=== PATIENT | male | born 1980 | race Caucasian/White ===

== ENCOUNTER 2017-10-04 10:48 | Emergency (ER) | payer MEDICARE, OTHER ==
[~2017-10-04] VITALS: Ht 172.7 cm; Wt 140.0 kg
[~2017-10-04 10:48] MED LIST: BENZ2TAB58 PO; CIPR-278 PO; FLUP10 PO; LEVO300T4 PO; METO50 PO; QUET100T PO; TRAZ-144 PO
[2017-10-04 14:08] LABS: ANION GAP 6 mmol/L (8-16); CALCIUM, TOTAL 9.3 mg/dL (8.8-10.5); CARBON DIOXIDE 32 mmol/L (22-29); CHLORIDE 101 mmol/L (98-107); CREATININE 0.86 mg/dL (0.60-1.30); GLOMERULAR FILTR. RATE CALC > 60 mL/min (>60); GLUCOSE,RANDOM 89 mg/dL (70-110); POTASSIUM 4.2 mmol/L (3.5-5.1); SODIUM SERUM 139 mmol/L (136-145); UREA NITROGEN, BLOOD 10 mg/dL (7-18)
[2017-10-04 14:09] LABS: BASOPHILS # (AUTO) 0.08 K/uL (0.00-0.20); BASOPHILS % (AUTO) 1.1 % (0.0-2.0); EOSINOPHILS # (AUTO) 0.33 K/uL (0.00-0.70); EOSINOPHILS % (AUTO) 4.79 % (1.0-6.0); HEMATOCRIT 47.6 % (41-53); HEMOGLOBIN 15.6 g/dL (13.5-17.5); LYMPHOCYTES # (AUTO) 2.1 K/uL (1.0-4.8); LYMPHOCYTES % (AUTO) 30.1 % (22.0-44.0); MEAN CORPUSCULAR HEMOGLOBIN 29.4 pg (26.0-34.0); MEAN CORPUSCULAR HGB CONC 32.8 G/dL (31.0-37.0); MEAN CORPUSCULAR VOLUME 90 fL (80-100); MONOCYTES # (AUTO) 0.6 K/uL (0.1-1.0); MONOCYTES % (AUTO) 9.1 % (2.0-9.0); NEUTROPHILS # (AUTO) 3.8 K/uL (1.8-7.7); NEUTROPHILS % (AUTO) 54.8 % (40.0-70.0); PLATELET COUNT (AUTO) 191 K/uL (150-450); RED BLOOD CELL COUNT(AUTO) 5.31 MIL/uL (4.50-5.90); RED CELL DISTRIBUTION WIDTH 15.3 % (11.5-14.5)
[2017-10-04 14:13] LABS: ALANINE AMINOTRANSFERASE 55 U/L (12-78); ALKALINE PHOSPHATASE 79 U/L (46-116); ASPARTATE AMINOTRANSFERASE 33 U/L (15-37); BILIRUBIN,TOTAL 1.4 mg/dL (0.1-1.0); TOTAL PROTEIN, SERUM 7.6 g/dL (6.4-8.2)
[2017-10-04] MEDS ORDERED: QUEtiapine FUMARATE 100 MG TABLET PO ONE (14:45)
[2017-10-04 15:08] VITALS: BP 136/83
[2017-10-05] MEDS ORDERED: LEVO175T9 PO (12:02)
== END 2017-10-04 15:25 | disposition home or self-care (01) ==
LOC: EMS 10:49
DX: F20.9 Schizophrenia, unspecified (principal); I10 Essential (primary) hypertension; E05.90 Thyrotoxicosis, unspecified without thyrotoxic crisis or storm; Z88.8 Allergy status to other drugs, medicaments and biological substances
CPT/HCPCS: 36415; 80053; 85025; 99284; G0480

== ENCOUNTER 2017-10-05 10:07 | Inpatient (IN) | payer MEDICARE, MEDICAID ==
[~2017-10-05] VITALS: Ht 167.6 cm; Wt 134.2 kg
[~2017-10-05 10:07] MED LIST changes: -BENZ2TAB58 PO; -CIPR-278 PO; -FLUP10 PO; -QUET100T PO; -TRAZ-144 PO
[2017-10-05 11:20] LABS: BASOPHILS % (AUTO) 0.8 % (0.0-2.0); EOSINOPHILS % (AUTO) 4.2 % (1.0-6.0); HEMATOCRIT 45.7 % (41-53); HEMOGLOBIN 15.5 g/dL (13.5-17.5); LYMPHOCYTES # (AUTO) 1.9 K/uL (1.0-4.8); LYMPHOCYTES % (AUTO) 27.6 % (22.0-44.0); MEAN CORPUSCULAR HEMOGLOBIN 29.6 pg (26.0-34.0); MEAN CORPUSCULAR VOLUME 87 fL (80-100); MONOCYTES # (AUTO) 0.6 K/uL (0.1-1.0); MONOCYTES % (AUTO) 9.1 % (2.0-9.0); NEUTROPHILS % (AUTO) 58.3 % (40.0-70.0); PLATELET COUNT (AUTO) 186 K/uL (150-450); RED BLOOD CELL COUNT(AUTO) 5.24 MIL/uL (4.50-5.90); RED CELL DISTRIBUTION WIDTH 15.2 % (11.5-14.5)
[2017-10-05 11:28] LABS: ANION GAP 6 mmol/L (8-16); CALCIUM, TOTAL 9.2 mg/dL (8.8-10.5); CARBON DIOXIDE 31 mmol/L (22-29); CHLORIDE 102 mmol/L (98-107); CREATININE 0.81 mg/dL (0.60-1.30); GLOMERULAR FILTR. RATE CALC > 60 mL/min (>60); GLUCOSE,RANDOM 89 mg/dL (70-110); POTASSIUM 4.1 mmol/L (3.5-5.1); SODIUM SERUM 139 mmol/L (136-145); UREA NITROGEN, BLOOD 14 mg/dL (7-18)
[2017-10-05 11:34] LABS: ALANINE AMINOTRANSFERASE 70 U/L (12-78); ALBUMIN 3.8 g/dL (3.4-5.0); ALKALINE PHOSPHATASE 76 U/L (46-116); ASPARTATE AMINOTRANSFERASE 44 U/L (15-37); BILIRUBIN,TOTAL 1.4 mg/dL (0.1-1.0); TOTAL PROTEIN, SERUM 7.2 g/dL (6.4-8.2)
[2017-10-05] MEDS ORDERED: LORazepam 2 MG TABLET PO ONE (12:00)
[2017-10-05] MEDS ORDERED: FluPHENAZine HCL 5 MG TABLET PO ONE (12:00)
[2017-10-05] MEDS ORDERED: LEVO175T9 PO (12:02)
[2017-10-05] MEDS ORDERED: OLANZapine 5 MG RAPDIS TABLET PO PRN (12:30)
[2017-10-05 13:54] LABS: AMPHET/METH SCREEN,URINE NEGATIVE (NEGATIVE); BARBITURATE SCREEN, URINE NEGATIVE (NEGATIVE); BENZODIAZEPINES SCREEN,URINE NEGATIVE (NEGATIVE); CANNABINOID SCREEN,URINE NEGATIVE (NEGATIVE); COCAINE SCREEN,URINE NEGATIVE (NEGATIVE); METHADONE SCREEN, URINE NEGATIVE (NEGATIVE); OPIATE SCREEN,URINE NEGATIVE (NEGATIVE)
[2017-10-05 14:00] LABS: PHENCYCLIDINE SCREEN,URINE NEGATIVE (NEGATIVE)
[2017-10-05 14:37] VITALS: BP 162/99
[2017-10-05 15:28] LABS: FREE T4 (FREE THYROXINE) 1.04 ng/dL (0.76-1.46); THYROID STIMULATING HORMONE 3.62 uIU/mL (0.36-3.74)
[2017-10-05] MEDS ORDERED: INFLUENZA VIRUS VACCINE QVS 2017-18 (3YR+)/PF 60 MCG/0.5 ML SYRINGE IM ONE (15:30)
[2017-10-05] MEDS ORDERED: PNEUMOCOCCAL VACCINE POLYVALENT 0.5 ML VIAL [PPSV23] IM ONE (15:30)
[2017-10-05] MEDS: METOPROLOL TARTRATE 50 MG TABLET PO SCH (16:52)
[2017-10-05 17:02] VITALS: BP 113/72
[2017-10-05] MEDS: FluPHENAZine HCL 10 MG TABLET PO SCH (20:09)
[2017-10-05 22:02] LABS: APPEARANCE,URINE CLEAR (CLEAR); BILIRUBIN,URINE NEGATIVE (NEGATIVE); GLUCOSE, URINE (UA) NEGATIVE (NEGATIVE); KETONES,URINE NEGATIVE (NEGATIVE); LEUKOCYTE ESTERASE ,URINE NEGATIVE (NEGATIVE); NITRATE,URINE NEGATIVE (NEGATIVE); OCCULT BLOOD,URINE NEGATIVE (NEGATIVE); PH,URINE 7.5 (5.0-8.0); PROTEIN,URINE NEGATIVE (NEGATIVE); UROBILINOGEN,URINE 0.2 mg/dL (<=1.0)
[2017-10-06 00:32] VITALS: BP 129/90
[2017-10-06] MEDS: ZOLPIDEM TARTRATE 10 MG TABLET PO PRN (00:32)
[2017-10-06] MEDS: LEVOTHYROXINE SODIUM 150 MCG TABLET PO SCH (07:02)
[2017-10-06 08:04] LABS: CHOL/HDL RATIO 3.4 (4.2-7.3)
[2017-10-06] MEDS: METOPROLOL TARTRATE 50 MG TABLET PO SCH ×2 (08:31→16:43)
[2017-10-06 09:39] VITALS: BP 110/59
[2017-10-06] MEDS: LORazepam 2 MG TABLET PO PRN (16:43)
[2017-10-06 16:50] VITALS: BP 124/76
[2017-10-06] MEDS: OLANZapine 5 MG TABLET PO SCH (17:15)
[2017-10-06] MEDS: FluPHENAZine HCL 10 MG TABLET PO SCH (21:22)
[2017-10-07] MEDS: LEVOTHYROXINE SODIUM 150 MCG TABLET PO SCH (07:06)
[2017-10-07] MEDS: METOPROLOL TARTRATE 50 MG TABLET PO SCH ×2 (09:03→16:47)
[2017-10-07] MEDS: OLANZapine 5 MG TABLET PO SCH ×2 (09:04→16:47)
[2017-10-07 10:24] VITALS: BP 123/72
[2017-10-07 16:59] VITALS: BP 110/68
[2017-10-07] MEDS: LORazepam 2 MG TABLET PO PRN (18:12)
[2017-10-07] MEDS: FluPHENAZine HCL 10 MG TABLET PO SCH (20:42)
[2017-10-08] MEDS: LEVOTHYROXINE SODIUM 150 MCG TABLET PO SCH (06:48)
[2017-10-08] MEDS: OLANZapine 5 MG TABLET PO SCH (09:24)
[2017-10-08] MEDS: METOPROLOL TARTRATE 50 MG TABLET PO SCH ×2 (09:24→16:23)
[2017-10-08 09:45] VITALS: BP 136/59
[2017-10-08] MEDS: OLANZapine 10 MG TABLET PO SCH (16:24)
[2017-10-08 16:26] VITALS: BP 129/85
[2017-10-08 17:29] VITALS: BP 129/85
[2017-10-08] MEDS: ZOLPIDEM TARTRATE 10 MG TABLET PO PRN (20:29)
[2017-10-09 06:21] VITALS: BP 139/82
[2017-10-09] MEDS: LEVOTHYROXINE SODIUM 150 MCG TABLET PO SCH (06:28)
[2017-10-09 08:15] VITALS: BP 131/69
[2017-10-09] MEDS: METOPROLOL TARTRATE 50 MG TABLET PO SCH ×2 (08:59→16:10)
[2017-10-09] MEDS: OLANZapine 10 MG TABLET PO SCH ×2 (08:59→16:10)
[2017-10-09 16:30] VITALS: BP 147/81
[2017-10-09] MEDS: ZOLPIDEM TARTRATE 10 MG TABLET PO PRN (20:12)
[2017-10-10 05:48] VITALS: BP 130/71
[2017-10-10] MEDS: LEVOTHYROXINE SODIUM 150 MCG TABLET PO SCH (06:52)
[2017-10-10] MEDS ORDERED: OLAN10TA3 PO (08:07)
[2017-10-10 08:15] VITALS: BP 136/82
[2017-10-10] MEDS: OLANZapine 10 MG TABLET PO SCH (09:09)
[2017-10-10] MEDS: METOPROLOL TARTRATE 50 MG TABLET PO SCH (09:09)
== END 2017-10-10 13:23 | disposition home or self-care (01) | DRG 885 ==
LOC: EMS 10:09 → 3EX 13:06
PROVIDERS: ADMIT Psychiatry & Neurology Psychiatry; ATTEND Psychiatry & Neurology Psychiatry
DX: F20.0 Paranoid schizophrenia (principal); Z68.42 Body mass index [BMI] 45.0-49.9, adult; K76.0 Fatty (change of) liver, not elsewhere classified; E03.9 Hypothyroidism, unspecified; E66.3 Overweight; I10 Essential (primary) hypertension; G47.33 Obstructive sleep apnea (adult) (pediatric); Z91.19 Patient's noncompliance with other medical treatment and regimen; Z88.8 Allergy status to other drugs, medicaments and biological substances; Z79.899 Other long term (current) drug therapy
CPT/HCPCS: 84439; 84443; 99285; G0480

== ENCOUNTER → 2018-07-04 | Outpatient (CLI) | payer MEDICARE, OTHER ==
[~2018-07-04] MED LIST changes: +LEVO175T9 PO; -LEVO300T4 PO; +OLAN10TA3 PO
[2018-07-04 17:07] LABS: BASOPHILS % (AUTO) 0.9 % (0.0-2.0); EOSINOPHILS % (AUTO) 3.6 % (1.0-6.0); HEMOGLOBIN 15.6 g/dL (13.5-17.5); LYMPHOCYTES # (AUTO) 1.6 K/uL (1.0-4.8); LYMPHOCYTES % (AUTO) 23.6 % (22.0-44.0); MEAN CORPUSCULAR HEMOGLOBIN 30.6 pg (26.0-34.0); MEAN CORPUSCULAR HGB CONC 34.6 G/dL (31.0-37.0); MEAN CORPUSCULAR VOLUME 88 fL (80-100); MONOCYTES # (AUTO) 0.5 K/uL (0.1-1.0); MONOCYTES % (AUTO) 7.6 % (2.0-9.0); NEUTROPHILS # (AUTO) 4.2 K/uL (1.8-7.7); NEUTROPHILS % (AUTO) 64.3 % (40.0-70.0); PLATELET COUNT (AUTO) 182 K/uL (150-450); RED BLOOD CELL COUNT(AUTO) 5.09 MIL/uL (4.50-5.90); RED CELL DISTRIBUTION WIDTH 13.5 % (11.5-14.5)
[2018-07-04 17:21] LABS: ALANINE AMINOTRANSFERASE 35 U/L (12-78); ALBUMIN 4.3 g/dL (3.4-5.0); ALKALINE PHOSPHATASE 61 U/L (46-116); ANION GAP 6 mmol/L (8-16); ASPARTATE AMINOTRANSFERASE 23 U/L (15-37); BILIRUBIN,TOTAL 0.8 mg/dL (0.1-1.0); CALCIUM, TOTAL 9.3 mg/dL (8.8-10.5); CARBON DIOXIDE 32 mmol/L (22-29); CHLORIDE 101 mmol/L (98-107); GLOMERULAR FILTR. RATE CALC > 60 mL/min (>60); GLUCOSE,RANDOM 73 mg/dL (70-110); POTASSIUM 4.9 mmol/L (3.5-5.1); SODIUM SERUM 139 mmol/L (136-145); TOTAL PROTEIN, SERUM 7.7 g/dL (6.4-8.2); UREA NITROGEN, BLOOD 15 mg/dL (7-18); VALPROIC ACID 15 mcg/mL (50-100)
== END | disposition home or self-care (01) ==
LOC: LABMN 11:30
PROVIDERS: ATTEND Psychiatry & Neurology Psychiatry
DX: F20.9 Schizophrenia, unspecified (principal); I10 Essential (primary) hypertension; E03.9 Hypothyroidism, unspecified

== ENCOUNTER 2019-09-25 09:19 | Inpatient (IN) | payer MEDICARE, MEDICAID ==
[~2019-09-25] VITALS: Ht 170.2 cm; Wt 113.6 kg
[2019-09-25] MEDS ORDERED: ACETAMINOPHEN 325 MG TABLET PO PRN (12:00)
[2019-09-25] MEDS ORDERED: INFLUENZA VIRUS VACCINE QVS 2019-20 (3YR+)/PF 60 MCG/0.5 ML SYRINGE IM ONE (12:45)
[2019-09-25 14:16] VITALS: BP 150/92
[2019-09-25] MEDS: LORazepam 2 MG TABLET PO PRN (16:36)
[2019-09-25 17:15] VITALS: BP 156/114
[2019-09-25] MEDS: OLANZapine 10 MG TABLET PO SCH (17:47)
[2019-09-26] MEDS ORDERED: LEVOTHYROXINE SODIUM 50 MCG TABLET PO SCH (06:30)
[2019-09-26] MEDS: OLANZapine 10 MG TABLET PO SCH ×2 (08:33→17:16)
[2019-09-26] MEDS: METOPROLOL TARTRATE 25 MG TABLET PO SCH ×2 (08:35→17:17)
[2019-09-26] MEDS: LISINOPRIL 20 MG TABLET PO SCH (08:35)
[2019-09-26 08:38] LABS: BASOPHILS % (AUTO) 1.2 % (0.0-2.0); EOSINOPHILS % (AUTO) 3.1 % (1.0-6.0); HEMATOCRIT 41.6 % (41-53); HEMOGLOBIN 14.4 g/dL (13.5-17.5); LYMPHOCYTES # (AUTO) 1.4 K/uL (1.0-4.8); LYMPHOCYTES % (AUTO) 20.3 % (22.0-44.0); MEAN CORPUSCULAR HEMOGLOBIN 31.7 pg (26.0-34.0); MEAN CORPUSCULAR HGB CONC 34.5 G/dL (31.0-37.0); MEAN CORPUSCULAR VOLUME 92 fL (80-100); MONOCYTES # (AUTO) 0.4 K/uL (0.1-1.0); NEUTROPHILS # (AUTO) 4.8 K/uL (1.8-7.7); NEUTROPHILS % (AUTO) 69.4 % (40.0-70.0); PLATELET COUNT (AUTO) 200 K/uL (150-450); RED BLOOD CELL COUNT(AUTO) 4.53 MIL/uL (4.50-5.90); RED CELL DISTRIBUTION WIDTH 15.3 % (11.5-14.5)
[2019-09-26] MEDS: LORazepam 2 MG TABLET PO PRN ×2 (08:42→17:16)
[2019-09-26 08:47] VITALS: BP 136/73
[2019-09-26] MEDS ORDERED: LISINOPRIL 10 MG TABLET PO SCH (09:00)
[2019-09-26 09:17] LABS: ALANINE AMINOTRANSFERASE 44 U/L (12-78); ALBUMIN 3.8 g/dL (3.4-5.0); ALKALINE PHOSPHATASE 69 U/L (46-116); ANION GAP 7 mmol/L (8-16); ASPARTATE AMINOTRANSFERASE 32 U/L (15-37); BILIRUBIN,TOTAL 1.3 mg/dL (0.1-1.0); CALCIUM, TOTAL 9.1 mg/dL (8.8-10.5); CARBON DIOXIDE 30 mmol/L (22-29); CHLORIDE 102 mmol/L (98-107); CHOL/HDL RATIO 2.8 (4.2-7.3); CHOLESTEROL 155 mg/dL (131-200); CREATINE KINASE, TOTAL ONLY 79 U/L (39-308); CREATININE 0.94 mg/dL (0.60-1.30); FREE T4 (FREE THYROXINE) 0.92 ng/dL (0.76-1.46); GLOMERULAR FILTR. RATE CALC > 60 mL/min (>60); GLUCOSE,RANDOM 104 mg/dL (70-110); HDL CHOLESTEROL 56 mg/dL (40-60); LDL CHOL (CALC.) 75 mg/dL (0-130); SODIUM SERUM 139 mmol/L (136-145); THYROID STIMULATING HORMONE 44.62 uIU/mL (0.36-3.74); TOTAL PROTEIN, SERUM 6.8 g/dL (6.4-8.2); TRIGLYCERIDES 119 mg/dL (15-150); UREA NITROGEN, BLOOD 17 mg/dL (7-18)
[2019-09-26 16:38] VITALS: BP 100/60
[2019-09-26 17:15] VITALS: BP 142/105
[2019-09-26] MEDS: IBUPROFEN 600 MG TABLET PO PRN (17:16)
[2019-09-26] MEDS ORDERED: CloNIDine HCL 0.1 MG TABLET PO PRN (18:45)
[2019-09-27] MEDS: LEVOTHYROXINE SODIUM 200 MCG TABLET PO SCH (06:30)
[2019-09-27] MEDS: OLANZapine 10 MG TABLET PO SCH ×2 (08:32→16:18)
[2019-09-27] MEDS: LISINOPRIL 20 MG TABLET PO SCH (08:32)
[2019-09-27] MEDS: LORazepam 2 MG TABLET PO PRN (08:32)
[2019-09-27] MEDS: METOPROLOL TARTRATE 25 MG TABLET PO SCH ×2 (08:32→16:17)
[2019-09-27 08:39] VITALS: BP 100/62
[2019-09-27] MEDS: IBUPROFEN 600 MG TABLET PO PRN (08:39)
[2019-09-27 16:36] VITALS: BP 150/103
[2019-09-28] MEDS: LEVOTHYROXINE SODIUM 200 MCG TABLET PO SCH (06:29)
[2019-09-28] MEDS: LISINOPRIL 20 MG TABLET PO SCH (08:42)
[2019-09-28] MEDS: OLANZapine 10 MG TABLET PO SCH ×2 (08:42→16:58)
[2019-09-28] MEDS: METOPROLOL TARTRATE 25 MG TABLET PO SCH ×2 (08:42→17:00)
[2019-09-28 09:11] VITALS: BP 120/77
[2019-09-28] MEDS: IBUPROFEN 600 MG TABLET PO PRN (09:11)
[2019-09-28] MEDS: LORazepam 2 MG TABLET PO PRN (10:28)
[2019-09-28] MEDS: QUEtiapine FUMARATE 100 MG TABLET PO PRN (10:28)
[2019-09-28 16:30] VITALS: BP 114/84
[2019-09-29] MEDS: QUEtiapine FUMARATE 100 MG TABLET PO PRN ×2 (06:44→12:31)
[2019-09-29] MEDS: LEVOTHYROXINE SODIUM 200 MCG TABLET PO SCH (06:58)
[2019-09-29 07:11] LABS: BASOPHILS % (AUTO) 1.4 % (0.0-2.0); HEMATOCRIT 41.1 % (41-53); HEMOGLOBIN 14.4 g/dL (13.5-17.5); LYMPHOCYTES % (AUTO) 36.3 % (22.0-44.0); MEAN CORPUSCULAR HGB CONC 35.1 G/dL (31.0-37.0); MEAN CORPUSCULAR VOLUME 91 fL (80-100); MONOCYTES # (AUTO) 0.5 K/uL (0.1-1.0); MONOCYTES % (AUTO) 9.4 % (2.0-9.0); NEUTROPHILS # (AUTO) 2.7 K/uL (1.8-7.7); NEUTROPHILS % (AUTO) 48.9 % (40.0-70.0); PLATELET COUNT (AUTO) 199 K/uL (150-450); RED CELL DISTRIBUTION WIDTH 14.8 % (11.5-14.5)
[2019-09-29] MEDS: OLANZapine 10 MG TABLET PO SCH ×2 (08:36→16:20)
[2019-09-29] MEDS: LISINOPRIL 20 MG TABLET PO SCH (08:36)
[2019-09-29] MEDS: METOPROLOL TARTRATE 25 MG TABLET PO SCH ×2 (08:36→16:20)
[2019-09-29] MEDS: IBUPROFEN 600 MG TABLET PO PRN (09:24)
[2019-09-29 15:01] LABS: APPEARANCE,URINE CLEAR (CLEAR); BILIRUBIN,URINE NEGATIVE (NEGATIVE); GLUCOSE, URINE (UA) NEGATIVE (NEGATIVE); KETONES,URINE NEGATIVE (NEGATIVE); LEUKOCYTE ESTERASE ,URINE NEGATIVE (NEGATIVE); NITRATE,URINE NEGATIVE (NEGATIVE); OCCULT BLOOD,URINE NEGATIVE (NEGATIVE); PH,URINE 5.5 (5.0-8.0); PROTEIN,URINE SEE CONFIRM (NEGATIVE); UROBILINOGEN,URINE 0.2 mg/dL (<=1.0)
[2019-09-29 15:17] LABS: SULFOSALICYLIC ACID,URINE 3+ (Negative)
[2019-09-29 15:30] LABS: BACTERIA,URINE None Seen /HPF (None Seen); RBC,URINE None Seen /HPF (0-2); SQUAMOUS EPITHELIAL CELL,UR Rare /LPF (None Seen); WBC,URINE 0-2 /HPF (0-5)
[2019-09-29 16:47] VITALS: BP 114/73
[2019-09-29] MEDS: OXYBUTYNIN CHLORIDE 5 MG TABLET PO SCH (20:18)
[2019-09-30 04:40] VITALS: BP 129/79
[2019-09-30] MEDS: QUEtiapine FUMARATE 100 MG TABLET PO PRN (04:50)
[2019-09-30] MEDS: LORazepam 2 MG TABLET PO PRN (04:50)
[2019-09-30] MEDS: IBUPROFEN 600 MG TABLET PO PRN (04:50)
[2019-09-30] MEDS: LEVOTHYROXINE SODIUM 200 MCG TABLET PO SCH (06:40)
[2019-09-30] MEDS: MAGNESIUM OXIDE 400 MG TABLET PO SCH (08:18)
[2019-09-30] MEDS: LISINOPRIL 20 MG TABLET PO SCH (08:18)
[2019-09-30] MEDS: OLANZapine 10 MG TABLET PO SCH ×2 (08:18→17:04)
[2019-09-30] MEDS: METOPROLOL TARTRATE 25 MG TABLET PO SCH ×2 (08:18→17:04)
[2019-09-30 08:30] VITALS: BP 127/68
[2019-09-30] MEDS: DIVALPROEX SODIUM 500 MG ER TABLET PO SCH (16:44)
[2019-09-30 16:46] VITALS: BP 105/65
[2019-09-30] MEDS: OXYBUTYNIN CHLORIDE 5 MG TABLET PO SCH (20:09)
[2019-10-01] MEDS: LEVOTHYROXINE SODIUM 200 MCG TABLET PO SCH (06:39)
[2019-10-01] MEDS: DIVALPROEX SODIUM 500 MG ER TABLET PO SCH ×2 (08:14→16:47)
[2019-10-01] MEDS: OLANZapine 10 MG TABLET PO SCH ×2 (08:14→16:38)
[2019-10-01 08:15] VITALS: BP 146/95
[2019-10-01] MEDS: QUEtiapine FUMARATE 100 MG TABLET PO PRN ×3 (08:15→17:16)
[2019-10-01] MEDS: LORazepam 2 MG TABLET PO PRN ×3 (08:15→17:16)
[2019-10-01] MEDS: LISINOPRIL 20 MG TABLET PO SCH (08:15)
[2019-10-01] MEDS: IBUPROFEN 600 MG TABLET PO PRN ×2 (08:15→17:17)
[2019-10-01] MEDS: MAGNESIUM OXIDE 400 MG TABLET PO SCH (08:15)
[2019-10-01] MEDS: METOPROLOL TARTRATE 25 MG TABLET PO SCH ×2 (08:15→16:38)
[2019-10-01 16:30] VITALS: BP 104/67
[2019-10-01] MEDS: OXYBUTYNIN CHLORIDE 5 MG TABLET PO SCH (20:12)
[2019-10-02] MEDS: LEVOTHYROXINE SODIUM 200 MCG TABLET PO SCH (06:57)
[2019-10-02] MEDS: DIVALPROEX SODIUM 500 MG ER TABLET PO SCH ×2 (09:00→17:00)
[2019-10-02 09:16] LABS: ALANINE AMINOTRANSFERASE 54 U/L (12-78); ALKALINE PHOSPHATASE 75 U/L (46-116); ANION GAP 7 mmol/L (8-16); ASPARTATE AMINOTRANSFERASE 32 U/L (15-37); BILIRUBIN,TOTAL 1.4 mg/dL (0.1-1.0); CALCIUM, TOTAL 9.1 mg/dL (8.8-10.5); CARBON DIOXIDE 31 mmol/L (22-29); CHLORIDE 106 mmol/L (98-107); CREATINE KINASE, TOTAL ONLY 94 U/L (39-308); CREATININE 0.92 mg/dL (0.60-1.30); GLOMERULAR FILTR. RATE CALC > 60 mL/min (>60); GLUCOSE,RANDOM 80 mg/dL (70-110); POTASSIUM 3.7 mmol/L (3.5-5.1); SODIUM SERUM 144 mmol/L (136-145); TOTAL PROTEIN, SERUM 7.4 g/dL (6.4-8.2); UREA NITROGEN, BLOOD 18 mg/dL (7-18)
[2019-10-02 09:39] VITALS: BP 143/89
[2019-10-02] MEDS: OLANZapine 10 MG TABLET PO SCH ×2 (10:01→16:47)
[2019-10-02] MEDS: MAGNESIUM OXIDE 400 MG TABLET PO SCH (10:01)
[2019-10-02] MEDS: LISINOPRIL 20 MG TABLET PO SCH (10:01)
[2019-10-02] MEDS: METOPROLOL TARTRATE 25 MG TABLET PO SCH ×2 (10:02→16:48)
[2019-10-02 16:46] VITALS: BP 131/91
[2019-10-02] MEDS: OXYBUTYNIN CHLORIDE 5 MG TABLET PO SCH (16:48)
[2019-10-03 01:55] VITALS: BP 147/94
[2019-10-03] MEDS: IBUPROFEN 600 MG TABLET PO PRN ×2 (02:00→16:02)
[2019-10-03] MEDS: LEVOTHYROXINE SODIUM 200 MCG TABLET PO SCH (06:47)
[2019-10-03] MEDS: ZIPRASIDONE HCL 40 MG CAPSULE PO SCH ×2 (06:52→17:32)
[2019-10-03 08:27] VITALS: BP 122/82
[2019-10-03] MEDS: OXYBUTYNIN CHLORIDE 5 MG TABLET PO SCH ×2 (08:40→16:02)
[2019-10-03] MEDS: MAGNESIUM OXIDE 400 MG TABLET PO SCH (08:40)
[2019-10-03] MEDS: LISINOPRIL 20 MG TABLET PO SCH (08:41)
[2019-10-03] MEDS: METOPROLOL TARTRATE 25 MG TABLET PO SCH ×2 (08:41→16:01)
[2019-10-03 16:00] VITALS: BP 130/89
[2019-10-03 17:13] VITALS: BP 130/89
[2019-10-04 03:50] VITALS: BP 140/74
[2019-10-04] MEDS: IBUPROFEN 600 MG TABLET PO PRN ×2 (03:58→16:18)
[2019-10-04] MEDS: LORazepam 2 MG TABLET PO PRN ×2 (03:58→10:23)
[2019-10-04] MEDS: QUEtiapine FUMARATE 100 MG TABLET PO PRN (03:59)
[2019-10-04] MEDS: ZIPRASIDONE HCL 40 MG CAPSULE PO SCH ×2 (07:03→18:28)
[2019-10-04] MEDS: LEVOTHYROXINE SODIUM 200 MCG TABLET PO SCH (07:03)
[2019-10-04 08:00] VITALS: BP 127/98
[2019-10-04] MEDS: METOPROLOL TARTRATE 25 MG TABLET PO SCH ×2 (10:23→16:17)
[2019-10-04] MEDS: OXYBUTYNIN CHLORIDE 5 MG TABLET PO SCH ×2 (10:23→16:17)
[2019-10-04] MEDS: LISINOPRIL 20 MG TABLET PO SCH (10:23)
[2019-10-04] MEDS: MAGNESIUM OXIDE 400 MG TABLET PO SCH (10:23)
[2019-10-04 16:19] VITALS: BP 143/97
[2019-10-05] MEDS: LORazepam 2 MG TABLET PO PRN (02:36)
[2019-10-05] MEDS: IBUPROFEN 600 MG TABLET PO PRN (02:36)
[2019-10-05 02:37] VITALS: BP 154/100
[2019-10-05 04:30] VITALS: BP 115/57
[2019-10-05] MEDS: LEVOTHYROXINE SODIUM 200 MCG TABLET PO SCH (06:12)
[2019-10-05] MEDS: ZIPRASIDONE HCL 40 MG CAPSULE PO SCH (06:45)
[2019-10-05] MEDS: METOPROLOL TARTRATE 25 MG TABLET PO SCH ×2 (08:20→16:34)
[2019-10-05] MEDS: MAGNESIUM OXIDE 400 MG TABLET PO SCH (08:20)
[2019-10-05] MEDS: OXYBUTYNIN CHLORIDE 5 MG TABLET PO SCH ×2 (08:20→16:34)
[2019-10-05] MEDS: LISINOPRIL 20 MG TABLET PO SCH (08:20)
[2019-10-05 09:06] VITALS: BP 144/69
[2019-10-05] MEDS: ZIPRASIDONE HCL 60 MG CAPSULE PO SCH (17:26)
[2019-10-05] MEDS ORDERED: LORazepam 2 MG/ML VIAL IM ONE (18:00)
[2019-10-05] MEDS ORDERED: DiphenhydrAMINE HCL 50 MG/ML VIAL IM ONE (18:00)
[2019-10-05] MEDS ORDERED: HALOPERIDOL LACTATE 5 MG/ML VIAL IM ONE (18:00)
[2019-10-05 19:56] VITALS: BP 140/99
[2019-10-05] MEDS: ZOLPIDEM TARTRATE 10 MG TABLET PO PRN (20:41)
[2019-10-06] MEDS: ZIPRASIDONE HCL 60 MG CAPSULE PO SCH (07:30)
[2019-10-06] MEDS: LEVOTHYROXINE SODIUM 200 MCG TABLET PO SCH (08:09)
[2019-10-06] MEDS: LISINOPRIL 20 MG TABLET PO SCH (09:33)
[2019-10-06] MEDS: MAGNESIUM OXIDE 400 MG TABLET PO SCH (09:33)
[2019-10-06] MEDS: OXYBUTYNIN CHLORIDE 5 MG TABLET PO SCH ×2 (09:33→16:34)
[2019-10-06] MEDS: METOPROLOL TARTRATE 25 MG TABLET PO SCH ×2 (09:33→16:34)
[2019-10-06 09:36] VITALS: BP 135/91
[2019-10-06] MEDS: ZIPRASIDONE HCL 20 MG CAPSULE PO SCH (12:32)
[2019-10-06] MEDS: ZIPRASIDONE HCL 80 MG CAPSULE PO SCH (16:34)
[2019-10-06 18:40] VITALS: BP 143/95
[2019-10-07] MEDS: ZOLPIDEM TARTRATE 10 MG TABLET PO PRN (01:07)
[2019-10-07] MEDS: QUEtiapine FUMARATE 100 MG TABLET PO PRN (01:07)
[2019-10-07 01:10] VITALS: BP 136/94
[2019-10-07 02:46] VITALS: BP 126/84
[2019-10-07] MEDS: LEVOTHYROXINE SODIUM 200 MCG TABLET PO SCH (06:58)
[2019-10-07] MEDS: ZIPRASIDONE HCL 20 MG CAPSULE PO SCH (06:59)
[2019-10-07 10:13] VITALS: BP 111/63
[2019-10-07] MEDS: MAGNESIUM OXIDE 400 MG TABLET PO SCH (10:14)
[2019-10-07] MEDS: OXYBUTYNIN CHLORIDE 5 MG TABLET PO SCH ×2 (10:14→16:16)
[2019-10-07] MEDS: METOPROLOL TARTRATE 25 MG TABLET PO SCH ×2 (10:14→16:16)
[2019-10-07] MEDS: LISINOPRIL 20 MG TABLET PO SCH (10:14)
[2019-10-07 16:00] VITALS: BP 154/103
[2019-10-07] MEDS: ZIPRASIDONE HCL 80 MG CAPSULE PO SCH (17:29)
[2019-10-07] MEDS ORDERED: BISACODYL 5 MG EC TABLET PO PRN (18:00)
[2019-10-07] MEDS ORDERED: LACTULOSE 20 GM/30 ML SOLUTION UDCUP PO PRN (21:00)
[2019-10-08] MEDS: LORazepam 2 MG TABLET PO PRN ×4 (02:35→23:44)
[2019-10-08] MEDS: ZOLPIDEM TARTRATE 10 MG TABLET PO PRN ×2 (02:35→23:33)
[2019-10-08 02:40] VITALS: BP 142/92
[2019-10-08] MEDS: ZIPRASIDONE HCL 20 MG CAPSULE PO SCH (06:31)
[2019-10-08] MEDS: LEVOTHYROXINE SODIUM 200 MCG TABLET PO SCH (06:31)
[2019-10-08 08:51] VITALS: BP 145/100
[2019-10-08] MEDS: METOPROLOL TARTRATE 25 MG TABLET PO SCH ×2 (09:24→17:03)
[2019-10-08] MEDS: LISINOPRIL 20 MG TABLET PO SCH (09:24)
[2019-10-08] MEDS: OXYBUTYNIN CHLORIDE 5 MG TABLET PO SCH ×2 (09:24→17:03)
[2019-10-08] MEDS: DOCUSATE SODIUM 250 MG CAPSULE PO SCH ×2 (09:25→17:03)
[2019-10-08] MEDS: MAGNESIUM OXIDE 400 MG TABLET PO SCH (09:25)
[2019-10-08 12:28] VITALS: BP 142/89
[2019-10-08] MEDS: IBUPROFEN 600 MG TABLET PO PRN (12:28)
[2019-10-08] MEDS: ZIPRASIDONE HCL 80 MG CAPSULE PO SCH (17:18)
[2019-10-08 18:16] VITALS: BP 138/90
[2019-10-09 01:51] VITALS: BP 127/85
[2019-10-09] MEDS: LEVOTHYROXINE SODIUM 200 MCG TABLET PO SCH (06:39)
[2019-10-09] MEDS: ZIPRASIDONE HCL 20 MG CAPSULE PO SCH (06:39)
[2019-10-09] MEDS: DOCUSATE SODIUM 250 MG CAPSULE PO SCH ×2 (08:18→16:32)
[2019-10-09] MEDS: OXYBUTYNIN CHLORIDE 5 MG TABLET PO SCH ×3 (08:19→16:32)
[2019-10-09] MEDS: MAGNESIUM OXIDE 400 MG TABLET PO SCH (08:19)
[2019-10-09] MEDS: METOPROLOL TARTRATE 25 MG TABLET PO SCH ×2 (08:19→16:32)
[2019-10-09] MEDS: LISINOPRIL 20 MG TABLET PO SCH (08:19)
[2019-10-09 08:22] VITALS: BP 131/88
[2019-10-09] MEDS: ZIPRASIDONE HCL 80 MG CAPSULE PO SCH (16:32)
[2019-10-09 18:34] VITALS: BP 141/100
[2019-10-09] MEDS: LORazepam 2 MG TABLET PO PRN (19:13)
[2019-10-10] MEDS: IBUPROFEN 600 MG TABLET PO PRN (01:26)
[2019-10-10 01:27] VITALS: BP 126/79
[2019-10-10] MEDS: ZOLPIDEM TARTRATE 10 MG TABLET PO PRN (02:10)
[2019-10-10 02:26] VITALS: BP 154/82
[2019-10-10] MEDS: LEVOTHYROXINE SODIUM 200 MCG TABLET PO SCH (06:50)
[2019-10-10] MEDS: ZIPRASIDONE HCL 20 MG CAPSULE PO SCH (06:51)
[2019-10-10] MEDS: MAGNESIUM OXIDE 400 MG TABLET PO SCH (08:33)
[2019-10-10] MEDS: LISINOPRIL 20 MG TABLET PO SCH (08:33)
[2019-10-10] MEDS: DOCUSATE SODIUM 250 MG CAPSULE PO SCH (08:33)
[2019-10-10] MEDS: METOPROLOL TARTRATE 25 MG TABLET PO SCH (08:33)
[2019-10-10] MEDS: OXYBUTYNIN CHLORIDE 5 MG TABLET PO SCH ×2 (08:33→12:31)
[2019-10-10 09:41] VITALS: BP 156/98
[2019-10-10] MEDS ORDERED: ZIPR80CA2 PO (11:02)
[2019-10-10] MEDS ORDERED: ZIPR20CA2 PO (11:02)
[2019-10-10] MEDS ORDERED: DOCU-342 PO (11:09)
[2019-10-10] MEDS ORDERED: LISI-662 PO (11:10)
[2019-10-10] MEDS ORDERED: OXYB5 PO (11:12)
[2019-10-10] MEDS ORDERED: MAGOX PO (11:12)
[2019-10-10] MEDS ORDERED: LEVO200 PO (11:13)
[2019-10-10] MEDS ORDERED: METO25 PO (11:13)
== END 2019-10-10 12:00 | disposition home or self-care (01) | DRG 885 ==
LOC: 3EI 10:15
PROVIDERS: ADMIT Psychiatry & Neurology Psychiatry; ATTEND Psychiatry & Neurology Psychiatry
DX: F20.0 Paranoid schizophrenia (principal); R45.851 Suicidal ideations; I10 Essential (primary) hypertension; E03.9 Hypothyroidism, unspecified; G47.33 Obstructive sleep apnea (adult) (pediatric); E83.42 Hypomagnesemia; F19.90 Other psychoactive substance use, unspecified, uncomplicated; R45.87 Impulsiveness; K59.00 Constipation, unspecified; N32.81 Overactive bladder; R32 Unspecified urinary incontinence; Z91.19 Patient's noncompliance with other medical treatment and regimen; Z83.3 Family history of diabetes mellitus; Z88.8 Allergy status to other drugs, medicaments and biological substances; Z23 Encounter for immunization
CPT/HCPCS: 80074; 83036; 83735; 84439; 84443; 86592; 87081; 90686

== ENCOUNTER 2021-06-24 01:26 | Inpatient (IN) | payer MEDICARE, MEDICAID ==
[~2021-06-24] VITALS: Ht 170.2 cm; Wt 173.4 kg
[~2021-06-24 01:26] MED LIST changes: +DOCU-350 PO; -LEVO175T9 PO; +LEVO200 PO; +LISI-894 PO; +MAGN400T7 PO; +METO25 PO; -METO50 PO; -OLAN10TA3 PO; +OXYB5TAB20 PO; +ZIPR20CA2 PO; +ZIPR80CA2 PO
[2021-06-24 02:26] LABS: BASOPHILS % (AUTO) 0.9 % (0.0-2.0); EOSINOPHILS % (AUTO) 5.4 % (1.0-6.0); HEMATOCRIT 39.6 % (41-53); HEMOGLOBIN 13.3 g/dL (13.5-17.5); LYMPHOCYTES # (AUTO) 1.8 K/uL (1.0-4.8); LYMPHOCYTES % (AUTO) 28.6 % (22.0-44.0); MEAN CORPUSCULAR HEMOGLOBIN 30.1 pg (26.0-34.0); MEAN CORPUSCULAR HGB CONC 33.6 G/dL (31.0-37.0); MEAN CORPUSCULAR VOLUME 90 fL (80-100); MONOCYTES # (AUTO) 0.6 K/uL (0.1-1.0); MONOCYTES % (AUTO) 9.4 % (2.0-9.0); NEUTROPHILS # (AUTO) 3.6 K/uL (1.8-7.7); NEUTROPHILS % (AUTO) 55.7 % (40.0-70.0); PLATELET COUNT (AUTO) 194 K/uL (150-450); RED BLOOD CELL COUNT(AUTO) 4.42 MIL/uL (4.50-5.90); RED CELL DISTRIBUTION WIDTH 14.5 % (11.5-14.5)
[2021-06-24 02:32] LABS: ANION GAP 7 mmol/L (8-16); CALCIUM, TOTAL 8.8 mg/dL (8.8-10.5); CARBON DIOXIDE 30 mmol/L (22-29); CHLORIDE 106 mmol/L (98-107); GLOMERULAR FILTR. RATE CALC > 60 mL/min (>60); GLUCOSE,RANDOM 111 mg/dL (70-110); POTASSIUM 4.3 mmol/L (3.5-5.1); SODIUM SERUM 143 mmol/L (136-145); UREA NITROGEN, BLOOD 16 mg/dL (7-18)
[2021-06-24 02:38] LABS: ALANINE AMINOTRANSFERASE 105 U/L (12-78); ALBUMIN 3.8 g/dL (3.4-5.0); ALKALINE PHOSPHATASE 93 U/L (46-116); ASPARTATE AMINOTRANSFERASE 65 U/L (15-37); BILIRUBIN,TOTAL 0.6 mg/dL (0.1-1.0); TOTAL PROTEIN, SERUM 7.9 g/dL (6.4-8.2)
[2021-06-24] MEDS ORDERED: ZIPRASIDONE HCL 20 MG CAPSULE PO ONE (03:15)
[2021-06-24] MEDS ORDERED: DiphenhydrAMINE HCL 50 MG/ML VIAL ONE (04:08)
[2021-06-24] MEDS ORDERED: ChlorproMAZINE HCL 50 MG/2 ML AMP ONE (04:08)
[2021-06-24] MEDS ORDERED: DiphenhydrAMINE HCL 50 MG/ML VIAL IM ONE (04:15)
[2021-06-24] MEDS ORDERED: LORazepam 2 MG/ML VIAL IM ONE (04:15)
[2021-06-24] MEDS ORDERED: ChlorproMAZINE HCL 50 MG/2 ML AMP IM ONE (04:15)
[2021-06-24 04:26] LABS: COVID AG,FIA SOURCE NASOPHARYNGEAL
[2021-06-24 08:18] LABS: AMPHET/METH SCREEN,URINE NEGATIVE (NEGATIVE); BARBITURATE SCREEN, URINE NEGATIVE (NEGATIVE); BENZODIAZEPINES SCREEN,URINE NEGATIVE (NEGATIVE); CANNABINOID SCREEN,URINE NEGATIVE (NEGATIVE); COCAINE SCREEN,URINE NEGATIVE (NEGATIVE); METHADONE SCREEN, URINE NEGATIVE (NEGATIVE); OPIATE SCREEN,URINE POSITIVE (NEGATIVE)
[2021-06-24 08:22] LABS: PHENCYCLIDINE SCREEN,URINE NEGATIVE (NEGATIVE)
[2021-06-24 12:39] VITALS: BP 153/94
[2021-06-24] MEDS ORDERED: GuaiFENesin/D-METHORPHAN [SUGAR-FREE] 200-20MG/10 ML SYRUP UDCUP PO PRN (14:45)
[2021-06-24] MEDS ORDERED: ALBUTEROL SULFATE HFA 90 MCG/PUFF 8 GM INHALER IH PRN (14:45)
[2021-06-24] MEDS ORDERED: CloNIDine HCL 0.1 MG TABLET PO PRN (14:45)
[2021-06-24] MEDS ORDERED: NICOTINE 14 MG/24 HOUR PATCH TD PRN (14:45)
[2021-06-24] MEDS ORDERED: MAGNESIUM HYDROXIDE SUSPENSION 30 ML UDCUP PO PRN (14:45)
[2021-06-24] MEDS ORDERED: PETROLATUM,WHITE 28 GM JELLY TP PRN (14:45)
[2021-06-24] MEDS ORDERED: ONDANSETRON HCL 4 MG TABLET PO PRN (14:45)
[2021-06-24] MEDS ORDERED: LOPERAMIDE HCL 2 MG CAPSULE PO PRN (14:45)
[2021-06-24] MEDS ORDERED: MAG HYDROX/AL HYDROX/SIMETH ES 30 ML SUSPENSION UDCUP PO PRN (14:45)
[2021-06-24] MEDS: DOCUSATE SODIUM 250 MG CAPSULE PO SCH (16:11)
[2021-06-24] MEDS: HydrOXYzine HCL 10 MG TABLET PO SCH ×2 (16:11→20:12)
[2021-06-24] MEDS: OXYBUTYNIN CHLORIDE 5 MG TABLET PO SCH (16:53)
[2021-06-24] MEDS: ZIPRASIDONE HCL 40 MG CAPSULE PO SCH (16:54)
[2021-06-24] MEDS: METOPROLOL TARTRATE 25 MG TABLET PO SCH (16:54)
[2021-06-24] MEDS ORDERED: ZIPRASIDONE HCL 80 MG CAPSULE PO SCH (17:30)
[2021-06-25] MEDS: LORazepam 2 MG TABLET PO PRN (00:11)
[2021-06-25 00:16] VITALS: BP 163/98
[2021-06-25] MEDS: ZIPRASIDONE HCL 40 MG CAPSULE PO SCH ×2 (06:25→16:50)
[2021-06-25] MEDS: LEVOTHYROXINE SODIUM 200 MCG TABLET PO SCH (06:25)
[2021-06-25] MEDS ORDERED: ZIPRASIDONE HCL 20 MG CAPSULE PO SCH (07:30)
[2021-06-25 09:15] VITALS: BP 108/66
[2021-06-25] MEDS: LISINOPRIL 20 MG TABLET PO SCH (10:31)
[2021-06-25] MEDS: MAGNESIUM OXIDE 400 MG TABLET PO SCH (10:31)
[2021-06-25] MEDS: HydrOXYzine HCL 10 MG TABLET PO SCH ×4 (10:32→20:46)
[2021-06-25] MEDS: OXYBUTYNIN CHLORIDE 5 MG TABLET PO SCH ×3 (10:32→16:50)
[2021-06-25] MEDS: DOCUSATE SODIUM 250 MG CAPSULE PO SCH ×2 (10:32→16:50)
[2021-06-25] MEDS: METOPROLOL TARTRATE 25 MG TABLET PO SCH ×2 (10:32→16:50)
[2021-06-25] MEDS: QUEtiapine FUMARATE 100 MG TABLET PO PRN (13:48)
[2021-06-25 16:13] VITALS: BP 121/76
[2021-06-25] MEDS: DOCUSATE SODIUM 100 MG CAPSULE PO PRN (16:50)
[2021-06-25 16:51] LABS: CHOL/HDL RATIO 3.7 (4.2-7.3)
[2021-06-25] MEDS: ZOLPIDEM TARTRATE 10 MG TABLET PO PRN (21:25)
[2021-06-26] MEDS: LEVOTHYROXINE SODIUM 200 MCG TABLET PO SCH (06:30)
[2021-06-26] MEDS: ZIPRASIDONE HCL 40 MG CAPSULE PO SCH ×2 (06:30→16:25)
[2021-06-26 09:00] VITALS: BP 138/82
[2021-06-26] MEDS: DOCUSATE SODIUM 250 MG CAPSULE PO SCH ×2 (10:08→16:24)
[2021-06-26] MEDS: MAGNESIUM OXIDE 400 MG TABLET PO SCH (10:10)
[2021-06-26] MEDS: METOPROLOL TARTRATE 25 MG TABLET PO SCH ×2 (10:10→16:24)
[2021-06-26] MEDS: LISINOPRIL 20 MG TABLET PO SCH (10:10)
[2021-06-26] MEDS: OXYBUTYNIN CHLORIDE 5 MG TABLET PO SCH ×3 (10:10→16:25)
[2021-06-26] MEDS: HydrOXYzine HCL 10 MG TABLET PO SCH ×4 (10:11→20:15)
[2021-06-26] MEDS: QUEtiapine FUMARATE 100 MG TABLET PO PRN ×2 (10:38→22:01)
[2021-06-26 16:25] VITALS: BP_SYST 105; BP_SYST 112; BP_DIAS 59; BP_DIAS 65
[2021-06-26] MEDS: ACETAMINOPHEN 325 MG TABLET PO PRN (16:25)
[2021-06-26 23:02] VITALS: BP 125/68
[2021-06-26] MEDS: LORazepam 2 MG TABLET PO PRN (23:02)
[2021-06-27] MEDS: ZOLPIDEM TARTRATE 10 MG TABLET PO PRN ×2 (00:02→20:36)
[2021-06-27 00:04] VITALS: BP 136/82
[2021-06-27] MEDS: LEVOTHYROXINE SODIUM 200 MCG TABLET PO SCH (06:51)
[2021-06-27] MEDS: ZIPRASIDONE HCL 40 MG CAPSULE PO SCH ×2 (06:52→16:52)
[2021-06-27 08:02] VITALS: BP 159/105
[2021-06-27] MEDS: DOCUSATE SODIUM 100 MG CAPSULE PO PRN (08:49)
[2021-06-27] MEDS: MAGNESIUM OXIDE 400 MG TABLET PO SCH (08:49)
[2021-06-27] MEDS: OXYBUTYNIN CHLORIDE 5 MG TABLET PO SCH ×3 (08:49→16:52)
[2021-06-27] MEDS: HydrOXYzine HCL 10 MG TABLET PO SCH ×4 (08:49→20:37)
[2021-06-27] MEDS: LISINOPRIL 20 MG TABLET PO SCH (08:49)
[2021-06-27] MEDS: METOPROLOL TARTRATE 25 MG TABLET PO SCH ×2 (08:49→16:52)
[2021-06-27] MEDS: ACETAMINOPHEN 325 MG TABLET PO PRN (08:51)
[2021-06-27] MEDS: DOCUSATE SODIUM 250 MG CAPSULE PO SCH ×2 (09:57→16:52)
[2021-06-27 10:01] VITALS: BP 102/55
[2021-06-27] MEDS: LORazepam 2 MG TABLET PO PRN (11:47)
[2021-06-27] MEDS: IBUPROFEN 400 MG TABLET PO PRN (13:46)
[2021-06-27 16:14] VITALS: BP 111/76
[2021-06-27] MEDS: QUEtiapine FUMARATE 100 MG TABLET PO PRN (16:43)
[2021-06-28] MEDS: ZIPRASIDONE HCL 40 MG CAPSULE PO SCH ×2 (06:44→17:30)
[2021-06-28] MEDS: LEVOTHYROXINE SODIUM 200 MCG TABLET PO SCH (06:44)
[2021-06-28] MEDS: DOCUSATE SODIUM 250 MG CAPSULE PO SCH ×2 (08:39→17:30)
[2021-06-28] MEDS: MAGNESIUM OXIDE 400 MG TABLET PO SCH (08:39)
[2021-06-28] MEDS: METOPROLOL TARTRATE 25 MG TABLET PO SCH ×2 (08:40→17:30)
[2021-06-28] MEDS: LISINOPRIL 20 MG TABLET PO SCH (08:40)
[2021-06-28] MEDS: HydrOXYzine HCL 10 MG TABLET PO SCH ×4 (08:40→21:55)
[2021-06-28] MEDS: OXYBUTYNIN CHLORIDE 5 MG TABLET PO SCH ×3 (08:40→17:30)
[2021-06-28 09:10] VITALS: BP 108/58
[2021-06-28] MEDS: QUEtiapine FUMARATE 100 MG TABLET PO PRN (12:27)
[2021-06-28] MEDS: IBUPROFEN 400 MG TABLET PO PRN (12:30)
[2021-06-28] MEDS: DOCUSATE SODIUM 100 MG CAPSULE PO PRN (18:48)
[2021-06-28] MEDS: ZOLPIDEM TARTRATE 10 MG TABLET PO PRN (21:56)
[2021-06-29 04:39] VITALS: BP 153/89
[2021-06-29] MEDS: IBUPROFEN 400 MG TABLET PO PRN (04:39)
[2021-06-29] MEDS: QUEtiapine FUMARATE 100 MG TABLET PO PRN (04:39)
[2021-06-29] MEDS: LEVOTHYROXINE SODIUM 200 MCG TABLET PO SCH (06:36)
[2021-06-29] MEDS: ZIPRASIDONE HCL 40 MG CAPSULE PO SCH ×2 (06:36→16:09)
[2021-06-29 08:00] VITALS: BP 108/59
[2021-06-29] MEDS: LISINOPRIL 20 MG TABLET PO SCH (09:45)
[2021-06-29] MEDS: METOPROLOL TARTRATE 25 MG TABLET PO SCH ×2 (09:46→16:10)
[2021-06-29] MEDS: DOCUSATE SODIUM 250 MG CAPSULE PO SCH ×2 (09:46→16:10)
[2021-06-29] MEDS: HydrOXYzine HCL 10 MG TABLET PO SCH ×4 (09:46→19:57)
[2021-06-29] MEDS: MAGNESIUM OXIDE 400 MG TABLET PO SCH (09:46)
[2021-06-29] MEDS: DIVALPROEX SODIUM 500 MG DR TABLET PO SCH ×2 (10:56→16:10)
[2021-06-29] MEDS: OXYBUTYNIN CHLORIDE 5 MG TABLET PO SCH ×3 (10:56→16:11)
[2021-06-29 17:10] VITALS: BP 108/56
[2021-06-29] MEDS: ZOLPIDEM TARTRATE 10 MG TABLET PO PRN (20:48)
[2021-06-30 03:32] VITALS: BP 108/62
[2021-06-30] MEDS: ZIPRASIDONE HCL 40 MG CAPSULE PO SCH ×2 (06:44→17:41)
[2021-06-30] MEDS: LEVOTHYROXINE SODIUM 200 MCG TABLET PO SCH (06:44)
[2021-06-30] MEDS: DOCUSATE SODIUM 250 MG CAPSULE PO SCH ×2 (09:12→16:55)
[2021-06-30] MEDS: DIVALPROEX SODIUM 500 MG DR TABLET PO SCH ×2 (09:12→16:55)
[2021-06-30] MEDS: LISINOPRIL 20 MG TABLET PO SCH (09:12)
[2021-06-30] MEDS: HydrOXYzine HCL 10 MG TABLET PO SCH ×4 (09:13→20:59)
[2021-06-30] MEDS: OXYBUTYNIN CHLORIDE 5 MG TABLET PO SCH ×3 (09:13→16:55)
[2021-06-30] MEDS: MAGNESIUM OXIDE 400 MG TABLET PO SCH (09:23)
[2021-06-30] MEDS: METOPROLOL TARTRATE 25 MG TABLET PO SCH ×2 (09:23→16:55)
[2021-06-30 14:14] VITALS: BP 138/86
[2021-06-30] MEDS: QUEtiapine FUMARATE 100 MG TABLET PO PRN ×2 (14:14→20:59)
[2021-06-30] MEDS: IBUPROFEN 400 MG TABLET PO PRN (14:14)
[2021-06-30 15:21] VITALS: BP 139/65
[2021-06-30] MEDS: ZOLPIDEM TARTRATE 10 MG TABLET PO PRN (22:13)
[2021-06-30 23:59] LABS: COVID AG,FIA SOURCE NASAL SWAB
[2021-07-01] MEDS: LEVOTHYROXINE SODIUM 200 MCG TABLET PO SCH (06:30)
[2021-07-01] MEDS: ZIPRASIDONE HCL 40 MG CAPSULE PO SCH ×2 (06:30→16:48)
[2021-07-01] MEDS: LISINOPRIL 20 MG TABLET PO SCH ×2 (09:00→09:04)
[2021-07-01] MEDS: METOPROLOL TARTRATE 25 MG TABLET PO SCH ×3 (09:00→17:00)
[2021-07-01] MEDS: DOCUSATE SODIUM 250 MG CAPSULE PO SCH ×2 (09:03→16:47)
[2021-07-01] MEDS: DIVALPROEX SODIUM 500 MG DR TABLET PO SCH ×2 (09:03→16:47)
[2021-07-01] MEDS: HydrOXYzine HCL 10 MG TABLET PO SCH ×4 (09:04→20:16)
[2021-07-01] MEDS: OXYBUTYNIN CHLORIDE 5 MG TABLET PO SCH ×3 (09:04→16:48)
[2021-07-01] MEDS: MAGNESIUM OXIDE 400 MG TABLET PO SCH (09:04)
[2021-07-01 17:21] VITALS: BP 105/55
[2021-07-01 21:06] VITALS: BP 112/74
[2021-07-01] MEDS: IBUPROFEN 400 MG TABLET PO PRN (21:06)
[2021-07-01] MEDS: ZOLPIDEM TARTRATE 10 MG TABLET PO PRN (22:14)
[2021-07-01] MEDS: QUEtiapine FUMARATE 100 MG TABLET PO PRN (22:54)
[2021-07-02 01:00] VITALS: BP 144/103
[2021-07-02] MEDS: LORazepam 2 MG TABLET PO PRN (01:14)
[2021-07-02] MEDS: ZIPRASIDONE HCL 40 MG CAPSULE PO SCH ×2 (06:49→16:29)
[2021-07-02] MEDS: LEVOTHYROXINE SODIUM 200 MCG TABLET PO SCH (06:49)
[2021-07-02] MEDS: HydrOXYzine HCL 10 MG TABLET PO SCH ×4 (08:24→20:29)
[2021-07-02] MEDS: DIVALPROEX SODIUM 500 MG DR TABLET PO SCH ×2 (08:24→16:29)
[2021-07-02] MEDS: OXYBUTYNIN CHLORIDE 5 MG TABLET PO SCH ×3 (08:24→16:29)
[2021-07-02] MEDS: DOCUSATE SODIUM 250 MG CAPSULE PO SCH ×2 (08:24→16:29)
[2021-07-02] MEDS: LISINOPRIL 20 MG TABLET PO SCH ×2 (08:24→09:00)
[2021-07-02] MEDS: MAGNESIUM OXIDE 400 MG TABLET PO SCH (08:42)
[2021-07-02] MEDS: METOPROLOL TARTRATE 25 MG TABLET PO SCH ×2 (09:00→16:29)
[2021-07-02 16:46] VITALS: BP 149/86
[2021-07-02] MEDS: ZOLPIDEM TARTRATE 10 MG TABLET PO PRN (21:03)
[2021-07-02] MEDS: QUEtiapine FUMARATE 100 MG TABLET PO PRN (21:03)
[2021-07-03 03:16] VITALS: BP 139/81
[2021-07-03] MEDS: QUEtiapine FUMARATE 100 MG TABLET PO PRN (03:49)
[2021-07-03] MEDS: LEVOTHYROXINE SODIUM 200 MCG TABLET PO SCH (06:32)
[2021-07-03] MEDS: ZIPRASIDONE HCL 40 MG CAPSULE PO SCH ×2 (06:32→17:30)
[2021-07-03 08:48] VITALS: BP 140/92
[2021-07-03] MEDS: HydrOXYzine HCL 10 MG TABLET PO SCH ×4 (08:54→20:29)
[2021-07-03] MEDS: LISINOPRIL 20 MG TABLET PO SCH (08:55)
[2021-07-03] MEDS: DIVALPROEX SODIUM 500 MG DR TABLET PO SCH ×2 (08:55→16:18)
[2021-07-03] MEDS: DOCUSATE SODIUM 250 MG CAPSULE PO SCH ×2 (08:55→16:19)
[2021-07-03] MEDS: OXYBUTYNIN CHLORIDE 5 MG TABLET PO SCH ×3 (08:55→16:19)
[2021-07-03] MEDS: METOPROLOL TARTRATE 25 MG TABLET PO SCH ×2 (09:05→16:19)
[2021-07-03] MEDS: MAGNESIUM OXIDE 400 MG TABLET PO SCH (09:05)
[2021-07-03 16:16] VITALS: BP 144/82
[2021-07-03] MEDS: IBUPROFEN 400 MG TABLET PO PRN (20:30)
[2021-07-03] MEDS: ZOLPIDEM TARTRATE 10 MG TABLET PO PRN (21:06)
[2021-07-04] MEDS: LEVOTHYROXINE SODIUM 200 MCG TABLET PO SCH (06:34)
[2021-07-04] MEDS: ZIPRASIDONE HCL 40 MG CAPSULE PO SCH ×2 (06:34→17:31)
[2021-07-04] MEDS: DIVALPROEX SODIUM 500 MG DR TABLET PO SCH ×2 (08:50→16:32)
[2021-07-04] MEDS: HydrOXYzine HCL 10 MG TABLET PO SCH ×4 (08:50→20:06)
[2021-07-04] MEDS: DOCUSATE SODIUM 250 MG CAPSULE PO SCH ×2 (08:50→16:32)
[2021-07-04] MEDS: METOPROLOL TARTRATE 25 MG TABLET PO SCH ×2 (08:51→16:31)
[2021-07-04] MEDS: LISINOPRIL 20 MG TABLET PO SCH (08:51)
[2021-07-04] MEDS: OXYBUTYNIN CHLORIDE 5 MG TABLET PO SCH ×3 (08:52→16:30)
[2021-07-04] MEDS: MAGNESIUM OXIDE 400 MG TABLET PO SCH (08:53)
[2021-07-04 08:55] VITALS: BP 135/73
[2021-07-04] MEDS: IBUPROFEN 400 MG TABLET PO PRN (08:55)
[2021-07-04 09:40] VITALS: BP 135/73
[2021-07-04 09:56] VITALS: BP 137/69
[2021-07-04] MEDS: HYDROCHLOROTHIAZIDE 25 MG TABLET PO SCH (10:49)
[2021-07-04 16:29] VITALS: BP 132/76
[2021-07-04] MEDS: QUEtiapine FUMARATE 100 MG TABLET PO PRN (20:06)
[2021-07-04] MEDS: ZOLPIDEM TARTRATE 10 MG TABLET PO PRN (20:52)
[2021-07-05] MEDS: LEVOTHYROXINE SODIUM 200 MCG TABLET PO SCH (06:38)
[2021-07-05] MEDS: ZIPRASIDONE HCL 40 MG CAPSULE PO SCH ×2 (06:54→16:48)
[2021-07-05 08:15] VITALS: BP 120/56
[2021-07-05] MEDS: MAGNESIUM OXIDE 400 MG TABLET PO SCH (09:06)
[2021-07-05] MEDS: METOPROLOL TARTRATE 25 MG TABLET PO SCH ×2 (09:06→16:48)
[2021-07-05] MEDS: HYDROCHLOROTHIAZIDE 25 MG TABLET PO SCH (09:06)
[2021-07-05] MEDS: DIVALPROEX SODIUM 500 MG DR TABLET PO SCH ×2 (09:06→16:48)
[2021-07-05] MEDS: OXYBUTYNIN CHLORIDE 5 MG TABLET PO SCH ×3 (09:07→16:48)
[2021-07-05] MEDS: DOCUSATE SODIUM 250 MG CAPSULE PO SCH ×2 (09:07→16:48)
[2021-07-05] MEDS: LISINOPRIL 20 MG TABLET PO SCH (09:07)
[2021-07-05] MEDS: HydrOXYzine HCL 10 MG TABLET PO SCH ×4 (09:07→20:41)
[2021-07-05 16:19] VITALS: BP 150/92
[2021-07-05 16:49] VITALS: BP 150/92
[2021-07-05] MEDS: IBUPROFEN 400 MG TABLET PO PRN (16:49)
[2021-07-05 19:25] VITALS: BP 146/79
[2021-07-05] MEDS: LORazepam 2 MG TABLET PO PRN (19:25)
[2021-07-06 06:30] VITALS: BP 150/91
[2021-07-06] MEDS: LEVOTHYROXINE SODIUM 200 MCG TABLET PO SCH (06:38)
[2021-07-06] MEDS: LORazepam 2 MG TABLET PO PRN (06:38)
[2021-07-06] MEDS: ZIPRASIDONE HCL 40 MG CAPSULE PO SCH (06:47)
[2021-07-06] MEDS: LISINOPRIL 20 MG TABLET PO SCH ×2 (08:04→09:00)
[2021-07-06] MEDS: DIVALPROEX SODIUM 500 MG DR TABLET PO SCH ×2 (08:04→16:12)
[2021-07-06] MEDS: DOCUSATE SODIUM 250 MG CAPSULE PO SCH ×2 (08:04→16:13)
[2021-07-06] MEDS: OXYBUTYNIN CHLORIDE 5 MG TABLET PO SCH ×3 (08:05→16:14)
[2021-07-06] MEDS: HydrOXYzine HCL 10 MG TABLET PO SCH ×4 (08:05→20:08)
[2021-07-06] MEDS: MAGNESIUM OXIDE 400 MG TABLET PO SCH (08:57)
[2021-07-06] MEDS: HYDROCHLOROTHIAZIDE 25 MG TABLET PO SCH (08:58)
[2021-07-06] MEDS: METOPROLOL TARTRATE 25 MG TABLET PO SCH ×3 (08:58→16:19)
[2021-07-06 09:29] VITALS: BP 91/54
[2021-07-06] MEDS ORDERED: CARBAMIDE PEROXIDE 10% 15 ML SOLUTION MM PRN (11:30)
[2021-07-06 12:45] VITALS: BP 126/74
[2021-07-06] MEDS: IBUPROFEN 400 MG TABLET PO PRN (12:45)
[2021-07-06] MEDS: ZIPRASIDONE HCL 60 MG CAPSULE PO SCH (16:13)
[2021-07-06 16:24] VITALS: BP 156/91
[2021-07-07] MEDS: LORazepam 2 MG TABLET PO PRN (01:20)
[2021-07-07] MEDS: IBUPROFEN 400 MG TABLET PO PRN ×2 (03:00→14:56)
[2021-07-07 03:01] VITALS: BP 135/76
[2021-07-07] MEDS: LEVOTHYROXINE SODIUM 200 MCG TABLET PO SCH (06:34)
[2021-07-07] MEDS: ZIPRASIDONE HCL 60 MG CAPSULE PO SCH ×2 (06:34→17:35)
[2021-07-07] MEDS: OXYBUTYNIN CHLORIDE 5 MG TABLET PO SCH ×3 (08:25→17:34)
[2021-07-07] MEDS: MAGNESIUM OXIDE 400 MG TABLET PO SCH (08:26)
[2021-07-07] MEDS: HYDROCHLOROTHIAZIDE 25 MG TABLET PO SCH (08:26)
[2021-07-07] MEDS: METOPROLOL TARTRATE 25 MG TABLET PO SCH ×2 (08:26→17:34)
[2021-07-07] MEDS: HydrOXYzine HCL 10 MG TABLET PO SCH ×4 (08:26→21:33)
[2021-07-07] MEDS: DOCUSATE SODIUM 250 MG CAPSULE PO SCH ×2 (08:26→17:00)
[2021-07-07] MEDS: LISINOPRIL 20 MG TABLET PO SCH (08:27)
[2021-07-07] MEDS: DIVALPROEX SODIUM 500 MG DR TABLET PO SCH ×2 (08:27→17:34)
[2021-07-07] MEDS: QUEtiapine FUMARATE 100 MG TABLET PO PRN (14:53)
[2021-07-07 14:56] VITALS: BP 139/78
[2021-07-07 16:13] VITALS: BP 115/79
[2021-07-07] MEDS: DOCUSATE SODIUM 100 MG CAPSULE PO PRN (17:35)
[2021-07-07] MEDS: ZOLPIDEM TARTRATE 10 MG TABLET PO PRN (21:33)
[2021-07-08 01:00] VITALS: BP 142/88
[2021-07-08] MEDS: LORazepam 2 MG TABLET PO PRN (01:10)
[2021-07-08] MEDS: IBUPROFEN 400 MG TABLET PO PRN ×2 (01:11→21:26)
[2021-07-08] MEDS: QUEtiapine FUMARATE 100 MG TABLET PO PRN ×2 (02:55→21:24)
[2021-07-08] MEDS: LEVOTHYROXINE SODIUM 200 MCG TABLET PO SCH (06:42)
[2021-07-08] MEDS: ZIPRASIDONE HCL 60 MG CAPSULE PO SCH ×2 (06:43→18:49)
[2021-07-08] MEDS: LISINOPRIL 20 MG TABLET PO SCH (07:55)
[2021-07-08] MEDS: DIVALPROEX SODIUM 500 MG DR TABLET PO SCH ×2 (07:55→18:49)
[2021-07-08] MEDS: HYDROCHLOROTHIAZIDE 25 MG TABLET PO SCH (07:56)
[2021-07-08] MEDS: DOCUSATE SODIUM 250 MG CAPSULE PO SCH ×2 (07:56→18:49)
[2021-07-08] MEDS: METOPROLOL TARTRATE 25 MG TABLET PO SCH ×2 (07:56→18:50)
[2021-07-08] MEDS: OXYBUTYNIN CHLORIDE 5 MG TABLET PO SCH ×3 (07:56→18:50)
[2021-07-08] MEDS: MAGNESIUM OXIDE 400 MG TABLET PO SCH (07:56)
[2021-07-08] MEDS: HydrOXYzine HCL 10 MG TABLET PO SCH ×4 (07:56→20:48)
[2021-07-08 09:09] VITALS: BP 129/67
[2021-07-08 14:39] LABS: COVID AG,FIA SOURCE NASAL SWAB
[2021-07-08 16:00] VITALS: BP 130/81
[2021-07-08 21:26] VITALS: BP 136/74
[2021-07-09] MEDS: LEVOTHYROXINE SODIUM 200 MCG TABLET PO SCH (06:49)
[2021-07-09] MEDS: ZIPRASIDONE HCL 60 MG CAPSULE PO SCH ×2 (06:49→16:42)
[2021-07-09 08:31] VITALS: BP 113/63
[2021-07-09] MEDS: DOCUSATE SODIUM 250 MG CAPSULE PO SCH ×2 (09:00→16:42)
[2021-07-09] MEDS: DIVALPROEX SODIUM 500 MG DR TABLET PO SCH ×2 (09:00→16:42)
[2021-07-09] MEDS: MAGNESIUM OXIDE 400 MG TABLET PO SCH (09:00)
[2021-07-09] MEDS: LISINOPRIL 20 MG TABLET PO SCH (09:03)
[2021-07-09] MEDS: METOPROLOL TARTRATE 25 MG TABLET PO SCH ×2 (09:03→16:42)
[2021-07-09] MEDS: HYDROCHLOROTHIAZIDE 25 MG TABLET PO SCH (09:03)
[2021-07-09] MEDS: OXYBUTYNIN CHLORIDE 5 MG TABLET PO SCH ×3 (09:03→16:42)
[2021-07-09] MEDS: HydrOXYzine HCL 10 MG TABLET PO SCH ×4 (09:04→20:15)
[2021-07-09 16:00] VITALS: BP 101/69
[2021-07-09 17:51] VITALS: BP 122/73
[2021-07-09] MEDS: QUEtiapine FUMARATE 100 MG TABLET PO PRN (17:51)
[2021-07-09] MEDS: LORazepam 2 MG TABLET PO PRN (17:51)
[2021-07-10] MEDS: LORazepam 2 MG TABLET PO PRN (01:48)
[2021-07-10] MEDS: QUEtiapine FUMARATE 100 MG TABLET PO PRN ×2 (01:48→17:49)
[2021-07-10 01:49] VITALS: BP 133/80
[2021-07-10] MEDS: LEVOTHYROXINE SODIUM 200 MCG TABLET PO SCH (06:34)
[2021-07-10] MEDS: ZIPRASIDONE HCL 60 MG CAPSULE PO SCH ×2 (06:34→16:44)
[2021-07-10] MEDS: MAGNESIUM OXIDE 400 MG TABLET PO SCH (08:13)
[2021-07-10] MEDS: LISINOPRIL 20 MG TABLET PO SCH (08:13)
[2021-07-10] MEDS: DIVALPROEX SODIUM 500 MG DR TABLET PO SCH ×2 (08:13→16:44)
[2021-07-10] MEDS: DOCUSATE SODIUM 250 MG CAPSULE PO SCH ×2 (08:13→16:44)
[2021-07-10] MEDS: METOPROLOL TARTRATE 25 MG TABLET PO SCH ×2 (08:13→16:44)
[2021-07-10] MEDS: HydrOXYzine HCL 10 MG TABLET PO SCH ×4 (08:13→20:12)
[2021-07-10] MEDS: HYDROCHLOROTHIAZIDE 25 MG TABLET PO SCH (08:13)
[2021-07-10] MEDS: OXYBUTYNIN CHLORIDE 5 MG TABLET PO SCH ×3 (08:13→16:44)
[2021-07-10 08:34] VITALS: BP 102/59
[2021-07-10 17:03] VITALS: BP 110/62
[2021-07-10] MEDS: IBUPROFEN 400 MG TABLET PO PRN (17:48)
[2021-07-11 04:30] VITALS: BP 144/88
[2021-07-11] MEDS: LORazepam 2 MG TABLET PO PRN (04:37)
[2021-07-11] MEDS: QUEtiapine FUMARATE 100 MG TABLET PO PRN (04:37)
[2021-07-11 05:01] VITALS: BP 142/81
[2021-07-11] MEDS: LEVOTHYROXINE SODIUM 200 MCG TABLET PO SCH (06:31)
[2021-07-11] MEDS: ZIPRASIDONE HCL 60 MG CAPSULE PO SCH ×2 (06:31→16:04)
[2021-07-11 08:05] VITALS: BP 162/94
[2021-07-11] MEDS: DOCUSATE SODIUM 250 MG CAPSULE PO SCH ×2 (08:35→16:03)
[2021-07-11] MEDS: MAGNESIUM OXIDE 400 MG TABLET PO SCH (08:35)
[2021-07-11] MEDS: METOPROLOL TARTRATE 25 MG TABLET PO SCH ×2 (08:35→17:13)
[2021-07-11] MEDS: DIVALPROEX SODIUM 500 MG DR TABLET PO SCH ×2 (08:35→16:04)
[2021-07-11] MEDS: HYDROCHLOROTHIAZIDE 25 MG TABLET PO SCH (08:35)
[2021-07-11] MEDS: HydrOXYzine HCL 10 MG TABLET PO SCH ×4 (08:35→20:28)
[2021-07-11] MEDS: LISINOPRIL 20 MG TABLET PO SCH (08:36)
[2021-07-11] MEDS: OXYBUTYNIN CHLORIDE 5 MG TABLET PO SCH ×3 (08:36→16:03)
[2021-07-11 12:56] VITALS: BP 139/83
[2021-07-11] MEDS: IBUPROFEN 400 MG TABLET PO PRN (12:56)
[2021-07-11 16:00] VITALS: BP 108/66
[2021-07-11] MEDS: ZOLPIDEM TARTRATE 10 MG TABLET PO PRN (22:53)
[2021-07-12 00:40] VITALS: BP 126/89
[2021-07-12] MEDS: QUEtiapine FUMARATE 100 MG TABLET PO PRN ×2 (01:15→23:57)
[2021-07-12] MEDS: ZIPRASIDONE HCL 60 MG CAPSULE PO SCH ×2 (06:57→17:03)
[2021-07-12] MEDS: LEVOTHYROXINE SODIUM 200 MCG TABLET PO SCH (06:57)
[2021-07-12] MEDS: METOPROLOL TARTRATE 25 MG TABLET PO SCH ×2 (07:56→16:39)
[2021-07-12] MEDS: DOCUSATE SODIUM 250 MG CAPSULE PO SCH ×2 (07:56→16:37)
[2021-07-12] MEDS: OXYBUTYNIN CHLORIDE 5 MG TABLET PO SCH ×3 (07:56→16:38)
[2021-07-12] MEDS: MAGNESIUM OXIDE 400 MG TABLET PO SCH (07:56)
[2021-07-12] MEDS: DIVALPROEX SODIUM 500 MG DR TABLET PO SCH ×2 (07:56→16:38)
[2021-07-12] MEDS: HYDROCHLOROTHIAZIDE 25 MG TABLET PO SCH (07:56)
[2021-07-12] MEDS: HydrOXYzine HCL 10 MG TABLET PO SCH ×4 (07:56→20:41)
[2021-07-12] MEDS: LISINOPRIL 20 MG TABLET PO SCH (07:56)
[2021-07-12 08:32] VITALS: BP 159/106
[2021-07-12 16:17] VITALS: BP 117/65
[2021-07-12] MEDS: IBUPROFEN 400 MG TABLET PO PRN (16:17)
[2021-07-12 16:52] VITALS: BP 117/65
[2021-07-12] MEDS: ZOLPIDEM TARTRATE 10 MG TABLET PO PRN (20:41)
[2021-07-13] VITALS: BP 159/98
[2021-07-13] MEDS: LEVOTHYROXINE SODIUM 200 MCG TABLET PO SCH (06:52)
[2021-07-13] MEDS: ZIPRASIDONE HCL 60 MG CAPSULE PO SCH (07:00)
[2021-07-13 08:00] VITALS: BP 138/81
[2021-07-13] MEDS: DIVALPROEX SODIUM 500 MG DR TABLET PO SCH (08:28)
[2021-07-13] MEDS: DOCUSATE SODIUM 250 MG CAPSULE PO SCH (08:29)
[2021-07-13] MEDS: MAGNESIUM OXIDE 400 MG TABLET PO SCH (08:29)
[2021-07-13] MEDS: METOPROLOL TARTRATE 25 MG TABLET PO SCH (08:29)
[2021-07-13] MEDS: LISINOPRIL 20 MG TABLET PO SCH (08:30)
[2021-07-13] MEDS: HYDROCHLOROTHIAZIDE 25 MG TABLET PO SCH (08:30)
[2021-07-13] MEDS: OXYBUTYNIN CHLORIDE 5 MG TABLET PO SCH ×2 (08:30→12:03)
[2021-07-13] MEDS: HydrOXYzine HCL 10 MG TABLET PO SCH ×2 (08:31→12:03)
[2021-07-13] MEDS ORDERED: DIVA125T32 PO (11:03)
[2021-07-13] MEDS ORDERED: HYDR-3831 PO (11:14)
== END 2021-07-13 12:45 | disposition home health service (06) | DRG 885 ==
LOC: EMS 01:31 → 3EI 11:45 → EMS 12:20
PROC: 5A09357 Assistance with Respiratory Ventilation, Less than 24 Consecutive Hours, Continuous Positive Airway Pressure (ICD-10-PCS; principal; 2021-06-25)
PROC: 5A09357 Assistance with Respiratory Ventilation, Less than 24 Consecutive Hours, Continuous Positive Airway Pressure (ICD-10-PCS; 2021-06-26)
PROC: 5A09357 Assistance with Respiratory Ventilation, Less than 24 Consecutive Hours, Continuous Positive Airway Pressure (ICD-10-PCS; 2021-06-28)
PROC: 5A09357 Assistance with Respiratory Ventilation, Less than 24 Consecutive Hours, Continuous Positive Airway Pressure (ICD-10-PCS; 2021-06-29)
PROC: 5A09357 Assistance with Respiratory Ventilation, Less than 24 Consecutive Hours, Continuous Positive Airway Pressure (ICD-10-PCS; 2021-06-30)
PROC: 5A09357 Assistance with Respiratory Ventilation, Less than 24 Consecutive Hours, Continuous Positive Airway Pressure (ICD-10-PCS; 2021-07-03)
PROC: 5A09357 Assistance with Respiratory Ventilation, Less than 24 Consecutive Hours, Continuous Positive Airway Pressure (ICD-10-PCS; 2021-07-04)
PROC: 5A09357 Assistance with Respiratory Ventilation, Less than 24 Consecutive Hours, Continuous Positive Airway Pressure (ICD-10-PCS; 2021-07-05)
PROC: 5A09357 Assistance with Respiratory Ventilation, Less than 24 Consecutive Hours, Continuous Positive Airway Pressure (ICD-10-PCS; 2021-07-07)
PROC: 5A09357 Assistance with Respiratory Ventilation, Less than 24 Consecutive Hours, Continuous Positive Airway Pressure (ICD-10-PCS; 2021-07-08)
DX: F20.0 Paranoid schizophrenia (principal); E03.9 Hypothyroidism, unspecified; G47.33 Obstructive sleep apnea (adult) (pediatric); I10 Essential (primary) hypertension; K59.00 Constipation, unspecified; R32 Unspecified urinary incontinence; G47.30 Sleep apnea, unspecified; D64.9 Anemia, unspecified; F11.10 Opioid abuse, uncomplicated; Z20.822 Contact with and (suspected) exposure to COVID-19; F41.9 Anxiety disorder, unspecified; F29 Unspecified psychosis not due to a substance or known physiological condition; Z71.51 Drug abuse counseling and surveillance of drug abuser; Z91.51 Personal history of suicidal behavior; Z88.8 Allergy status to other drugs, medicaments and biological substances; Z59.00 Homelessness unspecified
CPT/HCPCS: 80053; 80061; 80164; 85025; 94660; 99291; G0480; J1200; J2060; J3230

== ENCOUNTER 2021-11-02 16:41 | Inpatient (IN) | payer MEDICARE, MEDICAID ==
[~2021-11-02] VITALS: Ht 170.2 cm; Wt 179.6 kg
[~2021-11-02 16:41] MED LIST changes: +DIVA125T32 PO; +HYDR-3831 PO; -ZIPR20CA2 PO; -ZIPR80CA2 PO
[2021-11-02 17:59] LABS: EOSINOPHILS % (AUTO) 3.6 % (1.0-6.0); HEMATOCRIT 39.1 % (41-53); HEMOGLOBIN 13.3 g/dL (13.5-17.5); LYMPHOCYTES # (AUTO) 1.8 K/uL (1.0-4.8); LYMPHOCYTES % (AUTO) 26.3 % (22.0-44.0); MEAN CORPUSCULAR HGB CONC 33.9 G/dL (31.0-37.0); MEAN CORPUSCULAR VOLUME 88 fL (80-100); MONOCYTES # (AUTO) 0.8 K/uL (0.1-1.0); MONOCYTES % (AUTO) 11.3 % (2.0-9.0); NEUTROPHILS # (AUTO) 4.1 K/uL (1.8-7.7); NEUTROPHILS % (AUTO) 57.8 % (40.0-70.0); PLATELET COUNT (AUTO) 234 K/uL (150-450); RED BLOOD CELL COUNT(AUTO) 4.43 MIL/uL (4.50-5.90)
[2021-11-02 18:13] LABS: ANION GAP 11 mmol/L (8-16); CALCIUM, TOTAL 8.8 mg/dL (8.8-10.5); CARBON DIOXIDE 28 mmol/L (22-29); CHLORIDE 104 mmol/L (98-107); CREATININE 0.74 mg/dL (0.60-1.30); GLOMERULAR FILTR. RATE CALC > 60 mL/min (>60); GLUCOSE,RANDOM 122 mg/dL (70-110); POTASSIUM 4.1 mmol/L (3.5-5.1); SODIUM SERUM 143 mmol/L (136-145); UREA NITROGEN, BLOOD 13 mg/dL (7-18)
[2021-11-02 18:20] LABS: ALANINE AMINOTRANSFERASE 68 U/L (12-78); ALBUMIN 2.9 g/dL (3.4-5.0); ALKALINE PHOSPHATASE 65 U/L (46-116); ASPARTATE AMINOTRANSFERASE 70 U/L (15-37); BILIRUBIN,TOTAL 0.6 mg/dL (0.1-1.0); TOTAL PROTEIN, SERUM 6.4 g/dL (6.4-8.2)
[2021-11-02 19:49] LABS: VALPROIC ACID 69 mcg/mL (50-100)
[2021-11-02 19:58] LABS: AMPHET/METH SCREEN,URINE NEGATIVE (NEGATIVE); BARBITURATE SCREEN, URINE NEGATIVE (NEGATIVE); BENZODIAZEPINES SCREEN,URINE NEGATIVE (NEGATIVE); CANNABINOID SCREEN,URINE NEGATIVE (NEGATIVE); COCAINE SCREEN,URINE NEGATIVE (NEGATIVE); METHADONE SCREEN, URINE NEGATIVE (NEGATIVE); OPIATE SCREEN,URINE NEGATIVE (NEGATIVE); PHENCYCLIDINE SCREEN,URINE NEGATIVE (NEGATIVE)
[2021-11-02 20:51] LABS: COVID AG,FIA SOURCE NASOPHARYNGEAL
[2021-11-02 21:19] LABS: THYROID STIMULATING HORMONE 4.18 uIU/mL (0.36-3.74)
[2021-11-03] MEDS: ZOLPIDEM TARTRATE 10 MG TABLET PO PRN ×2 (00:07→20:13)
[2021-11-03] MEDS: OLANZapine 5 MG RAPDIS TABLET PO PRN ×3 (00:07→17:54)
[2021-11-03 09:04] VITALS: BP 175/124
[2021-11-03] MEDS: LISINOPRIL 20 MG TABLET PO SCH (09:59)
[2021-11-03] MEDS: LORazepam 2 MG TABLET PO PRN ×2 (10:43→17:54)
[2021-11-03] MEDS ORDERED: BENZOCAINE/MENTHOL LOZENGE PO PRN (16:15)
[2021-11-03] MEDS ORDERED: OMEPRAZOLE 20 MG CAPSULE PO PRN (16:15)
[2021-11-03] MEDS ORDERED: LOPERAMIDE HCL 2 MG CAPSULE PO PRN (16:15)
[2021-11-03] MEDS ORDERED: DOCUSATE SODIUM 100 MG CAPSULE PO PRN (16:15)
[2021-11-03] MEDS ORDERED: CloNIDine HCL 0.1 MG TABLET PO PRN (16:15)
[2021-11-03] MEDS ORDERED: IBUPROFEN 600 MG TABLET PO PRN (16:15)
[2021-11-03] MEDS ORDERED: ACETAMINOPHEN 325 MG TABLET PO PRN (16:15)
[2021-11-03] MEDS ORDERED: ALBUTEROL SULFATE HFA 90 MCG/PUFF 8 GM INHALER IH PRN (16:15)
[2021-11-03] MEDS ORDERED: MAGNESIUM HYDROXIDE SUSPENSION 30 ML UDCUP PO PRN (16:15)
[2021-11-03] MEDS ORDERED: PETROLATUM,WHITE 28 GM JELLY TP PRN (16:15)
[2021-11-03] MEDS ORDERED: ONDANSETRON HCL 4 MG TABLET PO PRN (16:15)
[2021-11-03] MEDS ORDERED: MAG HYDROX/AL HYDROX/SIMETH ES 30 ML SUSPENSION UDCUP PO PRN (16:15)
[2021-11-03] MEDS ORDERED: BACITRACIN 28 GM OINTMENT TP PRN (16:15)
[2021-11-03 16:49] VITALS: BP 119/75
[2021-11-03] MEDS: METOPROLOL TARTRATE 25 MG TABLET PO SCH (17:23)
[2021-11-03] MEDS: NICOTINE POLACRILEX 2 MG LOZENGE PO PRN (19:56)
[2021-11-04] MEDS: NICOTINE POLACRILEX 2 MG LOZENGE PO PRN ×2 (04:52→12:01)
[2021-11-04] MEDS: LEVOTHYROXINE SODIUM 200 MCG TABLET PO SCH (06:29)
[2021-11-04 06:55] VITALS: BP 123/84
[2021-11-04] MEDS: LORazepam 2 MG TABLET PO PRN (06:57)
[2021-11-04] MEDS: OLANZapine 5 MG RAPDIS TABLET PO PRN ×2 (06:57→12:01)
[2021-11-04 08:42] LABS: CHOL/HDL RATIO 3.6 (4.2-7.3)
[2021-11-04] MEDS: RisperiDONE 2 MG TABLET PO SCH ×2 (08:47→16:21)
[2021-11-04] MEDS: METOPROLOL TARTRATE 25 MG TABLET PO SCH ×2 (08:47→16:21)
[2021-11-04] MEDS: DIVALPROEX SODIUM 500 MG DR TABLET PO SCH ×2 (08:49→16:21)
[2021-11-04] MEDS: LISINOPRIL 20 MG TABLET PO SCH (08:49)
[2021-11-04 09:37] VITALS: BP 134/90
[2021-11-04 17:58] VITALS: BP 150/84
[2021-11-05] MEDS: LEVOTHYROXINE SODIUM 200 MCG TABLET PO SCH (06:57)
[2021-11-05] MEDS: NICOTINE POLACRILEX 2 MG LOZENGE PO PRN (08:41)
[2021-11-05] MEDS: DIVALPROEX SODIUM 500 MG DR TABLET PO SCH ×2 (08:41→17:32)
[2021-11-05] MEDS: RisperiDONE 2 MG TABLET PO SCH ×2 (08:41→17:31)
[2021-11-05] MEDS: LISINOPRIL 20 MG TABLET PO SCH (09:00)
[2021-11-05] MEDS: METOPROLOL TARTRATE 25 MG TABLET PO SCH ×2 (09:00→17:31)
[2021-11-05 09:27] VITALS: BP 116/72
[2021-11-05] MEDS: OLANZapine 5 MG RAPDIS TABLET PO PRN (12:15)
[2021-11-05 12:16] VITALS: BP 97/62
[2021-11-05 16:25] VITALS: BP 129/76
[2021-11-06] MEDS: LEVOTHYROXINE SODIUM 200 MCG TABLET PO SCH (06:06)
[2021-11-06 08:40] VITALS: BP 125/69
[2021-11-06] MEDS: RisperiDONE 2 MG TABLET PO SCH ×2 (08:40→17:20)
[2021-11-06] MEDS: DIVALPROEX SODIUM 500 MG DR TABLET PO SCH ×2 (08:40→17:21)
[2021-11-06] MEDS: NICOTINE POLACRILEX 2 MG LOZENGE PO PRN (08:40)
[2021-11-06] MEDS: LISINOPRIL 20 MG TABLET PO SCH (08:40)
[2021-11-06] MEDS: METOPROLOL TARTRATE 25 MG TABLET PO SCH ×2 (08:41→17:20)
[2021-11-06 16:30] VITALS: BP 117/65
[2021-11-07 02:50] VITALS: BP 109/73
[2021-11-07] MEDS: LORazepam 2 MG TABLET PO PRN (02:56)
[2021-11-07] MEDS: LEVOTHYROXINE SODIUM 200 MCG TABLET PO SCH (06:07)
[2021-11-07] MEDS: METOPROLOL TARTRATE 25 MG TABLET PO SCH ×2 (08:12→16:03)
[2021-11-07] MEDS: LISINOPRIL 20 MG TABLET PO SCH (08:12)
[2021-11-07] MEDS: RisperiDONE 2 MG TABLET PO SCH ×2 (08:12→16:03)
[2021-11-07] MEDS: DIVALPROEX SODIUM 500 MG DR TABLET PO SCH ×2 (08:12→16:03)
[2021-11-07 13:32] VITALS: BP 148/95
[2021-11-07] MEDS ORDERED: RISP2TAB86 PO (14:37)
[2021-11-07] MEDS ORDERED: DIVA-112 PO (14:37)
[2021-11-07] MEDS ORDERED: RISP2TAB45 PO (16:22)
[2021-11-07 17:46] VITALS: BP 142/75
== END 2021-11-07 18:20 | disposition home or self-care (01) | DRG 885 ==
LOC: EMS 16:46 → 3EI 23:00
PROVIDERS: ADMIT Psychiatry & Neurology Psychiatry; ATTEND Psychiatry & Neurology Psychiatry
DX: F20.0 Paranoid schizophrenia (principal); Z68.44 Body mass index [BMI] 60.0-69.9, adult; E66.9 Obesity, unspecified; F32.A Depression, unspecified; F41.9 Anxiety disorder, unspecified; G47.30 Sleep apnea, unspecified; E03.9 Hypothyroidism, unspecified; I10 Essential (primary) hypertension; Z20.822 Contact with and (suspected) exposure to COVID-19; R45.850 Homicidal ideations; Z91.51 Personal history of suicidal behavior; Z88.8 Allergy status to other drugs, medicaments and biological substances; Z90.49 Acquired absence of other specified parts of digestive tract
CPT/HCPCS: 80053; 80061; 80164; 84443; 85025; 94660; 99285; G0480; Q9967

== ENCOUNTER → 2021-12-26 | Outpatient (CLI) | payer MEDICARE, OTHER ==
[~2021-12-26] MED LIST changes: +DIVA-112 PO; -DOCU-350 PO; -HYDR-3831 PO; -MAGN400T7 PO; -OXYB5TAB20 PO; +RISP2TAB45 PO; +RISP2TAB86 PO
[2021-12-26 18:24] LABS: EOSINOPHILS % (AUTO) 3.2 % (1.0-6.0); HEMATOCRIT 44.4 % (41-53); HEMOGLOBIN 14.9 g/dL (13.5-17.5); LYMPHOCYTES # (AUTO) 1.9 K/uL (1.0-4.8); LYMPHOCYTES % (AUTO) 30.3 % (22.0-44.0); MEAN CORPUSCULAR HEMOGLOBIN 29.7 pg (26.0-34.0); MEAN CORPUSCULAR HGB CONC 33.5 G/dL (31.0-37.0); MEAN CORPUSCULAR VOLUME 89 fL (80-100); MONOCYTES # (AUTO) 0.5 K/uL (0.1-1.0); MONOCYTES % (AUTO) 7.1 % (2.0-9.0); NEUTROPHILS # (AUTO) 3.7 K/uL (1.8-7.7); NEUTROPHILS % (AUTO) 58.4 % (40.0-70.0); PLATELET COUNT (AUTO) 243 K/uL (150-450); RED BLOOD CELL COUNT(AUTO) 5.01 MIL/uL (4.50-5.90); RED CELL DISTRIBUTION WIDTH 15.3 % (11.5-14.5)
== END | disposition home or self-care (01) ==
LOC: LABPV 10:37
PROVIDERS: ATTEND Psychiatry & Neurology Psychiatry
DX: F20.9 Schizophrenia, unspecified (principal)
CPT/HCPCS: 85025

== ENCOUNTER → 2022-01-03 | Outpatient (CLI) | payer MEDICARE, OTHER ==
[2022-01-03 15:32] LABS: BASOPHILS % (AUTO) 1.4 % (0.0-2.0); EOSINOPHILS % (AUTO) 4.1 % (1.0-6.0); HEMATOCRIT 43.6 % (41-53); HEMOGLOBIN 14.9 g/dL (13.5-17.5); LYMPHOCYTES # (AUTO) 2.5 K/uL (1.0-4.8); LYMPHOCYTES % (AUTO) 29.3 % (22.0-44.0); MEAN CORPUSCULAR HEMOGLOBIN 30.1 pg (26.0-34.0); MEAN CORPUSCULAR HGB CONC 34.2 G/dL (31.0-37.0); MEAN CORPUSCULAR VOLUME 88 fL (80-100); MONOCYTES # (AUTO) 0.8 K/uL (0.1-1.0); MONOCYTES % (AUTO) 9.2 % (2.0-9.0); NEUTROPHILS # (AUTO) 4.7 K/uL (1.8-7.7); PLATELET COUNT (AUTO) 241 K/uL (150-450); RED BLOOD CELL COUNT(AUTO) 4.94 MIL/uL (4.50-5.90); RED CELL DISTRIBUTION WIDTH 15.5 % (11.5-14.5)
== END | disposition home or self-care (01) ==
LOC: LABMN 12:16
PROVIDERS: ATTEND Psychiatry & Neurology Psychiatry
DX: F20.9 Schizophrenia, unspecified (principal)
CPT/HCPCS: 80159; 85025

== ENCOUNTER → 2022-01-09 | Outpatient (CLI) | payer MEDICARE, OTHER ==
[2022-01-09 14:38] LABS: HEMATOCRIT 42.6 % (41-53); HEMOGLOBIN 14.4 g/dL (13.5-17.5); LYMPHOCYTES # (AUTO) 1.9 K/uL (1.0-4.8); LYMPHOCYTES % (AUTO) 27.8 % (22.0-44.0); MEAN CORPUSCULAR HEMOGLOBIN 29.7 pg (26.0-34.0); MEAN CORPUSCULAR HGB CONC 33.7 G/dL (31.0-37.0); MEAN CORPUSCULAR VOLUME 88 fL (80-100); MONOCYTES # (AUTO) 0.4 K/uL (0.1-1.0); MONOCYTES % (AUTO) 6.5 % (2.0-9.0); NEUTROPHILS # (AUTO) 4.1 K/uL (1.8-7.7); NEUTROPHILS % (AUTO) 60.7 % (40.0-70.0); PLATELET COUNT (AUTO) 212 K/uL (150-450); RED BLOOD CELL COUNT(AUTO) 4.84 MIL/uL (4.50-5.90); RED CELL DISTRIBUTION WIDTH 14.7 % (11.5-14.5)
== END | disposition home or self-care (01) ==
LOC: LABPV 13:28
PROVIDERS: ATTEND Psychiatry & Neurology Psychiatry
DX: F20.9 Schizophrenia, unspecified (principal)
CPT/HCPCS: 85025

== ENCOUNTER → 2022-01-16 | Outpatient (CLI) | payer MEDICARE, OTHER ==
[2022-01-16 14:34] LABS: BASOPHILS % (AUTO) 0.5 % (0.0-2.0); EOSINOPHILS % (AUTO) 3.5 % (1.0-6.0); HEMATOCRIT 44.6 % (41-53); HEMOGLOBIN 15.2 g/dL (13.5-17.5); LYMPHOCYTES % (AUTO) 27.5 % (22.0-44.0); MEAN CORPUSCULAR HEMOGLOBIN 30.1 pg (26.0-34.0); MEAN CORPUSCULAR HGB CONC 34.1 G/dL (31.0-37.0); MEAN CORPUSCULAR VOLUME 88 fL (80-100); MONOCYTES # (AUTO) 0.5 K/uL (0.1-1.0); MONOCYTES % (AUTO) 6.6 % (2.0-9.0); NEUTROPHILS # (AUTO) 4.6 K/uL (1.8-7.7); NEUTROPHILS % (AUTO) 61.9 % (40.0-70.0); PLATELET COUNT (AUTO) 202 K/uL (150-450); RED BLOOD CELL COUNT(AUTO) 5.04 MIL/uL (4.50-5.90); RED CELL DISTRIBUTION WIDTH 15.1 % (11.5-14.5)
== END | disposition home or self-care (01) ==
LOC: LABMN 11:19
PROVIDERS: ATTEND Psychiatry & Neurology Psychiatry
DX: F20.9 Schizophrenia, unspecified (principal)
CPT/HCPCS: 80159; 85025

== ENCOUNTER 2022-02-10 06:26 | Inpatient (IN) | payer MEDICARE, MEDICAID ==
[~2022-02-10] VITALS: Ht 170.2 cm; Wt 171.4 kg
[2022-02-10 07:38] LABS: BASOPHILS % (AUTO) 1.1 % (0.0-2.0); EOSINOPHILS % (AUTO) 3.7 % (1.0-6.0); HEMATOCRIT 42.7 % (41-53); HEMOGLOBIN 14.4 g/dL (13.5-17.5); LYMPHOCYTES # (AUTO) 2.1 K/uL (1.0-4.8); LYMPHOCYTES % (AUTO) 27.2 % (22.0-44.0); MEAN CORPUSCULAR HEMOGLOBIN 29.8 pg (26.0-34.0); MEAN CORPUSCULAR HGB CONC 33.8 G/dL (31.0-37.0); MEAN CORPUSCULAR VOLUME 88 fL (80-100); MONOCYTES # (AUTO) 0.7 K/uL (0.1-1.0); MONOCYTES % (AUTO) 8.7 % (2.0-9.0); NEUTROPHILS # (AUTO) 4.5 K/uL (1.8-7.7); NEUTROPHILS % (AUTO) 59.3 % (40.0-70.0); PLATELET COUNT (AUTO) 210 K/uL (150-450); RED BLOOD CELL COUNT(AUTO) 4.85 MIL/uL (4.50-5.90); RED CELL DISTRIBUTION WIDTH 14.7 % (11.5-14.5)
[2022-02-10 07:46] LABS: ANION GAP 8 mmol/L (8-16); CALCIUM, TOTAL 9.6 mg/dL (8.8-10.5); CARBON DIOXIDE 29 mmol/L (22-29); CHLORIDE 99 mmol/L (98-107); CREATININE 0.76 mg/dL (0.60-1.30); GLOMERULAR FILTR. RATE CALC > 60 mL/min (>60); GLUCOSE,RANDOM 117 mg/dL (70-110); POTASSIUM 3.9 mmol/L (3.5-5.1); SODIUM SERUM 136 mmol/L (136-145); UREA NITROGEN, BLOOD 11 mg/dL (7-18)
[2022-02-10] MEDS ORDERED: HALOPERIDOL LACTATE 5 MG/ML VIAL ONE (07:50)
[2022-02-10] MEDS ORDERED: LORazepam 2 MG/ML VIAL ONE (07:50)
[2022-02-10] MEDS ORDERED: DiphenhydrAMINE HCL 50 MG/ML VIAL ONE (07:50)
[2022-02-10 07:51] LABS: ALANINE AMINOTRANSFERASE 102 U/L (12-78); ALBUMIN 3.7 g/dL (3.4-5.0); ALKALINE PHOSPHATASE 100 U/L (46-116); ASPARTATE AMINOTRANSFERASE 116 U/L (15-37); BILIRUBIN,TOTAL 0.9 mg/dL (0.1-1.0); TOTAL PROTEIN, SERUM 7.9 g/dL (6.4-8.2)
[2022-02-10 07:57] LABS: AMPHET/METH SCREEN,URINE NEGATIVE (NEGATIVE); BARBITURATE SCREEN, URINE NEGATIVE (NEGATIVE); BENZODIAZEPINES SCREEN,URINE NEGATIVE (NEGATIVE); CANNABINOID SCREEN,URINE NEGATIVE (NEGATIVE); COCAINE SCREEN,URINE NEGATIVE (NEGATIVE); METHADONE SCREEN, URINE NEGATIVE (NEGATIVE); OPIATE SCREEN,URINE NEGATIVE (NEGATIVE)
[2022-02-10 08:00] LABS: PHENCYCLIDINE SCREEN,URINE NEGATIVE (NEGATIVE)
[2022-02-10] MEDS ORDERED: LORazepam 2 MG/ML VIAL IM ONE (08:00)
[2022-02-10] MEDS ORDERED: HALOPERIDOL LACTATE 5 MG/ML VIAL IM ONE (08:00)
[2022-02-10] MEDS ORDERED: DiphenhydrAMINE HCL 50 MG/ML VIAL IM ONE (08:00)
[2022-02-10] MEDS ORDERED: OLANZapine 5 MG RAPDIS TABLET PO PRN (08:45)
[2022-02-10] MEDS ORDERED: LORazepam 2 MG TABLET PO PRN (08:45)
[2022-02-10] MEDS ORDERED: ZOLPIDEM TARTRATE 10 MG TABLET PO PRN (08:45)
[2022-02-10 08:55] LABS: COVID AG,FIA SOURCE NASAL SWAB
[2022-02-10] MEDS ORDERED: RisperiDONE 1 MG TABLET PO PRN (15:30)
[2022-02-10] MEDS ORDERED: MAGNESIUM HYDROXIDE SUSPENSION 30 ML UDCUP PO PRN (15:30)
[2022-02-10] MEDS ORDERED: GuaiFENesin/D-METHORPHAN [SUGAR-FREE] 200-20MG/10 ML SYRUP UDCUP PO PRN (15:30)
[2022-02-10] MEDS ORDERED: TUBERCULIN, PURIFIED PROTEIN DERIVATIVE 5 TU/0.1 ML SYRINGE ID ONE (15:30)
[2022-02-10 16:00] VITALS: BP 150/97
[2022-02-10 16:50] VITALS: BP 155/99
[2022-02-10 17:05] VITALS: BP 155/95
[2022-02-10 17:20] VITALS: BP 148/94
[2022-02-10] MEDS: MetFORMIN HCL 500 MG TABLET PO SCH (17:38)
[2022-02-10] MEDS: DIVALPROEX SODIUM 500 MG ER TABLET PO SCH (17:38)
[2022-02-10] MEDS: THIAMINE 100 MG TABLET PO SCH (17:38)
[2022-02-10] MEDS: RisperiDONE 2 MG TABLET PO SCH (17:38)
[2022-02-10 17:50] VITALS: BP 150/96
[2022-02-10 18:20] VITALS: BP 136/83
[2022-02-10] MEDS: MELATONIN 5 MG TABLET PO SCH (20:57)
[2022-02-11 05:53] VITALS: BP 128/83
[2022-02-11] MEDS: MetFORMIN HCL 500 MG TABLET PO SCH ×3 (07:04→16:17)
[2022-02-11] MEDS: NALTREXONE HCL 50 MG TABLET PO SCH (08:21)
[2022-02-11] MEDS: MULTIVITAMINS WITH MINERALS, THERAPEUTIC TABLET PO SCH (08:21)
[2022-02-11] MEDS: DIVALPROEX SODIUM 500 MG ER TABLET PO SCH ×2 (08:21→16:17)
[2022-02-11] MEDS: OMEGA-3/DHA/EPA/FISH OIL 1,000 MG CAPSULE PO SCH (08:21)
[2022-02-11] MEDS: RisperiDONE 2 MG TABLET PO SCH ×2 (08:21→16:18)
[2022-02-11] MEDS: FOLIC ACID 1 MG TABLET PO SCH (08:21)
[2022-02-11] MEDS: THIAMINE 100 MG TABLET PO SCH ×2 (08:21→16:17)
[2022-02-11] MEDS ORDERED: CloZAPine 25 MG TABLET PO SCH (09:00)
[2022-02-11 09:12] VITALS: BP 102/60
[2022-02-11] MEDS: ACETAMINOPHEN 325 MG TABLET PO PRN (09:12)
[2022-02-11] MEDS: LOPERAMIDE HCL 2 MG CAPSULE PO PRN (11:34)
[2022-02-11 11:45] LABS: BASOPHILS % (AUTO) 0.9 % (0.0-2.0); EOSINOPHILS % (AUTO) 2.6 % (1.0-6.0); HEMATOCRIT 39.4 % (41-53); HEMOGLOBIN 13.3 g/dL (13.5-17.5); LYMPHOCYTES % (AUTO) 26.7 % (22.0-44.0); MEAN CORPUSCULAR HEMOGLOBIN 29.9 pg (26.0-34.0); MEAN CORPUSCULAR HGB CONC 33.8 G/dL (31.0-37.0); MEAN CORPUSCULAR VOLUME 88 fL (80-100); MONOCYTES # (AUTO) 0.6 K/uL (0.1-1.0); MONOCYTES % (AUTO) 8.8 % (2.0-9.0); NEUTROPHILS # (AUTO) 4.5 K/uL (1.8-7.7); PLATELET COUNT (AUTO) 190 K/uL (150-450); RED BLOOD CELL COUNT(AUTO) 4.46 MIL/uL (4.50-5.90); RED CELL DISTRIBUTION WIDTH 14.9 % (11.5-14.5)
[2022-02-11 12:39] LABS: CHOL/HDL RATIO 3.3 (4.2-7.3)
[2022-02-11 12:45] VITALS: BP 116/68
[2022-02-11 13:21] LABS: FREE T4 (FREE THYROXINE) 0.87 ng/dL (0.76-1.46); THYROID STIMULATING HORMONE 19.55 uIU/mL (0.36-3.74)
[2022-02-11] MEDS: ZIPRASIDONE HCL 40 MG CAPSULE PO SCH (19:05)
[2022-02-11] MEDS: MELATONIN 5 MG TABLET PO SCH (20:12)
[2022-02-12] MEDS: LEVOTHYROXINE SODIUM 200 MCG TABLET PO SCH (06:09)
[2022-02-12] MEDS: MetFORMIN HCL 500 MG TABLET PO SCH ×3 (06:33→16:33)
[2022-02-12] MEDS: MULTIVITAMINS WITH MINERALS, THERAPEUTIC TABLET PO SCH (08:14)
[2022-02-12] MEDS: THIAMINE 100 MG TABLET PO SCH ×2 (08:14→16:33)
[2022-02-12] MEDS: NALTREXONE HCL 50 MG TABLET PO SCH (08:14)
[2022-02-12] MEDS: FOLIC ACID 1 MG TABLET PO SCH (08:14)
[2022-02-12] MEDS: RisperiDONE 2 MG TABLET PO SCH ×2 (08:14→16:33)
[2022-02-12] MEDS: DIVALPROEX SODIUM 500 MG ER TABLET PO SCH ×2 (08:14→16:33)
[2022-02-12] MEDS: OMEGA-3/DHA/EPA/FISH OIL 1,000 MG CAPSULE PO SCH (08:14)
[2022-02-12 09:59] VITALS: BP 107/79
[2022-02-12 16:30] VITALS: BP 109/69
[2022-02-12] MEDS: ZIPRASIDONE HCL 40 MG CAPSULE PO SCH (16:33)
[2022-02-12] MEDS ORDERED: CloZAPine 25 MG TABLET PO ONE (20:00)
[2022-02-12] MEDS: MELATONIN 5 MG TABLET PO SCH (20:58)
[2022-02-13] MEDS: HydrOXYzine PAMOATE 50 MG CAPSULE PO PRN (00:20)
[2022-02-13] MEDS: MAG HYDROX/AL HYDROX/SIMETH ES 30 ML SUSPENSION UDCUP PO PRN (01:36)
[2022-02-13] MEDS: LEVOTHYROXINE SODIUM 200 MCG TABLET PO SCH (06:43)
[2022-02-13] MEDS: MetFORMIN HCL 500 MG TABLET PO SCH ×3 (06:44→17:20)
[2022-02-13] MEDS: NALTREXONE HCL 50 MG TABLET PO SCH (08:16)
[2022-02-13] MEDS: OMEGA-3/DHA/EPA/FISH OIL 1,000 MG CAPSULE PO SCH (08:16)
[2022-02-13] MEDS: MULTIVITAMINS WITH MINERALS, THERAPEUTIC TABLET PO SCH (08:16)
[2022-02-13] MEDS: RisperiDONE 2 MG TABLET PO SCH (08:16)
[2022-02-13] MEDS: THIAMINE 100 MG TABLET PO SCH ×2 (08:16→16:40)
[2022-02-13] MEDS: DIVALPROEX SODIUM 500 MG ER TABLET PO SCH ×2 (08:16→16:40)
[2022-02-13] MEDS: FOLIC ACID 1 MG TABLET PO SCH (08:16)
[2022-02-13] MEDS ORDERED: CloZAPine 25 MG TABLET PO SCH ×2 (09:00→21:00)
[2022-02-13 11:18] VITALS: BP 157/104
[2022-02-13 16:08] VITALS: BP 140/99
[2022-02-13] MEDS: MELATONIN 5 MG TABLET PO SCH (20:43)
[2022-02-13] MEDS ORDERED: LURASIDONE HCL 40 MG TABLET PO SCH (21:00)
[2022-02-14] MEDS: LURASIDONE HCL 20 MG TABLET PO PRN ×2 (04:09→15:48)
[2022-02-14] MEDS: HydrOXYzine PAMOATE 50 MG CAPSULE PO PRN (04:09)
[2022-02-14] MEDS: MetFORMIN HCL 500 MG TABLET PO SCH ×3 (06:43→16:13)
[2022-02-14] MEDS: LEVOTHYROXINE SODIUM 100 MCG TABLET PO SCH (06:43)
[2022-02-14] MEDS: DIVALPROEX SODIUM 500 MG ER TABLET PO SCH ×2 (08:22→16:13)
[2022-02-14] MEDS: OMEGA-3/DHA/EPA/FISH OIL 1,000 MG CAPSULE PO SCH (08:22)
[2022-02-14] MEDS: MULTIVITAMINS WITH MINERALS, THERAPEUTIC TABLET PO SCH (08:22)
[2022-02-14] MEDS: FOLIC ACID 1 MG TABLET PO SCH (08:22)
[2022-02-14] MEDS: THIAMINE 100 MG TABLET PO SCH ×2 (08:22→16:13)
[2022-02-14] MEDS: NALTREXONE HCL 50 MG TABLET PO SCH (08:23)
[2022-02-14] MEDS ORDERED: CloZAPine 25 MG TABLET PO SCH ×2 (09:00→21:00)
[2022-02-14 16:00] VITALS: BP 138/87
[2022-02-14] MEDS: MELATONIN 5 MG TABLET PO SCH (20:12)
[2022-02-14] MEDS ORDERED: LURASIDONE HCL 80 MG TABLET PO SCH (21:00)
[2022-02-15] MEDS: MetFORMIN HCL 500 MG TABLET PO SCH ×3 (07:01→16:42)
[2022-02-15] MEDS: LEVOTHYROXINE SODIUM 100 MCG TABLET PO SCH (07:01)
[2022-02-15] MEDS: NALTREXONE HCL 50 MG TABLET PO SCH (08:51)
[2022-02-15] MEDS: THIAMINE 100 MG TABLET PO SCH ×2 (08:51→16:42)
[2022-02-15] MEDS: MULTIVITAMINS WITH MINERALS, THERAPEUTIC TABLET PO SCH (08:51)
[2022-02-15] MEDS: OMEGA-3/DHA/EPA/FISH OIL 1,000 MG CAPSULE PO SCH (08:51)
[2022-02-15] MEDS: FOLIC ACID 1 MG TABLET PO SCH (08:51)
[2022-02-15] MEDS: DIVALPROEX SODIUM 500 MG ER TABLET PO SCH ×2 (08:52→16:42)
[2022-02-15] MEDS ORDERED: CloZAPine 25 MG TABLET PO SCH (09:00)
[2022-02-15 10:13] VITALS: BP 115/66
[2022-02-15] MEDS: HydrOXYzine PAMOATE 50 MG CAPSULE PO PRN (13:55)
[2022-02-15 16:50] VITALS: BP 158/94
[2022-02-15] MEDS: MELATONIN 5 MG TABLET PO SCH (20:10)
[2022-02-15] MEDS ORDERED: LURASIDONE HCL 60 MG TABLET PO SCH (21:00)
[2022-02-16] MEDS: LEVOTHYROXINE SODIUM 100 MCG TABLET PO SCH (06:52)
[2022-02-16] MEDS: MetFORMIN HCL 500 MG TABLET PO SCH ×4 (07:01→17:14)
[2022-02-16] MEDS: NALTREXONE HCL 50 MG TABLET PO SCH (09:02)
[2022-02-16] MEDS: THIAMINE 100 MG TABLET PO SCH ×2 (09:02→16:16)
[2022-02-16] MEDS: FOLIC ACID 1 MG TABLET PO SCH (09:02)
[2022-02-16] MEDS: OMEGA-3/DHA/EPA/FISH OIL 1,000 MG CAPSULE PO SCH (09:02)
[2022-02-16] MEDS: DIVALPROEX SODIUM 500 MG ER TABLET PO SCH ×2 (09:02→16:15)
[2022-02-16] MEDS: MULTIVITAMINS WITH MINERALS, THERAPEUTIC TABLET PO SCH (09:02)
[2022-02-16 15:52] LABS: COVID AG,FIA SOURCE NASAL SWAB
[2022-02-16 16:00] VITALS: BP 149/89
[2022-02-16] MEDS: LURASIDONE HCL 80 MG TABLET PO SCH (20:18)
[2022-02-16] MEDS: MELATONIN 5 MG TABLET PO SCH (20:18)
[2022-02-17] MEDS: LEVOTHYROXINE SODIUM 100 MCG TABLET PO SCH (06:41)
[2022-02-17] MEDS: MetFORMIN HCL 500 MG TABLET PO SCH ×3 (06:41→16:39)
[2022-02-17] MEDS: MULTIVITAMINS WITH MINERALS, THERAPEUTIC TABLET PO SCH (08:10)
[2022-02-17] MEDS: THIAMINE 100 MG TABLET PO SCH ×2 (08:10→16:39)
[2022-02-17] MEDS: DIVALPROEX SODIUM 500 MG ER TABLET PO SCH ×2 (08:10→16:39)
[2022-02-17] MEDS: OMEGA-3/DHA/EPA/FISH OIL 1,000 MG CAPSULE PO SCH (08:10)
[2022-02-17] MEDS: FOLIC ACID 1 MG TABLET PO SCH (08:10)
[2022-02-17] MEDS: NALTREXONE HCL 50 MG TABLET PO SCH (08:10)
[2022-02-17] MEDS ORDERED: CloZAPine 25 MG TABLET PO SCH (09:00)
[2022-02-17 10:28] VITALS: BP 156/101
[2022-02-17 17:23] VITALS: BP 140/79
[2022-02-17] MEDS: LURASIDONE HCL 80 MG TABLET PO SCH (20:25)
[2022-02-17] MEDS: MELATONIN 5 MG TABLET PO SCH (20:25)
[2022-02-17] MEDS ORDERED: CloZAPine 100 MG TABLET PO SCH (21:00)
[2022-02-18 02:00] VITALS: BP 140/85
[2022-02-18 06:03] LABS: BASOPHILS % (AUTO) 0.2 % (0.0-2.0); EOSINOPHILS % (AUTO) 4.9 % (1.0-6.0); HEMATOCRIT 39.5 % (41-53); HEMOGLOBIN 13.5 g/dL (13.5-17.5); LYMPHOCYTES % (AUTO) 32.6 % (22.0-44.0); MEAN CORPUSCULAR HEMOGLOBIN 30.1 pg (26.0-34.0); MEAN CORPUSCULAR HGB CONC 34.3 G/dL (31.0-37.0); MEAN CORPUSCULAR VOLUME 88 fL (80-100); MONOCYTES # (AUTO) 0.6 K/uL (0.1-1.0); MONOCYTES % (AUTO) 9.3 % (2.0-9.0); NEUTROPHILS # (AUTO) 3.2 K/uL (1.8-7.7); PLATELET COUNT (AUTO) 201 K/uL (150-450); RED CELL DISTRIBUTION WIDTH 15.1 % (11.5-14.5)
[2022-02-18] MEDS: MetFORMIN HCL 500 MG TABLET PO SCH ×3 (07:11→16:47)
[2022-02-18] MEDS: LEVOTHYROXINE SODIUM 100 MCG TABLET PO SCH (07:11)
[2022-02-18 08:55] VITALS: BP 146/75
[2022-02-18] MEDS ORDERED: CloZAPine 25 MG TABLET PO SCH (09:00)
[2022-02-18] MEDS: MULTIVITAMINS WITH MINERALS, THERAPEUTIC TABLET PO SCH (09:55)
[2022-02-18] MEDS: OMEGA-3/DHA/EPA/FISH OIL 1,000 MG CAPSULE PO SCH (09:55)
[2022-02-18] MEDS: DIVALPROEX SODIUM 500 MG ER TABLET PO SCH ×2 (09:56→16:47)
[2022-02-18] MEDS: THIAMINE 100 MG TABLET PO SCH ×2 (09:56→16:47)
[2022-02-18] MEDS: NALTREXONE HCL 50 MG TABLET PO SCH (09:56)
[2022-02-18] MEDS: FOLIC ACID 1 MG TABLET PO SCH (09:56)
[2022-02-18] MEDS: MAG HYDROX/AL HYDROX/SIMETH ES 30 ML SUSPENSION UDCUP PO PRN (12:00)
[2022-02-18] MEDS: GABAPENTIN 300 MG CAPSULE PO PRN (13:19)
[2022-02-18 18:22] VITALS: BP 143/74
[2022-02-18] MEDS: LURASIDONE HCL 80 MG TABLET PO SCH (20:40)
[2022-02-18] MEDS: MELATONIN 5 MG TABLET PO SCH (20:40)
[2022-02-18] MEDS ORDERED: CloZAPine 100 MG TABLET PO SCH (21:00)
[2022-02-19] MEDS: LURASIDONE HCL 20 MG TABLET PO PRN ×2 (02:40→18:32)
[2022-02-19 02:43] VITALS: BP 149/96
[2022-02-19] MEDS: GABAPENTIN 300 MG CAPSULE PO PRN ×3 (05:07→18:32)
[2022-02-19] MEDS: LEVOTHYROXINE SODIUM 100 MCG TABLET PO SCH (06:42)
[2022-02-19] MEDS: MetFORMIN HCL 500 MG TABLET PO SCH ×3 (06:42→16:33)
[2022-02-19 08:56] VITALS: BP 140/90
[2022-02-19] MEDS ORDERED: CloZAPine 25 MG TABLET PO SCH (09:00)
[2022-02-19] MEDS: MULTIVITAMINS WITH MINERALS, THERAPEUTIC TABLET PO SCH (09:35)
[2022-02-19] MEDS: DIVALPROEX SODIUM 500 MG ER TABLET PO SCH ×2 (09:35→16:33)
[2022-02-19] MEDS: FOLIC ACID 1 MG TABLET PO SCH (09:35)
[2022-02-19] MEDS: OMEGA-3/DHA/EPA/FISH OIL 1,000 MG CAPSULE PO SCH (09:35)
[2022-02-19] MEDS: NALTREXONE HCL 50 MG TABLET PO SCH (09:35)
[2022-02-19] MEDS: THIAMINE 100 MG TABLET PO SCH ×2 (09:36→16:33)
[2022-02-19 17:08] VITALS: BP 148/94
[2022-02-19] MEDS: LURASIDONE HCL 80 MG TABLET PO SCH (20:31)
[2022-02-19] MEDS: MELATONIN 5 MG TABLET PO SCH (20:31)
[2022-02-19] MEDS ORDERED: CloZAPine 100 MG TABLET PO SCH (21:00)
[2022-02-20] MEDS: MetFORMIN HCL 500 MG TABLET PO SCH ×3 (07:01→16:42)
[2022-02-20] MEDS: LEVOTHYROXINE SODIUM 100 MCG TABLET PO SCH (07:01)
[2022-02-20 08:06] VITALS: BP 128/80
[2022-02-20] MEDS: DIVALPROEX SODIUM 500 MG ER TABLET PO SCH ×3 (08:19→16:42)
[2022-02-20] MEDS: NALTREXONE HCL 50 MG TABLET PO SCH ×2 (08:20→10:57)
[2022-02-20] MEDS: THIAMINE 100 MG TABLET PO SCH (08:20)
[2022-02-20] MEDS: FOLIC ACID 1 MG TABLET PO SCH (08:20)
[2022-02-20] MEDS: OMEGA-3/DHA/EPA/FISH OIL 1,000 MG CAPSULE PO SCH ×2 (08:20→10:56)
[2022-02-20] MEDS: MULTIVITAMINS WITH MINERALS, THERAPEUTIC TABLET PO SCH ×2 (08:20→10:57)
[2022-02-20] MEDS ORDERED: CloZAPine 100 MG TABLET PO SCH (09:00)
[2022-02-20] MEDS: GABAPENTIN 300 MG CAPSULE PO PRN (10:56)
[2022-02-20] MEDS: ACETAMINOPHEN 325 MG TABLET PO PRN (12:54)
[2022-02-20] MEDS: PROMETHAZINE HCL 25 MG TABLET PO PRN (12:54)
[2022-02-20] MEDS: LURASIDONE HCL 20 MG TABLET PO PRN (14:02)
[2022-02-20 16:57] VITALS: BP 153/99
[2022-02-20] MEDS: LURASIDONE HCL 80 MG TABLET PO SCH (21:17)
[2022-02-20] MEDS: MELATONIN 5 MG TABLET PO SCH (21:17)
[2022-02-21] MEDS: GABAPENTIN 300 MG CAPSULE PO PRN (00:55)
[2022-02-21] MEDS: LURASIDONE HCL 20 MG TABLET PO PRN ×2 (00:56→14:16)
[2022-02-21 01:44] VITALS: BP 154/101
[2022-02-21] MEDS: MetFORMIN HCL 500 MG TABLET PO SCH ×3 (06:28→17:27)
[2022-02-21] MEDS: LEVOTHYROXINE SODIUM 100 MCG TABLET PO SCH (06:28)
[2022-02-21] MEDS: NALTREXONE HCL 50 MG TABLET PO SCH (08:18)
[2022-02-21] MEDS: OMEGA-3/DHA/EPA/FISH OIL 1,000 MG CAPSULE PO SCH (08:18)
[2022-02-21] MEDS: MULTIVITAMINS WITH MINERALS, THERAPEUTIC TABLET PO SCH (08:18)
[2022-02-21] MEDS: DIVALPROEX SODIUM 500 MG ER TABLET PO SCH ×2 (08:18→16:27)
[2022-02-21 10:11] VITALS: BP 120/82
[2022-02-21] MEDS: FluPHENAZine HCL 5 MG TABLET PO PRN (16:26)
[2022-02-21 17:20] VITALS: BP 154/103
[2022-02-21] MEDS: FluPHENAZine HCL 10 MG TABLET PO SCH (20:25)
[2022-02-21] MEDS: LURASIDONE HCL 80 MG TABLET PO SCH (20:26)
[2022-02-21] MEDS: MELATONIN 5 MG TABLET PO SCH (20:26)
[2022-02-21] MEDS: MAG HYDROX/AL HYDROX/SIMETH ES 30 ML SUSPENSION UDCUP PO PRN (22:10)
[2022-02-22 03:38] VITALS: BP 160/107
[2022-02-22] MEDS: FluPHENAZine HCL 5 MG TABLET PO PRN ×2 (03:40→10:55)
[2022-02-22] MEDS: LEVOTHYROXINE SODIUM 100 MCG TABLET PO SCH (06:36)
[2022-02-22] MEDS: MetFORMIN HCL 500 MG TABLET PO SCH ×3 (06:48→17:43)
[2022-02-22 08:00] VITALS: BP 147/86
[2022-02-22] MEDS: DIVALPROEX SODIUM 500 MG ER TABLET PO SCH ×2 (08:59→17:43)
[2022-02-22] MEDS ORDERED: CloZAPine 25 MG TABLET PO SCH (09:00)
[2022-02-22] MEDS: MULTIVITAMINS WITH MINERALS, THERAPEUTIC TABLET PO SCH (09:01)
[2022-02-22] MEDS: OMEGA-3/DHA/EPA/FISH OIL 1,000 MG CAPSULE PO SCH (09:01)
[2022-02-22] MEDS: NALTREXONE HCL 50 MG TABLET PO SCH (09:01)
[2022-02-22] MEDS: LOPERAMIDE HCL 2 MG CAPSULE PO PRN (09:09)
[2022-02-22] MEDS ORDERED: LORazepam 2 MG/ML VIAL IM ONE (13:00)
[2022-02-22] MEDS ORDERED: FluPHENAZine HCL 2.5 MG/ML INJ IM ONE ×2 (13:00→13:01)
[2022-02-22] MEDS ORDERED: DiphenhydrAMINE HCL 50 MG/ML VIAL IM ONE (13:00)
[2022-02-22] MEDS ORDERED: DiphenhydrAMINE HCL 50 MG/ML VIAL ONE (13:01)
[2022-02-22] MEDS ORDERED: LORazepam 2 MG/ML VIAL ONE (13:01)
[2022-02-22] MEDS ORDERED: CloZAPine 100 MG TABLET PO SCH (21:00)
[2022-02-22] MEDS: FluPHENAZine HCL 10 MG TABLET PO SCH (21:19)
[2022-02-22] MEDS: MELATONIN 5 MG TABLET PO SCH (21:19)
[2022-02-22] MEDS: LURASIDONE HCL 80 MG TABLET PO SCH (21:19)
[2022-02-23] MEDS: MetFORMIN HCL 500 MG TABLET PO SCH ×3 (06:37→17:30)
[2022-02-23] MEDS: LEVOTHYROXINE SODIUM 100 MCG TABLET PO SCH (06:37)
[2022-02-23 07:31] LABS: EOSINOPHILS % (AUTO) 2.4 % (1.0-6.0); HEMATOCRIT 40.3 % (41-53); HEMOGLOBIN 13.8 g/dL (13.5-17.5); LYMPHOCYTES # (AUTO) 1.8 K/uL (1.0-4.8); LYMPHOCYTES % (AUTO) 24.1 % (22.0-44.0); MEAN CORPUSCULAR HEMOGLOBIN 30.3 pg (26.0-34.0); MEAN CORPUSCULAR HGB CONC 34.2 G/dL (31.0-37.0); MEAN CORPUSCULAR VOLUME 89 fL (80-100); MONOCYTES # (AUTO) 0.8 K/uL (0.1-1.0); MONOCYTES % (AUTO) 11.2 % (2.0-9.0); NEUTROPHILS # (AUTO) 4.6 K/uL (1.8-7.7); NEUTROPHILS % (AUTO) 61.3 % (40.0-70.0); PLATELET COUNT (AUTO) 204 K/uL (150-450); RED BLOOD CELL COUNT(AUTO) 4.53 MIL/uL (4.50-5.90); RED CELL DISTRIBUTION WIDTH 15.3 % (11.5-14.5)
[2022-02-23 08:24] VITALS: BP 115/64
[2022-02-23] MEDS: FluPHENAZine HCL 5 MG TABLET PO PRN (08:34)
[2022-02-23] MEDS: DIVALPROEX SODIUM 500 MG ER TABLET PO SCH ×2 (08:35→17:00)
[2022-02-23] MEDS: OMEGA-3/DHA/EPA/FISH OIL 1,000 MG CAPSULE PO SCH (08:35)
[2022-02-23] MEDS: GABAPENTIN 300 MG CAPSULE PO PRN ×2 (08:35→20:52)
[2022-02-23] MEDS: NALTREXONE HCL 50 MG TABLET PO SCH (08:35)
[2022-02-23] MEDS: MULTIVITAMINS WITH MINERALS, THERAPEUTIC TABLET PO SCH (08:35)
[2022-02-23] MEDS ORDERED: CloZAPine 25 MG TABLET PO SCH ×2 (09:00)
[2022-02-23 16:18] VITALS: BP 138/87
[2022-02-23] MEDS: FluPHENAZine HCL 10 MG TABLET PO SCH (20:51)
[2022-02-23 20:52] VITALS: BP 122/89
[2022-02-23] MEDS: ACETAMINOPHEN 325 MG TABLET PO PRN (20:52)
[2022-02-23] MEDS: MELATONIN 5 MG TABLET PO SCH (20:52)
[2022-02-23] MEDS ORDERED: LURASIDONE HCL 80 MG TABLET PO SCH (21:00)
[2022-02-23] MEDS ORDERED: CloZAPine 100 MG TABLET PO SCH (21:00)
[2022-02-24 04:22] VITALS: BP 136/84
[2022-02-24] MEDS: ACETAMINOPHEN 325 MG TABLET PO PRN ×2 (04:27→09:00)
[2022-02-24] MEDS: MetFORMIN HCL 500 MG TABLET PO SCH ×3 (06:31→16:24)
[2022-02-24] MEDS: LEVOTHYROXINE SODIUM 100 MCG TABLET PO SCH (06:31)
[2022-02-24 08:10] VITALS: BP 115/72
[2022-02-24] MEDS: OMEGA-3/DHA/EPA/FISH OIL 1,000 MG CAPSULE PO SCH (09:00)
[2022-02-24] MEDS: NALTREXONE HCL 50 MG TABLET PO SCH (09:00)
[2022-02-24] MEDS ORDERED: CloZAPine 25 MG TABLET PO SCH ×2 (09:00→21:00)
[2022-02-24] MEDS ORDERED: CloZAPine 100 MG TABLET PO SCH ×2 (09:00→21:00)
[2022-02-24] MEDS: MULTIVITAMINS WITH MINERALS, THERAPEUTIC TABLET PO SCH (09:00)
[2022-02-24] MEDS: DIVALPROEX SODIUM 500 MG ER TABLET PO SCH ×2 (09:00→16:24)
[2022-02-24] MEDS: GABAPENTIN 300 MG CAPSULE PO PRN ×3 (09:00→19:00)
[2022-02-24] MEDS: FluPHENAZine HCL 5 MG TABLET PO PRN (12:15)
[2022-02-24] MEDS: PROMETHAZINE HCL 25 MG TABLET PO PRN (12:15)
[2022-02-24 16:36] VITALS: BP 127/83
[2022-02-24] MEDS: FluPHENAZine HCL 10 MG TABLET PO SCH (20:22)
[2022-02-24] MEDS: MELATONIN 5 MG TABLET PO SCH (20:22)
[2022-02-24] MEDS: LURASIDONE HCL 60 MG TABLET PO SCH (20:22)
[2022-02-25] MEDS: ACETAMINOPHEN 325 MG TABLET PO PRN (06:09)
[2022-02-25 06:29] LABS: COVID AG,FIA SOURCE NASAL SWAB
[2022-02-25] MEDS: MetFORMIN HCL 500 MG TABLET PO SCH ×3 (07:03→16:52)
[2022-02-25] MEDS: LEVOTHYROXINE SODIUM 100 MCG TABLET PO SCH (07:03)
[2022-02-25 08:24] VITALS: BP 130/89
[2022-02-25] MEDS: OMEGA-3/DHA/EPA/FISH OIL 1,000 MG CAPSULE PO SCH (08:43)
[2022-02-25] MEDS: DIVALPROEX SODIUM 500 MG ER TABLET PO SCH ×2 (08:43→16:52)
[2022-02-25] MEDS: MULTIVITAMINS WITH MINERALS, THERAPEUTIC TABLET PO SCH (08:43)
[2022-02-25] MEDS ORDERED: CloZAPine 25 MG TABLET PO SCH ×2 (09:00→21:00)
[2022-02-25] MEDS: NALTREXONE HCL 50 MG TABLET PO SCH (09:19)
[2022-02-25 16:39] VITALS: BP 135/84
[2022-02-25] MEDS: FluPHENAZine HCL 10 MG TABLET PO SCH (20:23)
[2022-02-25] MEDS: LURASIDONE HCL 60 MG TABLET PO SCH (20:23)
[2022-02-25] MEDS: MELATONIN 5 MG TABLET PO SCH (20:23)
[2022-02-26] MEDS: LEVOTHYROXINE SODIUM 100 MCG TABLET PO SCH (06:44)
[2022-02-26] MEDS: MetFORMIN HCL 500 MG TABLET PO SCH ×3 (06:44→16:31)
[2022-02-26] MEDS: FluPHENAZine HCL 5 MG TABLET PO PRN ×2 (07:59→12:10)
[2022-02-26] MEDS: GABAPENTIN 300 MG CAPSULE PO PRN ×2 (07:59→12:10)
[2022-02-26] MEDS: DIVALPROEX SODIUM 500 MG ER TABLET PO SCH ×2 (08:03→16:31)
[2022-02-26] MEDS: CloZAPine 25 MG TABLET PO SCH ×2 (08:03→20:02)
[2022-02-26] MEDS: MULTIVITAMINS WITH MINERALS, THERAPEUTIC TABLET PO SCH (08:03)
[2022-02-26] MEDS: NALTREXONE HCL 50 MG TABLET PO SCH (08:04)
[2022-02-26] MEDS: OMEGA-3/DHA/EPA/FISH OIL 1,000 MG CAPSULE PO SCH (08:05)
[2022-02-26 08:09] VITALS: BP 165/96
[2022-02-26 08:16] LABS: BASOPHILS % (AUTO) 1.3 % (0.0-2.0); EOSINOPHILS % (AUTO) 3.8 % (1.0-6.0); HEMATOCRIT 42.6 % (41-53); HEMOGLOBIN 14.4 g/dL (13.5-17.5); LYMPHOCYTES % (AUTO) 29.1 % (22.0-44.0); MEAN CORPUSCULAR HEMOGLOBIN 30.3 pg (26.0-34.0); MEAN CORPUSCULAR HGB CONC 33.8 G/dL (31.0-37.0); MEAN CORPUSCULAR VOLUME 90 fL (80-100); MONOCYTES # (AUTO) 0.7 K/uL (0.1-1.0); MONOCYTES % (AUTO) 9.7 % (2.0-9.0); NEUTROPHILS # (AUTO) 3.9 K/uL (1.8-7.7); NEUTROPHILS % (AUTO) 56.1 % (40.0-70.0); PLATELET COUNT (AUTO) 201 K/uL (150-450); RED BLOOD CELL COUNT(AUTO) 4.76 MIL/uL (4.50-5.90); RED CELL DISTRIBUTION WIDTH 15.4 % (11.5-14.5)
[2022-02-26 08:55] LABS: FREE T4 (FREE THYROXINE) 0.7 ng/dL (0.76-1.46); THYROID STIMULATING HORMONE 68.68 uIU/mL (0.36-3.74)
[2022-02-26 16:16] VITALS: BP 163/96
[2022-02-26 17:11] VITALS: BP 162/96
[2022-02-26] MEDS: ACETAMINOPHEN 325 MG TABLET PO PRN (17:11)
[2022-02-26] MEDS: FluPHENAZine HCL 10 MG TABLET PO SCH (20:02)
[2022-02-26] MEDS: MELATONIN 5 MG TABLET PO SCH (20:02)
[2022-02-26] MEDS: LURASIDONE HCL 60 MG TABLET PO SCH (20:02)
[2022-02-27] MEDS: LEVOTHYROXINE SODIUM 200 MCG TABLET PO SCH (06:33)
[2022-02-27] MEDS: MetFORMIN HCL 500 MG TABLET PO SCH ×3 (06:33→16:27)
[2022-02-27 08:34] VITALS: BP 155/106
[2022-02-27] MEDS: MULTIVITAMINS WITH MINERALS, THERAPEUTIC TABLET PO SCH (08:34)
[2022-02-27] MEDS: OMEGA-3/DHA/EPA/FISH OIL 1,000 MG CAPSULE PO SCH (08:34)
[2022-02-27] MEDS: FluPHENAZine HCL 5 MG TABLET PO PRN ×2 (08:34→13:01)
[2022-02-27] MEDS: CloZAPine 25 MG TABLET PO SCH ×2 (08:34→20:25)
[2022-02-27] MEDS: DIVALPROEX SODIUM 500 MG ER TABLET PO SCH ×2 (08:34→16:28)
[2022-02-27] MEDS: GABAPENTIN 300 MG CAPSULE PO PRN ×2 (08:34→13:01)
[2022-02-27] MEDS: NALTREXONE HCL 50 MG TABLET PO SCH (08:34)
[2022-02-27 16:18] VITALS: BP 154/99
[2022-02-27] MEDS: FluPHENAZine HCL 10 MG TABLET PO SCH (20:26)
[2022-02-27] MEDS: LURASIDONE HCL 60 MG TABLET PO SCH (20:26)
[2022-02-27] MEDS: MELATONIN 5 MG TABLET PO SCH (20:27)
[2022-02-28] MEDS: LEVOTHYROXINE SODIUM 200 MCG TABLET PO SCH (06:47)
[2022-02-28] MEDS: MetFORMIN HCL 500 MG TABLET PO SCH ×3 (06:47→16:25)
[2022-02-28] MEDS ORDERED: CloZAPine 25 MG TABLET PO SCH (09:00)
[2022-02-28 09:14] VITALS: BP 114/75
[2022-02-28] MEDS: NALTREXONE HCL 50 MG TABLET PO SCH (09:46)
[2022-02-28] MEDS: FluPHENAZine HCL 5 MG TABLET PO PRN ×2 (09:47→13:01)
[2022-02-28] MEDS: DIVALPROEX SODIUM 500 MG ER TABLET PO SCH ×2 (09:49→16:24)
[2022-02-28] MEDS: OMEGA-3/DHA/EPA/FISH OIL 1,000 MG CAPSULE PO SCH (09:49)
[2022-02-28] MEDS: GABAPENTIN 300 MG CAPSULE PO PRN ×2 (09:49→13:02)
[2022-02-28] MEDS: MULTIVITAMINS WITH MINERALS, THERAPEUTIC TABLET PO SCH (09:49)
[2022-02-28 16:18] VITALS: BP 128/82
[2022-02-28] MEDS: FluPHENAZine HCL 10 MG TABLET PO SCH (20:04)
[2022-02-28] MEDS: LURASIDONE HCL 60 MG TABLET PO SCH (20:05)
[2022-02-28] MEDS: MELATONIN 5 MG TABLET PO SCH (20:05)
[2022-02-28] MEDS ORDERED: CloZAPine 100 MG TABLET PO SCH (21:00)
[2022-03-01] MEDS: GABAPENTIN 300 MG CAPSULE PO PRN ×4 (00:02→17:05)
[2022-03-01] MEDS: FluPHENAZine HCL 5 MG TABLET PO PRN ×4 (00:03→17:06)
[2022-03-01] MEDS: LEVOTHYROXINE SODIUM 200 MCG TABLET PO SCH (06:55)
[2022-03-01] MEDS: MetFORMIN HCL 500 MG TABLET PO SCH ×3 (06:56→17:05)
[2022-03-01 08:10] VITALS: BP 124/74
[2022-03-01] MEDS: MULTIVITAMINS WITH MINERALS, THERAPEUTIC TABLET PO SCH (08:19)
[2022-03-01] MEDS: OMEGA-3/DHA/EPA/FISH OIL 1,000 MG CAPSULE PO SCH (08:19)
[2022-03-01] MEDS: NALTREXONE HCL 50 MG TABLET PO SCH (08:19)
[2022-03-01] MEDS: DIVALPROEX SODIUM 500 MG ER TABLET PO SCH ×2 (08:19→16:25)
[2022-03-01] MEDS ORDERED: CloZAPine 25 MG TABLET PO SCH (09:00)
[2022-03-01 16:34] VITALS: BP 144/102
[2022-03-01] MEDS: FluPHENAZine HCL 10 MG TABLET PO SCH (20:16)
[2022-03-01] MEDS: LURASIDONE HCL 40 MG TABLET PO SCH (20:16)
[2022-03-01] MEDS: MELATONIN 5 MG TABLET PO SCH (20:16)
[2022-03-01] MEDS ORDERED: CloZAPine 100 MG TABLET PO SCH (21:00)
[2022-03-02] MEDS: MetFORMIN HCL 500 MG TABLET PO SCH ×3 (07:03→17:27)
[2022-03-02] MEDS: LEVOTHYROXINE SODIUM 200 MCG TABLET PO SCH (07:03)
[2022-03-02 08:11] VITALS: BP 144/87
[2022-03-02 08:28] LABS: BASOPHILS % (AUTO) 1.5 % (0.0-2.0); EOSINOPHILS % (AUTO) 3.2 % (1.0-6.0); HEMATOCRIT 43.9 % (41-53); HEMOGLOBIN 14.5 g/dL (13.5-17.5); LYMPHOCYTES # (AUTO) 1.9 K/uL (1.0-4.8); LYMPHOCYTES % (AUTO) 32.6 % (22.0-44.0); MEAN CORPUSCULAR HEMOGLOBIN 29.7 pg (26.0-34.0); MEAN CORPUSCULAR HGB CONC 33.1 G/dL (31.0-37.0); MEAN CORPUSCULAR VOLUME 90 fL (80-100); MONOCYTES # (AUTO) 0.7 K/uL (0.1-1.0); MONOCYTES % (AUTO) 12.5 % (2.0-9.0); NEUTROPHILS % (AUTO) 50.2 % (40.0-70.0); PLATELET COUNT (AUTO) 217 K/uL (150-450); RED BLOOD CELL COUNT(AUTO) 4.88 MIL/uL (4.50-5.90); RED CELL DISTRIBUTION WIDTH 15.1 % (11.5-14.5)
[2022-03-02 08:51] LABS: FREE T4 (FREE THYROXINE) 0.8 ng/dL (0.76-1.46); THYROID STIMULATING HORMONE 51.07 uIU/mL (0.36-3.74)
[2022-03-02] MEDS ORDERED: CloZAPine 25 MG TABLET PO SCH (09:00)
[2022-03-02] MEDS: MULTIVITAMINS WITH MINERALS, THERAPEUTIC TABLET PO SCH (09:02)
[2022-03-02] MEDS: DIVALPROEX SODIUM 500 MG ER TABLET PO SCH ×2 (09:02→16:05)
[2022-03-02] MEDS: OMEGA-3/DHA/EPA/FISH OIL 1,000 MG CAPSULE PO SCH (09:02)
[2022-03-02] MEDS: NALTREXONE HCL 50 MG TABLET PO SCH (09:02)
[2022-03-02] MEDS: FluPHENAZine HCL 5 MG TABLET PO PRN ×2 (09:09→16:04)
[2022-03-02] MEDS: GABAPENTIN 300 MG CAPSULE PO PRN ×2 (09:09→17:27)
[2022-03-02 16:26] VITALS: BP 150/89
[2022-03-02] MEDS: MELATONIN 5 MG TABLET PO SCH (20:17)
[2022-03-02] MEDS: LURASIDONE HCL 40 MG TABLET PO SCH (20:17)
[2022-03-02] MEDS: FluPHENAZine HCL 10 MG TABLET PO SCH (20:17)
[2022-03-02] MEDS ORDERED: CloZAPine 100 MG TABLET PO SCH (21:00)
[2022-03-03] MEDS: LEVOTHYROXINE SODIUM 200 MCG TABLET PO SCH (07:02)
[2022-03-03] MEDS: MetFORMIN HCL 500 MG TABLET PO SCH ×3 (07:02→17:58)
[2022-03-03 08:16] VITALS: BP 99/71
[2022-03-03] MEDS: DIVALPROEX SODIUM 500 MG ER TABLET PO SCH ×2 (09:49→16:02)
[2022-03-03] MEDS: MULTIVITAMINS WITH MINERALS, THERAPEUTIC TABLET PO SCH (09:50)
[2022-03-03] MEDS: FluPHENAZine HCL 5 MG TABLET PO PRN ×2 (09:50→16:01)
[2022-03-03] MEDS: OMEGA-3/DHA/EPA/FISH OIL 1,000 MG CAPSULE PO SCH (09:50)
[2022-03-03] MEDS: GABAPENTIN 300 MG CAPSULE PO PRN (09:50)
[2022-03-03] MEDS: CloZAPine 100 MG TABLET PO SCH ×2 (09:50→20:52)
[2022-03-03] MEDS: NALTREXONE HCL 50 MG TABLET PO SCH (09:50)
[2022-03-03 16:22] VITALS: BP 143/90
[2022-03-03] MEDS: MELATONIN 5 MG TABLET PO SCH (20:52)
[2022-03-03] MEDS: FluPHENAZine HCL 10 MG TABLET PO SCH (20:52)
[2022-03-04] MEDS: MetFORMIN HCL 500 MG TABLET PO SCH ×3 (06:57→17:30)
[2022-03-04] MEDS: LEVOTHYROXINE SODIUM 200 MCG TABLET PO SCH (06:57)
[2022-03-04 08:24] VITALS: BP 121/74
[2022-03-04] MEDS: CloZAPine 100 MG TABLET PO SCH ×2 (10:58→20:12)
[2022-03-04] MEDS: OMEGA-3/DHA/EPA/FISH OIL 1,000 MG CAPSULE PO SCH (10:58)
[2022-03-04] MEDS: DIVALPROEX SODIUM 500 MG ER TABLET PO SCH ×2 (10:58→16:28)
[2022-03-04] MEDS: MULTIVITAMINS WITH MINERALS, THERAPEUTIC TABLET PO SCH (10:59)
[2022-03-04] MEDS: NALTREXONE HCL 50 MG TABLET PO SCH (11:01)
[2022-03-04] MEDS: FluPHENAZine HCL 5 MG TABLET PO PRN ×2 (11:18→16:26)
[2022-03-04] MEDS: GABAPENTIN 300 MG CAPSULE PO PRN (11:19)
[2022-03-04] MEDS: FluPHENAZine HCL 10 MG TABLET PO SCH (20:13)
[2022-03-04] MEDS: MELATONIN 5 MG TABLET PO SCH (20:13)
[2022-03-05 04:25] LABS: COVID AG,FIA SOURCE NASAL SWAB
[2022-03-05] MEDS: LEVOTHYROXINE SODIUM 200 MCG TABLET PO SCH (06:31)
[2022-03-05] MEDS: MetFORMIN HCL 500 MG TABLET PO SCH ×3 (06:31→18:40)
[2022-03-05] MEDS ORDERED: CloZAPine 25 MG TABLET PO SCH (09:00)
[2022-03-05] MEDS: GABAPENTIN 300 MG CAPSULE PO PRN (09:03)
[2022-03-05] MEDS: OMEGA-3/DHA/EPA/FISH OIL 1,000 MG CAPSULE PO SCH (09:03)
[2022-03-05] MEDS: DIVALPROEX SODIUM 500 MG ER TABLET PO SCH ×2 (09:03→16:06)
[2022-03-05] MEDS: MULTIVITAMINS WITH MINERALS, THERAPEUTIC TABLET PO SCH (09:03)
[2022-03-05] MEDS: FluPHENAZine HCL 5 MG TABLET PO PRN ×2 (09:03→15:48)
[2022-03-05] MEDS: NALTREXONE HCL 50 MG TABLET PO SCH (09:03)
[2022-03-05 09:37] VITALS: BP 137/80
[2022-03-05 16:38] VITALS: BP 140/98
[2022-03-05] MEDS: MELATONIN 5 MG TABLET PO SCH (20:25)
[2022-03-05] MEDS: FluPHENAZine HCL 10 MG TABLET PO SCH (20:25)
[2022-03-05] MEDS ORDERED: CloZAPine 100 MG TABLET PO SCH (21:00)
[2022-03-06] MEDS: LEVOTHYROXINE SODIUM 200 MCG TABLET PO SCH (06:31)
[2022-03-06] MEDS: MetFORMIN HCL 500 MG TABLET PO SCH ×3 (06:32→16:49)
[2022-03-06] MEDS: GABAPENTIN 300 MG CAPSULE PO PRN ×2 (08:20→14:09)
[2022-03-06] MEDS: MULTIVITAMINS WITH MINERALS, THERAPEUTIC TABLET PO SCH (08:20)
[2022-03-06] MEDS: FluPHENAZine HCL 5 MG TABLET PO PRN ×2 (08:20→14:09)
[2022-03-06] MEDS: NALTREXONE HCL 50 MG TABLET PO SCH (08:21)
[2022-03-06] MEDS: DIVALPROEX SODIUM 500 MG ER TABLET PO SCH ×2 (08:21→16:02)
[2022-03-06] MEDS: OMEGA-3/DHA/EPA/FISH OIL 1,000 MG CAPSULE PO SCH (08:21)
[2022-03-06 08:56] VITALS: BP 149/110
[2022-03-06] MEDS ORDERED: CloZAPine 25 MG TABLET PO SCH (09:00)
[2022-03-06 10:00] VITALS: BP 140/96
[2022-03-06 16:00] VITALS: BP 128/92
[2022-03-06] MEDS: FluPHENAZine HCL 10 MG TABLET PO SCH (20:04)
[2022-03-06] MEDS: MELATONIN 5 MG TABLET PO SCH (20:04)
[2022-03-06] MEDS ORDERED: CloZAPine 100 MG TABLET PO SCH (21:00)
[2022-03-07] MEDS: LEVOTHYROXINE SODIUM 200 MCG TABLET PO SCH (07:01)
[2022-03-07] MEDS: MetFORMIN HCL 500 MG TABLET PO SCH ×4 (07:01→16:40)
[2022-03-07 08:40] VITALS: BP 129/71
[2022-03-07] MEDS: NALTREXONE HCL 50 MG TABLET PO SCH (08:51)
[2022-03-07] MEDS: OMEGA-3/DHA/EPA/FISH OIL 1,000 MG CAPSULE PO SCH (08:51)
[2022-03-07] MEDS: CloZAPine 100 MG TABLET PO SCH ×2 (08:51→20:03)
[2022-03-07] MEDS: FluPHENAZine HCL 5 MG TABLET PO PRN (08:51)
[2022-03-07] MEDS: DIVALPROEX SODIUM 500 MG ER TABLET PO SCH ×2 (08:53→16:40)
[2022-03-07] MEDS: GABAPENTIN 300 MG CAPSULE PO PRN (08:53)
[2022-03-07] MEDS: MULTIVITAMINS WITH MINERALS, THERAPEUTIC TABLET PO SCH (08:53)
[2022-03-07 16:45] VITALS: BP 130/82
[2022-03-07] MEDS: FluPHENAZine HCL 10 MG TABLET PO SCH (20:03)
[2022-03-07] MEDS: MELATONIN 5 MG TABLET PO SCH (20:04)
[2022-03-07] MEDS ORDERED: CloZAPine 100 MG TABLET PO SCH (21:00)
[2022-03-08] MEDS: FluPHENAZine HCL 5 MG TABLET PO PRN ×3 (01:26→18:15)
[2022-03-08] MEDS: GABAPENTIN 300 MG CAPSULE PO PRN ×3 (01:26→18:13)
[2022-03-08] MEDS: LEVOTHYROXINE SODIUM 200 MCG TABLET PO SCH (07:01)
[2022-03-08] MEDS: MetFORMIN HCL 500 MG TABLET PO SCH ×3 (07:02→16:37)
[2022-03-08 08:11] VITALS: BP 154/103
[2022-03-08] MEDS: NALTREXONE HCL 50 MG TABLET PO SCH (10:00)
[2022-03-08] MEDS: DIVALPROEX SODIUM 500 MG ER TABLET PO SCH ×2 (10:00→16:36)
[2022-03-08] MEDS: MULTIVITAMINS WITH MINERALS, THERAPEUTIC TABLET PO SCH (10:00)
[2022-03-08] MEDS: CloZAPine 100 MG TABLET PO SCH ×2 (10:00→20:45)
[2022-03-08] MEDS: OMEGA-3/DHA/EPA/FISH OIL 1,000 MG CAPSULE PO SCH (10:00)
[2022-03-08 16:24] VITALS: BP_SYST 155; BP_DIAS 96; BP_DIAS 98
[2022-03-08] MEDS: FluPHENAZine HCL 10 MG TABLET PO SCH (20:44)
[2022-03-08] MEDS: MELATONIN 5 MG TABLET PO SCH (20:45)
[2022-03-09] MEDS: MetFORMIN HCL 500 MG TABLET PO SCH ×3 (06:32→16:37)
[2022-03-09] MEDS: LEVOTHYROXINE SODIUM 200 MCG TABLET PO SCH (06:32)
[2022-03-09] MEDS: NALTREXONE HCL 50 MG TABLET PO SCH (07:57)
[2022-03-09] MEDS: MULTIVITAMINS WITH MINERALS, THERAPEUTIC TABLET PO SCH (07:57)
[2022-03-09] MEDS: OMEGA-3/DHA/EPA/FISH OIL 1,000 MG CAPSULE PO SCH (07:57)
[2022-03-09] MEDS: CloZAPine 100 MG TABLET PO SCH ×2 (07:57→20:03)
[2022-03-09] MEDS: DIVALPROEX SODIUM 500 MG ER TABLET PO SCH ×2 (07:57→16:21)
[2022-03-09] MEDS: FluPHENAZine HCL 5 MG TABLET PO PRN (07:59)
[2022-03-09] MEDS: GABAPENTIN 300 MG CAPSULE PO PRN ×2 (07:59→16:21)
[2022-03-09 09:11] VITALS: BP 153/96
[2022-03-09 13:24] VITALS: BP 153/96
[2022-03-09 16:16] VITALS: BP 147/95
[2022-03-09] MEDS: MELATONIN 5 MG TABLET PO SCH (20:03)
[2022-03-09] MEDS: FluPHENAZine HCL 10 MG TABLET PO SCH (20:05)
[2022-03-10] MEDS: ACETAMINOPHEN 325 MG TABLET PO PRN (03:57)
[2022-03-10] MEDS: LEVOTHYROXINE SODIUM 200 MCG TABLET PO SCH (06:40)
[2022-03-10] MEDS: MetFORMIN HCL 500 MG TABLET PO SCH ×3 (06:40→16:22)
[2022-03-10 08:21] VITALS: BP 126/74
[2022-03-10] MEDS: GABAPENTIN 300 MG CAPSULE PO PRN ×2 (10:01→22:58)
[2022-03-10] MEDS: MULTIVITAMINS WITH MINERALS, THERAPEUTIC TABLET PO SCH (10:01)
[2022-03-10] MEDS: FluPHENAZine HCL 5 MG TABLET PO PRN ×2 (10:01→22:58)
[2022-03-10] MEDS: METOPROLOL SUCCINATE 25 MG ER TABLET PO SCH ×2 (10:01→16:22)
[2022-03-10] MEDS: NALTREXONE HCL 50 MG TABLET PO SCH (10:01)
[2022-03-10] MEDS: DIVALPROEX SODIUM 500 MG ER TABLET PO SCH ×2 (10:03→16:22)
[2022-03-10] MEDS: CloZAPine 100 MG TABLET PO SCH ×2 (10:03→20:05)
[2022-03-10] MEDS: OMEGA-3/DHA/EPA/FISH OIL 1,000 MG CAPSULE PO SCH (10:04)
[2022-03-10 10:11] LABS: FREE T4 (FREE THYROXINE) 0.8 ng/dL (0.76-1.46); THYROID STIMULATING HORMONE 14.31 uIU/mL (0.36-3.74)
[2022-03-10 16:44] VITALS: BP 147/99
[2022-03-10] MEDS: FluPHENAZine HCL 10 MG TABLET PO SCH (20:06)
[2022-03-10] MEDS: MELATONIN 5 MG TABLET PO SCH (20:06)
[2022-03-10] MEDS: MAG HYDROX/AL HYDROX/SIMETH ES 30 ML SUSPENSION UDCUP PO PRN (22:49)
[2022-03-11] MEDS: MetFORMIN HCL 500 MG TABLET PO SCH ×3 (06:31→16:29)
[2022-03-11] MEDS: LEVOTHYROXINE SODIUM 200 MCG TABLET PO SCH (06:31)
[2022-03-11 07:15] LABS: BASOPHILS % (AUTO) 1.3 % (0.0-2.0); EOSINOPHILS % (AUTO) 3.1 % (1.0-6.0); HEMATOCRIT 39.7 % (41-53); HEMOGLOBIN 13.5 g/dL (13.5-17.5); LYMPHOCYTES % (AUTO) 26.9 % (22.0-44.0); MEAN CORPUSCULAR VOLUME 88 fL (80-100); MONOCYTES # (AUTO) 0.8 K/uL (0.1-1.0); NEUTROPHILS # (AUTO) 4.2 K/uL (1.8-7.7); NEUTROPHILS % (AUTO) 57.7 % (40.0-70.0); PLATELET COUNT (AUTO) 179 K/uL (150-450)
[2022-03-11] MEDS: CloZAPine 100 MG TABLET PO SCH ×2 (08:24→20:19)
[2022-03-11] MEDS: OMEGA-3/DHA/EPA/FISH OIL 1,000 MG CAPSULE PO SCH (08:24)
[2022-03-11] MEDS: GABAPENTIN 300 MG CAPSULE PO PRN ×2 (08:25→12:51)
[2022-03-11] MEDS: NALTREXONE HCL 50 MG TABLET PO SCH (08:25)
[2022-03-11] MEDS: METOPROLOL SUCCINATE 25 MG ER TABLET PO SCH ×2 (08:25→16:30)
[2022-03-11] MEDS: MULTIVITAMINS WITH MINERALS, THERAPEUTIC TABLET PO SCH (08:25)
[2022-03-11] MEDS: DIVALPROEX SODIUM 500 MG ER TABLET PO SCH ×2 (08:25→16:30)
[2022-03-11 08:40] VITALS: BP 143/78
[2022-03-11] MEDS: FluPHENAZine HCL 5 MG TABLET PO PRN ×2 (12:01→16:30)
[2022-03-11 16:27] VITALS: BP 140/80
[2022-03-11] MEDS: FluPHENAZine HCL 10 MG TABLET PO SCH (20:20)
[2022-03-11] MEDS: MELATONIN 5 MG TABLET PO SCH (20:20)
[2022-03-12] MEDS: MetFORMIN HCL 500 MG TABLET PO SCH ×3 (06:32→16:37)
[2022-03-12] MEDS: LEVOTHYROXINE SODIUM 200 MCG TABLET PO SCH (06:32)
[2022-03-12 08:17] VITALS: BP 142/89
[2022-03-12] MEDS: OMEGA-3/DHA/EPA/FISH OIL 1,000 MG CAPSULE PO SCH (08:22)
[2022-03-12] MEDS: METOPROLOL SUCCINATE 25 MG ER TABLET PO SCH ×2 (08:23→16:37)
[2022-03-12] MEDS: NALTREXONE HCL 50 MG TABLET PO SCH (08:23)
[2022-03-12] MEDS: MULTIVITAMINS WITH MINERALS, THERAPEUTIC TABLET PO SCH (08:23)
[2022-03-12] MEDS: CloZAPine 100 MG TABLET PO SCH ×2 (08:23→20:10)
[2022-03-12] MEDS: DIVALPROEX SODIUM 500 MG ER TABLET PO SCH ×2 (08:23→16:37)
[2022-03-12] MEDS: GABAPENTIN 300 MG CAPSULE PO PRN ×2 (08:25→12:44)
[2022-03-12 08:42] LABS: COVID AG,FIA SOURCE NASAL SWAB
[2022-03-12] MEDS: FluPHENAZine HCL 5 MG TABLET PO PRN ×2 (12:44→16:37)
[2022-03-12 16:13] VITALS: BP 148/88
[2022-03-12] MEDS: FluPHENAZine HCL 10 MG TABLET PO SCH (20:10)
[2022-03-12] MEDS: MELATONIN 5 MG TABLET PO SCH (20:10)
[2022-03-13] MEDS: LEVOTHYROXINE SODIUM 200 MCG TABLET PO SCH (06:43)
[2022-03-13] MEDS: MetFORMIN HCL 500 MG TABLET PO SCH ×3 (06:45→16:32)
[2022-03-13 08:10] VITALS: BP 113/60
[2022-03-13] MEDS: GABAPENTIN 300 MG CAPSULE PO PRN (09:38)
[2022-03-13] MEDS: FluPHENAZine HCL 5 MG TABLET PO PRN (09:38)
[2022-03-13] MEDS: OMEGA-3/DHA/EPA/FISH OIL 1,000 MG CAPSULE PO SCH (09:38)
[2022-03-13] MEDS: DIVALPROEX SODIUM 500 MG ER TABLET PO SCH ×2 (09:38→16:33)
[2022-03-13] MEDS: METOPROLOL SUCCINATE 25 MG ER TABLET PO SCH ×2 (09:38→16:33)
[2022-03-13] MEDS: NALTREXONE HCL 50 MG TABLET PO SCH (09:38)
[2022-03-13] MEDS: CloZAPine 100 MG TABLET PO SCH ×2 (09:38→20:02)
[2022-03-13] MEDS: MULTIVITAMINS WITH MINERALS, THERAPEUTIC TABLET PO SCH (09:39)
[2022-03-13 17:06] VITALS: BP 125/74
[2022-03-13] MEDS: MELATONIN 5 MG TABLET PO SCH (20:02)
[2022-03-13] MEDS: FluPHENAZine HCL 10 MG TABLET PO SCH (20:03)
[2022-03-14] MEDS: LEVOTHYROXINE SODIUM 200 MCG TABLET PO SCH (06:34)
[2022-03-14] MEDS: MetFORMIN HCL 500 MG TABLET PO SCH ×3 (06:39→16:39)
[2022-03-14 08:00] VITALS: BP 127/75
[2022-03-14] MEDS: OMEGA-3/DHA/EPA/FISH OIL 1,000 MG CAPSULE PO SCH (09:30)
[2022-03-14] MEDS: NALTREXONE HCL 50 MG TABLET PO SCH (09:30)
[2022-03-14] MEDS: GABAPENTIN 300 MG CAPSULE PO PRN (09:30)
[2022-03-14] MEDS: CloZAPine 100 MG TABLET PO SCH ×2 (09:30→20:19)
[2022-03-14] MEDS: MULTIVITAMINS WITH MINERALS, THERAPEUTIC TABLET PO SCH (09:30)
[2022-03-14] MEDS: METOPROLOL SUCCINATE 25 MG ER TABLET PO SCH ×2 (09:30→16:39)
[2022-03-14] MEDS: DIVALPROEX SODIUM 500 MG ER TABLET PO SCH ×2 (09:30→16:39)
[2022-03-14] MEDS: FluPHENAZine HCL 5 MG TABLET PO PRN ×2 (09:31→16:39)
[2022-03-14 18:19] VITALS: BP 151/89
[2022-03-14] MEDS: MELATONIN 5 MG TABLET PO SCH (20:19)
[2022-03-14] MEDS: FluPHENAZine HCL 10 MG TABLET PO SCH (20:37)
[2022-03-15] MEDS: LEVOTHYROXINE SODIUM 200 MCG TABLET PO SCH (06:08)
[2022-03-15] MEDS: MetFORMIN HCL 500 MG TABLET PO SCH ×3 (06:42→18:36)
[2022-03-15 08:14] VITALS: BP 113/72
[2022-03-15] MEDS: MULTIVITAMINS WITH MINERALS, THERAPEUTIC TABLET PO SCH (09:57)
[2022-03-15] MEDS: GABAPENTIN 300 MG CAPSULE PO PRN (09:57)
[2022-03-15] MEDS: OMEGA-3/DHA/EPA/FISH OIL 1,000 MG CAPSULE PO SCH (09:57)
[2022-03-15] MEDS: FluPHENAZine HCL 5 MG TABLET PO PRN ×2 (09:57→16:11)
[2022-03-15] MEDS: METOPROLOL SUCCINATE 25 MG ER TABLET PO SCH ×2 (10:08→16:11)
[2022-03-15] MEDS: DIVALPROEX SODIUM 500 MG ER TABLET PO SCH ×2 (10:08→16:11)
[2022-03-15] MEDS: CloZAPine 100 MG TABLET PO SCH ×3 (10:08→21:00)
[2022-03-15] MEDS: NALTREXONE HCL 50 MG TABLET PO SCH (10:08)
[2022-03-15 16:29] VITALS: BP 139/100
[2022-03-15] MEDS: ACETAMINOPHEN 325 MG TABLET PO PRN (18:18)
[2022-03-15] MEDS: FluPHENAZine HCL 10 MG TABLET PO SCH ×2 (20:08→21:00)
[2022-03-15] MEDS: MELATONIN 5 MG TABLET PO SCH (20:08)
[2022-03-16] MEDS: LEVOTHYROXINE SODIUM 200 MCG TABLET PO SCH (06:50)
[2022-03-16] MEDS: MetFORMIN HCL 500 MG TABLET PO SCH ×3 (06:51→16:59)
[2022-03-16] MEDS: OMEGA-3/DHA/EPA/FISH OIL 1,000 MG CAPSULE PO SCH (08:05)
[2022-03-16] MEDS: METOPROLOL SUCCINATE 25 MG ER TABLET PO SCH ×2 (08:05→16:59)
[2022-03-16] MEDS: DIVALPROEX SODIUM 500 MG ER TABLET PO SCH ×2 (08:05→17:00)
[2022-03-16] MEDS: GABAPENTIN 300 MG CAPSULE PO PRN (08:05)
[2022-03-16] MEDS: NALTREXONE HCL 50 MG TABLET PO SCH (08:05)
[2022-03-16] MEDS: CloZAPine 100 MG TABLET PO SCH ×2 (08:05→20:17)
[2022-03-16] MEDS: MULTIVITAMINS WITH MINERALS, THERAPEUTIC TABLET PO SCH (08:05)
[2022-03-16 08:58] VITALS: BP 148/85
[2022-03-16] MEDS: FluPHENAZine HCL 5 MG TABLET PO PRN ×2 (12:06→17:00)
[2022-03-16 16:23] VITALS: BP 135/77
[2022-03-16] MEDS: MELATONIN 5 MG TABLET PO SCH (20:17)
[2022-03-16] MEDS: FluPHENAZine HCL 10 MG TABLET PO SCH (20:17)
[2022-03-17] MEDS: LEVOTHYROXINE SODIUM 200 MCG TABLET PO SCH (06:35)
[2022-03-17] MEDS: MetFORMIN HCL 500 MG TABLET PO SCH ×3 (06:50→16:37)
[2022-03-17 07:49] LABS: BASOPHILS % (AUTO) 0.9 % (0.0-2.0); EOSINOPHILS % (AUTO) 4.3 % (1.0-6.0); HEMATOCRIT 41.9 % (41-53); HEMOGLOBIN 13.9 g/dL (13.5-17.5); LYMPHOCYTES # (AUTO) 1.9 K/uL (1.0-4.8); MEAN CORPUSCULAR HEMOGLOBIN 29.7 pg (26.0-34.0); MEAN CORPUSCULAR HGB CONC 33.2 G/dL (31.0-37.0); MEAN CORPUSCULAR VOLUME 90 fL (80-100); MONOCYTES # (AUTO) 0.7 K/uL (0.1-1.0); MONOCYTES % (AUTO) 9.8 % (2.0-9.0); NEUTROPHILS # (AUTO) 4.6 K/uL (1.8-7.7); PLATELET COUNT (AUTO) 198 K/uL (150-450); RED BLOOD CELL COUNT(AUTO) 4.68 MIL/uL (4.50-5.90); RED CELL DISTRIBUTION WIDTH 15.5 % (11.5-14.5)
[2022-03-17 08:07] VITALS: BP 114/79
[2022-03-17 08:16] LABS: FREE T4 (FREE THYROXINE) 0.91 ng/dL (0.76-1.46); THYROID STIMULATING HORMONE 11.06 uIU/mL (0.36-3.74)
[2022-03-17] MEDS: NALTREXONE HCL 50 MG TABLET PO SCH (10:11)
[2022-03-17] MEDS: OMEGA-3/DHA/EPA/FISH OIL 1,000 MG CAPSULE PO SCH (10:11)
[2022-03-17] MEDS: GABAPENTIN 300 MG CAPSULE PO PRN (10:11)
[2022-03-17] MEDS: MULTIVITAMINS WITH MINERALS, THERAPEUTIC TABLET PO SCH (10:11)
[2022-03-17] MEDS: FluPHENAZine HCL 5 MG TABLET PO PRN (10:11)
[2022-03-17] MEDS: METOPROLOL SUCCINATE 25 MG ER TABLET PO SCH ×2 (10:11→16:37)
[2022-03-17] MEDS: CloZAPine 100 MG TABLET PO SCH ×2 (10:11→20:56)
[2022-03-17] MEDS: DIVALPROEX SODIUM 500 MG ER TABLET PO SCH ×2 (10:11→16:36)
[2022-03-17 16:46] VITALS: BP 138/86
[2022-03-17] MEDS: FluPHENAZine HCL 10 MG TABLET PO SCH (20:56)
[2022-03-17] MEDS: MELATONIN 5 MG TABLET PO SCH (20:56)
[2022-03-18] MEDS: LEVOTHYROXINE SODIUM 200 MCG TABLET PO SCH (06:34)
[2022-03-18] MEDS: MetFORMIN HCL 500 MG TABLET PO SCH ×3 (06:48→16:32)
[2022-03-18] MEDS: CloZAPine 100 MG TABLET PO SCH ×2 (09:25→20:55)
[2022-03-18] MEDS: NALTREXONE HCL 50 MG TABLET PO SCH (09:25)
[2022-03-18] MEDS: METOPROLOL SUCCINATE 25 MG ER TABLET PO SCH ×2 (09:25→16:32)
[2022-03-18] MEDS: OMEGA-3/DHA/EPA/FISH OIL 1,000 MG CAPSULE PO SCH (09:25)
[2022-03-18] MEDS: MULTIVITAMINS WITH MINERALS, THERAPEUTIC TABLET PO SCH (09:25)
[2022-03-18] MEDS: FluPHENAZine HCL 5 MG TABLET PO PRN ×3 (09:25→17:53)
[2022-03-18] MEDS: GABAPENTIN 300 MG CAPSULE PO PRN ×3 (09:25→17:54)
[2022-03-18] MEDS: DIVALPROEX SODIUM 500 MG ER TABLET PO SCH ×2 (09:28→16:32)
[2022-03-18] MEDS: PROMETHAZINE HCL 25 MG TABLET PO PRN (11:24)
[2022-03-18 16:35] VITALS: BP 135/85
[2022-03-18 17:34] VITALS: BP 124/77
[2022-03-18] MEDS: ACETAMINOPHEN 325 MG TABLET PO PRN (17:34)
[2022-03-18] MEDS: MELATONIN 5 MG TABLET PO SCH (20:55)
[2022-03-18] MEDS: FluPHENAZine HCL 10 MG TABLET PO SCH (20:55)
[2022-03-19] MEDS: LEVOTHYROXINE SODIUM 200 MCG TABLET PO SCH (06:26)
[2022-03-19] MEDS: MetFORMIN HCL 500 MG TABLET PO SCH ×3 (06:32→16:35)
[2022-03-19 08:14] VITALS: BP 138/89
[2022-03-19] MEDS: NALTREXONE HCL 50 MG TABLET PO SCH (10:52)
[2022-03-19] MEDS: GABAPENTIN 300 MG CAPSULE PO PRN ×2 (10:52→14:54)
[2022-03-19] MEDS: METOPROLOL SUCCINATE 25 MG ER TABLET PO SCH ×2 (10:52→16:35)
[2022-03-19] MEDS: FluPHENAZine HCL 5 MG TABLET PO PRN ×2 (10:52→14:54)
[2022-03-19] MEDS: MULTIVITAMINS WITH MINERALS, THERAPEUTIC TABLET PO SCH (10:52)
[2022-03-19] MEDS: OMEGA-3/DHA/EPA/FISH OIL 1,000 MG CAPSULE PO SCH (10:52)
[2022-03-19] MEDS: DIVALPROEX SODIUM 500 MG ER TABLET PO SCH ×2 (10:52→16:35)
[2022-03-19 10:53] LABS: COVID AG,FIA SOURCE NASOPHARYNGEAL
[2022-03-19] MEDS: CloZAPine 100 MG TABLET PO SCH ×2 (10:53→20:07)
[2022-03-19 16:08] VITALS: BP 147/88
[2022-03-19] MEDS: MELATONIN 5 MG TABLET PO SCH (20:07)
[2022-03-19] MEDS: FluPHENAZine HCL 10 MG TABLET PO SCH (20:07)
[2022-03-20] MEDS: MetFORMIN HCL 500 MG TABLET PO SCH ×3 (06:32→16:22)
[2022-03-20] MEDS: LEVOTHYROXINE SODIUM 200 MCG TABLET PO SCH (06:32)
[2022-03-20] MEDS: METOPROLOL SUCCINATE 25 MG ER TABLET PO SCH ×2 (07:59→16:22)
[2022-03-20] MEDS: FluPHENAZine HCL 5 MG TABLET PO PRN ×2 (07:59→12:38)
[2022-03-20] MEDS: GABAPENTIN 300 MG CAPSULE PO PRN ×2 (07:59→12:38)
[2022-03-20] MEDS: MULTIVITAMINS WITH MINERALS, THERAPEUTIC TABLET PO SCH (07:59)
[2022-03-20 08:00] VITALS: BP 151/93
[2022-03-20] MEDS: CloZAPine 100 MG TABLET PO SCH ×2 (08:00→20:13)
[2022-03-20] MEDS: DIVALPROEX SODIUM 500 MG ER TABLET PO SCH ×2 (08:00→16:22)
[2022-03-20] MEDS: NALTREXONE HCL 50 MG TABLET PO SCH (08:00)
[2022-03-20] MEDS: OMEGA-3/DHA/EPA/FISH OIL 1,000 MG CAPSULE PO SCH (08:01)
[2022-03-20] MEDS ORDERED: CLOZ100T31 PO (14:49)
[2022-03-20] MEDS ORDERED: DIVA-80 PO (14:49)
[2022-03-20] MEDS ORDERED: NALT50TA PO (14:49)
[2022-03-20] MEDS ORDERED: MELA5TAB40 PO (14:49)
[2022-03-20] MEDS ORDERED: METF-1211 PO (14:49)
[2022-03-20] MEDS ORDERED: OMEG-108 PO (14:49)
[2022-03-20 16:33] VITALS: BP 141/90
[2022-03-20] MEDS: FluPHENAZine HCL 10 MG TABLET PO SCH (20:13)
[2022-03-20] MEDS: MELATONIN 5 MG TABLET PO SCH (20:13)
[2022-03-21] MEDS: LEVOTHYROXINE SODIUM 200 MCG TABLET PO SCH (06:30)
[2022-03-21] MEDS: MetFORMIN HCL 500 MG TABLET PO SCH ×2 (06:30→11:42)
[2022-03-21 08:08] VITALS: BP 131/70
[2022-03-21] MEDS: OMEGA-3/DHA/EPA/FISH OIL 1,000 MG CAPSULE PO SCH (08:58)
[2022-03-21] MEDS: CloZAPine 100 MG TABLET PO SCH (08:58)
[2022-03-21] MEDS: DIVALPROEX SODIUM 500 MG ER TABLET PO SCH (09:00)
[2022-03-21] MEDS: METOPROLOL SUCCINATE 25 MG ER TABLET PO SCH (09:00)
[2022-03-21] MEDS: NALTREXONE HCL 50 MG TABLET PO SCH (09:01)
[2022-03-21] MEDS: MULTIVITAMINS WITH MINERALS, THERAPEUTIC TABLET PO SCH (09:01)
[2022-03-21] MEDS ORDERED: METF-1211 PO (09:55)
[2022-03-21 09:56] LABS: GLUCOMETER DEV NAME(LOC) 3E.C; GLUCOSE,POINT OF CARE 105 MG/DL (70-110)
[2022-03-21] MEDS ORDERED: METO25XL PO (10:01)
== END 2022-03-21 11:30 | disposition home or self-care (01) | DRG 885 ==
LOC: EMS 06:28 → 3EI 10:52 → 3EX 02-22 16:23 → 3EC 02-22 16:24
PROVIDERS: ADMIT Psychiatry & Neurology Psychiatry; ATTEND Psychiatry & Neurology Psychiatry
DX: F25.0 Schizoaffective disorder, bipolar type (principal); Z68.43 Body mass index [BMI] 50.0-59.9, adult; Z20.822 Contact with and (suspected) exposure to COVID-19; E03.9 Hypothyroidism, unspecified; E66.01 Morbid (severe) obesity due to excess calories; F41.9 Anxiety disorder, unspecified; G47.30 Sleep apnea, unspecified; I10 Essential (primary) hypertension; K59.00 Constipation, unspecified; Z55.9 Problems related to education and literacy, unspecified; Z59.9 Problem related to housing and economic circumstances, unspecified; Z63.9 Problem related to primary support group, unspecified; Z65.3 Problems related to other legal circumstances; Z72.89 Other problems related to lifestyle; Z79.84 Long term (current) use of oral hypoglycemic drugs; Z88.8 Allergy status to other drugs, medicaments and biological substances; Z91.19 Patient's noncompliance with other medical treatment and regimen
CPT/HCPCS: 80053; 80061; 80159; 80164; 82962; 83036; 84439; 84443; 85025; 86592; 94660; 99285; G0480; J1200; J1630; J2060; J3490; Q9967

== ENCOUNTER → 2022-03-23 | Outpatient (CLI) | payer MEDICARE, OTHER ==
[~2022-03-23] MED LIST changes: +CLOZ100T31 PO; -DIVA-112 PO; +DIVA-80 PO; -DIVA125T32 PO; -LISI-894 PO; +MELA5TAB40 PO; +METF-1211 PO; -METO25 PO; +METO25XL PO; +NALT50TA PO; +OMEG-108 PO; -RISP2TAB45 PO; -RISP2TAB86 PO
[2022-03-23 15:27] LABS: BASOPHILS % (AUTO) 0.6 % (0.0-2.0); EOSINOPHILS % (AUTO) 3.4 % (1.0-6.0); HEMATOCRIT 44.7 % (41-53); HEMOGLOBIN 14.7 g/dL (13.5-17.5); LYMPHOCYTES # (AUTO) 1.8 K/uL (1.0-4.8); LYMPHOCYTES % (AUTO) 20.4 % (22.0-44.0); MEAN CORPUSCULAR HEMOGLOBIN 29.3 pg (26.0-34.0); MEAN CORPUSCULAR HGB CONC 32.8 G/dL (31.0-37.0); MEAN CORPUSCULAR VOLUME 89 fL (80-100); MONOCYTES % (AUTO) 11.5 % (2.0-9.0); NEUTROPHILS # (AUTO) 5.6 K/uL (1.8-7.7); NEUTROPHILS % (AUTO) 64.1 % (40.0-70.0); PLATELET COUNT (AUTO) 228 K/uL (150-450); RED CELL DISTRIBUTION WIDTH 15.1 % (11.5-14.5)
== END | disposition home or self-care (01) ==
LOC: LABMN 13:56
PROVIDERS: ATTEND Psychiatry & Neurology Psychiatry
DX: F20.9 Schizophrenia, unspecified (principal)
CPT/HCPCS: 80159; 85025

== ENCOUNTER 2022-06-07 06:47 | Inpatient (IN) | payer MEDICARE, MEDICAID ==
[~2022-06-07] VITALS: Ht 170.2 cm; Wt 164.1 kg
[~2022-06-07 06:47] MED LIST changes: +CLOZ100T11 PO; -CLOZ100T31 PO; -OMEG-108 PO; +OMEG-135 PO
[2022-06-07] MEDS ORDERED: HALOPERIDOL LACTATE 5 MG/ML VIAL IM ONE (07:00)
[2022-06-07] MEDS ORDERED: LORazepam 2 MG/ML VIAL IM ONE (07:00)
[2022-06-07] MEDS ORDERED: DiphenhydrAMINE HCL 50 MG/ML VIAL IM ONE (07:00)
[2022-06-07] MEDS ORDERED: LORazepam 2 MG/ML VIAL ONE (07:01)
[2022-06-07] MEDS ORDERED: HALOPERIDOL LACTATE 5 MG/ML VIAL ONE (07:01)
[2022-06-07] MEDS ORDERED: DiphenhydrAMINE HCL 50 MG/ML VIAL ONE (07:01)
[2022-06-07] MEDS ORDERED: AMLO-257 PO (08:12)
[2022-06-07] MEDS ORDERED: NALT50TA6 PO (08:12)
[2022-06-07] MEDS ORDERED: LISI-894 PO (08:12)
[2022-06-07] MEDS ORDERED: ZIPR40CA38 PO (08:12)
[2022-06-07 10:03] LABS: COVID AG,FIA SOURCE NASAL SWAB
[2022-06-07] MEDS ORDERED: CloZAPine 100 MG TABLET PO PRN (11:15)
[2022-06-07 13:00] LABS: AMPHET/METH SCREEN,URINE NEGATIVE (NEGATIVE); BARBITURATE SCREEN, URINE NEGATIVE (NEGATIVE); BENZODIAZEPINES SCREEN,URINE NEGATIVE (NEGATIVE); CANNABINOID SCREEN,URINE NEGATIVE (NEGATIVE); COCAINE SCREEN,URINE NEGATIVE (NEGATIVE); METHADONE SCREEN, URINE NEGATIVE (NEGATIVE); OPIATE SCREEN,URINE NEGATIVE (NEGATIVE); PHENCYCLIDINE SCREEN,URINE NEGATIVE (NEGATIVE)
[2022-06-07] MEDS: ChlorproMAZINE HCL 100 MG TABLET PO PRN (15:19)
[2022-06-07] MEDS: OLANZapine 5 MG RAPDIS TABLET PO SCH ×2 (18:49→21:56)
[2022-06-07] MEDS: LORazepam 1 MG TABLET PO PRN (19:17)
[2022-06-08 04:00] VITALS: BP 148/92
[2022-06-08 04:06] LABS: GLUCOSE,POINT OF CARE 103 MG/DL (70-110)
[2022-06-08] MEDS: ChlorproMAZINE HCL 100 MG TABLET PO PRN ×2 (04:17→15:28)
[2022-06-08] MEDS: LORazepam 1 MG TABLET PO PRN ×3 (04:17→15:28)
[2022-06-08] MEDS: OLANZapine 5 MG RAPDIS TABLET PO SCH ×3 (08:15→20:35)
[2022-06-08] MEDS ORDERED: MAGNESIUM HYDROXIDE SUSPENSION 30 ML UDCUP PO PRN (08:45)
[2022-06-08] MEDS ORDERED: BACITRACIN 28 GM OINTMENT TP PRN (08:45)
[2022-06-08] MEDS ORDERED: OMEPRAZOLE 20 MG CAPSULE PO PRN (08:45)
[2022-06-08] MEDS ORDERED: DOCUSATE SODIUM 100 MG CAPSULE PO PRN (08:45)
[2022-06-08] MEDS ORDERED: ALBUTEROL SULFATE HFA 90 MCG/PUFF 8 GM INHALER IH PRN (08:45)
[2022-06-08] MEDS ORDERED: LOPERAMIDE HCL 2 MG CAPSULE PO PRN (08:45)
[2022-06-08] MEDS ORDERED: DEXTROSE 50%-WATER 25 GM/50 ML SYRINGE IVP PRN (08:45)
[2022-06-08] MEDS ORDERED: BENZOCAINE/MENTHOL LOZENGE PO PRN (08:45)
[2022-06-08] MEDS ORDERED: PETROLATUM,WHITE 28 GM JELLY TP PRN (08:45)
[2022-06-08] MEDS ORDERED: CloNIDine HCL 0.1 MG TABLET PO PRN (08:45)
[2022-06-08] MEDS ORDERED: ONDANSETRON HCL 4 MG TABLET PO PRN (08:45)
[2022-06-08] MEDS ORDERED: MAG HYDROX/AL HYDROX/SIMETH ES 30 ML SUSPENSION UDCUP PO PRN (08:45)
[2022-06-08] MEDS: LISINOPRIL 20 MG TABLET PO SCH (09:00)
[2022-06-08] MEDS: METOPROLOL SUCCINATE 25 MG ER TABLET PO SCH ×2 (09:00→16:15)
[2022-06-08] MEDS: AmLODIPine BESYLATE 5 MG TABLET PO SCH (09:00)
[2022-06-08] MEDS: LEVOTHYROXINE SODIUM 200 MCG TABLET PO SCH (09:09)
[2022-06-08] MEDS: OMEGA-3/DHA/EPA/FISH OIL 1,000 MG CAPSULE PO SCH (09:10)
[2022-06-08] MEDS: MetFORMIN HCL 500 MG TABLET PO SCH ×2 (11:55→17:47)
[2022-06-08 12:06] LABS: GLUCOMETER DEV NAME(LOC) 3E.C; GLUCOSE,POINT OF CARE 104 MG/DL (70-110)
[2022-06-08 16:38] VITALS: BP 126/81
[2022-06-08 16:46] LABS: GLUCOMETER DEV NAME(LOC) 3E.C; GLUCOSE,POINT OF CARE 103 MG/DL (70-110)
[2022-06-08] MEDS: MELATONIN 5 MG TABLET PO SCH (20:35)
[2022-06-08 20:51] LABS: GLUCOMETER DEV NAME(LOC) 3E.C; GLUCOSE,POINT OF CARE 111 MG/DL (70-110)
[2022-06-09] MEDS: ChlorproMAZINE HCL 100 MG TABLET PO PRN ×4 (04:40→17:13)
[2022-06-09 06:26] LABS: GLUCOMETER DEV NAME(LOC) 3E.C; GLUCOSE,POINT OF CARE 119 MG/DL (70-110)
[2022-06-09] MEDS: LEVOTHYROXINE SODIUM 200 MCG TABLET PO SCH (06:45)
[2022-06-09] MEDS: MetFORMIN HCL 500 MG TABLET PO SCH ×3 (06:45→17:30)
[2022-06-09] MEDS: METOPROLOL SUCCINATE 25 MG ER TABLET PO SCH ×2 (08:22→17:13)
[2022-06-09] MEDS: LISINOPRIL 20 MG TABLET PO SCH (08:23)
[2022-06-09] MEDS: AmLODIPine BESYLATE 5 MG TABLET PO SCH (08:23)
[2022-06-09] MEDS: OLANZapine 5 MG RAPDIS TABLET PO SCH ×3 (08:23→20:11)
[2022-06-09] MEDS: OMEGA-3/DHA/EPA/FISH OIL 1,000 MG CAPSULE PO SCH (08:23)
[2022-06-09] MEDS: LORazepam 1 MG TABLET PO PRN ×3 (08:24→17:13)
[2022-06-09 08:44] LABS: APPEARANCE,URINE CLEAR (CLEAR); BILIRUBIN,URINE NEGATIVE (NEGATIVE); GLUCOSE, URINE (UA) NEGATIVE (NEGATIVE); KETONES,URINE NEGATIVE (NEGATIVE); LEUKOCYTE ESTERASE ,URINE NEGATIVE (NEGATIVE); NITRATE,URINE NEGATIVE (NEGATIVE); OCCULT BLOOD,URINE NEGATIVE (NEGATIVE); PROTEIN,URINE NEGATIVE (NEGATIVE); SPECIFIC GRAVITIY, URINE 1.007 (1.003-1.030); UROBILINOGEN,URINE <=1.0 mg/dL (<=1.0)
[2022-06-09 08:59] VITALS: BP 108/74
[2022-06-09 12:47] LABS: GLUCOMETER DEV NAME(LOC) 3E.C; GLUCOSE,POINT OF CARE 137 MG/DL (70-110)
[2022-06-09 16:15] VITALS: BP 114/78
[2022-06-09 17:37] LABS: GLUCOMETER DEV NAME(LOC) 3E.C; GLUCOSE,POINT OF CARE 109 MG/DL (70-110)
[2022-06-09] MEDS: MELATONIN 5 MG TABLET PO SCH (20:11)
[2022-06-09 20:31] LABS: GLUCOMETER DEV NAME(LOC) 3E.C; GLUCOSE,POINT OF CARE 104 MG/DL (70-110)
[2022-06-10] MEDS: MetFORMIN HCL 500 MG TABLET PO SCH ×3 (06:39→16:54)
[2022-06-10] MEDS: LEVOTHYROXINE SODIUM 200 MCG TABLET PO SCH (06:39)
[2022-06-10 06:42] LABS: GLUCOMETER DEV NAME(LOC) 3E.C; GLUCOSE,POINT OF CARE 94 MG/DL (70-110)
[2022-06-10] MEDS: OMEGA-3/DHA/EPA/FISH OIL 1,000 MG CAPSULE PO SCH (08:40)
[2022-06-10] MEDS: OLANZapine 5 MG RAPDIS TABLET PO SCH ×3 (08:40→20:35)
[2022-06-10] MEDS: AmLODIPine BESYLATE 5 MG TABLET PO SCH (08:40)
[2022-06-10] MEDS: LORazepam 1 MG TABLET PO PRN ×3 (08:40→21:17)
[2022-06-10] MEDS: LISINOPRIL 20 MG TABLET PO SCH (08:40)
[2022-06-10] MEDS: METOPROLOL SUCCINATE 25 MG ER TABLET PO SCH ×2 (08:40→16:53)
[2022-06-10] MEDS: ChlorproMAZINE HCL 100 MG TABLET PO PRN ×3 (08:40→21:17)
[2022-06-10 08:50] VITALS: BP 107/60
[2022-06-10] MEDS: IBUPROFEN 600 MG TABLET PO PRN (10:59)
[2022-06-10 11:57] LABS: GLUCOMETER DEV NAME(LOC) 3E.C; GLUCOSE,POINT OF CARE 97 MG/DL (70-110)
[2022-06-10 16:41] VITALS: BP 120/80
[2022-06-10 17:37] LABS: GLUCOMETER DEV NAME(LOC) 3E.C; GLUCOSE,POINT OF CARE 99 MG/DL (70-110)
[2022-06-10] MEDS: MELATONIN 5 MG TABLET PO SCH (20:35)
[2022-06-10 20:36] LABS: GLUCOMETER DEV NAME(LOC) 3E.C; GLUCOSE,POINT OF CARE 96 MG/DL (70-110)
[2022-06-11 05:57] LABS: GLUCOMETER DEV NAME(LOC) 3E.C; GLUCOSE,POINT OF CARE 96 MG/DL (70-110)
[2022-06-11] MEDS: LEVOTHYROXINE SODIUM 200 MCG TABLET PO SCH (06:35)
[2022-06-11] MEDS: MetFORMIN HCL 500 MG TABLET PO SCH ×3 (06:35→17:10)
[2022-06-11 08:50] VITALS: BP 141/81
[2022-06-11] MEDS: OMEGA-3/DHA/EPA/FISH OIL 1,000 MG CAPSULE PO SCH (09:00)
[2022-06-11] MEDS: AmLODIPine BESYLATE 5 MG TABLET PO SCH (09:00)
[2022-06-11] MEDS: METOPROLOL SUCCINATE 25 MG ER TABLET PO SCH ×2 (09:00→17:10)
[2022-06-11] MEDS: OLANZapine 5 MG RAPDIS TABLET PO SCH ×3 (09:00→20:09)
[2022-06-11] MEDS: LISINOPRIL 20 MG TABLET PO SCH (09:00)
[2022-06-11 12:01] LABS: GLUCOMETER DEV NAME(LOC) 3E.C; GLUCOSE,POINT OF CARE 106 MG/DL (70-110)
[2022-06-11] MEDS: INSULIN LISPRO 100 UNITS/ML SQ PRN ×2 (12:26→17:13)
[2022-06-11] MEDS: ACETAMINOPHEN 325 MG TABLET PO PRN (15:09)
[2022-06-11 16:00] VITALS: BP 108/60
[2022-06-11 17:17] LABS: GLUCOMETER DEV NAME(LOC) 3E.C; GLUCOSE,POINT OF CARE 86 MG/DL (70-110)
[2022-06-11] MEDS: MELATONIN 5 MG TABLET PO SCH (20:08)
[2022-06-11] MEDS: LORazepam 1 MG TABLET PO PRN (20:10)
[2022-06-11 20:25] LABS: GLUCOMETER DEV NAME(LOC) 3E.C; GLUCOSE,POINT OF CARE 85 MG/DL (70-110)
[2022-06-12] MEDS: ChlorproMAZINE HCL 100 MG TABLET PO PRN (03:30)
[2022-06-12] MEDS: LORazepam 1 MG TABLET PO PRN (03:30)
[2022-06-12 06:36] LABS: GLUCOMETER DEV NAME(LOC) 3E.C; GLUCOSE,POINT OF CARE 92 MG/DL (70-110)
[2022-06-12] MEDS: LEVOTHYROXINE SODIUM 200 MCG TABLET PO SCH (06:36)
[2022-06-12] MEDS: MetFORMIN HCL 500 MG TABLET PO SCH ×3 (06:36→17:30)
[2022-06-12 08:19] VITALS: BP 125/86
[2022-06-12] MEDS: OLANZapine 5 MG RAPDIS TABLET PO SCH (08:26)
[2022-06-12] MEDS: METOPROLOL SUCCINATE 25 MG ER TABLET PO SCH ×2 (08:26→17:00)
[2022-06-12] MEDS: LISINOPRIL 20 MG TABLET PO SCH (08:26)
[2022-06-12] MEDS: OMEGA-3/DHA/EPA/FISH OIL 1,000 MG CAPSULE PO SCH (08:27)
[2022-06-12] MEDS: AmLODIPine BESYLATE 5 MG TABLET PO SCH (08:27)
[2022-06-12 11:16] LABS: GLUCOMETER DEV NAME(LOC) 3E.C; GLUCOSE,POINT OF CARE 87 MG/DL (70-110)
[2022-06-12 16:11] VITALS: BP 143/87
[2022-06-12] MEDS: DIVALPROEX SODIUM 500 MG ER TABLET PO SCH (17:00)
[2022-06-12] MEDS ORDERED: OLANZapine 10 MG RAPDIS TABLET PO SCH (21:00)
[2022-06-12] MEDS ORDERED: DIVALPROEX SODIUM 250 MG ER TABLET PO SCH (21:00)
[2022-06-12] MEDS: MELATONIN 5 MG TABLET PO SCH (21:00)
[2022-06-13] MEDS: ACETAMINOPHEN 325 MG TABLET PO PRN (01:57)
[2022-06-13] MEDS: LORazepam 0.5 MG TABLET PO PRN ×2 (01:57→12:44)
[2022-06-13] MEDS: LEVOTHYROXINE SODIUM 200 MCG TABLET PO SCH (06:47)
[2022-06-13] MEDS: MetFORMIN HCL 500 MG TABLET PO SCH ×3 (06:47→17:51)
[2022-06-13 07:00] LABS: GLUCOMETER DEV NAME(LOC) 3E.C; GLUCOSE,POINT OF CARE 111 MG/DL (70-110)
[2022-06-13 08:26] VITALS: BP 153/86
[2022-06-13] MEDS: DIVALPROEX SODIUM 500 MG ER TABLET PO SCH ×3 (09:00→17:51)
[2022-06-13] MEDS: METOPROLOL SUCCINATE 25 MG ER TABLET PO SCH ×2 (10:07→17:51)
[2022-06-13] MEDS: LISINOPRIL 20 MG TABLET PO SCH (10:15)
[2022-06-13] MEDS: AmLODIPine BESYLATE 5 MG TABLET PO SCH (10:15)
[2022-06-13] MEDS: OMEGA-3/DHA/EPA/FISH OIL 1,000 MG CAPSULE PO SCH (10:15)
[2022-06-13 12:11] LABS: GLUCOMETER DEV NAME(LOC) 3E.C; GLUCOSE,POINT OF CARE 120 MG/DL (70-110)
[2022-06-13] MEDS ORDERED: FluPHENAZine HCL 2.5 MG/ML INJ IM ONE (12:45)
[2022-06-13] MEDS ORDERED: LORazepam 2 MG/ML VIAL IM ONE (12:45)
[2022-06-13] MEDS ORDERED: DiphenhydrAMINE HCL 50 MG/ML VIAL IM ONE (12:45)
[2022-06-13] MEDS ORDERED: LORazepam 2 MG/ML VIAL ONE (12:50)
[2022-06-13] MEDS ORDERED: DiphenhydrAMINE HCL 50 MG/ML VIAL ONE (12:50)
[2022-06-13 16:23] VITALS: BP 142/81
[2022-06-13 17:51] LABS: GLUCOMETER DEV NAME(LOC) 3E.C; GLUCOSE,POINT OF CARE 91 MG/DL (70-110)
[2022-06-13 20:00] LABS: COVID AG,FIA SOURCE NASOPHARYNGEAL
[2022-06-13] MEDS: MELATONIN 5 MG TABLET PO SCH (20:45)
[2022-06-13] MEDS: OLANZapine 10 MG RAPDIS TABLET PO SCH (20:45)
[2022-06-14 06:41] LABS: GLUCOMETER DEV NAME(LOC) 3E.C; GLUCOSE,POINT OF CARE 102 MG/DL (70-110)
[2022-06-14] MEDS: LEVOTHYROXINE SODIUM 200 MCG TABLET PO SCH (06:55)
[2022-06-14] MEDS: MetFORMIN HCL 500 MG TABLET PO SCH ×3 (06:56→16:37)
[2022-06-14 08:16] VITALS: BP 99/65
[2022-06-14] MEDS: METOPROLOL SUCCINATE 25 MG ER TABLET PO SCH ×3 (09:01→16:36)
[2022-06-14] MEDS: LISINOPRIL 20 MG TABLET PO SCH ×2 (09:01→09:24)
[2022-06-14] MEDS ORDERED: LORazepam 2 MG/ML VIAL IM ONE ×2 (09:15→09:30)
[2022-06-14] MEDS ORDERED: FluPHENAZine HCL 2.5 MG/ML INJ IM ONE (09:15)
[2022-06-14] MEDS ORDERED: DiphenhydrAMINE HCL 50 MG/ML VIAL IM ONE ×2 (09:15→09:30)
[2022-06-14] MEDS: LORazepam 0.5 MG TABLET PO PRN (09:24)
[2022-06-14] MEDS: AmLODIPine BESYLATE 5 MG TABLET PO SCH (09:24)
[2022-06-14] MEDS: OMEGA-3/DHA/EPA/FISH OIL 1,000 MG CAPSULE PO SCH (09:24)
[2022-06-14] MEDS: DIVALPROEX SODIUM 500 MG ER TABLET PO SCH ×2 (09:24→16:37)
[2022-06-14] MEDS ORDERED: ChlorproMAZINE HCL 50 MG/2 ML AMP IM ONE (09:30)
[2022-06-14 11:36] LABS: GLUCOMETER DEV NAME(LOC) 3E.C; GLUCOSE,POINT OF CARE 99 MG/DL (70-110)
[2022-06-14 16:12] VITALS: BP 102/62
[2022-06-14 16:56] LABS: GLUCOMETER DEV NAME(LOC) 3E.C; GLUCOSE,POINT OF CARE 105 MG/DL (70-110)
[2022-06-14] MEDS: MELATONIN 5 MG TABLET PO SCH (20:25)
[2022-06-14] MEDS: OLANZapine 10 MG RAPDIS TABLET PO SCH (20:25)
[2022-06-15 06:42] LABS: GLUCOMETER DEV NAME(LOC) 3E.C; GLUCOSE,POINT OF CARE 95 MG/DL (70-110)
[2022-06-15] MEDS: MetFORMIN HCL 500 MG TABLET PO SCH ×3 (06:55→17:14)
[2022-06-15] MEDS: LEVOTHYROXINE SODIUM 200 MCG TABLET PO SCH (06:55)
[2022-06-15] MEDS: OMEGA-3/DHA/EPA/FISH OIL 1,000 MG CAPSULE PO SCH (08:20)
[2022-06-15] MEDS: AmLODIPine BESYLATE 5 MG TABLET PO SCH (08:20)
[2022-06-15] MEDS: LORazepam 0.5 MG TABLET PO PRN ×2 (08:20→12:15)
[2022-06-15] MEDS: DIVALPROEX SODIUM 500 MG ER TABLET PO SCH ×2 (08:20→16:31)
[2022-06-15 08:30] VITALS: BP 110/66
[2022-06-15] MEDS: METOPROLOL SUCCINATE 25 MG ER TABLET PO SCH ×2 (10:09→16:14)
[2022-06-15] MEDS: LISINOPRIL 20 MG TABLET PO SCH (10:10)
[2022-06-15 11:36] LABS: GLUCOMETER DEV NAME(LOC) 3E.C; GLUCOSE,POINT OF CARE 95 MG/DL (70-110)
[2022-06-15] MEDS: OLANZapine 5 MG RAPDIS TABLET PO PRN (12:01)
[2022-06-15 16:00] VITALS: BP 151/89
[2022-06-15 16:41] LABS: GLUCOMETER DEV NAME(LOC) 3E.C; GLUCOSE,POINT OF CARE 115 MG/DL (70-110)
[2022-06-15] MEDS: ZIPRASIDONE HCL 20 MG CAPSULE PO SCH (17:14)
[2022-06-15] MEDS: MELATONIN 5 MG TABLET PO SCH (20:33)
[2022-06-15] MEDS: OLANZapine 10 MG RAPDIS TABLET PO SCH (20:33)
[2022-06-15 20:56] LABS: GLUCOMETER DEV NAME(LOC) 3E.C; GLUCOSE,POINT OF CARE 97 MG/DL (70-110)
[2022-06-16 06:46] LABS: GLUCOMETER DEV NAME(LOC) 3E.C; GLUCOSE,POINT OF CARE 84 MG/DL (70-110)
[2022-06-16] MEDS: ZIPRASIDONE HCL 20 MG CAPSULE PO SCH (06:52)
[2022-06-16] MEDS: MetFORMIN HCL 500 MG TABLET PO SCH ×3 (06:52→17:12)
[2022-06-16] MEDS: LEVOTHYROXINE SODIUM 200 MCG TABLET PO SCH (06:52)
[2022-06-16] MEDS: INSULIN LISPRO 100 UNITS/ML SQ PRN (06:53)
[2022-06-16] MEDS: DIVALPROEX SODIUM 500 MG ER TABLET PO SCH ×2 (08:03→16:03)
[2022-06-16] MEDS: METOPROLOL SUCCINATE 25 MG ER TABLET PO SCH ×2 (08:03→16:03)
[2022-06-16] MEDS: LISINOPRIL 20 MG TABLET PO SCH (08:04)
[2022-06-16] MEDS: OMEGA-3/DHA/EPA/FISH OIL 1,000 MG CAPSULE PO SCH (08:04)
[2022-06-16] MEDS: AmLODIPine BESYLATE 5 MG TABLET PO SCH (08:04)
[2022-06-16] MEDS: LORazepam 0.5 MG TABLET PO PRN ×2 (08:05→12:31)
[2022-06-16 08:51] VITALS: BP 147/87
[2022-06-16 08:59] VITALS: BP 147/87
[2022-06-16 11:06] LABS: GLUCOMETER DEV NAME(LOC) 3E.C; GLUCOSE,POINT OF CARE 104 MG/DL (70-110)
[2022-06-16] MEDS: OLANZapine 5 MG RAPDIS TABLET PO PRN (12:31)
[2022-06-16] MEDS: IBUPROFEN 600 MG TABLET PO PRN (15:40)
[2022-06-16 16:08] VITALS: BP 149/86
[2022-06-16 16:15] LABS: GLUCOMETER DEV NAME(LOC) 3E.C; GLUCOSE,POINT OF CARE 108 MG/DL (70-110)
[2022-06-16] MEDS: ZIPRASIDONE HCL 40 MG CAPSULE PO SCH (17:12)
[2022-06-16 20:06] LABS: GLUCOMETER DEV NAME(LOC) 3E.C; GLUCOSE,POINT OF CARE 89 MG/DL (70-110)
[2022-06-16] MEDS: OLANZapine 10 MG RAPDIS TABLET PO SCH (20:45)
[2022-06-16] MEDS: MELATONIN 5 MG TABLET PO SCH (20:45)
[2022-06-17 07:08] LABS: ALANINE AMINOTRANSFERASE 67 U/L (12-78); ALBUMIN 3.1 g/dL (3.4-5.0); ALKALINE PHOSPHATASE 89 U/L (46-116); ANION GAP 5 mmol/L (8-16); ASPARTATE AMINOTRANSFERASE 42 U/L (15-37); BILIRUBIN,TOTAL 0.8 mg/dL (0.1-1.0); CALCIUM, TOTAL 8.9 mg/dL (8.8-10.5); CARBON DIOXIDE 31 mmol/L (22-29); CHLORIDE 104 mmol/L (98-107); CREATININE 0.67 mg/dL (0.60-1.30); GLUCOSE,RANDOM 89 mg/dL (70-110); POTASSIUM 4.2 mmol/L (3.5-5.1); SODIUM SERUM 140 mmol/L (136-145); TOTAL PROTEIN, SERUM 6.5 g/dL (6.4-8.2); UREA NITROGEN, BLOOD 9 mg/dL (7-18)
[2022-06-17] MEDS: LEVOTHYROXINE SODIUM 200 MCG TABLET PO SCH (07:08)
[2022-06-17] MEDS: ZIPRASIDONE HCL 40 MG CAPSULE PO SCH ×2 (07:08→16:16)
[2022-06-17] MEDS: MetFORMIN HCL 500 MG TABLET PO SCH ×3 (07:08→17:13)
[2022-06-17 07:21] LABS: GLUCOMETER DEV NAME(LOC) 3E.C; GLUCOSE,POINT OF CARE 73 MG/DL (70-110)
[2022-06-17 07:21] LABS: GLUCOMETER DEV NAME(LOC) 3E.C; GLUCOSE,POINT OF CARE 96 MG/DL (70-110)
[2022-06-17 07:22] LABS: GLOMERULAR FILTR. RATE CALC > 60 mL/min (>60)
[2022-06-17] MEDS: METOPROLOL SUCCINATE 25 MG ER TABLET PO SCH ×2 (08:44→16:16)
[2022-06-17] MEDS: OMEGA-3/DHA/EPA/FISH OIL 1,000 MG CAPSULE PO SCH (08:44)
[2022-06-17] MEDS: LISINOPRIL 20 MG TABLET PO SCH (08:44)
[2022-06-17] MEDS: AmLODIPine BESYLATE 5 MG TABLET PO SCH (08:44)
[2022-06-17] MEDS: DIVALPROEX SODIUM 500 MG ER TABLET PO SCH ×3 (08:44→16:22)
[2022-06-17] MEDS: LORazepam 0.5 MG TABLET PO PRN (09:03)
[2022-06-17 09:08] VITALS: BP 148/79
[2022-06-17 11:51] LABS: GLUCOMETER DEV NAME(LOC) 3E.C; GLUCOSE,POINT OF CARE 101 MG/DL (70-110)
[2022-06-17 16:16] VITALS: BP 113/76
[2022-06-17 16:47] LABS: GLUCOMETER DEV NAME(LOC) 3E.C; GLUCOSE,POINT OF CARE 95 MG/DL (70-110)
[2022-06-17 20:26] LABS: GLUCOMETER DEV NAME(LOC) 3E.C; GLUCOSE,POINT OF CARE 106 MG/DL (70-110)
[2022-06-17] MEDS: MELATONIN 5 MG TABLET PO SCH (21:22)
[2022-06-17] MEDS: OLANZapine 10 MG RAPDIS TABLET PO SCH (21:23)
[2022-06-18] MEDS: LEVOTHYROXINE SODIUM 200 MCG TABLET PO SCH (06:23)
[2022-06-18 06:36] LABS: GLUCOMETER DEV NAME(LOC) 3E.C; GLUCOSE,POINT OF CARE 83 MG/DL (70-110)
[2022-06-18] MEDS: ZIPRASIDONE HCL 40 MG CAPSULE PO SCH ×2 (07:01→16:33)
[2022-06-18] MEDS: MetFORMIN HCL 500 MG TABLET PO SCH ×3 (07:01→17:30)
[2022-06-18 08:22] VITALS: BP 163/90
[2022-06-18] MEDS: OMEGA-3/DHA/EPA/FISH OIL 1,000 MG CAPSULE PO SCH (08:27)
[2022-06-18] MEDS: DIVALPROEX SODIUM 500 MG ER TABLET PO SCH ×2 (08:27→16:33)
[2022-06-18] MEDS: METOPROLOL SUCCINATE 25 MG ER TABLET PO SCH ×2 (08:27→16:34)
[2022-06-18] MEDS: AmLODIPine BESYLATE 5 MG TABLET PO SCH (08:28)
[2022-06-18] MEDS: LISINOPRIL 20 MG TABLET PO SCH (08:28)
[2022-06-18 11:31] LABS: GLUCOMETER DEV NAME(LOC) 3E.C; GLUCOSE,POINT OF CARE 81 MG/DL (70-110)
[2022-06-18] MEDS: OLANZapine 5 MG RAPDIS TABLET PO PRN (11:55)
[2022-06-18] MEDS: LORazepam 0.5 MG TABLET PO PRN (13:04)
[2022-06-18 13:33] VITALS: BP 148/86
[2022-06-18] MEDS: IBUPROFEN 600 MG TABLET PO PRN (13:33)
[2022-06-18 16:04] VITALS: BP 146/84
[2022-06-18 16:56] LABS: GLUCOMETER DEV NAME(LOC) 3E.C; GLUCOSE,POINT OF CARE 85 MG/DL (70-110)
[2022-06-18] MEDS: MELATONIN 5 MG TABLET PO SCH (20:10)
[2022-06-18] MEDS: OLANZapine 10 MG RAPDIS TABLET PO SCH (20:10)
[2022-06-18 20:21] LABS: GLUCOMETER DEV NAME(LOC) 3E.C; GLUCOSE,POINT OF CARE 104 MG/DL (70-110)
[2022-06-19] MEDS: MetFORMIN HCL 500 MG TABLET PO SCH ×3 (06:35→16:19)
[2022-06-19] MEDS: LEVOTHYROXINE SODIUM 200 MCG TABLET PO SCH (06:35)
[2022-06-19] MEDS: ZIPRASIDONE HCL 60 MG CAPSULE PO SCH ×2 (06:35→16:20)
[2022-06-19 06:45] LABS: GLUCOMETER DEV NAME(LOC) 3E.C; GLUCOSE,POINT OF CARE 82 MG/DL (70-110)
[2022-06-19] MEDS: OMEGA-3/DHA/EPA/FISH OIL 1,000 MG CAPSULE PO SCH (08:25)
[2022-06-19] MEDS: DIVALPROEX SODIUM 500 MG ER TABLET PO SCH ×2 (08:25→16:19)
[2022-06-19 09:35] VITALS: BP 137/89
[2022-06-19] MEDS: LISINOPRIL 20 MG TABLET PO SCH (09:36)
[2022-06-19] MEDS: AmLODIPine BESYLATE 5 MG TABLET PO SCH (09:36)
[2022-06-19] MEDS: METOPROLOL SUCCINATE 25 MG ER TABLET PO SCH ×2 (09:36→16:19)
[2022-06-19 11:46] LABS: GLUCOMETER DEV NAME(LOC) 3E.C; GLUCOSE,POINT OF CARE 87 MG/DL (70-110)
[2022-06-19 14:43] VITALS: BP 151/90
[2022-06-19] MEDS: ACETAMINOPHEN 325 MG TABLET PO PRN (14:49)
[2022-06-19 16:36] LABS: GLUCOMETER DEV NAME(LOC) 3E.C; GLUCOSE,POINT OF CARE 105 MG/DL (70-110)
[2022-06-19 17:06] VITALS: BP 138/93
[2022-06-19] MEDS: MELATONIN 5 MG TABLET PO SCH (20:20)
[2022-06-19 20:21] LABS: GLUCOMETER DEV NAME(LOC) 3E.C; GLUCOSE,POINT OF CARE 83 MG/DL (70-110)
[2022-06-19] MEDS: OLANZapine 10 MG RAPDIS TABLET PO SCH (20:22)
[2022-06-20] MEDS: ZIPRASIDONE HCL 80 MG CAPSULE PO SCH ×2 (06:37→17:44)
[2022-06-20] MEDS: LEVOTHYROXINE SODIUM 200 MCG TABLET PO SCH (06:37)
[2022-06-20] MEDS: MetFORMIN HCL 500 MG TABLET PO SCH ×3 (06:38→17:44)
[2022-06-20] MEDS: LEVOTHYROXINE SODIUM 75 MCG TABLET PO SCH (06:38)
[2022-06-20 06:52] LABS: GLUCOMETER DEV NAME(LOC) 3E.C; GLUCOSE,POINT OF CARE 81 MG/DL (70-110)
[2022-06-20 07:00] LABS: COVID AG,FIA SOURCE NASAL SWAB
[2022-06-20 08:26] VITALS: BP 111/67
[2022-06-20] MEDS: AmLODIPine BESYLATE 5 MG TABLET PO SCH (10:05)
[2022-06-20] MEDS: DIVALPROEX SODIUM 500 MG ER TABLET PO SCH ×2 (10:05→17:45)
[2022-06-20] MEDS: OMEGA-3/DHA/EPA/FISH OIL 1,000 MG CAPSULE PO SCH (10:05)
[2022-06-20] MEDS: LISINOPRIL 20 MG TABLET PO SCH (10:05)
[2022-06-20] MEDS: OLANZapine 5 MG RAPDIS TABLET PO PRN (10:05)
[2022-06-20] MEDS: LORazepam 0.5 MG TABLET PO PRN (10:05)
[2022-06-20] MEDS: METOPROLOL SUCCINATE 25 MG ER TABLET PO SCH ×2 (10:06→17:40)
[2022-06-20 12:26] LABS: GLUCOMETER DEV NAME(LOC) 3E.C; GLUCOSE,POINT OF CARE 92 MG/DL (70-110)
[2022-06-20 16:38] VITALS: BP 105/62
[2022-06-20 17:51] LABS: GLUCOMETER DEV NAME(LOC) 3E.C; GLUCOSE,POINT OF CARE 94 MG/DL (70-110)
[2022-06-20] MEDS: MELATONIN 5 MG TABLET PO SCH (20:07)
[2022-06-20] MEDS: OLANZapine 10 MG RAPDIS TABLET PO SCH (20:08)
[2022-06-20 20:21] LABS: GLUCOMETER DEV NAME(LOC) 3E.C; GLUCOSE,POINT OF CARE 93 MG/DL (70-110)
[2022-06-21 06:06] LABS: GLUCOMETER DEV NAME(LOC) 3E.C; GLUCOSE,POINT OF CARE 86 MG/DL (70-110)
[2022-06-21] MEDS: LEVOTHYROXINE SODIUM 200 MCG TABLET PO SCH (06:36)
[2022-06-21] MEDS: LEVOTHYROXINE SODIUM 75 MCG TABLET PO SCH (06:36)
[2022-06-21] MEDS: MetFORMIN HCL 500 MG TABLET PO SCH ×3 (06:36→17:10)
[2022-06-21] MEDS: ZIPRASIDONE HCL 80 MG CAPSULE PO SCH ×2 (06:36→17:10)
[2022-06-21] MEDS: LORazepam 0.5 MG TABLET PO PRN (10:27)
[2022-06-21] MEDS: OMEGA-3/DHA/EPA/FISH OIL 1,000 MG CAPSULE PO SCH (10:27)
[2022-06-21] MEDS: OLANZapine 5 MG RAPDIS TABLET PO PRN (10:27)
[2022-06-21] MEDS: DIVALPROEX SODIUM 500 MG ER TABLET PO SCH ×2 (10:27→17:10)
[2022-06-21] MEDS: METOPROLOL SUCCINATE 25 MG ER TABLET PO SCH ×2 (10:27→17:10)
[2022-06-21] MEDS: LISINOPRIL 20 MG TABLET PO SCH (10:27)
[2022-06-21] MEDS: AmLODIPine BESYLATE 5 MG TABLET PO SCH (10:27)
[2022-06-21 11:56] LABS: GLUCOMETER DEV NAME(LOC) 3E.C; GLUCOSE,POINT OF CARE 87 MG/DL (70-110)
[2022-06-21 15:53] VITALS: BP_SYST 108; BP_SYST 153; BP_DIAS 67; BP_DIAS 99
[2022-06-21] MEDS: IBUPROFEN 600 MG TABLET PO PRN (15:53)
[2022-06-21 16:13] VITALS: BP 153/99
[2022-06-21 16:53] VITALS: BP 138/87
[2022-06-21 17:31] LABS: GLUCOMETER DEV NAME(LOC) 3E.C; GLUCOSE,POINT OF CARE 101 MG/DL (70-110)
[2022-06-21] MEDS: MELATONIN 5 MG TABLET PO SCH (20:07)
[2022-06-21 20:21] LABS: GLUCOMETER DEV NAME(LOC) 3E.C; GLUCOSE,POINT OF CARE 96 MG/DL (70-110)
[2022-06-21] MEDS ORDERED: OLANZapine 5 MG RAPDIS TABLET PO SCH (21:00)
[2022-06-21] MEDS: ZOLPIDEM TARTRATE 10 MG TABLET PO PRN (23:39)
[2022-06-22 00:47] VITALS: BP 140/85
[2022-06-22] MEDS: LORazepam 0.5 MG TABLET PO PRN ×3 (00:50→20:42)
[2022-06-22] MEDS: LEVOTHYROXINE SODIUM 200 MCG TABLET PO SCH (06:40)
[2022-06-22] MEDS: LEVOTHYROXINE SODIUM 75 MCG TABLET PO SCH (06:40)
[2022-06-22] MEDS: ZIPRASIDONE HCL 80 MG CAPSULE PO SCH ×2 (06:40→16:15)
[2022-06-22] MEDS: MetFORMIN HCL 500 MG TABLET PO SCH ×3 (06:41→17:08)
[2022-06-22 06:47] LABS: GLUCOMETER DEV NAME(LOC) 3E.C; GLUCOSE,POINT OF CARE 97 MG/DL (70-110)
[2022-06-22 08:00] VITALS: BP 141/89
[2022-06-22] MEDS: OMEGA-3/DHA/EPA/FISH OIL 1,000 MG CAPSULE PO SCH (08:52)
[2022-06-22] MEDS: LISINOPRIL 20 MG TABLET PO SCH (08:52)
[2022-06-22] MEDS: AmLODIPine BESYLATE 5 MG TABLET PO SCH (08:52)
[2022-06-22] MEDS: METOPROLOL SUCCINATE 25 MG ER TABLET PO SCH ×2 (08:52→16:15)
[2022-06-22] MEDS: DIVALPROEX SODIUM 500 MG ER TABLET PO SCH ×2 (08:52→16:15)
[2022-06-22 11:56] LABS: GLUCOMETER DEV NAME(LOC) 3E.C; GLUCOSE,POINT OF CARE 89 MG/DL (70-110)
[2022-06-22] MEDS: OLANZapine 5 MG RAPDIS TABLET PO PRN (15:35)
[2022-06-22 16:00] VITALS: BP 151/97
[2022-06-22 16:48] VITALS: BP 151/97
[2022-06-22 17:01] LABS: GLUCOMETER DEV NAME(LOC) 3E.C; GLUCOSE,POINT OF CARE 121 MG/DL (70-110)
[2022-06-22 20:31] LABS: GLUCOMETER DEV NAME(LOC) 3E.C; GLUCOSE,POINT OF CARE 97 MG/DL (70-110)
[2022-06-22] MEDS: MELATONIN 5 MG TABLET PO SCH (20:42)
[2022-06-22] MEDS ORDERED: OLANZapine 10 MG RAPDIS TABLET PO SCH (21:00)
[2022-06-22] MEDS: ZOLPIDEM TARTRATE 10 MG TABLET PO PRN (22:19)
[2022-06-23] MEDS: LEVOTHYROXINE SODIUM 75 MCG TABLET PO SCH (06:32)
[2022-06-23] MEDS: MetFORMIN HCL 500 MG TABLET PO SCH ×3 (06:32→16:20)
[2022-06-23] MEDS: LEVOTHYROXINE SODIUM 200 MCG TABLET PO SCH (06:32)
[2022-06-23] MEDS: ZIPRASIDONE HCL 80 MG CAPSULE PO SCH ×2 (06:32→16:13)
[2022-06-23 07:26] LABS: GLUCOMETER DEV NAME(LOC) 3E.C; GLUCOSE,POINT OF CARE 91 MG/DL (70-110)
[2022-06-23] MEDS: METOPROLOL SUCCINATE 25 MG ER TABLET PO SCH ×2 (08:27→16:14)
[2022-06-23] MEDS: LISINOPRIL 20 MG TABLET PO SCH (08:28)
[2022-06-23] MEDS: AmLODIPine BESYLATE 5 MG TABLET PO SCH (08:28)
[2022-06-23] MEDS: DIVALPROEX SODIUM 500 MG ER TABLET PO SCH ×2 (08:28→16:13)
[2022-06-23] MEDS: OMEGA-3/DHA/EPA/FISH OIL 1,000 MG CAPSULE PO SCH (08:28)
[2022-06-23 08:48] VITALS: BP 101/60
[2022-06-23 11:31] LABS: GLUCOMETER DEV NAME(LOC) 3E.C; GLUCOSE,POINT OF CARE 84 MG/DL (70-110)
[2022-06-23] MEDS: LORazepam 0.5 MG TABLET PO PRN ×2 (12:09→17:55)
[2022-06-23] MEDS: OLANZapine 5 MG RAPDIS TABLET PO PRN ×2 (12:09→17:55)
[2022-06-23 16:10] VITALS: BP 121/70
[2022-06-23 16:31] LABS: GLUCOMETER DEV NAME(LOC) 3E.C; GLUCOSE,POINT OF CARE 91 MG/DL (70-110)
[2022-06-23] MEDS: OLANZapine 5 MG RAPDIS TABLET PO SCH (20:11)
[2022-06-23] MEDS: MELATONIN 5 MG TABLET PO SCH (20:11)
[2022-06-23 20:26] LABS: GLUCOMETER DEV NAME(LOC) 3E.C; GLUCOSE,POINT OF CARE 94 MG/DL (70-110)
[2022-06-24] MEDS: LORazepam 0.5 MG TABLET PO PRN ×4 (05:18→20:41)
[2022-06-24] MEDS: OLANZapine 5 MG RAPDIS TABLET PO PRN ×3 (05:19→15:57)
[2022-06-24 05:36] LABS: GLUCOMETER DEV NAME(LOC) 3E.C; GLUCOSE,POINT OF CARE 77 MG/DL (70-110)
[2022-06-24 06:31] LABS: GLUCOMETER DEV NAME(LOC) 3E.C; GLUCOSE,POINT OF CARE 110 MG/DL (70-110)
[2022-06-24] MEDS: LEVOTHYROXINE SODIUM 75 MCG TABLET PO SCH (06:43)
[2022-06-24] MEDS: ZIPRASIDONE HCL 80 MG CAPSULE PO SCH ×2 (06:43→17:23)
[2022-06-24] MEDS: LEVOTHYROXINE SODIUM 200 MCG TABLET PO SCH (06:43)
[2022-06-24] MEDS: MetFORMIN HCL 500 MG TABLET PO SCH ×3 (06:43→17:22)
[2022-06-24 08:00] VITALS: BP 106/62
[2022-06-24] MEDS: LISINOPRIL 20 MG TABLET PO SCH (10:48)
[2022-06-24] MEDS: OMEGA-3/DHA/EPA/FISH OIL 1,000 MG CAPSULE PO SCH (10:48)
[2022-06-24] MEDS: METOPROLOL SUCCINATE 25 MG ER TABLET PO SCH ×2 (10:49→17:22)
[2022-06-24] MEDS: DIVALPROEX SODIUM 500 MG ER TABLET PO SCH ×2 (10:49→17:22)
[2022-06-24] MEDS: AmLODIPine BESYLATE 5 MG TABLET PO SCH (10:49)
[2022-06-24 12:11] LABS: GLUCOMETER DEV NAME(LOC) 3E.C; GLUCOSE,POINT OF CARE 94 MG/DL (70-110)
[2022-06-24 12:18] VITALS: BP 108/71
[2022-06-24] MEDS: IBUPROFEN 600 MG TABLET PO PRN (12:18)
[2022-06-24 13:18] VITALS: BP 111/69
[2022-06-24 13:50] LABS: COVID AG,FIA SOURCE NASAL SWAB
[2022-06-24 16:38] VITALS: BP 96/66
[2022-06-24 17:36] LABS: GLUCOMETER DEV NAME(LOC) 3E.C; GLUCOSE,POINT OF CARE 96 MG/DL (70-110)
[2022-06-24 19:51] LABS: GLUCOMETER DEV NAME(LOC) 3E.C; GLUCOSE,POINT OF CARE 87 MG/DL (70-110)
[2022-06-24] MEDS: OLANZapine 5 MG RAPDIS TABLET PO SCH (20:41)
[2022-06-24] MEDS: MELATONIN 5 MG TABLET PO SCH (20:41)
[2022-06-24] MEDS: ZOLPIDEM TARTRATE 10 MG TABLET PO PRN (22:15)
[2022-06-25] MEDS: LEVOTHYROXINE SODIUM 75 MCG TABLET PO SCH (06:43)
[2022-06-25] MEDS: LEVOTHYROXINE SODIUM 200 MCG TABLET PO SCH (06:43)
[2022-06-25] MEDS: MetFORMIN HCL 500 MG TABLET PO SCH ×3 (06:43→17:07)
[2022-06-25] MEDS: ZIPRASIDONE HCL 80 MG CAPSULE PO SCH ×2 (06:43→16:14)
[2022-06-25 06:46] LABS: GLUCOMETER DEV NAME(LOC) 3E.C; GLUCOSE,POINT OF CARE 94 MG/DL (70-110)
[2022-06-25] MEDS: METOPROLOL SUCCINATE 25 MG ER TABLET PO SCH ×2 (08:22→16:14)
[2022-06-25] MEDS: LISINOPRIL 20 MG TABLET PO SCH (08:22)
[2022-06-25] MEDS: OMEGA-3/DHA/EPA/FISH OIL 1,000 MG CAPSULE PO SCH (08:22)
[2022-06-25] MEDS: DIVALPROEX SODIUM 500 MG ER TABLET PO SCH ×2 (08:23→16:14)
[2022-06-25] MEDS: AmLODIPine BESYLATE 5 MG TABLET PO SCH (08:24)
[2022-06-25 08:30] VITALS: BP 117/60
[2022-06-25 11:51] LABS: GLUCOMETER DEV NAME(LOC) 3E.C; GLUCOSE,POINT OF CARE 104 MG/DL (70-110)
[2022-06-25] MEDS: OLANZapine 5 MG RAPDIS TABLET PO PRN (15:57)
[2022-06-25 16:30] VITALS: BP 119/75
[2022-06-25 16:37] LABS: GLUCOMETER DEV NAME(LOC) 3E.C; GLUCOSE,POINT OF CARE 95 MG/DL (70-110)
[2022-06-25] MEDS: LORazepam 0.5 MG TABLET PO PRN (17:57)
[2022-06-25] MEDS: MELATONIN 5 MG TABLET PO SCH (20:13)
[2022-06-25] MEDS: OLANZapine 5 MG RAPDIS TABLET PO SCH (20:13)
[2022-06-25 20:20] LABS: GLUCOMETER DEV NAME(LOC) 3E.C; GLUCOSE,POINT OF CARE 100 MG/DL (70-110)
[2022-06-26 06:21] LABS: GLUCOMETER DEV NAME(LOC) 3E.C; GLUCOSE,POINT OF CARE 90 MG/DL (70-110)
[2022-06-26] MEDS: MetFORMIN HCL 500 MG TABLET PO SCH ×3 (06:36→16:34)
[2022-06-26] MEDS: LEVOTHYROXINE SODIUM 200 MCG TABLET PO SCH (06:37)
[2022-06-26] MEDS: ZIPRASIDONE HCL 80 MG CAPSULE PO SCH ×2 (06:37→16:34)
[2022-06-26] MEDS: LEVOTHYROXINE SODIUM 75 MCG TABLET PO SCH (06:37)
[2022-06-26 08:04] VITALS: BP 111/65
[2022-06-26] MEDS: OMEGA-3/DHA/EPA/FISH OIL 1,000 MG CAPSULE PO SCH (08:32)
[2022-06-26] MEDS: DIVALPROEX SODIUM 500 MG ER TABLET PO SCH ×2 (08:32→16:34)
[2022-06-26] MEDS: LISINOPRIL 20 MG TABLET PO SCH (08:32)
[2022-06-26] MEDS: AmLODIPine BESYLATE 5 MG TABLET PO SCH (08:32)
[2022-06-26] MEDS: METOPROLOL SUCCINATE 25 MG ER TABLET PO SCH ×2 (08:33→16:34)
[2022-06-26 11:11] LABS: GLUCOMETER DEV NAME(LOC) 3E.C; GLUCOSE,POINT OF CARE 112 MG/DL (70-110)
[2022-06-26 16:41] LABS: GLUCOMETER DEV NAME(LOC) 3E.C; GLUCOSE,POINT OF CARE 113 MG/DL (70-110)
[2022-06-26 16:48] VITALS: BP 148/94
[2022-06-26 20:06] LABS: GLUCOMETER DEV NAME(LOC) 3E.C; GLUCOSE,POINT OF CARE 89 MG/DL (70-110)
[2022-06-26] MEDS: MELATONIN 5 MG TABLET PO SCH (20:57)
[2022-06-27] MEDS: LORazepam 0.5 MG TABLET PO PRN ×3 (00:30→18:07)
[2022-06-27] MEDS: OLANZapine 5 MG RAPDIS TABLET PO PRN ×2 (00:55→13:26)
[2022-06-27 05:41] LABS: GLUCOMETER DEV NAME(LOC) 3E.C; GLUCOSE,POINT OF CARE 96 MG/DL (70-110)
[2022-06-27] MEDS: LEVOTHYROXINE SODIUM 200 MCG TABLET PO SCH (06:11)
[2022-06-27] MEDS: LEVOTHYROXINE SODIUM 75 MCG TABLET PO SCH (06:12)
[2022-06-27 06:23] VITALS: BP 138/92
[2022-06-27] MEDS: IBUPROFEN 600 MG TABLET PO PRN (06:25)
[2022-06-27] MEDS: INSULIN LISPRO 100 UNITS/ML SQ PRN (06:34)
[2022-06-27] MEDS: MetFORMIN HCL 500 MG TABLET PO SCH ×3 (06:44→16:25)
[2022-06-27] MEDS: ZIPRASIDONE HCL 80 MG CAPSULE PO SCH ×2 (06:44→16:25)
[2022-06-27 08:15] VITALS: BP 146/84
[2022-06-27] MEDS: AmLODIPine BESYLATE 5 MG TABLET PO SCH (08:21)
[2022-06-27] MEDS: DIVALPROEX SODIUM 500 MG ER TABLET PO SCH ×2 (08:21→16:25)
[2022-06-27] MEDS: OMEGA-3/DHA/EPA/FISH OIL 1,000 MG CAPSULE PO SCH (08:21)
[2022-06-27] MEDS: LISINOPRIL 20 MG TABLET PO SCH (08:21)
[2022-06-27] MEDS: METOPROLOL SUCCINATE 25 MG ER TABLET PO SCH ×2 (08:21→16:25)
[2022-06-27 11:50] LABS: GLUCOMETER DEV NAME(LOC) 3E.C; GLUCOSE,POINT OF CARE 97 MG/DL (70-110)
[2022-06-27 16:37] LABS: GLUCOMETER DEV NAME(LOC) 3E.C; GLUCOSE,POINT OF CARE 85 MG/DL (70-110)
[2022-06-27 17:00] VITALS: BP 136/83
[2022-06-27 20:11] LABS: GLUCOMETER DEV NAME(LOC) 3E.C; GLUCOSE,POINT OF CARE 92 MG/DL (70-110)
[2022-06-27] MEDS: MELATONIN 5 MG TABLET PO SCH (20:38)
[2022-06-28 06:16] LABS: GLUCOMETER DEV NAME(LOC) 3E.C; GLUCOSE,POINT OF CARE 85 MG/DL (70-110)
[2022-06-28] MEDS: LEVOTHYROXINE SODIUM 200 MCG TABLET PO SCH (06:37)
[2022-06-28] MEDS: LEVOTHYROXINE SODIUM 75 MCG TABLET PO SCH (06:37)
[2022-06-28] MEDS: ZIPRASIDONE HCL 60 MG CAPSULE PO SCH ×2 (06:46→16:02)
[2022-06-28] MEDS: MetFORMIN HCL 500 MG TABLET PO SCH ×3 (06:47→17:30)
[2022-06-28] MEDS: INSULIN LISPRO 100 UNITS/ML SQ PRN ×2 (06:51→21:07)
[2022-06-28] MEDS ORDERED: LURASIDONE HCL 40 MG TABLET PO SCH (07:30)
[2022-06-28] MEDS: OMEGA-3/DHA/EPA/FISH OIL 1,000 MG CAPSULE PO SCH (08:01)
[2022-06-28] MEDS: DIVALPROEX SODIUM 500 MG ER TABLET PO SCH ×2 (08:01→16:01)
[2022-06-28 08:57] VITALS: BP_SYST 103; BP_SYST 115; BP_SYST 132; BP_DIAS 59; BP_DIAS 62; BP_DIAS 74
[2022-06-28] MEDS: AmLODIPine BESYLATE 5 MG TABLET PO SCH (09:00)
[2022-06-28] MEDS: LISINOPRIL 20 MG TABLET PO SCH (09:00)
[2022-06-28] MEDS: METOPROLOL SUCCINATE 25 MG ER TABLET PO SCH ×2 (09:00→16:02)
[2022-06-28 11:36] LABS: GLUCOMETER DEV NAME(LOC) 3E.C; GLUCOSE,POINT OF CARE 80 MG/DL (70-110)
[2022-06-28 16:36] LABS: GLUCOMETER DEV NAME(LOC) 3E.C; GLUCOSE,POINT OF CARE 108 MG/DL (70-110)
[2022-06-28 17:30] VITALS: BP 154/93
[2022-06-28] MEDS: ZIPRASIDONE HCL 40 MG CAPSULE PO SCH (17:30)
[2022-06-28 19:36] LABS: GLUCOMETER DEV NAME(LOC) 3E.C; GLUCOSE,POINT OF CARE 98 MG/DL (70-110)
[2022-06-28] MEDS: MELATONIN 5 MG TABLET PO SCH (20:42)
[2022-06-28] MEDS: LORazepam 0.5 MG TABLET PO PRN (20:43)
[2022-06-28] MEDS: OLANZapine 5 MG RAPDIS TABLET PO PRN (20:44)
[2022-06-29 04:26] LABS: GLUCOMETER DEV NAME(LOC) 3E.C; GLUCOSE,POINT OF CARE 92 MG/DL (70-110)
[2022-06-29] MEDS: LEVOTHYROXINE SODIUM 200 MCG TABLET PO SCH (06:27)
[2022-06-29] MEDS: LEVOTHYROXINE SODIUM 75 MCG TABLET PO SCH (06:27)
[2022-06-29] MEDS: INSULIN LISPRO 100 UNITS/ML SQ PRN ×2 (06:35→16:38)
[2022-06-29] MEDS: ZIPRASIDONE HCL 40 MG CAPSULE PO SCH ×2 (07:00→16:33)
[2022-06-29] MEDS: MetFORMIN HCL 500 MG TABLET PO SCH ×3 (07:00→16:33)
[2022-06-29] MEDS ORDERED: LURASIDONE HCL 80 MG TABLET PO SCH (07:30)
[2022-06-29] MEDS: DIVALPROEX SODIUM 500 MG ER TABLET PO SCH ×2 (08:07→16:32)
[2022-06-29] MEDS: LISINOPRIL 20 MG TABLET PO SCH (08:07)
[2022-06-29] MEDS: OMEGA-3/DHA/EPA/FISH OIL 1,000 MG CAPSULE PO SCH (08:07)
[2022-06-29] MEDS: AmLODIPine BESYLATE 5 MG TABLET PO SCH (08:07)
[2022-06-29] MEDS: METOPROLOL SUCCINATE 25 MG ER TABLET PO SCH ×2 (08:07→16:33)
[2022-06-29 09:07] VITALS: BP 152/98
[2022-06-29 11:31] LABS: GLUCOMETER DEV NAME(LOC) 3E.C; GLUCOSE,POINT OF CARE 102 MG/DL (70-110)
[2022-06-29] MEDS: OLANZapine 5 MG RAPDIS TABLET PO PRN (16:34)
[2022-06-29] MEDS: NICOTINE 21 MG/24 HOUR PATCH TD SCH (16:45)
[2022-06-29 16:46] LABS: GLUCOMETER DEV NAME(LOC) 3E.C; GLUCOSE,POINT OF CARE 86 MG/DL (70-110)
[2022-06-29 16:58] VITALS: BP 148/90
[2022-06-29 20:33] VITALS: BP 133/88
[2022-06-29] MEDS: LORazepam 0.5 MG TABLET PO PRN (20:50)
[2022-06-29] MEDS: MELATONIN 5 MG TABLET PO SCH (20:51)
[2022-06-29 20:56] LABS: GLUCOMETER DEV NAME(LOC) 3E.C; GLUCOSE,POINT OF CARE 96 MG/DL (70-110)
[2022-06-29] MEDS: ZOLPIDEM TARTRATE 10 MG TABLET PO PRN (22:05)
[2022-06-30 00:05] VITALS: BP 139/82
[2022-06-30 04:17] VITALS: BP 134/86
[2022-06-30 06:16] LABS: GLUCOMETER DEV NAME(LOC) 3E.C; GLUCOSE,POINT OF CARE 118 MG/DL (70-110)
[2022-06-30] MEDS: LEVOTHYROXINE SODIUM 75 MCG TABLET PO SCH (06:40)
[2022-06-30] MEDS: LEVOTHYROXINE SODIUM 200 MCG TABLET PO SCH (06:40)
[2022-06-30] MEDS: MetFORMIN HCL 500 MG TABLET PO SCH ×3 (06:40→17:12)
[2022-06-30] MEDS: ZIPRASIDONE HCL 20 MG CAPSULE PO SCH ×2 (06:41→17:11)
[2022-06-30] MEDS: LURASIDONE HCL 60 MG TABLET PO SCH (06:41)
[2022-06-30] MEDS: AmLODIPine BESYLATE 5 MG TABLET PO SCH (08:15)
[2022-06-30] MEDS: NICOTINE 21 MG/24 HOUR PATCH TD SCH (08:15)
[2022-06-30] MEDS: METOPROLOL SUCCINATE 25 MG ER TABLET PO SCH ×2 (08:15→17:11)
[2022-06-30] MEDS: DIVALPROEX SODIUM 500 MG ER TABLET PO SCH ×2 (08:15→17:11)
[2022-06-30] MEDS: OMEGA-3/DHA/EPA/FISH OIL 1,000 MG CAPSULE PO SCH (08:15)
[2022-06-30] MEDS: LISINOPRIL 20 MG TABLET PO SCH (08:16)
[2022-06-30 08:38] VITALS: BP 149/91
[2022-06-30] MEDS ORDERED: NICOTINE 21 MG/24 HOUR PATCH TD SCH (09:00)
[2022-06-30] MEDS: INSULIN LISPRO 100 UNITS/ML SQ PRN ×3 (11:22→20:29)
[2022-06-30 11:36] LABS: GLUCOMETER DEV NAME(LOC) 3E.C; GLUCOSE,POINT OF CARE 97 MG/DL (70-110)
[2022-06-30] MEDS: OLANZapine 5 MG RAPDIS TABLET PO PRN (13:19)
[2022-06-30] MEDS: LORazepam 0.5 MG TABLET PO PRN ×2 (13:20→20:31)
[2022-06-30] MEDS: IBUPROFEN 600 MG TABLET PO PRN (15:03)
[2022-06-30 16:06] VITALS: BP 134/72
[2022-06-30 17:21] LABS: GLUCOMETER DEV NAME(LOC) 3E.C; GLUCOSE,POINT OF CARE 140 MG/DL (70-110)
[2022-06-30 20:10] VITALS: BP 124/74
[2022-06-30] MEDS: MELATONIN 5 MG TABLET PO SCH (20:21)
[2022-06-30 20:40] LABS: GLUCOMETER DEV NAME(LOC) 3E.C; GLUCOSE,POINT OF CARE 109 MG/DL (70-110)
[2022-07-01] MEDS: OLANZapine 5 MG RAPDIS TABLET PO PRN ×3 (03:14→17:19)
[2022-07-01 05:31] LABS: GLUCOMETER DEV NAME(LOC) 3E.C; GLUCOSE,POINT OF CARE 89 MG/DL (70-110)
[2022-07-01 05:52] LABS: COVID AG,FIA SOURCE NASAL SWAB
[2022-07-01] MEDS: LURASIDONE HCL 60 MG TABLET PO SCH (06:38)
[2022-07-01] MEDS: ZIPRASIDONE HCL 20 MG CAPSULE PO SCH ×2 (06:39→17:00)
[2022-07-01] MEDS: LEVOTHYROXINE SODIUM 75 MCG TABLET PO SCH (06:39)
[2022-07-01] MEDS: MetFORMIN HCL 500 MG TABLET PO SCH ×3 (06:39→16:59)
[2022-07-01] MEDS: LEVOTHYROXINE SODIUM 200 MCG TABLET PO SCH (06:39)
[2022-07-01] MEDS: AmLODIPine BESYLATE 5 MG TABLET PO SCH (08:00)
[2022-07-01] MEDS: DIVALPROEX SODIUM 500 MG ER TABLET PO SCH ×2 (08:00→17:00)
[2022-07-01] MEDS: LISINOPRIL 20 MG TABLET PO SCH (08:00)
[2022-07-01] MEDS: OMEGA-3/DHA/EPA/FISH OIL 1,000 MG CAPSULE PO SCH (08:00)
[2022-07-01] MEDS: METOPROLOL SUCCINATE 25 MG ER TABLET PO SCH ×2 (08:01→17:00)
[2022-07-01 08:42] VITALS: BP 128/71
[2022-07-01 11:46] LABS: GLUCOMETER DEV NAME(LOC) 3E.C; GLUCOSE,POINT OF CARE 111 MG/DL (70-110)
[2022-07-01] MEDS: NICOTINE 21 MG/24 HOUR PATCH TD SCH (11:46)
[2022-07-01] MEDS: LORazepam 0.5 MG TABLET PO PRN (11:57)
[2022-07-01 16:11] VITALS: BP 136/70
[2022-07-01 17:41] LABS: GLUCOMETER DEV NAME(LOC) 3E.C; GLUCOSE,POINT OF CARE 119 MG/DL (70-110)
[2022-07-01] MEDS: MELATONIN 5 MG TABLET PO SCH (20:13)
[2022-07-01] MEDS: INSULIN LISPRO 100 UNITS/ML SQ PRN (20:40)
[2022-07-01 20:46] VITALS: BP 145/86
[2022-07-02] MEDS: LORazepam 0.5 MG TABLET PO PRN ×3 (02:17→21:50)
[2022-07-02] MEDS: ZOLPIDEM TARTRATE 10 MG TABLET PO PRN ×2 (02:17→21:50)
[2022-07-02 05:56] LABS: GLUCOMETER DEV NAME(LOC) 3E.C; GLUCOSE,POINT OF CARE 124 MG/DL (70-110)
[2022-07-02] MEDS: LEVOTHYROXINE SODIUM 200 MCG TABLET PO SCH (06:34)
[2022-07-02] MEDS: LEVOTHYROXINE SODIUM 75 MCG TABLET PO SCH (06:34)
[2022-07-02] MEDS: ZIPRASIDONE HCL 20 MG CAPSULE PO SCH ×2 (06:34→17:32)
[2022-07-02] MEDS: LURASIDONE HCL 60 MG TABLET PO SCH (06:35)
[2022-07-02] MEDS: MetFORMIN HCL 500 MG TABLET PO SCH ×3 (06:35→17:31)
[2022-07-02] MEDS: INSULIN LISPRO 100 UNITS/ML SQ PRN (06:36)
[2022-07-02 06:41] LABS: GLUCOMETER DEV NAME(LOC) 3E.C; GLUCOSE,POINT OF CARE 86 MG/DL (70-110)
[2022-07-02 08:13] VITALS: BP 121/72
[2022-07-02] MEDS: OMEGA-3/DHA/EPA/FISH OIL 1,000 MG CAPSULE PO SCH (08:40)
[2022-07-02] MEDS: LISINOPRIL 20 MG TABLET PO SCH (08:42)
[2022-07-02] MEDS: AmLODIPine BESYLATE 5 MG TABLET PO SCH (08:42)
[2022-07-02 08:44] VITALS: BP 132/75
[2022-07-02] MEDS: IBUPROFEN 600 MG TABLET PO PRN (08:44)
[2022-07-02] MEDS: OLANZapine 5 MG RAPDIS TABLET PO PRN ×2 (08:44→16:04)
[2022-07-02] MEDS: DIVALPROEX SODIUM 500 MG ER TABLET PO SCH ×2 (09:00→17:00)
[2022-07-02 09:44] VITALS: BP 155/100
[2022-07-02] MEDS: METOPROLOL SUCCINATE 25 MG ER TABLET PO SCH ×2 (09:57→17:32)
[2022-07-02] MEDS: NICOTINE 21 MG/24 HOUR PATCH TD SCH (09:57)
[2022-07-02 11:56] LABS: GLUCOMETER DEV NAME(LOC) 3E.C; GLUCOSE,POINT OF CARE 103 MG/DL (70-110)
[2022-07-02] MEDS: ACETAMINOPHEN 325 MG TABLET PO PRN (16:04)
[2022-07-02 16:05] VITALS: BP 106/60
[2022-07-02 17:22] VITALS: BP 162/96
[2022-07-02 17:31] LABS: GLUCOMETER DEV NAME(LOC) 3E.C; GLUCOSE,POINT OF CARE 125 MG/DL (70-110)
[2022-07-02] MEDS: MELATONIN 5 MG TABLET PO SCH (20:06)
[2022-07-02 20:19] VITALS: BP 154/96
[2022-07-02 20:26] LABS: GLUCOMETER DEV NAME(LOC) 3E.C; GLUCOSE,POINT OF CARE 113 MG/DL (70-110)
[2022-07-03] MEDS: ZIPRASIDONE HCL 20 MG CAPSULE PO SCH ×2 (06:32→16:30)
[2022-07-03] MEDS: LEVOTHYROXINE SODIUM 200 MCG TABLET PO SCH (06:32)
[2022-07-03] MEDS: LURASIDONE HCL 60 MG TABLET PO SCH (06:32)
[2022-07-03] MEDS: LEVOTHYROXINE SODIUM 75 MCG TABLET PO SCH (06:32)
[2022-07-03] MEDS: MetFORMIN HCL 500 MG TABLET PO SCH ×3 (06:32→17:07)
[2022-07-03] MEDS: INSULIN LISPRO 100 UNITS/ML SQ PRN (06:35)
[2022-07-03 06:36] LABS: GLUCOMETER DEV NAME(LOC) 3E.C; GLUCOSE,POINT OF CARE 83 MG/DL (70-110)
[2022-07-03 08:07] VITALS: BP 164/105
[2022-07-03] MEDS: OMEGA-3/DHA/EPA/FISH OIL 1,000 MG CAPSULE PO SCH (08:20)
[2022-07-03] MEDS: AmLODIPine BESYLATE 5 MG TABLET PO SCH (08:20)
[2022-07-03] MEDS: OLANZapine 5 MG RAPDIS TABLET PO PRN ×3 (08:20→16:48)
[2022-07-03] MEDS: LISINOPRIL 20 MG TABLET PO SCH (08:20)
[2022-07-03] MEDS: LORazepam 0.5 MG TABLET PO PRN ×4 (08:20→22:57)
[2022-07-03] MEDS: DIVALPROEX SODIUM 500 MG ER TABLET PO SCH ×3 (08:20→16:30)
[2022-07-03] MEDS: METOPROLOL SUCCINATE 25 MG ER TABLET PO SCH ×2 (08:26→16:30)
[2022-07-03] MEDS: NICOTINE 21 MG/24 HOUR PATCH TD SCH (08:42)
[2022-07-03 12:01] LABS: GLUCOMETER DEV NAME(LOC) 3E.C; GLUCOSE,POINT OF CARE 137 MG/DL (70-110)
[2022-07-03 14:13] VITALS: BP 164/105
[2022-07-03] MEDS: IBUPROFEN 600 MG TABLET PO PRN (14:13)
[2022-07-03 15:13] VITALS: BP 106/61
[2022-07-03 16:48] VITALS: BP 106/61
[2022-07-03 17:01] LABS: GLUCOMETER DEV NAME(LOC) 3E.C; GLUCOSE,POINT OF CARE 110 MG/DL (70-110)
[2022-07-03] MEDS: MELATONIN 5 MG TABLET PO SCH (20:10)
[2022-07-03] MEDS ORDERED: VALPROIC ACID 250 MG/5 ML SOLUTION UDCUP PO SCH (21:00)
[2022-07-03] MEDS: ZOLPIDEM TARTRATE 10 MG TABLET PO PRN (22:56)
[2022-07-04] MEDS: LEVOTHYROXINE SODIUM 200 MCG TABLET PO SCH (06:35)
[2022-07-04 06:36] LABS: GLUCOMETER DEV NAME(LOC) 3E.C; GLUCOSE,POINT OF CARE 86 MG/DL (70-110)
[2022-07-04 06:36] LABS: GLUCOMETER DEV NAME(LOC) 3E.C; GLUCOSE,POINT OF CARE 110 MG/DL (70-110)
[2022-07-04] MEDS: LURASIDONE HCL 80 MG TABLET PO SCH (06:36)
[2022-07-04] MEDS: MetFORMIN HCL 500 MG TABLET PO SCH ×3 (06:36→16:56)
[2022-07-04] MEDS: LEVOTHYROXINE SODIUM 75 MCG TABLET PO SCH (06:36)
[2022-07-04] MEDS: INSULIN LISPRO 100 UNITS/ML SQ PRN (06:37)
[2022-07-04 08:03] VITALS: BP 133/90
[2022-07-04] MEDS: NICOTINE 21 MG/24 HOUR PATCH TD SCH (08:45)
[2022-07-04] MEDS: AmLODIPine BESYLATE 5 MG TABLET PO SCH (08:45)
[2022-07-04] MEDS: OLANZapine 5 MG RAPDIS TABLET PO PRN ×3 (08:45→16:56)
[2022-07-04] MEDS: METOPROLOL SUCCINATE 25 MG ER TABLET PO SCH ×2 (08:45→16:56)
[2022-07-04] MEDS: LISINOPRIL 20 MG TABLET PO SCH (08:45)
[2022-07-04] MEDS: OMEGA-3/DHA/EPA/FISH OIL 1,000 MG CAPSULE PO SCH (08:45)
[2022-07-04] MEDS: LORazepam 0.5 MG TABLET PO PRN ×3 (08:45→16:56)
[2022-07-04 11:01] LABS: GLUCOMETER DEV NAME(LOC) 3E.C; GLUCOSE,POINT OF CARE 100 MG/DL (70-110)
[2022-07-04 16:11] LABS: GLUCOMETER DEV NAME(LOC) 3E.C; GLUCOSE,POINT OF CARE 138 MG/DL (70-110)
[2022-07-04 16:16] VITALS: BP 101/59
[2022-07-04] MEDS ORDERED: ChlorproMAZINE HCL 50 MG/2 ML AMP IM ONE (17:30)
[2022-07-04] MEDS ORDERED: DiphenhydrAMINE HCL 50 MG/ML VIAL IM ONE (17:30)
[2022-07-04] MEDS ORDERED: LORazepam 2 MG/ML VIAL IM ONE (17:30)
[2022-07-04 20:06] LABS: GLUCOMETER DEV NAME(LOC) 3E.C; GLUCOSE,POINT OF CARE 104 MG/DL (70-110)
[2022-07-04] MEDS: MELATONIN 5 MG TABLET PO SCH (20:28)
[2022-07-05] MEDS: LEVOTHYROXINE SODIUM 200 MCG TABLET PO SCH (06:59)
[2022-07-05] MEDS: MetFORMIN HCL 500 MG TABLET PO SCH ×3 (06:59→16:30)
[2022-07-05] MEDS: LEVOTHYROXINE SODIUM 75 MCG TABLET PO SCH (06:59)
[2022-07-05] MEDS: LURASIDONE HCL 80 MG TABLET PO SCH (06:59)
[2022-07-05 07:11] LABS: GLUCOMETER DEV NAME(LOC) 3E.C; GLUCOSE,POINT OF CARE 87 MG/DL (70-110)
[2022-07-05 08:47] VITALS: BP 104/58
[2022-07-05] MEDS: NICOTINE 21 MG/24 HOUR PATCH TD SCH (09:43)
[2022-07-05] MEDS: OMEGA-3/DHA/EPA/FISH OIL 1,000 MG CAPSULE PO SCH (09:43)
[2022-07-05] MEDS: AmLODIPine BESYLATE 5 MG TABLET PO SCH (09:43)
[2022-07-05] MEDS: VALPROIC ACID 250 MG/5 ML SOLUTION UDCUP PO SCH ×2 (09:44→16:31)
[2022-07-05] MEDS: LISINOPRIL 20 MG TABLET PO SCH (09:44)
[2022-07-05] MEDS: METOPROLOL SUCCINATE 25 MG ER TABLET PO SCH ×2 (09:44→16:30)
[2022-07-05 12:06] LABS: GLUCOMETER DEV NAME(LOC) 3E.C; GLUCOSE,POINT OF CARE 102 MG/DL (70-110)
[2022-07-05] MEDS: OLANZapine 10 MG RAPDIS TABLET PO PRN ×3 (15:39→19:36)
[2022-07-05 16:41] LABS: GLUCOMETER DEV NAME(LOC) 3E.C; GLUCOSE,POINT OF CARE 105 MG/DL (70-110)
[2022-07-05 16:44] VITALS: BP 124/76
[2022-07-05 17:39] VITALS: BP 119/82
[2022-07-05] MEDS: LORazepam 0.5 MG TABLET PO PRN (17:39)
[2022-07-05 18:40] VITALS: BP 120/76
[2022-07-05] MEDS: IBUPROFEN 600 MG TABLET PO PRN (18:40)
[2022-07-05] MEDS: MELATONIN 5 MG TABLET PO SCH (20:28)
[2022-07-05 20:41] LABS: GLUCOMETER DEV NAME(LOC) 3E.C; GLUCOSE,POINT OF CARE 105 MG/DL (70-110)
[2022-07-05] MEDS: ZOLPIDEM TARTRATE 10 MG TABLET PO PRN (21:04)
[2022-07-06] MEDS: LURASIDONE HCL 80 MG TABLET PO SCH (06:47)
[2022-07-06] MEDS: LEVOTHYROXINE SODIUM 200 MCG TABLET PO SCH (06:48)
[2022-07-06] MEDS: LEVOTHYROXINE SODIUM 75 MCG TABLET PO SCH (06:48)
[2022-07-06] MEDS: MetFORMIN HCL 500 MG TABLET PO SCH ×3 (06:48→16:43)
[2022-07-06 06:56] LABS: GLUCOMETER DEV NAME(LOC) 3E.C; GLUCOSE,POINT OF CARE 86 MG/DL (70-110)
[2022-07-06 08:02] VITALS: BP 102/74
[2022-07-06] MEDS: OMEGA-3/DHA/EPA/FISH OIL 1,000 MG CAPSULE PO SCH (09:02)
[2022-07-06] MEDS: METOPROLOL SUCCINATE 25 MG ER TABLET PO SCH ×2 (09:02→16:43)
[2022-07-06] MEDS: AmLODIPine BESYLATE 5 MG TABLET PO SCH (09:02)
[2022-07-06] MEDS: LISINOPRIL 20 MG TABLET PO SCH (09:02)
[2022-07-06] MEDS: VALPROIC ACID 250 MG/5 ML SOLUTION UDCUP PO SCH ×2 (09:03→16:44)
[2022-07-06] MEDS: NICOTINE 21 MG/24 HOUR PATCH TD SCH (09:09)
[2022-07-06 11:46] LABS: GLUCOMETER DEV NAME(LOC) 3E.C; GLUCOSE,POINT OF CARE 113 MG/DL (70-110)
[2022-07-06 15:37] VITALS: BP 132/89
[2022-07-06] MEDS: ACETAMINOPHEN 325 MG TABLET PO PRN (15:37)
[2022-07-06 16:31] LABS: GLUCOMETER DEV NAME(LOC) 3E.C; GLUCOSE,POINT OF CARE 90 MG/DL (70-110)
[2022-07-06 16:37] VITALS: BP 128/84
[2022-07-06] MEDS: MELATONIN 5 MG TABLET PO SCH (20:18)
[2022-07-06 20:21] LABS: GLUCOMETER DEV NAME(LOC) 3E.C; GLUCOSE,POINT OF CARE 84 MG/DL (70-110)
[2022-07-06] MEDS: ZOLPIDEM TARTRATE 10 MG TABLET PO PRN (20:42)
[2022-07-06] MEDS: INSULIN LISPRO 100 UNITS/ML SQ PRN (21:07)
[2022-07-07] MEDS: OLANZapine 10 MG RAPDIS TABLET PO PRN ×3 (04:12→17:20)
[2022-07-07] MEDS: LORazepam 0.5 MG TABLET PO PRN (04:12)
[2022-07-07] MEDS: LEVOTHYROXINE SODIUM 75 MCG TABLET PO SCH (06:45)
[2022-07-07] MEDS: MetFORMIN HCL 500 MG TABLET PO SCH ×3 (06:45→17:59)
[2022-07-07] MEDS: LEVOTHYROXINE SODIUM 200 MCG TABLET PO SCH (06:45)
[2022-07-07] MEDS: INSULIN LISPRO 100 UNITS/ML SQ PRN (06:45)
[2022-07-07 06:46] LABS: GLUCOMETER DEV NAME(LOC) 3E.C; GLUCOSE,POINT OF CARE 86 MG/DL (70-110)
[2022-07-07] MEDS: LURASIDONE HCL 80 MG TABLET PO SCH (06:46)
[2022-07-07 08:17] VITALS: BP 93/45
[2022-07-07 08:28] VITALS: BP 132/87
[2022-07-07] MEDS: VALPROIC ACID 250 MG/5 ML SOLUTION UDCUP PO SCH ×2 (08:29→20:13)
[2022-07-07] MEDS: OMEGA-3/DHA/EPA/FISH OIL 1,000 MG CAPSULE PO SCH (08:29)
[2022-07-07] MEDS: AmLODIPine BESYLATE 5 MG TABLET PO SCH (08:29)
[2022-07-07] MEDS: LISINOPRIL 20 MG TABLET PO SCH (08:29)
[2022-07-07] MEDS: METOPROLOL SUCCINATE 25 MG ER TABLET PO SCH ×2 (08:30→17:21)
[2022-07-07] MEDS: NICOTINE 21 MG/24 HOUR PATCH TD SCH (08:32)
[2022-07-07 11:21] LABS: GLUCOMETER DEV NAME(LOC) 3E.C; GLUCOSE,POINT OF CARE 88 MG/DL (70-110)
[2022-07-07 16:37] VITALS: BP 108/62
[2022-07-07 16:41] LABS: GLUCOMETER DEV NAME(LOC) 3E.C; GLUCOSE,POINT OF CARE 88 MG/DL (70-110)
[2022-07-07] MEDS: TRIHEXYPHENIDYL HCL 2 MG TABLET PO SCH (17:21)
[2022-07-07] MEDS: IBUPROFEN 600 MG TABLET PO PRN (19:07)
[2022-07-07 19:11] VITALS: BP 144/77
[2022-07-07 20:01] LABS: GLUCOMETER DEV NAME(LOC) 3E.C; GLUCOSE,POINT OF CARE 107 MG/DL (70-110)
[2022-07-07] MEDS: MELATONIN 5 MG TABLET PO SCH (20:12)
[2022-07-07] MEDS: FluPHENAZine HCL 10 MG TABLET PO SCH (20:13)
[2022-07-08] MEDS: FluPHENAZine HCL 5 MG TABLET PO PRN ×2 (00:06→08:30)
[2022-07-08 06:26] LABS: COVID AG,FIA SOURCE NASAL SWAB
[2022-07-08 06:36] LABS: GLUCOMETER DEV NAME(LOC) 3E.C; GLUCOSE,POINT OF CARE 88 MG/DL (70-110)
[2022-07-08] MEDS: LEVOTHYROXINE SODIUM 75 MCG TABLET PO SCH (06:50)
[2022-07-08] MEDS: INSULIN LISPRO 100 UNITS/ML SQ PRN ×2 (06:50→21:05)
[2022-07-08] MEDS: LEVOTHYROXINE SODIUM 200 MCG TABLET PO SCH (06:50)
[2022-07-08] MEDS: LURASIDONE HCL 80 MG TABLET PO SCH (06:51)
[2022-07-08] MEDS: MetFORMIN HCL 500 MG TABLET PO SCH ×3 (06:51→16:56)
[2022-07-08 08:03] LABS: FREE T4 (FREE THYROXINE) 1.29 ng/dL (0.76-1.46); THYROID STIMULATING HORMONE 0.74 uIU/mL (0.36-3.74)
[2022-07-08] MEDS: TRIHEXYPHENIDYL HCL 2 MG TABLET PO SCH ×3 (08:26→16:47)
[2022-07-08] MEDS: OMEGA-3/DHA/EPA/FISH OIL 1,000 MG CAPSULE PO SCH (08:28)
[2022-07-08] MEDS: VALPROIC ACID 250 MG/5 ML SOLUTION UDCUP PO SCH ×2 (08:28→20:18)
[2022-07-08] MEDS: NICOTINE 21 MG/24 HOUR PATCH TD SCH (08:29)
[2022-07-08 08:30] VITALS: BP 113/61
[2022-07-08] MEDS: AmLODIPine BESYLATE 5 MG TABLET PO SCH (08:36)
[2022-07-08] MEDS: METOPROLOL SUCCINATE 25 MG ER TABLET PO SCH ×2 (08:36→16:47)
[2022-07-08] MEDS: LISINOPRIL 20 MG TABLET PO SCH (08:36)
[2022-07-08 11:21] LABS: GLUCOMETER DEV NAME(LOC) 3E.C; GLUCOSE,POINT OF CARE 91 MG/DL (70-110)
[2022-07-08] MEDS: LORazepam 0.5 MG TABLET PO PRN ×2 (12:50→23:49)
[2022-07-08 16:41] LABS: GLUCOMETER DEV NAME(LOC) 3E.C; GLUCOSE,POINT OF CARE 77 MG/DL (70-110)
[2022-07-08 17:18] VITALS: BP 143/84
[2022-07-08] MEDS: FluPHENAZine HCL 10 MG TABLET PO SCH (20:18)
[2022-07-08] MEDS: MELATONIN 5 MG TABLET PO SCH (20:18)
[2022-07-08 20:25] LABS: GLUCOMETER DEV NAME(LOC) 3E.C; GLUCOSE,POINT OF CARE 86 MG/DL (70-110)
[2022-07-08] MEDS: OLANZapine 10 MG RAPDIS TABLET PO PRN (23:48)
[2022-07-09] MEDS: LEVOTHYROXINE SODIUM 75 MCG TABLET PO SCH (06:28)
[2022-07-09] MEDS: LEVOTHYROXINE SODIUM 200 MCG TABLET PO SCH (06:28)
[2022-07-09] MEDS: INSULIN LISPRO 100 UNITS/ML SQ PRN ×4 (06:38→21:06)
[2022-07-09 06:41] LABS: GLUCOMETER DEV NAME(LOC) 3E.C; GLUCOSE,POINT OF CARE 92 MG/DL (70-110)
[2022-07-09] MEDS: MetFORMIN HCL 500 MG TABLET PO SCH ×3 (06:48→17:05)
[2022-07-09] MEDS: LURASIDONE HCL 80 MG TABLET PO SCH (06:49)
[2022-07-09 08:00] VITALS: BP 129/80
[2022-07-09] MEDS: LISINOPRIL 20 MG TABLET PO SCH (08:58)
[2022-07-09] MEDS: METOPROLOL SUCCINATE 25 MG ER TABLET PO SCH ×2 (08:58→17:05)
[2022-07-09] MEDS: TRIHEXYPHENIDYL HCL 2 MG TABLET PO SCH ×3 (08:58→17:05)
[2022-07-09] MEDS: OMEGA-3/DHA/EPA/FISH OIL 1,000 MG CAPSULE PO SCH (08:58)
[2022-07-09] MEDS: AmLODIPine BESYLATE 5 MG TABLET PO SCH (08:58)
[2022-07-09] MEDS: VALPROIC ACID 250 MG/5 ML SOLUTION UDCUP PO SCH ×2 (08:58→20:26)
[2022-07-09] MEDS: LORazepam 0.5 MG TABLET PO PRN ×2 (09:00→14:36)
[2022-07-09] MEDS: OLANZapine 10 MG RAPDIS TABLET PO PRN ×2 (09:00→14:37)
[2022-07-09] MEDS: NICOTINE 21 MG/24 HOUR PATCH TD SCH (09:08)
[2022-07-09 11:56] LABS: GLUCOMETER DEV NAME(LOC) 3E.C; GLUCOSE,POINT OF CARE 94 MG/DL (70-110)
[2022-07-09 16:00] VITALS: BP 133/76
[2022-07-09 16:46] LABS: GLUCOMETER DEV NAME(LOC) 3E.C; GLUCOSE,POINT OF CARE 80 MG/DL (70-110)
[2022-07-09 20:11] LABS: GLUCOMETER DEV NAME(LOC) 3E.C; GLUCOSE,POINT OF CARE 107 MG/DL (70-110)
[2022-07-09] MEDS: MELATONIN 5 MG TABLET PO SCH (20:26)
[2022-07-09] MEDS: FluPHENAZine HCL 10 MG TABLET PO SCH (20:27)
[2022-07-10] MEDS: OLANZapine 10 MG RAPDIS TABLET PO PRN ×2 (04:09→10:58)
[2022-07-10] MEDS: LEVOTHYROXINE SODIUM 200 MCG TABLET PO SCH (06:21)
[2022-07-10] MEDS: LEVOTHYROXINE SODIUM 75 MCG TABLET PO SCH (06:22)
[2022-07-10 06:37] LABS: GLUCOMETER DEV NAME(LOC) 3E.C; GLUCOSE,POINT OF CARE 129 MG/DL (70-110)
[2022-07-10] MEDS: INSULIN LISPRO 100 UNITS/ML SQ PRN (06:37)
[2022-07-10] MEDS: MetFORMIN HCL 500 MG TABLET PO SCH ×3 (06:45→17:34)
[2022-07-10] MEDS: LURASIDONE HCL 80 MG TABLET PO SCH (06:46)
[2022-07-10 08:30] VITALS: BP 154/85
[2022-07-10] MEDS: NICOTINE 21 MG/24 HOUR PATCH TD SCH (10:58)
[2022-07-10] MEDS: TRIHEXYPHENIDYL HCL 2 MG TABLET PO SCH ×3 (10:58→17:34)
[2022-07-10] MEDS: LORazepam 0.5 MG TABLET PO PRN (10:58)
[2022-07-10] MEDS: OMEGA-3/DHA/EPA/FISH OIL 1,000 MG CAPSULE PO SCH (10:58)
[2022-07-10] MEDS: AmLODIPine BESYLATE 5 MG TABLET PO SCH (10:58)
[2022-07-10] MEDS: LISINOPRIL 20 MG TABLET PO SCH (10:58)
[2022-07-10] MEDS: VALPROIC ACID 250 MG/5 ML SOLUTION UDCUP PO SCH ×2 (10:58→20:13)
[2022-07-10] MEDS: METOPROLOL SUCCINATE 25 MG ER TABLET PO SCH ×2 (10:59→17:34)
[2022-07-10 11:21] LABS: GLUCOMETER DEV NAME(LOC) 3E.C; GLUCOSE,POINT OF CARE 103 MG/DL (70-110)
[2022-07-10 16:11] VITALS: BP 90/52
[2022-07-10 16:21] LABS: GLUCOMETER DEV NAME(LOC) 3E.C; GLUCOSE,POINT OF CARE 78 MG/DL (70-110)
[2022-07-10] MEDS: FluPHENAZine HCL 5 MG TABLET PO PRN (18:17)
[2022-07-10] MEDS: FluPHENAZine HCL 10 MG TABLET PO SCH (20:12)
[2022-07-10] MEDS: MELATONIN 5 MG TABLET PO SCH (20:12)
[2022-07-10 20:21] LABS: GLUCOMETER DEV NAME(LOC) 3E.C; GLUCOSE,POINT OF CARE 102 MG/DL (70-110)
[2022-07-11 06:31] LABS: GLUCOMETER DEV NAME(LOC) 3E.C; GLUCOSE,POINT OF CARE 87 MG/DL (70-110)
[2022-07-11] MEDS: MetFORMIN HCL 500 MG TABLET PO SCH ×3 (06:33→18:01)
[2022-07-11] MEDS: LEVOTHYROXINE SODIUM 200 MCG TABLET PO SCH (06:34)
[2022-07-11] MEDS: LEVOTHYROXINE SODIUM 75 MCG TABLET PO SCH (06:34)
[2022-07-11] MEDS ORDERED: LURASIDONE HCL 60 MG TABLET PO SCH (07:30)
[2022-07-11] MEDS: LISINOPRIL 20 MG TABLET PO SCH (07:56)
[2022-07-11] MEDS: OLANZapine 10 MG RAPDIS TABLET PO PRN ×2 (07:56→15:58)
[2022-07-11] MEDS: VALPROIC ACID 250 MG/5 ML SOLUTION UDCUP PO SCH ×2 (07:56→20:26)
[2022-07-11] MEDS: AmLODIPine BESYLATE 5 MG TABLET PO SCH (07:56)
[2022-07-11] MEDS: METOPROLOL SUCCINATE 25 MG ER TABLET PO SCH ×2 (07:56→18:01)
[2022-07-11] MEDS: TRIHEXYPHENIDYL HCL 2 MG TABLET PO SCH ×3 (07:56→18:01)
[2022-07-11] MEDS: OMEGA-3/DHA/EPA/FISH OIL 1,000 MG CAPSULE PO SCH (07:57)
[2022-07-11] MEDS: LORazepam 0.5 MG TABLET PO PRN ×2 (07:57→15:58)
[2022-07-11] MEDS: NICOTINE 21 MG/24 HOUR PATCH TD SCH (07:58)
[2022-07-11 08:10] VITALS: BP 154/90
[2022-07-11 11:51] LABS: GLUCOMETER DEV NAME(LOC) 3E.C; GLUCOSE,POINT OF CARE 79 MG/DL (70-110)
[2022-07-11] MEDS: FluPHENAZine HCL 5 MG TABLET PO PRN (13:28)
[2022-07-11 16:03] VITALS: BP 145/98
[2022-07-11 17:26] LABS: GLUCOMETER DEV NAME(LOC) 3E.C; GLUCOSE,POINT OF CARE 108 MG/DL (70-110)
[2022-07-11 20:06] LABS: GLUCOMETER DEV NAME(LOC) 3E.C; GLUCOSE,POINT OF CARE 94 MG/DL (70-110)
[2022-07-11] MEDS: MELATONIN 5 MG TABLET PO SCH (20:26)
[2022-07-11] MEDS: FluPHENAZine HCL 10 MG TABLET PO SCH (20:26)
[2022-07-11] MEDS: INSULIN LISPRO 100 UNITS/ML SQ PRN (21:19)
[2022-07-12] MEDS: LEVOTHYROXINE SODIUM 75 MCG TABLET PO SCH (06:13)
[2022-07-12] MEDS: LEVOTHYROXINE SODIUM 200 MCG TABLET PO SCH (06:13)
[2022-07-12 06:22] LABS: GLUCOMETER DEV NAME(LOC) 3E.C; GLUCOSE,POINT OF CARE 82 MG/DL (70-110)
[2022-07-12] MEDS: INSULIN LISPRO 100 UNITS/ML SQ PRN (06:43)
[2022-07-12] MEDS: MetFORMIN HCL 500 MG TABLET PO SCH ×3 (06:57→17:18)
[2022-07-12] MEDS ORDERED: LURASIDONE HCL 80 MG TABLET PO SCH (07:30)
[2022-07-12 08:44] VITALS: BP 102/61
[2022-07-12] MEDS: LISINOPRIL 20 MG TABLET PO SCH (09:11)
[2022-07-12] MEDS: AmLODIPine BESYLATE 5 MG TABLET PO SCH (09:11)
[2022-07-12] MEDS: OMEGA-3/DHA/EPA/FISH OIL 1,000 MG CAPSULE PO SCH (09:11)
[2022-07-12] MEDS: VALPROIC ACID 250 MG/5 ML SOLUTION UDCUP PO SCH ×2 (09:11→20:52)
[2022-07-12] MEDS: NICOTINE 21 MG/24 HOUR PATCH TD SCH (09:11)
[2022-07-12] MEDS: METOPROLOL SUCCINATE 25 MG ER TABLET PO SCH ×2 (09:12→17:18)
[2022-07-12] MEDS: TRIHEXYPHENIDYL HCL 2 MG TABLET PO SCH ×3 (09:12→17:18)
[2022-07-12 11:36] LABS: GLUCOMETER DEV NAME(LOC) 3E.C; GLUCOSE,POINT OF CARE 105 MG/DL (70-110)
[2022-07-12 16:00] VITALS: BP 143/85
[2022-07-12 17:22] LABS: GLUCOMETER DEV NAME(LOC) 3E.C; GLUCOSE,POINT OF CARE 95 MG/DL (70-110)
[2022-07-12 20:27] LABS: GLUCOMETER DEV NAME(LOC) 3E.C; GLUCOSE,POINT OF CARE 98 MG/DL (70-110)
[2022-07-12] MEDS: ZOLPIDEM TARTRATE 10 MG TABLET PO PRN (20:52)
[2022-07-12] MEDS: MELATONIN 5 MG TABLET PO SCH (20:52)
[2022-07-12] MEDS ORDERED: FluPHENAZine HCL 10 MG TABLET PO SCH (21:00)
[2022-07-12] MEDS ORDERED: THIOTHIXENE 10 MG CAPSULE PO SCH (21:00)
[2022-07-13 06:06] LABS: GLUCOMETER DEV NAME(LOC) 3E.C; GLUCOSE,POINT OF CARE 87 MG/DL (70-110)
[2022-07-13] MEDS: LEVOTHYROXINE SODIUM 75 MCG TABLET PO SCH (06:50)
[2022-07-13] MEDS: LEVOTHYROXINE SODIUM 200 MCG TABLET PO SCH (06:50)
[2022-07-13] MEDS: MetFORMIN HCL 500 MG TABLET PO SCH ×3 (06:50→16:54)
[2022-07-13] MEDS ORDERED: LURASIDONE HCL 60 MG TABLET PO SCH (07:30)
[2022-07-13 08:09] VITALS: BP 137/82
[2022-07-13] MEDS: VALPROIC ACID 250 MG/5 ML SOLUTION UDCUP PO SCH ×2 (08:18→20:35)
[2022-07-13] MEDS: NICOTINE 21 MG/24 HOUR PATCH TD SCH (08:19)
[2022-07-13] MEDS: OMEGA-3/DHA/EPA/FISH OIL 1,000 MG CAPSULE PO SCH (08:19)
[2022-07-13] MEDS: LISINOPRIL 20 MG TABLET PO SCH (08:19)
[2022-07-13] MEDS: AmLODIPine BESYLATE 5 MG TABLET PO SCH (08:19)
[2022-07-13] MEDS: METOPROLOL SUCCINATE 25 MG ER TABLET PO SCH ×2 (08:19→16:20)
[2022-07-13] MEDS: TRIHEXYPHENIDYL HCL 2 MG TABLET PO SCH ×3 (08:19→16:20)
[2022-07-13 11:56] LABS: GLUCOMETER DEV NAME(LOC) 3E.C; GLUCOSE,POINT OF CARE 87 MG/DL (70-110)
[2022-07-13 16:02] VITALS: BP 127/75
[2022-07-13 16:51] LABS: GLUCOMETER DEV NAME(LOC) 3E.C; GLUCOSE,POINT OF CARE 99 MG/DL (70-110)
[2022-07-13] MEDS: THIOTHIXENE 5 MG CAPSULE PO PRN (18:16)
[2022-07-13 20:02] VITALS: BP 130/79
[2022-07-13] MEDS: THIOTHIXENE 10 MG CAPSULE PO SCH (20:35)
[2022-07-13] MEDS: MELATONIN 5 MG TABLET PO SCH (20:35)
[2022-07-13 20:36] LABS: GLUCOMETER DEV NAME(LOC) 3E.C; GLUCOSE,POINT OF CARE 122 MG/DL (70-110)
[2022-07-13] MEDS: ZOLPIDEM TARTRATE 10 MG TABLET PO PRN (21:27)
[2022-07-14 05:36] LABS: GLUCOMETER DEV NAME(LOC) 3E.C; GLUCOSE,POINT OF CARE 88 MG/DL (70-110)
[2022-07-14] MEDS: MetFORMIN HCL 500 MG TABLET PO SCH ×3 (06:35→16:04)
[2022-07-14] MEDS: LEVOTHYROXINE SODIUM 200 MCG TABLET PO SCH (06:35)
[2022-07-14] MEDS: LEVOTHYROXINE SODIUM 75 MCG TABLET PO SCH (06:35)
[2022-07-14] MEDS: NICOTINE 21 MG/24 HOUR PATCH TD SCH ×2 (08:13→09:00)
[2022-07-14] MEDS: OMEGA-3/DHA/EPA/FISH OIL 1,000 MG CAPSULE PO SCH (08:13)
[2022-07-14] MEDS: TRIHEXYPHENIDYL HCL 2 MG TABLET PO SCH ×3 (08:13→16:04)
[2022-07-14] MEDS: VALPROIC ACID 250 MG/5 ML SOLUTION UDCUP PO SCH ×2 (08:14→20:27)
[2022-07-14] MEDS: LISINOPRIL 20 MG TABLET PO SCH (09:00)
[2022-07-14] MEDS: METOPROLOL SUCCINATE 25 MG ER TABLET PO SCH ×2 (09:00→16:04)
[2022-07-14] MEDS: AmLODIPine BESYLATE 5 MG TABLET PO SCH (09:00)
[2022-07-14] MEDS: LORazepam 0.5 MG TABLET PO PRN (10:50)
[2022-07-14] MEDS: THIOTHIXENE 5 MG CAPSULE PO PRN ×2 (10:50→23:02)
[2022-07-14 11:06] LABS: GLUCOMETER DEV NAME(LOC) 3E.C; GLUCOSE,POINT OF CARE 101 MG/DL (70-110)
[2022-07-14 16:04] VITALS: BP 123/75
[2022-07-14 16:31] LABS: GLUCOMETER DEV NAME(LOC) 3E.C; GLUCOSE,POINT OF CARE 102 MG/DL (70-110)
[2022-07-14 20:16] LABS: GLUCOMETER DEV NAME(LOC) 3E.C; GLUCOSE,POINT OF CARE 99 MG/DL (70-110)
[2022-07-14] MEDS: THIOTHIXENE 10 MG CAPSULE PO SCH (20:27)
[2022-07-14] MEDS: MELATONIN 5 MG TABLET PO SCH (20:27)
[2022-07-14] MEDS: ZOLPIDEM TARTRATE 10 MG TABLET PO PRN (23:02)
[2022-07-15 01:25] LABS: COVID AG,FIA SOURCE NASAL SWAB
[2022-07-15] MEDS: LEVOTHYROXINE SODIUM 200 MCG TABLET PO SCH (06:05)
[2022-07-15] MEDS: LEVOTHYROXINE SODIUM 75 MCG TABLET PO SCH (06:05)
[2022-07-15 06:06] LABS: GLUCOMETER DEV NAME(LOC) 3E.C; GLUCOSE,POINT OF CARE 91 MG/DL (70-110)
[2022-07-15] MEDS: MetFORMIN HCL 500 MG TABLET PO SCH ×3 (06:31→16:44)
[2022-07-15] MEDS: VALPROIC ACID 250 MG/5 ML SOLUTION UDCUP PO SCH ×2 (08:24→20:20)
[2022-07-15] MEDS: TRIHEXYPHENIDYL HCL 2 MG TABLET PO SCH ×3 (08:24→16:43)
[2022-07-15] MEDS: OMEGA-3/DHA/EPA/FISH OIL 1,000 MG CAPSULE PO SCH (08:24)
[2022-07-15] MEDS: METOPROLOL SUCCINATE 25 MG ER TABLET PO SCH ×2 (09:00→16:43)
[2022-07-15] MEDS: LISINOPRIL 20 MG TABLET PO SCH (09:00)
[2022-07-15] MEDS: AmLODIPine BESYLATE 5 MG TABLET PO SCH (09:00)
[2022-07-15 09:10] VITALS: BP 113/56
[2022-07-15] MEDS: NICOTINE 21 MG/24 HOUR PATCH TD SCH (09:30)
[2022-07-15 11:46] LABS: GLUCOMETER DEV NAME(LOC) 3E.C; GLUCOSE,POINT OF CARE 102 MG/DL (70-110)
[2022-07-15 16:08] VITALS: BP 128/74
[2022-07-15 16:26] LABS: GLUCOMETER DEV NAME(LOC) 3E.C; GLUCOSE,POINT OF CARE 90 MG/DL (70-110)
[2022-07-15] MEDS: THIOTHIXENE 5 MG CAPSULE PO PRN (18:23)
[2022-07-15] MEDS: MELATONIN 5 MG TABLET PO SCH (20:20)
[2022-07-15] MEDS: ZOLPIDEM TARTRATE 10 MG TABLET PO PRN (20:21)
[2022-07-15] MEDS: THIOTHIXENE 10 MG CAPSULE PO SCH (20:21)
[2022-07-15 20:26] LABS: GLUCOMETER DEV NAME(LOC) 3E.C; GLUCOSE,POINT OF CARE 120 MG/DL (70-110)
[2022-07-16 05:56] LABS: GLUCOMETER DEV NAME(LOC) 3E.C; GLUCOSE,POINT OF CARE 97 MG/DL (70-110)
[2022-07-16] MEDS: LEVOTHYROXINE SODIUM 75 MCG TABLET PO SCH (06:14)
[2022-07-16] MEDS: LEVOTHYROXINE SODIUM 200 MCG TABLET PO SCH (06:14)
[2022-07-16] MEDS: MetFORMIN HCL 500 MG TABLET PO SCH ×3 (06:31→16:03)
[2022-07-16] MEDS: OMEGA-3/DHA/EPA/FISH OIL 1,000 MG CAPSULE PO SCH (08:52)
[2022-07-16] MEDS: AmLODIPine BESYLATE 5 MG TABLET PO SCH (08:52)
[2022-07-16] MEDS: LISINOPRIL 20 MG TABLET PO SCH (08:52)
[2022-07-16] MEDS: TRIHEXYPHENIDYL HCL 2 MG TABLET PO SCH ×3 (08:53→16:03)
[2022-07-16] MEDS: METOPROLOL SUCCINATE 25 MG ER TABLET PO SCH ×2 (08:53→16:03)
[2022-07-16 08:54] VITALS: BP 146/93
[2022-07-16] MEDS: VALPROIC ACID 250 MG/5 ML SOLUTION UDCUP PO SCH ×2 (08:56→20:05)
[2022-07-16] MEDS: NICOTINE 21 MG/24 HOUR PATCH TD SCH (09:02)
[2022-07-16] MEDS: LORazepam 0.5 MG TABLET PO PRN (11:53)
[2022-07-16] MEDS: THIOTHIXENE 5 MG CAPSULE PO PRN (11:53)
[2022-07-16 12:07] LABS: GLUCOMETER DEV NAME(LOC) 3E.C; GLUCOSE,POINT OF CARE 82 MG/DL (70-110)
[2022-07-16] MEDS: IBUPROFEN 600 MG TABLET PO PRN (16:03)
[2022-07-16 16:04] VITALS: BP 151/90
[2022-07-16 17:22] LABS: GLUCOMETER DEV NAME(LOC) 3E.C; GLUCOSE,POINT OF CARE 114 MG/DL (70-110)
[2022-07-16] MEDS: THIOTHIXENE 10 MG CAPSULE PO SCH (20:05)
[2022-07-16] MEDS: MELATONIN 5 MG TABLET PO SCH (20:05)
[2022-07-16 20:31] LABS: GLUCOMETER DEV NAME(LOC) 3E.C; GLUCOSE,POINT OF CARE 110 MG/DL (70-110)
[2022-07-17] MEDS: ZOLPIDEM TARTRATE 10 MG TABLET PO PRN (00:32)
[2022-07-17 05:56] LABS: GLUCOMETER DEV NAME(LOC) 3E.C; GLUCOSE,POINT OF CARE 98 MG/DL (70-110)
[2022-07-17] MEDS: LEVOTHYROXINE SODIUM 75 MCG TABLET PO SCH (06:33)
[2022-07-17] MEDS: LEVOTHYROXINE SODIUM 200 MCG TABLET PO SCH (06:33)
[2022-07-17] MEDS: MetFORMIN HCL 500 MG TABLET PO SCH ×3 (06:33→17:27)
[2022-07-17 08:05] VITALS: BP 153/89
[2022-07-17] MEDS: VALPROIC ACID 250 MG/5 ML SOLUTION UDCUP PO SCH ×2 (08:34→20:19)
[2022-07-17] MEDS: THIOTHIXENE 5 MG CAPSULE PO PRN ×2 (08:34→15:02)
[2022-07-17] MEDS: OMEGA-3/DHA/EPA/FISH OIL 1,000 MG CAPSULE PO SCH (08:34)
[2022-07-17] MEDS: TRIHEXYPHENIDYL HCL 2 MG TABLET PO SCH ×3 (08:34→17:27)
[2022-07-17] MEDS: AmLODIPine BESYLATE 5 MG TABLET PO SCH (08:34)
[2022-07-17] MEDS: METOPROLOL SUCCINATE 25 MG ER TABLET PO SCH ×2 (08:34→17:27)
[2022-07-17] MEDS: LISINOPRIL 20 MG TABLET PO SCH (08:34)
[2022-07-17] MEDS: NICOTINE 21 MG/24 HOUR PATCH TD SCH (08:35)
[2022-07-17] MEDS: LORazepam 0.5 MG TABLET PO PRN ×2 (08:38→15:02)
[2022-07-17 10:51] LABS: GLUCOMETER DEV NAME(LOC) 3E.C; GLUCOSE,POINT OF CARE 92 MG/DL (70-110)
[2022-07-17] MEDS ORDERED: OMEG-135 PO (11:22)
[2022-07-17] MEDS ORDERED: MELA5TAB40 PO (11:22)
[2022-07-17] MEDS ORDERED: TRIH2TAB3 PO (11:22)
[2022-07-17] MEDS ORDERED: VALP250S23 PO ×2 (11:22)
[2022-07-17] MEDS ORDERED: THIOT10 PO (11:22)
[2022-07-17 16:15] VITALS: BP 148/95
[2022-07-17] MEDS: IBUPROFEN 600 MG TABLET PO PRN (16:15)
[2022-07-17 16:31] LABS: GLUCOMETER DEV NAME(LOC) 3E.C; GLUCOSE,POINT OF CARE 95 MG/DL (70-110)
[2022-07-17] MEDS: MELATONIN 5 MG TABLET PO SCH (20:19)
[2022-07-17] MEDS: THIOTHIXENE 10 MG CAPSULE PO SCH (20:19)
[2022-07-17 20:22] LABS: GLUCOMETER DEV NAME(LOC) 3E.C; GLUCOSE,POINT OF CARE 92 MG/DL (70-110)
[2022-07-17] MEDS: INSULIN LISPRO 100 UNITS/ML SQ PRN (21:12)
[2022-07-18] MEDS: LEVOTHYROXINE SODIUM 200 MCG TABLET PO SCH (06:18)
[2022-07-18] MEDS: LEVOTHYROXINE SODIUM 75 MCG TABLET PO SCH (06:18)
[2022-07-18 06:31] LABS: GLUCOMETER DEV NAME(LOC) 3E.C; GLUCOSE,POINT OF CARE 85 MG/DL (70-110)
[2022-07-18] MEDS: INSULIN LISPRO 100 UNITS/ML SQ PRN (06:39)
[2022-07-18] MEDS: MetFORMIN HCL 500 MG TABLET PO SCH ×3 (07:04→16:59)
[2022-07-18 08:03] VITALS: BP 152/84
[2022-07-18] MEDS: VALPROIC ACID 250 MG/5 ML SOLUTION UDCUP PO SCH ×2 (08:14→20:54)
[2022-07-18] MEDS: NICOTINE 21 MG/24 HOUR PATCH TD SCH (08:14)
[2022-07-18] MEDS: OMEGA-3/DHA/EPA/FISH OIL 1,000 MG CAPSULE PO SCH (08:15)
[2022-07-18] MEDS: TRIHEXYPHENIDYL HCL 2 MG TABLET PO SCH ×3 (08:15→16:59)
[2022-07-18] MEDS: METOPROLOL SUCCINATE 25 MG ER TABLET PO SCH ×2 (08:15→16:59)
[2022-07-18] MEDS: AmLODIPine BESYLATE 5 MG TABLET PO SCH (08:15)
[2022-07-18] MEDS: LISINOPRIL 20 MG TABLET PO SCH (08:15)
[2022-07-18 11:37] LABS: GLUCOMETER DEV NAME(LOC) 3E.C; GLUCOSE,POINT OF CARE 88 MG/DL (70-110)
[2022-07-18] MEDS: THIOTHIXENE 5 MG CAPSULE PO PRN (15:44)
[2022-07-18 16:04] VITALS: BP 102/68
[2022-07-18 17:36] LABS: GLUCOMETER DEV NAME(LOC) 3E.C; GLUCOSE,POINT OF CARE 137 MG/DL (70-110)
[2022-07-18 20:51] LABS: GLUCOMETER DEV NAME(LOC) 3E.C; GLUCOSE,POINT OF CARE 86 MG/DL (70-110)
[2022-07-18] MEDS: MELATONIN 5 MG TABLET PO SCH (20:54)
[2022-07-18] MEDS: THIOTHIXENE 10 MG CAPSULE PO SCH (20:56)
[2022-07-19 06:51] LABS: GLUCOMETER DEV NAME(LOC) 3E.C; GLUCOSE,POINT OF CARE 83 MG/DL (70-110)
[2022-07-19] MEDS: MetFORMIN HCL 500 MG TABLET PO SCH ×3 (06:58→17:30)
[2022-07-19] MEDS: LEVOTHYROXINE SODIUM 200 MCG TABLET PO SCH (06:58)
[2022-07-19] MEDS: LEVOTHYROXINE SODIUM 75 MCG TABLET PO SCH (06:58)
[2022-07-19] MEDS: AmLODIPine BESYLATE 5 MG TABLET PO SCH (08:27)
[2022-07-19] MEDS: OMEGA-3/DHA/EPA/FISH OIL 1,000 MG CAPSULE PO SCH (08:27)
[2022-07-19] MEDS: LORazepam 0.5 MG TABLET PO PRN (08:28)
[2022-07-19] MEDS: METOPROLOL SUCCINATE 25 MG ER TABLET PO SCH ×2 (08:28→17:05)
[2022-07-19] MEDS: NICOTINE 21 MG/24 HOUR PATCH TD SCH (08:28)
[2022-07-19] MEDS: TRIHEXYPHENIDYL HCL 2 MG TABLET PO SCH ×3 (08:28→17:05)
[2022-07-19] MEDS: LISINOPRIL 20 MG TABLET PO SCH (08:28)
[2022-07-19] MEDS: VALPROIC ACID 250 MG/5 ML SOLUTION UDCUP PO SCH ×2 (08:38→20:51)
[2022-07-19 09:07] VITALS: BP 139/84
[2022-07-19 12:06] LABS: GLUCOMETER DEV NAME(LOC) 3E.C; GLUCOSE,POINT OF CARE 99 MG/DL (70-110)
[2022-07-19 13:25] VITALS: BP 131/79
[2022-07-19] MEDS: IBUPROFEN 600 MG TABLET PO PRN (13:25)
[2022-07-19 14:25] VITALS: BP 140/81
[2022-07-19 16:00] VITALS: BP 150/90
[2022-07-19 17:26] LABS: GLUCOMETER DEV NAME(LOC) 3E.C; GLUCOSE,POINT OF CARE 92 MG/DL (70-110)
[2022-07-19] MEDS: ZOLPIDEM TARTRATE 10 MG TABLET PO PRN (20:19)
[2022-07-19 20:25] LABS: GLUCOMETER DEV NAME(LOC) 3E.C; GLUCOSE,POINT OF CARE 100 MG/DL (70-110)
[2022-07-19] MEDS: THIOTHIXENE 10 MG CAPSULE PO SCH (20:51)
[2022-07-19] MEDS: MELATONIN 5 MG TABLET PO SCH (20:51)
[2022-07-20] MEDS: LORazepam 0.5 MG TABLET PO PRN (03:17)
[2022-07-20] MEDS ORDERED: LEVO75 PO (05:50)
[2022-07-20] MEDS ORDERED: TRIH2TAB3 PO (05:51)
[2022-07-20 06:46] LABS: GLUCOMETER DEV NAME(LOC) 3E.C; GLUCOSE,POINT OF CARE 82 MG/DL (70-110)
[2022-07-20] MEDS: MetFORMIN HCL 500 MG TABLET PO SCH ×2 (06:52→12:04)
[2022-07-20] MEDS: LEVOTHYROXINE SODIUM 75 MCG TABLET PO SCH (06:52)
[2022-07-20] MEDS: LEVOTHYROXINE SODIUM 200 MCG TABLET PO SCH (06:52)
[2022-07-20 08:22] VITALS: BP 144/87
[2022-07-20] MEDS: OMEGA-3/DHA/EPA/FISH OIL 1,000 MG CAPSULE PO SCH (08:24)
[2022-07-20] MEDS: TRIHEXYPHENIDYL HCL 2 MG TABLET PO SCH ×2 (08:24→12:04)
[2022-07-20] MEDS: AmLODIPine BESYLATE 5 MG TABLET PO SCH (08:24)
[2022-07-20] MEDS: LISINOPRIL 20 MG TABLET PO SCH (08:24)
[2022-07-20] MEDS: VALPROIC ACID 250 MG/5 ML SOLUTION UDCUP PO SCH (08:24)
[2022-07-20] MEDS: METOPROLOL SUCCINATE 25 MG ER TABLET PO SCH (08:24)
[2022-07-20] MEDS: NICOTINE 21 MG/24 HOUR PATCH TD SCH (08:29)
[2022-07-20 11:46] LABS: GLUCOMETER DEV NAME(LOC) 3E.C; GLUCOSE,POINT OF CARE 101 MG/DL (70-110)
== END 2022-07-20 15:00 | disposition home or self-care (01) | DRG 885 ==
LOC: EMS 06:49 → 3EC 06-08 03:44
PROVIDERS: ADMIT Psychiatry & Neurology Psychiatry; ATTEND Psychiatry & Neurology Psychiatry
DX: F25.0 Schizoaffective disorder, bipolar type (principal); R45.851 Suicidal ideations; Z68.43 Body mass index [BMI] 50.0-59.9, adult; Z20.822 Contact with and (suspected) exposure to COVID-19; E03.9 Hypothyroidism, unspecified; E66.01 Morbid (severe) obesity due to excess calories; F15.90 Other stimulant use, unspecified, uncomplicated; F41.9 Anxiety disorder, unspecified; G47.00 Insomnia, unspecified; K59.00 Constipation, unspecified; F19.10 Other psychoactive substance abuse, uncomplicated; I10 Essential (primary) hypertension; R45.850 Homicidal ideations; Z55.9 Problems related to education and literacy, unspecified; Z59.9 Problem related to housing and economic circumstances, unspecified; Z63.8 Other specified problems related to primary support group; Z65.3 Problems related to other legal circumstances; Z78.1 Physical restraint status; Z74.01 Bed confinement status; Z72.0 Tobacco use; Z71.6 Tobacco abuse counseling
CPT/HCPCS: 80053; 80164; 81003; 82962; 84439; 84443; 87081; 93005; 99285; J1200; J1630; J2060; J3230; J3490; Q9967

== ENCOUNTER 2022-08-02 15:28 | Inpatient (IN) | payer MEDICARE, MEDICAID ==
[~2022-08-02] VITALS: Ht 175.3 cm; Wt 145.4 kg
[~2022-08-02 15:28] MED LIST changes: +AMLO-257 PO; -CLOZ100T11 PO; -DIVA-80 PO; +LEVO75 PO; +LISI-894 PO; -NALT50TA PO; +THIOT10 PO; +TRIH2TAB3 PO; +VALP250S23 PO
[2022-08-02 18:29] LABS: BASOPHILS % (AUTO) 0.9 % (0.0-2.0); EOSINOPHILS % (AUTO) 3.9 % (1.0-6.0); HEMOGLOBIN 15.2 g/dL (13.5-17.5); LYMPHOCYTES % (AUTO) 22.7 % (22.0-44.0); MEAN CORPUSCULAR HGB CONC 33.8 G/dL (31.0-37.0); MEAN CORPUSCULAR VOLUME 89 fL (80-100); MONOCYTES # (AUTO) 0.7 K/uL (0.1-1.0); MONOCYTES % (AUTO) 7.9 % (2.0-9.0); NEUTROPHILS # (AUTO) 5.6 K/uL (1.8-7.7); NEUTROPHILS % (AUTO) 64.6 % (40.0-70.0); PLATELET COUNT (AUTO) 208 K/uL (150-450); RED BLOOD CELL COUNT(AUTO) 5.07 MIL/uL (4.50-5.90); RED CELL DISTRIBUTION WIDTH 14.6 % (11.5-14.5)
[2022-08-02 18:37] LABS: ANION GAP 8 mmol/L (8-16); CALCIUM, TOTAL 9.5 mg/dL (8.8-10.5); CARBON DIOXIDE 27 mmol/L (22-29); CHLORIDE 102 mmol/L (98-107); CREATININE 0.74 mg/dL (0.60-1.30); GLOMERULAR FILTR. RATE CALC > 60 mL/min (>60); GLUCOSE,RANDOM 114 mg/dL (70-110); POTASSIUM 3.6 mmol/L (3.5-5.1); SODIUM SERUM 137 mmol/L (136-145); UREA NITROGEN, BLOOD 10 mg/dL (7-18)
[2022-08-02 18:43] LABS: ALANINE AMINOTRANSFERASE 56 U/L (12-78); ALBUMIN 3.5 g/dL (3.4-5.0); ALKALINE PHOSPHATASE 89 U/L (46-116); ASPARTATE AMINOTRANSFERASE 47 U/L (15-37); TOTAL PROTEIN, SERUM 7.3 g/dL (6.4-8.2)
[2022-08-02] MEDS ORDERED: ZIPRASIDONE MESYLATE 20 MG/VIAL IM ONE (19:15)
[2022-08-02] MEDS ORDERED: LORazepam 2 MG/ML VIAL IM ONE (19:15)
[2022-08-02] MEDS ORDERED: DiphenhydrAMINE HCL 50 MG/ML VIAL IM ONE (19:15)
[2022-08-02 22:02] LABS: COVID AG,FIA SOURCE NASAL SWAB
[2022-08-03 03:05] VITALS: BP 151/93
[2022-08-03] MEDS: OLANZapine 5 MG RAPDIS TABLET PO PRN ×2 (08:17→15:16)
[2022-08-03] MEDS: LORazepam 2 MG TABLET PO PRN ×2 (08:17→15:16)
[2022-08-03 08:33] VITALS: BP 154/105
[2022-08-03] MEDS ORDERED: DEXTROSE 50%-WATER 25 GM/50 ML SYRINGE IVP PRN (09:45)
[2022-08-03 11:41] LABS: GLUCOMETER DEV NAME(LOC) 3E.C; GLUCOSE,POINT OF CARE 68 MG/DL (70-110)
[2022-08-03] MEDS: MetFORMIN HCL 500 MG TABLET PO SCH ×2 (11:45→17:48)
[2022-08-03 13:01] LABS: GLUCOMETER DEV NAME(LOC) 3E.C; GLUCOSE,POINT OF CARE 140 MG/DL (70-110)
[2022-08-03] MEDS: METOPROLOL SUCCINATE 25 MG ER TABLET PO SCH (17:00)
[2022-08-03] MEDS ORDERED: GuaiFENesin/D-METHORPHAN [SUGAR-FREE] 200-20MG/10 ML SYRUP UDCUP PO PRN (17:30)
[2022-08-03] MEDS ORDERED: HydrOXYzine PAMOATE 50 MG CAPSULE PO PRN (17:30)
[2022-08-03] MEDS ORDERED: MAGNESIUM HYDROXIDE SUSPENSION 30 ML UDCUP PO PRN (17:30)
[2022-08-03] MEDS ORDERED: LOPERAMIDE HCL 2 MG CAPSULE PO PRN (17:30)
[2022-08-03 17:40] VITALS: BP 119/84
[2022-08-03 17:41] LABS: GLUCOMETER DEV NAME(LOC) 3E.C; GLUCOSE,POINT OF CARE 98 MG/DL (70-110)
[2022-08-03 18:56] VITALS: BP 108/78
[2022-08-03 19:00] VITALS: BP 121/82
[2022-08-03] MEDS: DIVALPROEX SODIUM 250 MG ER TABLET PO SCH (20:33)
[2022-08-03] MEDS: MELATONIN 5 MG TABLET PO SCH (20:34)
[2022-08-03 20:41] LABS: GLUCOMETER DEV NAME(LOC) 3E.C; GLUCOSE,POINT OF CARE 103 MG/DL (70-110)
[2022-08-03] MEDS ORDERED: OLANZapine 5 MG RAPDIS TABLET PO SCH (21:00)
[2022-08-04] MEDS: LEVOTHYROXINE SODIUM 200 MCG TABLET PO SCH (06:16)
[2022-08-04] MEDS: LEVOTHYROXINE SODIUM 75 MCG TABLET PO SCH (06:17)
[2022-08-04 06:26] LABS: GLUCOMETER DEV NAME(LOC) 3E.C; GLUCOSE,POINT OF CARE 89 MG/DL (70-110)
[2022-08-04 07:55] LABS: CHOL/HDL RATIO 3.8 (4.2-7.3); FREE T4 (FREE THYROXINE) 0.97 ng/dL (0.76-1.46); THYROID STIMULATING HORMONE 5.2 uIU/mL (0.36-3.74)
[2022-08-04 08:14] VITALS: BP 100/62
[2022-08-04] MEDS: THIAMINE 100 MG TABLET PO SCH ×2 (08:24→16:29)
[2022-08-04] MEDS: DIVALPROEX SODIUM 500 MG ER TABLET PO SCH ×3 (08:24→16:29)
[2022-08-04] MEDS: DEXTROMETHORPHAN HBR/QUINIDINE 20/10 MG CAPSULE PO SCH (08:24)
[2022-08-04] MEDS: FOLIC ACID 1 MG TABLET PO SCH (08:24)
[2022-08-04] MEDS: TOPIRAMATE 25 MG TABLET PO SCH ×3 (08:24→16:29)
[2022-08-04] MEDS: MULTIVITAMINS WITH MINERALS, THERAPEUTIC TABLET PO SCH (08:24)
[2022-08-04] MEDS: OMEGA-3/DHA/EPA/FISH OIL 1,000 MG CAPSULE PO SCH (08:24)
[2022-08-04] MEDS: LISINOPRIL 20 MG TABLET PO SCH (08:26)
[2022-08-04] MEDS: METOPROLOL SUCCINATE 25 MG ER TABLET PO SCH ×2 (08:26→16:27)
[2022-08-04] MEDS: AmLODIPine BESYLATE 5 MG TABLET PO SCH (08:30)
[2022-08-04 08:56] VITALS: BP 100/62
[2022-08-04 11:06] LABS: GLUCOMETER DEV NAME(LOC) 3E.C; GLUCOSE,POINT OF CARE 93 MG/DL (70-110)
[2022-08-04] MEDS: OLANZapine 5 MG RAPDIS TABLET PO PRN (11:15)
[2022-08-04 12:56] VITALS: BP 107/70
[2022-08-04 16:06] VITALS: BP 110/66
[2022-08-04 16:31] LABS: GLUCOMETER DEV NAME(LOC) 3E.C; GLUCOSE,POINT OF CARE 80 MG/DL (70-110)
[2022-08-04 16:56] VITALS: BP 109/63
[2022-08-04 17:32] VITALS: BP 112/70
[2022-08-04 20:25] LABS: GLUCOMETER DEV NAME(LOC) 3E.C; GLUCOSE,POINT OF CARE 103 MG/DL (70-110)
[2022-08-04] MEDS: DIVALPROEX SODIUM 250 MG ER TABLET PO SCH (20:54)
[2022-08-04] MEDS: OLANZapine 10 MG RAPDIS TABLET PO SCH (20:55)
[2022-08-04] MEDS: MELATONIN 5 MG TABLET PO SCH (20:55)
[2022-08-05 03:06] LABS: HEPATITIS C AB (EIA) 0.1 s/co ratio (0.0-0.9)
[2022-08-05 06:30] VITALS: BP 108/63
[2022-08-05 06:41] LABS: GLUCOMETER DEV NAME(LOC) 3E.C; GLUCOSE,POINT OF CARE 88 MG/DL (70-110)
[2022-08-05] MEDS: LEVOTHYROXINE SODIUM 75 MCG TABLET PO SCH (06:54)
[2022-08-05] MEDS: LEVOTHYROXINE SODIUM 200 MCG TABLET PO SCH (06:54)
[2022-08-05] MEDS: OMEGA-3/DHA/EPA/FISH OIL 1,000 MG CAPSULE PO SCH (08:29)
[2022-08-05] MEDS: DEXTROMETHORPHAN HBR/QUINIDINE 20/10 MG CAPSULE PO SCH (08:29)
[2022-08-05] MEDS: MULTIVITAMINS WITH MINERALS, THERAPEUTIC TABLET PO SCH (08:29)
[2022-08-05] MEDS: FOLIC ACID 1 MG TABLET PO SCH (08:30)
[2022-08-05] MEDS: THIAMINE 100 MG TABLET PO SCH ×2 (08:30→16:10)
[2022-08-05] MEDS: DIVALPROEX SODIUM 500 MG ER TABLET PO SCH ×3 (08:30→16:11)
[2022-08-05] MEDS: TOPIRAMATE 25 MG TABLET PO SCH ×3 (08:30→16:11)
[2022-08-05 08:44] VITALS: BP 106/57
[2022-08-05] MEDS: LISINOPRIL 20 MG TABLET PO SCH (09:00)
[2022-08-05] MEDS: METOPROLOL SUCCINATE 25 MG ER TABLET PO SCH ×2 (09:00→16:11)
[2022-08-05] MEDS: AmLODIPine BESYLATE 5 MG TABLET PO SCH (09:00)
[2022-08-05 11:16] LABS: GLUCOMETER DEV NAME(LOC) 3E.C; GLUCOSE,POINT OF CARE 90 MG/DL (70-110)
[2022-08-05] MEDS: LORazepam 2 MG TABLET PO PRN (12:00)
[2022-08-05] MEDS: OLANZapine 5 MG RAPDIS TABLET PO PRN (12:03)
[2022-08-05 16:06] VITALS: BP 144/89
[2022-08-05 16:06] LABS: GLUCOMETER DEV NAME(LOC) 3E.C; GLUCOSE,POINT OF CARE 87 MG/DL (70-110)
[2022-08-05 17:41] VITALS: BP 139/74
[2022-08-05] MEDS: DIVALPROEX SODIUM 250 MG ER TABLET PO SCH (20:37)
[2022-08-05] MEDS: OLANZapine 10 MG RAPDIS TABLET PO SCH (20:37)
[2022-08-05] MEDS: MELATONIN 5 MG TABLET PO SCH (20:37)
[2022-08-05] MEDS: INSULIN LISPRO 100 UNITS/ML SQ PRN (20:38)
[2022-08-05 20:41] LABS: GLUCOMETER DEV NAME(LOC) 3E.C; GLUCOSE,POINT OF CARE 102 MG/DL (70-110)
[2022-08-06] MEDS: LEVOTHYROXINE SODIUM 200 MCG TABLET PO SCH (06:37)
[2022-08-06] MEDS: LEVOTHYROXINE SODIUM 75 MCG TABLET PO SCH (06:37)
[2022-08-06 06:46] LABS: GLUCOMETER DEV NAME(LOC) 3E.C; GLUCOSE,POINT OF CARE 80 MG/DL (70-110)
[2022-08-06] MEDS: LISINOPRIL 20 MG TABLET PO SCH (09:00)
[2022-08-06] MEDS: METOPROLOL SUCCINATE 25 MG ER TABLET PO SCH ×2 (09:00→17:00)
[2022-08-06] MEDS: AmLODIPine BESYLATE 5 MG TABLET PO SCH (09:00)
[2022-08-06] MEDS: OMEGA-3/DHA/EPA/FISH OIL 1,000 MG CAPSULE PO SCH (09:32)
[2022-08-06] MEDS: THIAMINE 100 MG TABLET PO SCH ×2 (09:32→17:13)
[2022-08-06] MEDS: DEXTROMETHORPHAN HBR/QUINIDINE 20/10 MG CAPSULE PO SCH (09:32)
[2022-08-06] MEDS: MULTIVITAMINS WITH MINERALS, THERAPEUTIC TABLET PO SCH (09:32)
[2022-08-06] MEDS: FOLIC ACID 1 MG TABLET PO SCH (09:33)
[2022-08-06] MEDS: TOPIRAMATE 25 MG TABLET PO SCH ×3 (09:33→17:13)
[2022-08-06] MEDS: DIVALPROEX SODIUM 500 MG ER TABLET PO SCH ×3 (09:40→17:13)
[2022-08-06 09:45] VITALS: BP 101/56
[2022-08-06 11:41] LABS: GLUCOMETER DEV NAME(LOC) 3E.C; GLUCOSE,POINT OF CARE 109 MG/DL (70-110)
[2022-08-06 16:45] VITALS: BP 117/67
[2022-08-06 17:26] LABS: GLUCOMETER DEV NAME(LOC) 3E.C; GLUCOSE,POINT OF CARE 71 MG/DL (70-110)
[2022-08-06 17:30] VITALS: BP 117/67
[2022-08-06] MEDS: DIVALPROEX SODIUM 250 MG ER TABLET PO SCH (20:25)
[2022-08-06] MEDS: OLANZapine 10 MG RAPDIS TABLET PO SCH (20:25)
[2022-08-06] MEDS: MELATONIN 5 MG TABLET PO SCH (20:25)
[2022-08-06 20:41] LABS: GLUCOMETER DEV NAME(LOC) 3E.C; GLUCOSE,POINT OF CARE 88 MG/DL (70-110)
[2022-08-07] MEDS: LEVOTHYROXINE SODIUM 200 MCG TABLET PO SCH (06:31)
[2022-08-07] MEDS: LEVOTHYROXINE SODIUM 75 MCG TABLET PO SCH (06:31)
[2022-08-07 06:46] LABS: GLUCOMETER DEV NAME(LOC) 3E.C; GLUCOSE,POINT OF CARE 84 MG/DL (70-110)
[2022-08-07 08:20] VITALS: BP 119/68
[2022-08-07] MEDS: THIAMINE 100 MG TABLET PO SCH ×2 (08:49→16:57)
[2022-08-07] MEDS: TOPIRAMATE 25 MG TABLET PO SCH ×3 (08:49→16:57)
[2022-08-07] MEDS: DEXTROMETHORPHAN HBR/QUINIDINE 20/10 MG CAPSULE PO SCH (08:49)
[2022-08-07] MEDS: MULTIVITAMINS WITH MINERALS, THERAPEUTIC TABLET PO SCH (08:49)
[2022-08-07] MEDS: FOLIC ACID 1 MG TABLET PO SCH (08:50)
[2022-08-07] MEDS: DIVALPROEX SODIUM 500 MG ER TABLET PO SCH ×3 (08:50→16:57)
[2022-08-07] MEDS: OMEGA-3/DHA/EPA/FISH OIL 1,000 MG CAPSULE PO SCH (08:50)
[2022-08-07] MEDS: AmLODIPine BESYLATE 5 MG TABLET PO SCH (09:00)
[2022-08-07] MEDS: LISINOPRIL 20 MG TABLET PO SCH (09:00)
[2022-08-07] MEDS: METOPROLOL SUCCINATE 25 MG ER TABLET PO SCH ×2 (09:00→17:00)
[2022-08-07 11:26] LABS: GLUCOMETER DEV NAME(LOC) 3E.C; GLUCOSE,POINT OF CARE 102 MG/DL (70-110)
[2022-08-07] MEDS: INSULIN LISPRO 100 UNITS/ML SQ PRN ×2 (11:36→17:03)
[2022-08-07 16:00] VITALS: BP 102/53
[2022-08-07 16:26] LABS: GLUCOMETER DEV NAME(LOC) 3E.C; GLUCOSE,POINT OF CARE 89 MG/DL (70-110)
[2022-08-07 18:18] VITALS: BP 102/53
[2022-08-07] MEDS: OLANZapine 10 MG RAPDIS TABLET PO SCH (20:05)
[2022-08-07] MEDS: MELATONIN 5 MG TABLET PO SCH (20:05)
[2022-08-07] MEDS: DIVALPROEX SODIUM 250 MG ER TABLET PO SCH (20:06)
[2022-08-08 05:06] LABS: GLUCOMETER DEV NAME(LOC) 3E.C; GLUCOSE,POINT OF CARE 88 MG/DL (70-110)
[2022-08-08 06:16] LABS: GLUCOMETER DEV NAME(LOC) 3E.C; GLUCOSE,POINT OF CARE 83 MG/DL (70-110)
[2022-08-08] MEDS: LEVOTHYROXINE SODIUM 75 MCG TABLET PO SCH (06:35)
[2022-08-08] MEDS: LEVOTHYROXINE SODIUM 200 MCG TABLET PO SCH (06:35)
[2022-08-08 07:12] LABS: COVID AG,FIA SOURCE NASAL SWAB
[2022-08-08] MEDS: METOPROLOL SUCCINATE 25 MG ER TABLET PO SCH ×2 (08:41→17:19)
[2022-08-08] MEDS: DEXTROMETHORPHAN HBR/QUINIDINE 20/10 MG CAPSULE PO SCH (08:41)
[2022-08-08] MEDS: DIVALPROEX SODIUM 500 MG ER TABLET PO SCH ×2 (08:44→13:46)
[2022-08-08] MEDS: AmLODIPine BESYLATE 5 MG TABLET PO SCH (08:44)
[2022-08-08] MEDS: MULTIVITAMINS WITH MINERALS, THERAPEUTIC TABLET PO SCH (08:44)
[2022-08-08] MEDS: OMEGA-3/DHA/EPA/FISH OIL 1,000 MG CAPSULE PO SCH (08:44)
[2022-08-08] MEDS: TOPIRAMATE 25 MG TABLET PO SCH ×2 (08:44→13:46)
[2022-08-08] MEDS: FOLIC ACID 1 MG TABLET PO SCH (08:44)
[2022-08-08] MEDS: THIAMINE 100 MG TABLET PO SCH ×2 (08:44→17:19)
[2022-08-08] MEDS: LISINOPRIL 20 MG TABLET PO SCH (08:45)
[2022-08-08 13:56] LABS: GLUCOMETER DEV NAME(LOC) 3E.C; GLUCOSE,POINT OF CARE 120 MG/DL (70-110)
[2022-08-08 16:37] VITALS: BP 102/65
[2022-08-08 17:26] VITALS: BP 102/65
[2022-08-08 18:40] LABS: GLUCOMETER DEV NAME(LOC) 3E.C; GLUCOSE,POINT OF CARE 104 MG/DL (70-110)
[2022-08-08 20:26] LABS: GLUCOMETER DEV NAME(LOC) 3E.C; GLUCOSE,POINT OF CARE 101 MG/DL (70-110)
[2022-08-08] MEDS: MELATONIN 5 MG TABLET PO SCH (20:27)
[2022-08-08] MEDS: OLANZapine 10 MG RAPDIS TABLET PO SCH (20:28)
[2022-08-08] MEDS ORDERED: DIVALPROEX SODIUM 500 MG ER TABLET PO SCH (21:00)
[2022-08-08] MEDS ORDERED: DIVALPROEX SODIUM 250 MG ER TABLET PO SCH (21:00)
[2022-08-09] MEDS: LEVOTHYROXINE SODIUM 75 MCG TABLET PO SCH (06:32)
[2022-08-09] MEDS: LEVOTHYROXINE SODIUM 200 MCG TABLET PO SCH (06:32)
[2022-08-09 06:56] LABS: GLUCOMETER DEV NAME(LOC) 3E.C; GLUCOSE,POINT OF CARE 85 MG/DL (70-110)
[2022-08-09 07:37] LABS: BASOPHILS % (AUTO) 0.9 % (0.0-2.0); EOSINOPHILS % (AUTO) 4.8 % (1.0-6.0); HEMATOCRIT 43.3 % (41-53); HEMOGLOBIN 14.8 g/dL (13.5-17.5); LYMPHOCYTES # (AUTO) 2.6 K/uL (1.0-4.8); LYMPHOCYTES % (AUTO) 44.5 % (22.0-44.0); MEAN CORPUSCULAR HEMOGLOBIN 30.6 pg (26.0-34.0); MEAN CORPUSCULAR HGB CONC 34.3 G/dL (31.0-37.0); MEAN CORPUSCULAR VOLUME 90 fL (80-100); MONOCYTES # (AUTO) 0.5 K/uL (0.1-1.0); NEUTROPHILS # (AUTO) 2.4 K/uL (1.8-7.7); NEUTROPHILS % (AUTO) 41.8 % (40.0-70.0); PLATELET COUNT (AUTO) 191 K/uL (150-450); RED BLOOD CELL COUNT(AUTO) 4.83 MIL/uL (4.50-5.90); RED CELL DISTRIBUTION WIDTH 14.7 % (11.5-14.5)
[2022-08-09 08:01] LABS: ALANINE AMINOTRANSFERASE 32 U/L (12-78); ALKALINE PHOSPHATASE 80 U/L (46-116); ANION GAP 8 mmol/L (8-16); ASPARTATE AMINOTRANSFERASE 24 U/L (15-37); CALCIUM, TOTAL 9.1 mg/dL (8.8-10.5); CARBON DIOXIDE 29 mmol/L (22-29); CHLORIDE 104 mmol/L (98-107); CREATININE 0.71 mg/dL (0.60-1.30); FREE T4 (FREE THYROXINE) 1.45 ng/dL (0.76-1.46); GLUCOSE,RANDOM 88 mg/dL (70-110); POTASSIUM 3.9 mmol/L (3.5-5.1); SODIUM SERUM 141 mmol/L (136-145); THYROID STIMULATING HORMONE 0.42 uIU/mL (0.36-3.74); TOTAL PROTEIN, SERUM 6.8 g/dL (6.4-8.2); UREA NITROGEN, BLOOD 15 mg/dL (7-18); VALPROIC ACID 102 mcg/mL (50-100)
[2022-08-09 08:02] LABS: GLOMERULAR FILTR. RATE CALC > 60 mL/min (>60)
[2022-08-09] MEDS: FOLIC ACID 1 MG TABLET PO SCH (08:21)
[2022-08-09] MEDS: THIAMINE 100 MG TABLET PO SCH ×2 (08:21→16:46)
[2022-08-09] MEDS: MULTIVITAMINS WITH MINERALS, THERAPEUTIC TABLET PO SCH (08:21)
[2022-08-09] MEDS: OMEGA-3/DHA/EPA/FISH OIL 1,000 MG CAPSULE PO SCH (08:21)
[2022-08-09] MEDS: BuPROPion HCL XL 150 MG ER TABLET PO SCH (08:21)
[2022-08-09] MEDS: LISINOPRIL 20 MG TABLET PO SCH (08:27)
[2022-08-09] MEDS: METOPROLOL SUCCINATE 25 MG ER TABLET PO SCH (08:27)
[2022-08-09 08:38] VITALS: BP 97/60
[2022-08-09 16:31] VITALS: BP 95/62
[2022-08-09 17:30] VITALS: BP 95/62
[2022-08-09] MEDS: MELATONIN 5 MG TABLET PO SCH (20:24)
[2022-08-09] MEDS: OLANZapine 10 MG RAPDIS TABLET PO SCH (20:25)
[2022-08-09] MEDS: LORazepam 2 MG TABLET PO PRN (20:25)
[2022-08-10] MEDS: LEVOTHYROXINE SODIUM 75 MCG TABLET PO SCH (06:02)
[2022-08-10] MEDS: LEVOTHYROXINE SODIUM 200 MCG TABLET PO SCH (06:02)
[2022-08-10] MEDS: MULTIVITAMINS WITH MINERALS, THERAPEUTIC TABLET PO SCH (08:29)
[2022-08-10] MEDS: METOPROLOL SUCCINATE 25 MG ER TABLET PO SCH (08:29)
[2022-08-10] MEDS: BuPROPion HCL XL 150 MG ER TABLET PO SCH (08:29)
[2022-08-10] MEDS: OMEGA-3/DHA/EPA/FISH OIL 1,000 MG CAPSULE PO SCH (08:29)
[2022-08-10] MEDS: THIAMINE 100 MG TABLET PO SCH ×2 (08:29→16:52)
[2022-08-10 08:30] VITALS: BP 145/64
[2022-08-10] MEDS: FOLIC ACID 1 MG TABLET PO SCH (08:30)
[2022-08-10] MEDS: LISINOPRIL 20 MG TABLET PO SCH (08:30)
[2022-08-10 17:19] VITALS: BP 116/65
[2022-08-10 18:06] VITALS: BP 125/78
[2022-08-10] MEDS: OLANZapine 10 MG RAPDIS TABLET PO SCH (20:50)
[2022-08-10] MEDS: LORazepam 2 MG TABLET PO PRN (20:50)
[2022-08-10] MEDS: MELATONIN 5 MG TABLET PO SCH (20:50)
[2022-08-11] MEDS: LEVOTHYROXINE SODIUM 75 MCG TABLET PO SCH (06:08)
[2022-08-11] MEDS: LEVOTHYROXINE SODIUM 200 MCG TABLET PO SCH (06:08)
[2022-08-11 08:33] VITALS: BP 100/60
[2022-08-11] MEDS: OMEGA-3/DHA/EPA/FISH OIL 1,000 MG CAPSULE PO SCH (08:40)
[2022-08-11] MEDS: MULTIVITAMINS WITH MINERALS, THERAPEUTIC TABLET PO SCH (08:40)
[2022-08-11] MEDS: BuPROPion HCL XL 150 MG ER TABLET PO SCH (08:40)
[2022-08-11] MEDS: FOLIC ACID 1 MG TABLET PO SCH (08:41)
[2022-08-11] MEDS: THIAMINE 100 MG TABLET PO SCH ×2 (08:41→16:13)
[2022-08-11] MEDS: LISINOPRIL 20 MG TABLET PO SCH (08:41)
[2022-08-11] MEDS: METOPROLOL SUCCINATE 25 MG ER TABLET PO SCH (08:41)
[2022-08-11 17:15] VITALS: BP 132/78
[2022-08-11 17:51] VITALS: BP 125/70
[2022-08-11] MEDS: LORazepam 2 MG TABLET PO PRN (20:30)
[2022-08-11] MEDS: MELATONIN 5 MG TABLET PO SCH (21:05)
[2022-08-11] MEDS: OLANZapine 10 MG RAPDIS TABLET PO SCH (21:06)
[2022-08-12] MEDS: LEVOTHYROXINE SODIUM 200 MCG TABLET PO SCH (06:01)
[2022-08-12] MEDS: LEVOTHYROXINE SODIUM 75 MCG TABLET PO SCH (06:01)
[2022-08-12] MEDS: OMEGA-3/DHA/EPA/FISH OIL 1,000 MG CAPSULE PO SCH (08:34)
[2022-08-12] MEDS: LISINOPRIL 20 MG TABLET PO SCH (08:34)
[2022-08-12] MEDS: THIAMINE 100 MG TABLET PO SCH ×2 (08:34→16:25)
[2022-08-12] MEDS: FOLIC ACID 1 MG TABLET PO SCH (08:34)
[2022-08-12] MEDS: MULTIVITAMINS WITH MINERALS, THERAPEUTIC TABLET PO SCH (08:34)
[2022-08-12] MEDS: BuPROPion HCL XL 150 MG ER TABLET PO SCH (08:35)
[2022-08-12] MEDS: METOPROLOL SUCCINATE 25 MG ER TABLET PO SCH (08:35)
[2022-08-12 09:08] VITALS: BP 127/69
[2022-08-12 16:17] VITALS: BP 98/57
[2022-08-12] MEDS: OLANZapine 10 MG RAPDIS TABLET PO SCH (20:39)
[2022-08-12] MEDS: LORazepam 2 MG TABLET PO PRN (20:39)
[2022-08-12] MEDS: MELATONIN 5 MG TABLET PO SCH (20:39)
[2022-08-13] MEDS: LEVOTHYROXINE SODIUM 75 MCG TABLET PO SCH (06:01)
[2022-08-13] MEDS: LEVOTHYROXINE SODIUM 200 MCG TABLET PO SCH (06:01)
[2022-08-13] MEDS: FOLIC ACID 1 MG TABLET PO SCH (08:08)
[2022-08-13] MEDS: MULTIVITAMINS WITH MINERALS, THERAPEUTIC TABLET PO SCH (08:08)
[2022-08-13] MEDS: OMEGA-3/DHA/EPA/FISH OIL 1,000 MG CAPSULE PO SCH (08:08)
[2022-08-13] MEDS: BuPROPion HCL XL 150 MG ER TABLET PO SCH (08:08)
[2022-08-13] MEDS: THIAMINE 100 MG TABLET PO SCH ×2 (08:08→16:01)
[2022-08-13 08:35] VITALS: BP 107/59
[2022-08-13] MEDS: METOPROLOL SUCCINATE 25 MG ER TABLET PO SCH (09:00)
[2022-08-13] MEDS: LISINOPRIL 20 MG TABLET PO SCH (09:00)
[2022-08-13 16:08] VITALS: BP 130/85
[2022-08-13] MEDS: LORazepam 2 MG TABLET PO PRN (17:58)
[2022-08-13] MEDS: MELATONIN 5 MG TABLET PO SCH (20:19)
[2022-08-13] MEDS: OLANZapine 10 MG RAPDIS TABLET PO SCH (20:20)
[2022-08-14] MEDS: LEVOTHYROXINE SODIUM 75 MCG TABLET PO SCH (06:07)
[2022-08-14] MEDS: LEVOTHYROXINE SODIUM 200 MCG TABLET PO SCH (06:07)
[2022-08-14] MEDS: BuPROPion HCL XL 150 MG ER TABLET PO SCH (08:34)
[2022-08-14] MEDS: LISINOPRIL 20 MG TABLET PO SCH (08:34)
[2022-08-14] MEDS: OMEGA-3/DHA/EPA/FISH OIL 1,000 MG CAPSULE PO SCH (08:34)
[2022-08-14] MEDS: MULTIVITAMINS WITH MINERALS, THERAPEUTIC TABLET PO SCH (08:34)
[2022-08-14] MEDS: METOPROLOL SUCCINATE 25 MG ER TABLET PO SCH (08:34)
[2022-08-14 08:38] VITALS: BP 131/72
[2022-08-14] MEDS: ACETAMINOPHEN 325 MG TABLET PO PRN (08:38)
[2022-08-14 09:38] VITALS: BP 128/76
[2022-08-14] MEDS: LORazepam 2 MG TABLET PO PRN (13:07)
[2022-08-14] MEDS: OLANZapine 5 MG RAPDIS TABLET PO PRN (13:07)
[2022-08-14 16:22] VITALS: BP 97/61
[2022-08-14 16:23] VITALS: BP 97/61
[2022-08-14] MEDS: MELATONIN 5 MG TABLET PO SCH (21:02)
[2022-08-14] MEDS: OLANZapine 10 MG RAPDIS TABLET PO SCH (21:02)
[2022-08-15] MEDS: LEVOTHYROXINE SODIUM 75 MCG TABLET PO SCH (06:40)
[2022-08-15] MEDS: LEVOTHYROXINE SODIUM 200 MCG TABLET PO SCH (06:40)
[2022-08-15 07:47] LABS: COVID AG,FIA SOURCE NASAL SWAB
[2022-08-15] MEDS: OMEGA-3/DHA/EPA/FISH OIL 1,000 MG CAPSULE PO SCH (08:25)
[2022-08-15] MEDS: MULTIVITAMINS WITH MINERALS, THERAPEUTIC TABLET PO SCH (08:26)
[2022-08-15] MEDS: BuPROPion HCL XL 150 MG ER TABLET PO SCH (08:26)
[2022-08-15 08:28] VITALS: BP 98/59
[2022-08-15] MEDS: METOPROLOL SUCCINATE 25 MG ER TABLET PO SCH (09:00)
[2022-08-15] MEDS: LISINOPRIL 20 MG TABLET PO SCH (09:00)
[2022-08-15 16:59] VITALS: BP 152/86
[2022-08-15] MEDS: OLANZapine 10 MG RAPDIS TABLET PO SCH (20:22)
[2022-08-15] MEDS: MELATONIN 5 MG TABLET PO SCH (20:22)
[2022-08-15 20:29] VITALS: BP 135/98
[2022-08-16] MEDS: LEVOTHYROXINE SODIUM 200 MCG TABLET PO SCH (07:04)
[2022-08-16] MEDS: LEVOTHYROXINE SODIUM 75 MCG TABLET PO SCH (07:04)
[2022-08-16] MEDS: MULTIVITAMINS WITH MINERALS, THERAPEUTIC TABLET PO SCH (08:04)
[2022-08-16] MEDS: LISINOPRIL 20 MG TABLET PO SCH (08:04)
[2022-08-16] MEDS: METOPROLOL SUCCINATE 25 MG ER TABLET PO SCH (08:04)
[2022-08-16] MEDS: BuPROPion HCL XL 150 MG ER TABLET PO SCH (08:05)
[2022-08-16] MEDS: OMEGA-3/DHA/EPA/FISH OIL 1,000 MG CAPSULE PO SCH (08:05)
[2022-08-16 08:20] VITALS: BP 138/92
[2022-08-16 16:08] VITALS: BP 111/78
[2022-08-16] MEDS: MELATONIN 5 MG TABLET PO SCH (20:51)
[2022-08-16] MEDS: OLANZapine 10 MG RAPDIS TABLET PO SCH (20:51)
[2022-08-17] MEDS: LEVOTHYROXINE SODIUM 75 MCG TABLET PO SCH (07:01)
[2022-08-17] MEDS: LEVOTHYROXINE SODIUM 200 MCG TABLET PO SCH (07:01)
[2022-08-17] MEDS: OMEGA-3/DHA/EPA/FISH OIL 1,000 MG CAPSULE PO SCH (08:40)
[2022-08-17] MEDS: MULTIVITAMINS WITH MINERALS, THERAPEUTIC TABLET PO SCH (08:40)
[2022-08-17] MEDS: LISINOPRIL 20 MG TABLET PO SCH (08:40)
[2022-08-17] MEDS: BuPROPion HCL XL 150 MG ER TABLET PO SCH (08:43)
[2022-08-17] MEDS: METOPROLOL SUCCINATE 25 MG ER TABLET PO SCH (08:43)
[2022-08-17 09:52] VITALS: BP 117/84
[2022-08-17 16:00] VITALS: BP 102/61
[2022-08-17] MEDS: MELATONIN 5 MG TABLET PO SCH (20:38)
[2022-08-17] MEDS: OLANZapine 10 MG RAPDIS TABLET PO SCH (20:39)
[2022-08-18] MEDS: LEVOTHYROXINE SODIUM 200 MCG TABLET PO SCH (06:21)
[2022-08-18] MEDS: LEVOTHYROXINE SODIUM 75 MCG TABLET PO SCH (06:22)
[2022-08-18] MEDS: MULTIVITAMINS WITH MINERALS, THERAPEUTIC TABLET PO SCH (08:54)
[2022-08-18] MEDS: OMEGA-3/DHA/EPA/FISH OIL 1,000 MG CAPSULE PO SCH (08:54)
[2022-08-18] MEDS: LISINOPRIL 20 MG TABLET PO SCH (08:54)
[2022-08-18] MEDS: METOPROLOL SUCCINATE 25 MG ER TABLET PO SCH (08:54)
[2022-08-18] MEDS: BuPROPion HCL XL 150 MG ER TABLET PO SCH (08:54)
[2022-08-18 09:02] VITALS: BP 128/83
[2022-08-18 16:08] VITALS: BP 132/86
[2022-08-18] MEDS: MELATONIN 5 MG TABLET PO SCH (20:34)
[2022-08-18] MEDS: OLANZapine 10 MG RAPDIS TABLET PO SCH (20:34)
[2022-08-19] MEDS: LEVOTHYROXINE SODIUM 200 MCG TABLET PO SCH (06:24)
[2022-08-19] MEDS: LEVOTHYROXINE SODIUM 75 MCG TABLET PO SCH (06:24)
[2022-08-19] MEDS: MULTIVITAMINS WITH MINERALS, THERAPEUTIC TABLET PO SCH (08:46)
[2022-08-19] MEDS: METOPROLOL SUCCINATE 25 MG ER TABLET PO SCH (08:46)
[2022-08-19] MEDS: LISINOPRIL 20 MG TABLET PO SCH (08:47)
[2022-08-19] MEDS: BuPROPion HCL XL 150 MG ER TABLET PO SCH (08:47)
[2022-08-19] MEDS: OMEGA-3/DHA/EPA/FISH OIL 1,000 MG CAPSULE PO SCH (08:47)
[2022-08-19] MEDS: LORazepam 2 MG TABLET PO PRN (13:03)
[2022-08-19] MEDS: MELATONIN 5 MG TABLET PO SCH (20:07)
[2022-08-19] MEDS: OLANZapine 10 MG RAPDIS TABLET PO SCH (20:07)
[2022-08-20] MEDS: LEVOTHYROXINE SODIUM 75 MCG TABLET PO SCH (06:35)
[2022-08-20] MEDS: LEVOTHYROXINE SODIUM 200 MCG TABLET PO SCH (06:36)
[2022-08-20 08:00] VITALS: BP 141/94
[2022-08-20] MEDS: OMEGA-3/DHA/EPA/FISH OIL 1,000 MG CAPSULE PO SCH (08:52)
[2022-08-20] MEDS: BuPROPion HCL XL 150 MG ER TABLET PO SCH (08:52)
[2022-08-20] MEDS: METOPROLOL SUCCINATE 25 MG ER TABLET PO SCH (08:52)
[2022-08-20] MEDS: MULTIVITAMINS WITH MINERALS, THERAPEUTIC TABLET PO SCH (08:52)
[2022-08-20] MEDS: LISINOPRIL 20 MG TABLET PO SCH (08:52)
[2022-08-20] MEDS: LORazepam 2 MG TABLET PO PRN (18:21)
[2022-08-20] MEDS: OLANZapine 10 MG RAPDIS TABLET PO SCH (20:04)
[2022-08-20] MEDS: MELATONIN 5 MG TABLET PO SCH (20:04)
[2022-08-21] MEDS: LEVOTHYROXINE SODIUM 200 MCG TABLET PO SCH (06:30)
[2022-08-21] MEDS: LEVOTHYROXINE SODIUM 75 MCG TABLET PO SCH (06:30)
[2022-08-21] MEDS: OMEGA-3/DHA/EPA/FISH OIL 1,000 MG CAPSULE PO SCH (09:36)
[2022-08-21] MEDS: BuPROPion HCL XL 150 MG ER TABLET PO SCH (09:36)
[2022-08-21] MEDS: MULTIVITAMINS WITH MINERALS, THERAPEUTIC TABLET PO SCH (09:37)
[2022-08-21] MEDS: LISINOPRIL 20 MG TABLET PO SCH (09:37)
[2022-08-21] MEDS: METOPROLOL SUCCINATE 25 MG ER TABLET PO SCH (09:37)
[2022-08-21 11:17] VITALS: BP 130/70
[2022-08-21 16:01] VITALS: BP 123/71
[2022-08-21] MEDS: BETHANECHOL CHLORIDE 25 MG TABLET PO SCH (20:14)
[2022-08-21] MEDS: OLANZapine 10 MG RAPDIS TABLET PO SCH (20:15)
[2022-08-21] MEDS: MELATONIN 5 MG TABLET PO SCH (20:16)
[2022-08-22] MEDS: LEVOTHYROXINE SODIUM 75 MCG TABLET PO SCH (06:34)
[2022-08-22] MEDS: LEVOTHYROXINE SODIUM 200 MCG TABLET PO SCH (06:34)
[2022-08-22 08:24] VITALS: BP 107/73
[2022-08-22] MEDS: METOPROLOL SUCCINATE 25 MG ER TABLET PO SCH (09:28)
[2022-08-22] MEDS: BuPROPion HCL XL 150 MG ER TABLET PO SCH (09:40)
[2022-08-22] MEDS: MULTIVITAMINS WITH MINERALS, THERAPEUTIC TABLET PO SCH (09:40)
[2022-08-22] MEDS: LISINOPRIL 20 MG TABLET PO SCH (09:40)
[2022-08-22] MEDS: OMEGA-3/DHA/EPA/FISH OIL 1,000 MG CAPSULE PO SCH (09:40)
[2022-08-22 12:20] LABS: COVID AG,FIA SOURCE NASOPHARYNGEAL
[2022-08-22 16:07] VITALS: BP 142/87
[2022-08-22] MEDS: BETHANECHOL CHLORIDE 25 MG TABLET PO SCH (21:11)
[2022-08-22] MEDS: OLANZapine 10 MG RAPDIS TABLET PO SCH (21:11)
[2022-08-22] MEDS: MELATONIN 5 MG TABLET PO SCH (21:12)
[2022-08-23] MEDS: LEVOTHYROXINE SODIUM 75 MCG TABLET PO SCH (06:48)
[2022-08-23] MEDS: LEVOTHYROXINE SODIUM 200 MCG TABLET PO SCH (06:48)
[2022-08-23 09:06] VITALS: BP 110/60
[2022-08-23] MEDS: METOPROLOL SUCCINATE 25 MG ER TABLET PO SCH (11:22)
[2022-08-23] MEDS: BuPROPion HCL XL 150 MG ER TABLET PO SCH (11:23)
[2022-08-23] MEDS: LISINOPRIL 20 MG TABLET PO SCH (11:23)
[2022-08-23] MEDS: OMEGA-3/DHA/EPA/FISH OIL 1,000 MG CAPSULE PO SCH (11:24)
[2022-08-23] MEDS: MULTIVITAMINS WITH MINERALS, THERAPEUTIC TABLET PO SCH (11:24)
[2022-08-23] MEDS: BETHANECHOL CHLORIDE 25 MG TABLET PO SCH (20:40)
[2022-08-23] MEDS: MELATONIN 5 MG TABLET PO SCH (20:41)
[2022-08-23] MEDS: OLANZapine 10 MG RAPDIS TABLET PO SCH (20:41)
[2022-08-24] MEDS: LEVOTHYROXINE SODIUM 200 MCG TABLET PO SCH (06:57)
[2022-08-24] MEDS: LEVOTHYROXINE SODIUM 75 MCG TABLET PO SCH (06:57)
[2022-08-24 08:30] VITALS: BP 109/60
[2022-08-24] MEDS: LISINOPRIL 20 MG TABLET PO SCH (08:59)
[2022-08-24] MEDS: BuPROPion HCL XL 150 MG ER TABLET PO SCH (08:59)
[2022-08-24] MEDS: METOPROLOL SUCCINATE 25 MG ER TABLET PO SCH (08:59)
[2022-08-24] MEDS: OMEGA-3/DHA/EPA/FISH OIL 1,000 MG CAPSULE PO SCH (08:59)
[2022-08-24] MEDS: MULTIVITAMINS WITH MINERALS, THERAPEUTIC TABLET PO SCH (08:59)
[2022-08-24 16:00] VITALS: BP 113/72
[2022-08-24] MEDS: BETHANECHOL CHLORIDE 25 MG TABLET PO SCH (20:13)
[2022-08-24] MEDS: OLANZapine 10 MG RAPDIS TABLET PO SCH (20:13)
[2022-08-24] MEDS: MELATONIN 5 MG TABLET PO SCH (20:13)
[2022-08-25] MEDS: LEVOTHYROXINE SODIUM 200 MCG TABLET PO SCH (06:34)
[2022-08-25] MEDS: LEVOTHYROXINE SODIUM 75 MCG TABLET PO SCH (06:34)
[2022-08-25 08:00] VITALS: BP 102/57
[2022-08-25] MEDS: MULTIVITAMINS WITH MINERALS, THERAPEUTIC TABLET PO SCH (09:14)
[2022-08-25] MEDS: METOPROLOL SUCCINATE 25 MG ER TABLET PO SCH (09:14)
[2022-08-25] MEDS: BuPROPion HCL XL 150 MG ER TABLET PO SCH (09:14)
[2022-08-25] MEDS: LISINOPRIL 20 MG TABLET PO SCH (09:14)
[2022-08-25] MEDS: OMEGA-3/DHA/EPA/FISH OIL 1,000 MG CAPSULE PO SCH (09:15)
[2022-08-25 16:39] VITALS: BP 128/81
[2022-08-25] MEDS: OLANZapine 10 MG RAPDIS TABLET PO SCH (20:10)
[2022-08-25] MEDS: MELATONIN 5 MG TABLET PO SCH (20:11)
[2022-08-25] MEDS: BETHANECHOL CHLORIDE 25 MG TABLET PO SCH (20:11)
[2022-08-25] MEDS: LORazepam 2 MG TABLET PO PRN (23:21)
[2022-08-26] MEDS: LEVOTHYROXINE SODIUM 200 MCG TABLET PO SCH (06:25)
[2022-08-26] MEDS: LEVOTHYROXINE SODIUM 75 MCG TABLET PO SCH (06:25)
[2022-08-26 08:21] VITALS: BP 141/87
[2022-08-26] MEDS: LISINOPRIL 20 MG TABLET PO SCH (08:32)
[2022-08-26] MEDS: MULTIVITAMINS WITH MINERALS, THERAPEUTIC TABLET PO SCH (08:32)
[2022-08-26] MEDS: METOPROLOL SUCCINATE 25 MG ER TABLET PO SCH (08:32)
[2022-08-26] MEDS: BuPROPion HCL XL 150 MG ER TABLET PO SCH (08:33)
[2022-08-26] MEDS: OMEGA-3/DHA/EPA/FISH OIL 1,000 MG CAPSULE PO SCH (08:33)
[2022-08-26 15:50] VITALS: BP 144/98
[2022-08-26] MEDS: ACETAMINOPHEN 325 MG TABLET PO PRN (15:50)
[2022-08-26 16:50] VITALS: BP 138/92
[2022-08-26] MEDS: OLANZapine 10 MG RAPDIS TABLET PO SCH (20:12)
[2022-08-26] MEDS: BETHANECHOL CHLORIDE 25 MG TABLET PO SCH (20:13)
[2022-08-26] MEDS: MELATONIN 5 MG TABLET PO SCH (20:13)
[2022-08-27] MEDS: OLANZapine 5 MG RAPDIS TABLET PO PRN ×2 (03:58→15:43)
[2022-08-27] MEDS: LORazepam 2 MG TABLET PO PRN (03:58)
[2022-08-27] MEDS: LEVOTHYROXINE SODIUM 75 MCG TABLET PO SCH ×2 (06:23→06:36)
[2022-08-27] MEDS: LEVOTHYROXINE SODIUM 200 MCG TABLET PO SCH ×2 (06:23→06:36)
[2022-08-27] MEDS: LISINOPRIL 20 MG TABLET PO SCH ×2 (08:37→09:00)
[2022-08-27] MEDS: BuPROPion HCL XL 150 MG ER TABLET PO SCH ×2 (08:37→09:00)
[2022-08-27] MEDS: METOPROLOL SUCCINATE 25 MG ER TABLET PO SCH ×2 (08:37→09:00)
[2022-08-27] MEDS: OMEGA-3/DHA/EPA/FISH OIL 1,000 MG CAPSULE PO SCH ×2 (08:38→09:00)
[2022-08-27] MEDS: MULTIVITAMINS WITH MINERALS, THERAPEUTIC TABLET PO SCH ×2 (08:38→09:00)
[2022-08-27 09:23] VITALS: BP 109/56
[2022-08-27 12:40] VITALS: BP 126/74
[2022-08-27] MEDS: ACETAMINOPHEN 325 MG TABLET PO PRN ×2 (12:40→18:28)
[2022-08-27 16:12] VITALS: BP 128/98
[2022-08-27 18:28] VITALS: BP 130/79
[2022-08-27] MEDS: BETHANECHOL CHLORIDE 25 MG TABLET PO SCH (20:56)
[2022-08-27] MEDS: MELATONIN 5 MG TABLET PO SCH (20:56)
[2022-08-27] MEDS: OLANZapine 10 MG RAPDIS TABLET PO SCH (20:56)
[2022-08-28] MEDS: LEVOTHYROXINE SODIUM 75 MCG TABLET PO SCH (06:27)
[2022-08-28] MEDS: LEVOTHYROXINE SODIUM 200 MCG TABLET PO SCH (06:27)
[2022-08-28 08:30] VITALS: BP 151/93
[2022-08-28] MEDS: BuPROPion HCL XL 150 MG ER TABLET PO SCH (10:10)
[2022-08-28] MEDS: OMEGA-3/DHA/EPA/FISH OIL 1,000 MG CAPSULE PO SCH (10:10)
[2022-08-28] MEDS: MULTIVITAMINS WITH MINERALS, THERAPEUTIC TABLET PO SCH (10:10)
[2022-08-28] MEDS: LISINOPRIL 20 MG TABLET PO SCH (10:10)
[2022-08-28] MEDS: METOPROLOL SUCCINATE 25 MG ER TABLET PO SCH (10:12)
[2022-08-28 16:44] VITALS: BP 110/73
[2022-08-28] MEDS: MELATONIN 5 MG TABLET PO SCH (20:16)
[2022-08-28] MEDS: OLANZapine 10 MG RAPDIS TABLET PO SCH (20:16)
[2022-08-28] MEDS: BETHANECHOL CHLORIDE 25 MG TABLET PO SCH (20:16)
[2022-08-29] MEDS: LEVOTHYROXINE SODIUM 75 MCG TABLET PO SCH (06:21)
[2022-08-29] MEDS: LEVOTHYROXINE SODIUM 200 MCG TABLET PO SCH (06:21)
[2022-08-29 07:38] LABS: COVID AG,FIA SOURCE NASAL SWAB
[2022-08-29] MEDS: METOPROLOL SUCCINATE 25 MG ER TABLET PO SCH (08:16)
[2022-08-29 08:18] VITALS: BP 153/95
[2022-08-29] MEDS: LISINOPRIL 20 MG TABLET PO SCH (08:18)
[2022-08-29] MEDS: BuPROPion HCL XL 150 MG ER TABLET PO SCH (08:18)
[2022-08-29] MEDS: OMEGA-3/DHA/EPA/FISH OIL 1,000 MG CAPSULE PO SCH (08:18)
[2022-08-29] MEDS: MULTIVITAMINS WITH MINERALS, THERAPEUTIC TABLET PO SCH (08:19)
[2022-08-29 16:48] VITALS: BP 120/80
[2022-08-29] MEDS: BETHANECHOL CHLORIDE 25 MG TABLET PO SCH (20:33)
[2022-08-29] MEDS: OLANZapine 10 MG RAPDIS TABLET PO SCH (20:34)
[2022-08-29] MEDS: MELATONIN 5 MG TABLET PO SCH (20:50)
[2022-08-30] MEDS: LEVOTHYROXINE SODIUM 200 MCG TABLET PO SCH (06:31)
[2022-08-30] MEDS: LEVOTHYROXINE SODIUM 75 MCG TABLET PO SCH (06:32)
[2022-08-30] MEDS: MULTIVITAMINS WITH MINERALS, THERAPEUTIC TABLET PO SCH (08:38)
[2022-08-30] MEDS: OMEGA-3/DHA/EPA/FISH OIL 1,000 MG CAPSULE PO SCH (08:38)
[2022-08-30] MEDS: METOPROLOL SUCCINATE 25 MG ER TABLET PO SCH (08:38)
[2022-08-30] MEDS: BuPROPion HCL XL 150 MG ER TABLET PO SCH (08:38)
[2022-08-30] MEDS: LISINOPRIL 20 MG TABLET PO SCH (08:38)
[2022-08-30 09:00] VITALS: BP 102/61
[2022-08-30 11:25] VITALS: BP 142/78
[2022-08-30] MEDS: ACETAMINOPHEN 325 MG TABLET PO PRN (11:25)
[2022-08-30] MEDS: MELATONIN 5 MG TABLET PO SCH (20:39)
[2022-08-30] MEDS: OLANZapine 10 MG RAPDIS TABLET PO SCH (20:39)
[2022-08-30] MEDS: BETHANECHOL CHLORIDE 25 MG TABLET PO SCH (20:39)
[2022-08-31] MEDS: LEVOTHYROXINE SODIUM 200 MCG TABLET PO SCH (06:31)
[2022-08-31] MEDS: LEVOTHYROXINE SODIUM 75 MCG TABLET PO SCH (06:31)
[2022-08-31] MEDS: METOPROLOL SUCCINATE 25 MG ER TABLET PO SCH (09:00)
[2022-08-31] MEDS: MULTIVITAMINS WITH MINERALS, THERAPEUTIC TABLET PO SCH (09:01)
[2022-08-31] MEDS: BuPROPion HCL XL 150 MG ER TABLET PO SCH (09:02)
[2022-08-31] MEDS: OMEGA-3/DHA/EPA/FISH OIL 1,000 MG CAPSULE PO SCH (09:02)
[2022-08-31] MEDS: LISINOPRIL 20 MG TABLET PO SCH (09:03)
[2022-08-31 09:34] VITALS: BP 142/88
[2022-08-31] MEDS: BETHANECHOL CHLORIDE 25 MG TABLET PO SCH (20:30)
[2022-08-31] MEDS: MELATONIN 5 MG TABLET PO SCH (20:30)
[2022-08-31] MEDS: OLANZapine 10 MG RAPDIS TABLET PO SCH (20:30)
[2022-09-01] MEDS: LEVOTHYROXINE SODIUM 200 MCG TABLET PO SCH (06:41)
[2022-09-01] MEDS: LEVOTHYROXINE SODIUM 75 MCG TABLET PO SCH (06:45)
[2022-09-01] MEDS: BuPROPion HCL XL 150 MG ER TABLET PO SCH (08:31)
[2022-09-01] MEDS: LISINOPRIL 20 MG TABLET PO SCH (08:31)
[2022-09-01] MEDS: METOPROLOL SUCCINATE 25 MG ER TABLET PO SCH (08:32)
[2022-09-01] MEDS: OMEGA-3/DHA/EPA/FISH OIL 1,000 MG CAPSULE PO SCH (08:32)
[2022-09-01] MEDS: MULTIVITAMINS WITH MINERALS, THERAPEUTIC TABLET PO SCH (08:32)
[2022-09-01 08:42] VITALS: BP 135/98
[2022-09-01 12:26] VITALS: BP 136/92
[2022-09-01] MEDS: ACETAMINOPHEN 325 MG TABLET PO PRN (12:26)
[2022-09-01 16:00] VITALS: BP 115/74
[2022-09-01] MEDS: OLANZapine 10 MG RAPDIS TABLET PO SCH (20:41)
[2022-09-01] MEDS: BETHANECHOL CHLORIDE 25 MG TABLET PO SCH (20:42)
[2022-09-01] MEDS: MELATONIN 5 MG TABLET PO SCH (20:42)
[2022-09-02] MEDS: LORazepam 2 MG TABLET PO PRN ×2 (01:12→20:14)
[2022-09-02] MEDS: LEVOTHYROXINE SODIUM 200 MCG TABLET PO SCH (06:22)
[2022-09-02] MEDS: LEVOTHYROXINE SODIUM 75 MCG TABLET PO SCH (06:22)
[2022-09-02 07:52] VITALS: BP 133/92
[2022-09-02] MEDS: ACETAMINOPHEN 325 MG TABLET PO PRN (07:52)
[2022-09-02 08:03] VITALS: BP 133/92
[2022-09-02] MEDS: LISINOPRIL 20 MG TABLET PO SCH (08:16)
[2022-09-02] MEDS: MULTIVITAMINS WITH MINERALS, THERAPEUTIC TABLET PO SCH (08:16)
[2022-09-02] MEDS: OMEGA-3/DHA/EPA/FISH OIL 1,000 MG CAPSULE PO SCH (08:17)
[2022-09-02] MEDS: BuPROPion HCL XL 150 MG ER TABLET PO SCH (08:17)
[2022-09-02] MEDS: METOPROLOL SUCCINATE 25 MG ER TABLET PO SCH (08:17)
[2022-09-02 16:10] VITALS: BP 110/68
[2022-09-02] MEDS: MELATONIN 5 MG TABLET PO SCH (20:13)
[2022-09-02] MEDS: BETHANECHOL CHLORIDE 25 MG TABLET PO SCH (20:13)
[2022-09-02] MEDS: OLANZapine 10 MG RAPDIS TABLET PO SCH (20:13)
[2022-09-03] MEDS: LEVOTHYROXINE SODIUM 200 MCG TABLET PO SCH (06:27)
[2022-09-03] MEDS: LEVOTHYROXINE SODIUM 75 MCG TABLET PO SCH (06:27)
[2022-09-03] MEDS: MULTIVITAMINS WITH MINERALS, THERAPEUTIC TABLET PO SCH (09:17)
[2022-09-03] MEDS: LISINOPRIL 20 MG TABLET PO SCH (09:17)
[2022-09-03] MEDS: METOPROLOL SUCCINATE 25 MG ER TABLET PO SCH (09:17)
[2022-09-03] MEDS: OMEGA-3/DHA/EPA/FISH OIL 1,000 MG CAPSULE PO SCH (09:17)
[2022-09-03] MEDS: BuPROPion HCL XL 150 MG ER TABLET PO SCH (09:18)
[2022-09-03] MEDS: OLANZapine 10 MG RAPDIS TABLET PO SCH (20:43)
[2022-09-03] MEDS: BETHANECHOL CHLORIDE 25 MG TABLET PO SCH (20:43)
[2022-09-03] MEDS: LORazepam 2 MG TABLET PO PRN (20:44)
[2022-09-03] MEDS: MELATONIN 5 MG TABLET PO SCH (20:44)
[2022-09-04] MEDS: OLANZapine 5 MG RAPDIS TABLET PO PRN (05:27)
[2022-09-04] MEDS: LEVOTHYROXINE SODIUM 200 MCG TABLET PO SCH (06:00)
[2022-09-04] MEDS: LEVOTHYROXINE SODIUM 75 MCG TABLET PO SCH (06:00)
[2022-09-04 08:22] VITALS: BP 102/61
[2022-09-04] MEDS: MULTIVITAMINS WITH MINERALS, THERAPEUTIC TABLET PO SCH (08:51)
[2022-09-04] MEDS: OMEGA-3/DHA/EPA/FISH OIL 1,000 MG CAPSULE PO SCH (08:52)
[2022-09-04] MEDS: BuPROPion HCL XL 150 MG ER TABLET PO SCH (08:53)
[2022-09-04] MEDS: LISINOPRIL 20 MG TABLET PO SCH (08:53)
[2022-09-04] MEDS: METOPROLOL SUCCINATE 25 MG ER TABLET PO SCH (08:57)
[2022-09-04 16:08] VITALS: BP 122/63
[2022-09-04] MEDS: OLANZapine 10 MG RAPDIS TABLET PO SCH (21:11)
[2022-09-04] MEDS: BETHANECHOL CHLORIDE 25 MG TABLET PO SCH (21:11)
[2022-09-04] MEDS: MELATONIN 5 MG TABLET PO SCH (21:17)
[2022-09-05 06:34] LABS: COVID AG,FIA SOURCE NASAL SWAB
[2022-09-05] MEDS: LEVOTHYROXINE SODIUM 200 MCG TABLET PO SCH (06:40)
[2022-09-05] MEDS: LEVOTHYROXINE SODIUM 75 MCG TABLET PO SCH (06:41)
[2022-09-05 08:28] VITALS: BP 110/68
[2022-09-05] MEDS: LISINOPRIL 20 MG TABLET PO SCH (08:32)
[2022-09-05] MEDS: OMEGA-3/DHA/EPA/FISH OIL 1,000 MG CAPSULE PO SCH (08:32)
[2022-09-05] MEDS: METOPROLOL SUCCINATE 25 MG ER TABLET PO SCH (08:32)
[2022-09-05] MEDS: BuPROPion HCL XL 150 MG ER TABLET PO SCH (08:32)
[2022-09-05] MEDS: MULTIVITAMINS WITH MINERALS, THERAPEUTIC TABLET PO SCH (08:32)
[2022-09-05 16:24] VITALS: BP 136/96
[2022-09-05] MEDS: OLANZapine 10 MG RAPDIS TABLET PO SCH (21:06)
[2022-09-05] MEDS: BETHANECHOL CHLORIDE 25 MG TABLET PO SCH (21:06)
[2022-09-05] MEDS: MELATONIN 5 MG TABLET PO SCH (21:07)
[2022-09-06] MEDS: LEVOTHYROXINE SODIUM 200 MCG TABLET PO SCH (06:32)
[2022-09-06] MEDS: LEVOTHYROXINE SODIUM 75 MCG TABLET PO SCH (06:32)
[2022-09-06] MEDS: METOPROLOL SUCCINATE 25 MG ER TABLET PO SCH (11:01)
[2022-09-06] MEDS: LISINOPRIL 20 MG TABLET PO SCH (11:04)
[2022-09-06] MEDS: BuPROPion HCL XL 150 MG ER TABLET PO SCH (11:04)
[2022-09-06] MEDS: MULTIVITAMINS WITH MINERALS, THERAPEUTIC TABLET PO SCH (11:04)
[2022-09-06] MEDS: OMEGA-3/DHA/EPA/FISH OIL 1,000 MG CAPSULE PO SCH (11:07)
[2022-09-06 12:00] VITALS: BP 134/82
[2022-09-06 17:04] VITALS: BP 107/65
[2022-09-06] MEDS: MELATONIN 5 MG TABLET PO SCH (20:32)
[2022-09-06] MEDS: OLANZapine 10 MG RAPDIS TABLET PO SCH (20:32)
[2022-09-06] MEDS: BETHANECHOL CHLORIDE 25 MG TABLET PO SCH (20:32)
[2022-09-06] MEDS: LORazepam 2 MG TABLET PO PRN (20:33)
[2022-09-07] MEDS: LEVOTHYROXINE SODIUM 200 MCG TABLET PO SCH (06:08)
[2022-09-07] MEDS: LEVOTHYROXINE SODIUM 75 MCG TABLET PO SCH (06:08)
[2022-09-07 08:01] VITALS: BP 124/80
[2022-09-07] MEDS: METOPROLOL SUCCINATE 25 MG ER TABLET PO SCH (08:12)
[2022-09-07] MEDS: BuPROPion HCL XL 150 MG ER TABLET PO SCH (08:12)
[2022-09-07] MEDS: OMEGA-3/DHA/EPA/FISH OIL 1,000 MG CAPSULE PO SCH (08:12)
[2022-09-07] MEDS: LISINOPRIL 20 MG TABLET PO SCH (08:12)
[2022-09-07] MEDS: MULTIVITAMINS WITH MINERALS, THERAPEUTIC TABLET PO SCH (08:12)
[2022-09-07 16:21] VITALS: BP 106/72
[2022-09-07 18:30] VITALS: BP 137/100
[2022-09-07] MEDS: LORazepam 2 MG TABLET PO PRN (18:32)
[2022-09-07] MEDS: OLANZapine 5 MG RAPDIS TABLET PO PRN (18:33)
[2022-09-07] MEDS: OLANZapine 10 MG RAPDIS TABLET PO SCH (20:00)
[2022-09-07] MEDS: BETHANECHOL CHLORIDE 25 MG TABLET PO SCH (20:02)
[2022-09-07] MEDS: MELATONIN 5 MG TABLET PO SCH (20:03)
[2022-09-07] MEDS: ZOLPIDEM TARTRATE 10 MG TABLET PO PRN (21:10)
[2022-09-08] MEDS: LEVOTHYROXINE SODIUM 200 MCG TABLET PO SCH (06:33)
[2022-09-08] MEDS: LEVOTHYROXINE SODIUM 75 MCG TABLET PO SCH (06:33)
[2022-09-08 08:18] VITALS: BP 138/97
[2022-09-08] MEDS: METOPROLOL SUCCINATE 25 MG ER TABLET PO SCH (08:42)
[2022-09-08] MEDS: LISINOPRIL 20 MG TABLET PO SCH (08:44)
[2022-09-08] MEDS: MULTIVITAMINS WITH MINERALS, THERAPEUTIC TABLET PO SCH (08:44)
[2022-09-08] MEDS: BuPROPion HCL XL 150 MG ER TABLET PO SCH (08:45)
[2022-09-08] MEDS: OMEGA-3/DHA/EPA/FISH OIL 1,000 MG CAPSULE PO SCH (08:47)
[2022-09-08 10:46] VITALS: BP 87/132
[2022-09-08] MEDS: ACETAMINOPHEN 325 MG TABLET PO PRN (10:46)
[2022-09-08 11:46] VITALS: BP 132/87
[2022-09-08 16:53] VITALS: BP 123/79
[2022-09-08] MEDS: OLANZapine 10 MG RAPDIS TABLET PO SCH (20:14)
[2022-09-08] MEDS: BETHANECHOL CHLORIDE 25 MG TABLET PO SCH (20:14)
[2022-09-08] MEDS: MELATONIN 5 MG TABLET PO SCH (20:14)
[2022-09-09] MEDS: LEVOTHYROXINE SODIUM 200 MCG TABLET PO SCH (06:20)
[2022-09-09] MEDS: LEVOTHYROXINE SODIUM 75 MCG TABLET PO SCH (06:20)
[2022-09-09] MEDS: BuPROPion HCL XL 150 MG ER TABLET PO SCH (08:11)
[2022-09-09] MEDS: LISINOPRIL 20 MG TABLET PO SCH (08:11)
[2022-09-09] MEDS: METOPROLOL SUCCINATE 25 MG ER TABLET PO SCH (08:11)
[2022-09-09] MEDS: OMEGA-3/DHA/EPA/FISH OIL 1,000 MG CAPSULE PO SCH (08:11)
[2022-09-09] MEDS: MULTIVITAMINS WITH MINERALS, THERAPEUTIC TABLET PO SCH (08:11)
[2022-09-09 08:56] VITALS: BP 150/80
[2022-09-09] MEDS: LORazepam 2 MG TABLET PO PRN ×2 (15:24→20:28)
[2022-09-09 16:04] VITALS: BP 148/92
[2022-09-09] MEDS: MELATONIN 5 MG TABLET PO SCH (20:27)
[2022-09-09] MEDS: OLANZapine 10 MG RAPDIS TABLET PO SCH (20:27)
[2022-09-09] MEDS: BETHANECHOL CHLORIDE 25 MG TABLET PO SCH (20:28)
[2022-09-10] MEDS: LEVOTHYROXINE SODIUM 75 MCG TABLET PO SCH (06:08)
[2022-09-10] MEDS: LEVOTHYROXINE SODIUM 200 MCG TABLET PO SCH (06:08)
[2022-09-10] MEDS: MULTIVITAMINS WITH MINERALS, THERAPEUTIC TABLET PO SCH (08:25)
[2022-09-10] MEDS: LISINOPRIL 20 MG TABLET PO SCH (08:26)
[2022-09-10] MEDS: OMEGA-3/DHA/EPA/FISH OIL 1,000 MG CAPSULE PO SCH (08:26)
[2022-09-10] MEDS: BuPROPion HCL XL 150 MG ER TABLET PO SCH (08:26)
[2022-09-10] MEDS: METOPROLOL SUCCINATE 25 MG ER TABLET PO SCH (08:26)
[2022-09-10 16:10] VITALS: BP 152/92
[2022-09-10] MEDS: MELATONIN 5 MG TABLET PO SCH (20:13)
[2022-09-10] MEDS: OLANZapine 10 MG RAPDIS TABLET PO SCH (20:14)
[2022-09-10] MEDS: BETHANECHOL CHLORIDE 25 MG TABLET PO SCH (20:14)
[2022-09-11] MEDS: LEVOTHYROXINE SODIUM 75 MCG TABLET PO SCH (06:22)
[2022-09-11] MEDS: LEVOTHYROXINE SODIUM 200 MCG TABLET PO SCH (06:23)
[2022-09-11 08:45] VITALS: BP 158/96
[2022-09-11] MEDS: BuPROPion HCL XL 150 MG ER TABLET PO SCH (10:51)
[2022-09-11] MEDS: METOPROLOL SUCCINATE 25 MG ER TABLET PO SCH (10:51)
[2022-09-11] MEDS: OMEGA-3/DHA/EPA/FISH OIL 1,000 MG CAPSULE PO SCH (10:51)
[2022-09-11] MEDS: MULTIVITAMINS WITH MINERALS, THERAPEUTIC TABLET PO SCH (10:51)
[2022-09-11] MEDS: LISINOPRIL 20 MG TABLET PO SCH (10:52)
[2022-09-11 16:50] VITALS: BP 143/97
[2022-09-11] MEDS: MELATONIN 5 MG TABLET PO SCH (20:13)
[2022-09-11] MEDS: OLANZapine 10 MG RAPDIS TABLET PO SCH (20:14)
[2022-09-11] MEDS: BETHANECHOL CHLORIDE 25 MG TABLET PO SCH (20:15)
[2022-09-11] MEDS: ZOLPIDEM TARTRATE 10 MG TABLET PO PRN (22:33)
[2022-09-11] MEDS: LORazepam 2 MG TABLET PO PRN (22:33)
[2022-09-12] MEDS: LEVOTHYROXINE SODIUM 200 MCG TABLET PO SCH (06:07)
[2022-09-12] MEDS: LEVOTHYROXINE SODIUM 75 MCG TABLET PO SCH (06:07)
[2022-09-12 08:00] LABS: COVID AG,FIA SOURCE NASAL SWAB
[2022-09-12 08:25] VITALS: BP 149/92
[2022-09-12] MEDS: MULTIVITAMINS WITH MINERALS, THERAPEUTIC TABLET PO SCH (09:14)
[2022-09-12] MEDS: LISINOPRIL 20 MG TABLET PO SCH (09:14)
[2022-09-12] MEDS: OMEGA-3/DHA/EPA/FISH OIL 1,000 MG CAPSULE PO SCH (09:14)
[2022-09-12] MEDS: BuPROPion HCL XL 150 MG ER TABLET PO SCH (09:14)
[2022-09-12] MEDS: METOPROLOL SUCCINATE 25 MG ER TABLET PO SCH (09:15)
[2022-09-12 16:56] VITALS: BP 144/94
[2022-09-12] MEDS: OLANZapine 10 MG RAPDIS TABLET PO SCH (20:52)
[2022-09-12] MEDS: BETHANECHOL CHLORIDE 25 MG TABLET PO SCH (20:52)
[2022-09-12] MEDS: MELATONIN 5 MG TABLET PO SCH (20:53)
[2022-09-13] MEDS: LEVOTHYROXINE SODIUM 200 MCG TABLET PO SCH (07:01)
[2022-09-13] MEDS: LEVOTHYROXINE SODIUM 75 MCG TABLET PO SCH (07:01)
[2022-09-13 07:19] LABS: BASOPHILS % (AUTO) 1.2 % (0.0-2.0); EOSINOPHILS % (AUTO) 4.5 % (1.0-6.0); HEMATOCRIT 41.5 % (41-53); HEMOGLOBIN 14.4 g/dL (13.5-17.5); LYMPHOCYTES % (AUTO) 32.4 % (22.0-44.0); MEAN CORPUSCULAR HEMOGLOBIN 30.7 pg (26.0-34.0); MEAN CORPUSCULAR HGB CONC 34.8 G/dL (31.0-37.0); MEAN CORPUSCULAR VOLUME 88 fL (80-100); MONOCYTES # (AUTO) 0.5 K/uL (0.1-1.0); MONOCYTES % (AUTO) 8.9 % (2.0-9.0); NEUTROPHILS # (AUTO) 3.2 K/uL (1.8-7.7); PLATELET COUNT (AUTO) 193 K/uL (150-450); RED BLOOD CELL COUNT(AUTO) 4.71 MIL/uL (4.50-5.90); RED CELL DISTRIBUTION WIDTH 14.1 % (11.5-14.5)
[2022-09-13 07:56] LABS: ALANINE AMINOTRANSFERASE 97 U/L (12-78); ALBUMIN 3.4 g/dL (3.4-5.0); ALKALINE PHOSPHATASE 116 U/L (46-116); ANION GAP 4 mmol/L (8-16); ASPARTATE AMINOTRANSFERASE 68 U/L (15-37); CALCIUM, TOTAL 9.5 mg/dL (8.8-10.5); CARBON DIOXIDE 31 mmol/L (22-29); CHLORIDE 105 mmol/L (98-107); CREATININE 0.83 mg/dL (0.60-1.30); GLUCOSE,RANDOM 90 mg/dL (70-110); SODIUM SERUM 140 mmol/L (136-145); THYROID STIMULATING HORMONE 0.07 uIU/mL (0.36-3.74); TOTAL PROTEIN, SERUM 7.2 g/dL (6.4-8.2); UREA NITROGEN, BLOOD 7 mg/dL (7-18)
[2022-09-13 07:58] LABS: GLOMERULAR FILTR. RATE CALC > 60 mL/min (>60)
[2022-09-13 08:30] VITALS: BP 112/68
[2022-09-13] MEDS: BuPROPion HCL XL 150 MG ER TABLET PO SCH (08:51)
[2022-09-13] MEDS: METOPROLOL SUCCINATE 25 MG ER TABLET PO SCH (08:51)
[2022-09-13] MEDS: LISINOPRIL 20 MG TABLET PO SCH (08:51)
[2022-09-13] MEDS: MULTIVITAMINS WITH MINERALS, THERAPEUTIC TABLET PO SCH (08:51)
[2022-09-13] MEDS: OMEGA-3/DHA/EPA/FISH OIL 1,000 MG CAPSULE PO SCH (08:51)
[2022-09-13 17:40] VITALS: BP 135/74
[2022-09-13] MEDS: OLANZapine 10 MG RAPDIS TABLET PO SCH (20:53)
[2022-09-13] MEDS: BETHANECHOL CHLORIDE 25 MG TABLET PO SCH (20:53)
[2022-09-13] MEDS: MELATONIN 5 MG TABLET PO SCH (20:54)
[2022-09-14] MEDS: ZOLPIDEM TARTRATE 10 MG TABLET PO PRN ×2 (01:03→23:08)
[2022-09-14] MEDS: LEVOTHYROXINE SODIUM 200 MCG TABLET PO SCH (06:53)
[2022-09-14] MEDS: OMEGA-3/DHA/EPA/FISH OIL 1,000 MG CAPSULE PO SCH (08:54)
[2022-09-14] MEDS: MULTIVITAMINS WITH MINERALS, THERAPEUTIC TABLET PO SCH (08:54)
[2022-09-14] MEDS: LISINOPRIL 20 MG TABLET PO SCH (08:54)
[2022-09-14] MEDS: METOPROLOL SUCCINATE 25 MG ER TABLET PO SCH (08:55)
[2022-09-14] MEDS: BuPROPion HCL XL 150 MG ER TABLET PO SCH (08:56)
[2022-09-14 09:00] VITALS: BP 133/91
[2022-09-14 16:13] VITALS: BP 131/93
[2022-09-14] MEDS: MELATONIN 5 MG TABLET PO SCH (20:28)
[2022-09-14] MEDS: OLANZapine 10 MG RAPDIS TABLET PO SCH (20:28)
[2022-09-14] MEDS: BETHANECHOL CHLORIDE 25 MG TABLET PO SCH (20:28)
[2022-09-14] MEDS: LORazepam 2 MG TABLET PO PRN ×2 (21:03→23:02)
[2022-09-15] MEDS: LEVOTHYROXINE SODIUM 200 MCG TABLET PO SCH (06:04)
[2022-09-15 08:00] VITALS: BP 160/97
[2022-09-15] MEDS: OMEGA-3/DHA/EPA/FISH OIL 1,000 MG CAPSULE PO SCH (08:15)
[2022-09-15] MEDS: MULTIVITAMINS WITH MINERALS, THERAPEUTIC TABLET PO SCH (08:15)
[2022-09-15] MEDS: BuPROPion HCL XL 150 MG ER TABLET PO SCH (08:15)
[2022-09-15] MEDS: LISINOPRIL 20 MG TABLET PO SCH (08:15)
[2022-09-15] MEDS: METOPROLOL SUCCINATE 25 MG ER TABLET PO SCH (08:16)
[2022-09-15] MEDS: LORazepam 2 MG TABLET PO PRN (10:46)
[2022-09-15 16:00] VITALS: BP 128/89
[2022-09-15 16:13] VITALS: BP 129/89
[2022-09-15] MEDS: BETHANECHOL CHLORIDE 25 MG TABLET PO SCH (20:54)
[2022-09-15] MEDS: ZOLPIDEM TARTRATE 10 MG TABLET PO PRN (20:54)
[2022-09-15] MEDS: MELATONIN 5 MG TABLET PO SCH (20:54)
[2022-09-15] MEDS: OLANZapine 10 MG RAPDIS TABLET PO SCH (20:55)
[2022-09-16] MEDS: LORazepam 2 MG TABLET PO PRN ×2 (00:02→09:40)
[2022-09-16] MEDS: LEVOTHYROXINE SODIUM 200 MCG TABLET PO SCH (06:57)
[2022-09-16 08:14] VITALS: BP 122/81
[2022-09-16] MEDS: OMEGA-3/DHA/EPA/FISH OIL 1,000 MG CAPSULE PO SCH (08:25)
[2022-09-16] MEDS: MULTIVITAMINS WITH MINERALS, THERAPEUTIC TABLET PO SCH (08:27)
[2022-09-16] MEDS: BuPROPion HCL XL 150 MG ER TABLET PO SCH (08:27)
[2022-09-16] MEDS: METOPROLOL SUCCINATE 25 MG ER TABLET PO SCH (08:28)
[2022-09-16] MEDS: LISINOPRIL 20 MG TABLET PO SCH (08:28)
[2022-09-16 16:17] VITALS: BP 140/90
[2022-09-16] MEDS: MELATONIN 5 MG TABLET PO SCH (20:20)
[2022-09-16] MEDS: BETHANECHOL CHLORIDE 25 MG TABLET PO SCH (20:20)
[2022-09-16] MEDS: OLANZapine 10 MG RAPDIS TABLET PO SCH (20:20)
[2022-09-17] MEDS: LEVOTHYROXINE SODIUM 200 MCG TABLET PO SCH (06:11)
[2022-09-17 08:10] VITALS: BP 154/100
[2022-09-17] MEDS: MULTIVITAMINS WITH MINERALS, THERAPEUTIC TABLET PO SCH (08:27)
[2022-09-17] MEDS: BuPROPion HCL XL 150 MG ER TABLET PO SCH (08:30)
[2022-09-17] MEDS: OMEGA-3/DHA/EPA/FISH OIL 1,000 MG CAPSULE PO SCH (08:30)
[2022-09-17] MEDS: LISINOPRIL 20 MG TABLET PO SCH (08:30)
[2022-09-17] MEDS: METOPROLOL SUCCINATE 25 MG ER TABLET PO SCH (08:30)
[2022-09-17 16:00] VITALS: BP 140/94
[2022-09-17] MEDS: OLANZapine 10 MG RAPDIS TABLET PO SCH (20:59)
[2022-09-17] MEDS: BETHANECHOL CHLORIDE 25 MG TABLET PO SCH (20:59)
[2022-09-17] MEDS: MELATONIN 5 MG TABLET PO SCH (21:00)
[2022-09-18] MEDS: LEVOTHYROXINE SODIUM 200 MCG TABLET PO SCH (06:13)
[2022-09-18 10:47] VITALS: BP 132/92
[2022-09-18] MEDS: BuPROPion HCL XL 150 MG ER TABLET PO SCH (11:35)
[2022-09-18] MEDS: METOPROLOL SUCCINATE 25 MG ER TABLET PO SCH (11:36)
[2022-09-18] MEDS: LISINOPRIL 20 MG TABLET PO SCH (11:37)
[2022-09-18] MEDS: OMEGA-3/DHA/EPA/FISH OIL 1,000 MG CAPSULE PO SCH (11:38)
[2022-09-18] MEDS: MULTIVITAMINS WITH MINERALS, THERAPEUTIC TABLET PO SCH (11:38)
[2022-09-18 13:05] VITALS: BP 132/88
[2022-09-18] MEDS: ACETAMINOPHEN 325 MG TABLET PO PRN (13:05)
[2022-09-18] MEDS: MAG HYDROX/AL HYDROX/SIMETH ES 30 ML SUSPENSION UDCUP PO PRN (13:05)
[2022-09-18 14:05] VITALS: BP 114/78
[2022-09-18 16:00] VITALS: BP_SYST 100; BP_SYST 109; BP_DIAS 69
[2022-09-18] MEDS: MELATONIN 5 MG TABLET PO SCH (20:09)
[2022-09-18] MEDS: BETHANECHOL CHLORIDE 25 MG TABLET PO SCH (20:10)
[2022-09-18] MEDS: OLANZapine 10 MG RAPDIS TABLET PO SCH (20:10)
[2022-09-19] MEDS: LEVOTHYROXINE SODIUM 200 MCG TABLET PO SCH (06:34)
[2022-09-19] MEDS: METOPROLOL SUCCINATE 25 MG ER TABLET PO SCH (07:50)
[2022-09-19 07:51] VITALS: BP 64/56
[2022-09-19] MEDS: ACETAMINOPHEN 325 MG TABLET PO PRN ×2 (07:51→12:27)
[2022-09-19] MEDS: BuPROPion HCL XL 150 MG ER TABLET PO SCH (07:52)
[2022-09-19] MEDS: OMEGA-3/DHA/EPA/FISH OIL 1,000 MG CAPSULE PO SCH (07:52)
[2022-09-19] MEDS: LISINOPRIL 20 MG TABLET PO SCH (07:52)
[2022-09-19] MEDS: MULTIVITAMINS WITH MINERALS, THERAPEUTIC TABLET PO SCH (07:52)
[2022-09-19] MEDS: OLANZapine 5 MG RAPDIS TABLET PO PRN (07:53)
[2022-09-19] MEDS: PROMETHAZINE HCL 25 MG TABLET PO PRN ×2 (07:56→12:27)
[2022-09-19 08:01] LABS: COVID AG,FIA SOURCE NASAL SWAB
[2022-09-19 08:20] VITALS: BP 104/56
[2022-09-19 08:51] VITALS: BP 110/68
[2022-09-19] MEDS: MAG HYDROX/AL HYDROX/SIMETH ES 30 ML SUSPENSION UDCUP PO PRN (12:26)
[2022-09-19 12:27] VITALS: BP 111/71
[2022-09-19 13:27] VITALS: BP 106/71
[2022-09-19] MEDS: BETHANECHOL CHLORIDE 25 MG TABLET PO SCH (20:40)
[2022-09-19] MEDS: OLANZapine 10 MG RAPDIS TABLET PO SCH (20:40)
[2022-09-19] MEDS: MELATONIN 5 MG TABLET PO SCH (20:41)
[2022-09-20] MEDS: LEVOTHYROXINE SODIUM 200 MCG TABLET PO SCH (06:20)
[2022-09-20] MEDS: BuPROPion HCL XL 150 MG ER TABLET PO SCH (08:04)
[2022-09-20] MEDS: OMEGA-3/DHA/EPA/FISH OIL 1,000 MG CAPSULE PO SCH (08:04)
[2022-09-20] MEDS: METOPROLOL SUCCINATE 25 MG ER TABLET PO SCH (08:04)
[2022-09-20] MEDS: LISINOPRIL 20 MG TABLET PO SCH (08:04)
[2022-09-20] MEDS: MULTIVITAMINS WITH MINERALS, THERAPEUTIC TABLET PO SCH (08:04)
[2022-09-20 08:58] VITALS: BP 150/98
[2022-09-20 10:14] VITALS: BP 150/98
[2022-09-20] MEDS: ACETAMINOPHEN 325 MG TABLET PO PRN (10:14)
[2022-09-20 11:14] VITALS: BP 141/87
[2022-09-20] MEDS ORDERED: MELA5TAB40 PO (14:07)
[2022-09-20] MEDS ORDERED: BETH25 PO (14:07)
[2022-09-20] MEDS ORDERED: OLAN10TA26 PO (14:07)
[2022-09-20] MEDS ORDERED: BUPR-49 PO (14:07)
[2022-09-20] MEDS ORDERED: OMEG-135 PO (14:07)
[2022-09-20] MEDS: LORazepam 2 MG TABLET PO PRN (18:37)
[2022-09-20] MEDS: OLANZapine 10 MG RAPDIS TABLET PO SCH (20:50)
[2022-09-20] MEDS: BETHANECHOL CHLORIDE 25 MG TABLET PO SCH (20:50)
[2022-09-20] MEDS: MELATONIN 5 MG TABLET PO SCH (20:51)
[2022-09-21] MEDS: LEVOTHYROXINE SODIUM 200 MCG TABLET PO SCH (06:49)
[2022-09-21] MEDS: LISINOPRIL 20 MG TABLET PO SCH (08:04)
[2022-09-21] MEDS: METOPROLOL SUCCINATE 25 MG ER TABLET PO SCH (08:04)
[2022-09-21] MEDS: MULTIVITAMINS WITH MINERALS, THERAPEUTIC TABLET PO SCH (08:04)
[2022-09-21] MEDS: OMEGA-3/DHA/EPA/FISH OIL 1,000 MG CAPSULE PO SCH (08:04)
[2022-09-21] MEDS: BuPROPion HCL XL 150 MG ER TABLET PO SCH (08:04)
[2022-09-21 08:17] VITALS: BP 141/99
[2022-09-21] MEDS: MAG HYDROX/AL HYDROX/SIMETH ES 30 ML SUSPENSION UDCUP PO PRN (11:36)
[2022-09-21] MEDS ORDERED: LISI-894 PO (11:42)
[2022-09-21] MEDS ORDERED: LEVO200 PO (11:42)
[2022-09-22] MEDS ORDERED: OLAN10TA26 PO (15:42)
== END 2022-09-21 13:00 | disposition home or self-care (01) | DRG 885 ==
LOC: EMS 15:28 → 3EC 08-03 02:43
PROVIDERS: ADMIT Psychiatry & Neurology Psychiatry; ATTEND Psychiatry & Neurology Psychiatry
DX: F25.0 Schizoaffective disorder, bipolar type (principal); R45.851 Suicidal ideations; Z68.43 Body mass index [BMI] 50.0-59.9, adult; F41.9 Anxiety disorder, unspecified; G47.33 Obstructive sleep apnea (adult) (pediatric); F17.210 Nicotine dependence, cigarettes, uncomplicated; Z20.822 Contact with and (suspected) exposure to COVID-19; I10 Essential (primary) hypertension; F15.90 Other stimulant use, unspecified, uncomplicated; F14.90 Cocaine use, unspecified, uncomplicated; E66.01 Morbid (severe) obesity due to excess calories; E11.9 Type 2 diabetes mellitus without complications; E03.9 Hypothyroidism, unspecified; Z65.3 Problems related to other legal circumstances; Z79.4 Long term (current) use of insulin; Z55.9 Problems related to education and literacy, unspecified; Z59.9 Problem related to housing and economic circumstances, unspecified; Z63.9 Problem related to primary support group, unspecified; Z88.8 Allergy status to other drugs, medicaments and biological substances; Z78.1 Physical restraint status; Z74.01 Bed confinement status
CPT/HCPCS: 80053; 80061; 80074; 80164; 82962; 83036; 84436; 84439; 84443; 85025; 87081; 99291; G0480; J1200; J2060; J3486; Q9967

== ENCOUNTER 2023-09-15 21:48 | Inpatient (IN) | payer MEDICARE, MEDICAID ==
[~2023-09-15] VITALS: Ht 170.2 cm; Wt 180.0 kg
[~2023-09-15 21:48] MED LIST changes: -AMLO-257 PO; +BETH25 PO; +BUPR-49 PO; -LEVO75 PO; -METF-1211 PO; -METO25XL PO; +OLAN10TA26 PO; -THIOT10 PO; -TRIH2TAB3 PO; -VALP250S23 PO
[2023-09-16 00:49] LABS: EOSINOPHILS % (AUTO) 1.6 % (1.0-6.0); HEMATOCRIT 44.3 % (41-53); HEMOGLOBIN 14.6 g/dL (13.5-17.5); LYMPHOCYTES # (AUTO) 1.9 K/uL (1.0-4.8); LYMPHOCYTES % (AUTO) 17.7 % (22.0-44.0); MEAN CORPUSCULAR HEMOGLOBIN 26.6 pg (26.0-34.0); MEAN CORPUSCULAR HGB CONC 32.9 G/dL (31.0-37.0); MEAN CORPUSCULAR VOLUME 81 fL (80-100); MONOCYTES # (AUTO) 0.9 K/uL (0.1-1.0); MONOCYTES % (AUTO) 8.7 % (2.0-9.0); NEUTROPHILS # (AUTO) 7.7 K/uL (1.8-7.7); PLATELET COUNT (AUTO) 248 K/uL (150-450); RED BLOOD CELL COUNT(AUTO) 5.47 MIL/uL (4.50-5.90); WHITE BLOOD COUNT (AUTO) 10.8 K/uL (4.5-11.0)
[2023-09-16 00:56] LABS: ANION GAP 14 mmol/L (8-16); CALCIUM, TOTAL 9.5 mg/dL (8.8-10.5); CARBON DIOXIDE 23 mmol/L (22-29); CHLORIDE 102 mmol/L (98-107); GLOMERULAR FILTR. RATE CALC > 60 mL/min (>60); GLUCOSE,RANDOM 93 mg/dL (70-110); POTASSIUM 3.8 mmol/L (3.5-5.1); SODIUM SERUM 139 mmol/L (136-145); UREA NITROGEN, BLOOD 18 mg/dL (7-18)
[2023-09-16 00:58] LABS: ALCOHOL, BLOOD (SERUM) < 3 mg/dL (0-10)
[2023-09-16 01:08] LABS: ALANINE AMINOTRANSFERASE 42 U/L (12-78); ALBUMIN 4.1 g/dL (3.4-5.0); ALKALINE PHOSPHATASE 89 U/L (46-116); ASPARTATE AMINOTRANSFERASE 47 U/L (15-37); BILIRUBIN,TOTAL 1.7 mg/dL (0.1-1.0); TOTAL PROTEIN, SERUM 8.2 g/dL (6.4-8.2)
[2023-09-16] MEDS ORDERED: LORazepam 2 MG/ML VIAL IM ONE (01:45)
[2023-09-16] MEDS ORDERED: ZIPRASIDONE MESYLATE 20 MG/VIAL IM ONE (01:45)
[2023-09-16 02:19] LABS: COVID AG,FIA SOURCE NASAL SWAB
[2023-09-16] MEDS ORDERED: MIDAZOLAM HCL 5 MG/ML VIAL IM ONE (02:30)
[2023-09-16 02:43] LABS: SARS-COV2 (COVID) ANTIGEN,FIA Negative (Negative)
[2023-09-16] MEDS: ZOLPIDEM TARTRATE 10 MG TABLET PO PRN (22:53)
[2023-09-16] MEDS: LORazepam 2 MG TABLET PO PRN (22:53)
[2023-09-16] MEDS: OLANZapine 5 MG RAPDIS TABLET PO PRN (22:53)
[2023-09-17] MEDS ORDERED: ACETAMINOPHEN 500 MG TABLET ONE (13:57)
[2023-09-17] MEDS ORDERED: ACETAMINOPHEN 500 MG TABLET PO ONE (14:00)
[2023-09-17] MEDS ORDERED: ACETAMINOPHEN 650 MG/20.3 ML SOLUTION UDCUP PO ONE (14:00)
[2023-09-17] MEDS: ZOLPIDEM TARTRATE 10 MG TABLET PO PRN (23:37)
[2023-09-17] MEDS: OLANZapine 5 MG RAPDIS TABLET PO PRN (23:37)
[2023-09-17] MEDS: LORazepam 2 MG TABLET PO PRN (23:37)
[2023-09-18 00:17] VITALS: BP 146/75; PULSE 92; RESP 18; TEMP 97
[2023-09-18] MEDS ORDERED: DOCUSATE SODIUM 100 MG CAPSULE PO PRN (06:30)
[2023-09-18] MEDS ORDERED: ALBUTEROL SULFATE HFA 90 MCG/PUFF 8 GM INHALER IH PRN (06:30)
[2023-09-18] MEDS ORDERED: OMEPRAZOLE 20 MG CAPSULE PO PRN (06:30)
[2023-09-18] MEDS ORDERED: LOPERAMIDE HCL 2 MG CAPSULE PO PRN (06:30)
[2023-09-18] MEDS ORDERED: MAG HYDROX/ALUMINUM HYD/SIMETH ES 30 ML SUSPENSION UDCUP PO PRN (06:30)
[2023-09-18] MEDS ORDERED: MAGNESIUM HYDROXIDE SUSPENSION 30 ML UDCUP PO PRN (06:30)
[2023-09-18] MEDS ORDERED: PETROLATUM,WHITE 28 GM JELLY TP PRN (06:30)
[2023-09-18] MEDS ORDERED: ONDANSETRON HCL 4 MG TABLET PO PRN (06:30)
[2023-09-18] MEDS ORDERED: CloNIDine HCL 0.1 MG TABLET PO PRN (06:30)
[2023-09-18] MEDS ORDERED: BACITRACIN 28 GM OINTMENT TP PRN (06:30)
[2023-09-18] MEDS ORDERED: BENZOCAINE/MENTHOL LOZENGE PO PRN (06:30)
[2023-09-18] MEDS: LEVOTHYROXINE SODIUM 200 MCG TABLET PO SCH (06:51)
[2023-09-18] MEDS: LISINOPRIL 20 MG TABLET PO SCH (10:44)
[2023-09-18] MEDS: OMEGA-3/DHA/EPA/FISH OIL 1,000 MG CAPSULE PO SCH (10:44)
[2023-09-18 11:27] VITALS: BP 109/60; PULSE 110; RESP 18; TEMP 97.6
[2023-09-18] MEDS: ACETAMINOPHEN 325 MG TABLET PO PRN (12:42)
[2023-09-18 15:44] LABS: HEMOGLOBIN A1C 5.7 % (3.8-5.6)
[2023-09-18 15:46] LABS: CHOL/HDL RATIO 3.7 (4.2-7.3)
[2023-09-18 21:01] VITALS: BP 138/84; PULSE 89; RESP 18; TEMP 98.3
[2023-09-18] MEDS: MELATONIN 5 MG TABLET PO SCH (21:11)
[2023-09-18] MEDS: OLANZapine 10 MG TABLET PO SCH (21:11)
[2023-09-19] MEDS: ZOLPIDEM TARTRATE 10 MG TABLET PO PRN (02:23)
[2023-09-19] MEDS: LEVOTHYROXINE SODIUM 200 MCG TABLET PO SCH (06:26)
[2023-09-19 08:22] VITALS: BP 130/84; PULSE 91; RESP 18; TEMP 98.2
[2023-09-19] MEDS: LISINOPRIL 20 MG TABLET PO SCH (08:30)
[2023-09-19] MEDS: OMEGA-3/DHA/EPA/FISH OIL 1,000 MG CAPSULE PO SCH (08:30)
[2023-09-19] MEDS: OLANZapine 10 MG TABLET PO SCH (20:44)
[2023-09-19] MEDS: MELATONIN 5 MG TABLET PO SCH (20:44)
[2023-09-19 22:37] VITALS: BP 135/80; PULSE 81; RESP 18; TEMP 97.7
[2023-09-20] MEDS: LEVOTHYROXINE SODIUM 200 MCG TABLET PO SCH (06:41)
[2023-09-20] MEDS: LISINOPRIL 20 MG TABLET PO SCH ×2 (08:48→09:00)
[2023-09-20] MEDS: OMEGA-3/DHA/EPA/FISH OIL 1,000 MG CAPSULE PO SCH ×2 (08:48→09:00)
[2023-09-20 09:06] VITALS: BP 129/73; PULSE 86; RESP 18; TEMP 97.8
[2023-09-20] MEDS: OLANZapine 10 MG TABLET PO SCH (20:47)
[2023-09-20] MEDS: MELATONIN 5 MG TABLET PO SCH (20:47)
[2023-09-20 21:10] VITALS: BP 145/90; PULSE 93; RESP 18; TEMP 98.5
[2023-09-20] MEDS: IBUPROFEN 600 MG TABLET PO PRN (21:15)
[2023-09-20] MEDS: LORazepam 2 MG TABLET PO PRN (21:15)
[2023-09-20] MEDS ORDERED: DEXTROSE 50%-WATER 25 GM/50 ML SYRINGE IVP PRN (22:15)
[2023-09-20 22:16] LABS: POTASSIUM 3.9 mmol/L (3.5-5.1)
[2023-09-20 22:25] LABS: TROPONIN I-HIGH SENSITIVITY 6 ng/L (<76)
[2023-09-20 22:41] LABS: B-TYPE NATRIURETIC PEPTIDE < 5 pg/mL (0-100)
[2023-09-21 06:51] LABS: GLUCOMETER DEV NAME(LOC) 3EX.2; GLUCOSE,POINT OF CARE 91 MG/DL (70-110)
[2023-09-21] MEDS: INSULIN LISPRO 100 UNITS/ML SQ PRN ×2 (06:51→21:00)
[2023-09-21] MEDS: LEVOTHYROXINE SODIUM 200 MCG TABLET PO SCH (06:51)
[2023-09-21] MEDS: LISINOPRIL 20 MG TABLET PO SCH (08:36)
[2023-09-21] MEDS: OMEGA-3/DHA/EPA/FISH OIL 1,000 MG CAPSULE PO SCH (08:36)
[2023-09-21 09:34] VITALS: BP 140/90; PULSE 89; RESP 20; TEMP 98
[2023-09-21 11:27] LABS: BASOPHILS % (AUTO) 3.2 % (0.0-2.0); EOSINOPHILS % (AUTO) 5.9 % (1.0-6.0); HEMATOCRIT 39.9 % (41-53); HEMOGLOBIN 13.1 g/dL (13.5-17.5); LYMPHOCYTES # (AUTO) 1.6 K/uL (1.0-4.8); LYMPHOCYTES % (AUTO) 29.2 % (22.0-44.0); MEAN CORPUSCULAR HGB CONC 32.8 G/dL (31.0-37.0); MEAN CORPUSCULAR VOLUME 82 fL (80-100); MONOCYTES # (AUTO) 0.5 K/uL (0.1-1.0); MONOCYTES % (AUTO) 9.6 % (2.0-9.0); NEUTROPHILS # (AUTO) 2.9 K/uL (1.8-7.7); NEUTROPHILS % (AUTO) 52.1 % (40.0-70.0); PLATELET COUNT (AUTO) 197 K/uL (150-450); RED BLOOD CELL COUNT(AUTO) 4.84 MIL/uL (4.50-5.90); RED CELL DISTRIBUTION WIDTH 16.2 % (11.5-14.5); WHITE BLOOD COUNT (AUTO) 5.6 K/uL (4.5-11.0)
[2023-09-21] MEDS: LORazepam 2 MG TABLET PO PRN (11:42)
[2023-09-21 12:18] LABS: ALANINE AMINOTRANSFERASE 37 U/L (12-78); ALBUMIN 3.1 g/dL (3.4-5.0); ALKALINE PHOSPHATASE 70 U/L (46-116); ANION GAP 7 mmol/L (8-16); ASPARTATE AMINOTRANSFERASE 37 U/L (15-37); BILIRUBIN,TOTAL 0.9 mg/dL (0.1-1.0); CALCIUM, TOTAL 8.5 mg/dL (8.8-10.5); CARBON DIOXIDE 30 mmol/L (22-29); CHLORIDE 106 mmol/L (98-107); CREATININE 0.69 mg/dL (0.60-1.30); GLOMERULAR FILTR. RATE CALC > 60 mL/min (>60); GLUCOSE,RANDOM 114 mg/dL (70-110); POTASSIUM 3.6 mmol/L (3.5-5.1); SODIUM SERUM 143 mmol/L (136-145); THYROID STIMULATING HORMONE 15.79 uIU/mL (0.36-3.74); TOTAL PROTEIN, SERUM 6.6 g/dL (6.4-8.2); UREA NITROGEN, BLOOD 8 mg/dL (7-18)
[2023-09-21 20:15] VITALS: RESP 18
[2023-09-21 20:26] LABS: GLUCOMETER DEV NAME(LOC) 3EX.2; GLUCOSE,POINT OF CARE 106 MG/DL (70-110)
[2023-09-21] MEDS: MELATONIN 5 MG TABLET PO SCH (20:59)
[2023-09-21] MEDS: OLANZapine 10 MG TABLET PO SCH (20:59)
[2023-09-22 06:41] LABS: GLUCOMETER DEV NAME(LOC) 3EX.2; GLUCOSE,POINT OF CARE 90 MG/DL (70-110)
[2023-09-22] MEDS: LEVOTHYROXINE SODIUM 200 MCG TABLET PO SCH (06:41)
[2023-09-22] MEDS: INSULIN LISPRO 100 UNITS/ML SQ PRN (06:41)
[2023-09-22] MEDS: LISINOPRIL 20 MG TABLET PO SCH (08:27)
[2023-09-22] MEDS: OMEGA-3/DHA/EPA/FISH OIL 1,000 MG CAPSULE PO SCH (08:27)
[2023-09-22 08:59] VITALS: BP 150/90; PULSE 92; RESP 17; TEMP 97.8
[2023-09-22 11:27] LABS: GLUCOMETER DEV NAME(LOC) 3EX.2; GLUCOSE,POINT OF CARE 108 MG/DL (70-110)
[2023-09-22] MEDS: OLANZapine 5 MG RAPDIS TABLET PO PRN (13:39)
[2023-09-22 16:21] LABS: GLUCOMETER DEV NAME(LOC) 3EX.2; GLUCOSE,POINT OF CARE 110 MG/DL (70-110)
[2023-09-22] MEDS: MELATONIN 5 MG TABLET PO SCH (20:42)
[2023-09-22] MEDS: OLANZapine 10 MG TABLET PO SCH (20:42)
[2023-09-22 21:00] VITALS: RESP 18
[2023-09-22 22:20] VITALS: BP 142/88; PULSE 86; RESP 20; TEMP 98
[2023-09-22] MEDS: IBUPROFEN 600 MG TABLET PO PRN (22:25)
[2023-09-23] MEDS: INSULIN LISPRO 100 UNITS/ML SQ PRN ×2 (06:40→21:09)
[2023-09-23 06:41] LABS: GLUCOMETER DEV NAME(LOC) 3EX.2; GLUCOSE,POINT OF CARE 103 MG/DL (70-110)
[2023-09-23] MEDS ORDERED: LEVOTHYROXINE SODIUM 125 MCG TABLET PO SCH (07:00)
[2023-09-23] MEDS: LEVOTHYROXINE SODIUM 200 MCG TABLET PO SCH (07:00)
[2023-09-23] MEDS: LEVOTHYROXINE SODIUM 75 MCG TABLET PO SCH (07:00)
[2023-09-23] MEDS: OMEGA-3/DHA/EPA/FISH OIL 1,000 MG CAPSULE PO SCH (08:31)
[2023-09-23] MEDS: LISINOPRIL 20 MG TABLET PO SCH (08:31)
[2023-09-23 08:57] VITALS: BP 129/85; PULSE 93; RESP 18; TEMP 98.8
[2023-09-23 11:56] LABS: GLUCOMETER DEV NAME(LOC) 3EX.2; GLUCOSE,POINT OF CARE 102 MG/DL (70-110)
[2023-09-23 11:59] VITALS: BP 136/78; PULSE 90; RESP 18
[2023-09-23] MEDS: ACETAMINOPHEN 325 MG TABLET PO PRN ×2 (12:02→18:06)
[2023-09-23 13:02] VITALS: RESP 17
[2023-09-23 17:06] LABS: GLUCOMETER DEV NAME(LOC) 3EX.2; GLUCOSE,POINT OF CARE 114 MG/DL (70-110)
[2023-09-23 18:04] VITALS: RESP 18
[2023-09-23 19:06] VITALS: RESP 18
[2023-09-23 20:26] LABS: GLUCOMETER DEV NAME(LOC) 3EX.2; GLUCOSE,POINT OF CARE 129 MG/DL (70-110)
[2023-09-23 20:33] VITALS: BP 119/67; PULSE 95; RESP 18; TEMP 98
[2023-09-23] MEDS: OLANZapine 10 MG TABLET PO SCH (20:43)
[2023-09-23] MEDS: MELATONIN 5 MG TABLET PO SCH (20:43)
[2023-09-24] MEDS: LEVOTHYROXINE SODIUM 200 MCG TABLET PO SCH (06:54)
[2023-09-24] MEDS: LEVOTHYROXINE SODIUM 75 MCG TABLET PO SCH (06:54)
[2023-09-24] MEDS: INSULIN LISPRO 100 UNITS/ML SQ PRN ×2 (06:55→21:17)
[2023-09-24 06:56] LABS: GLUCOMETER DEV NAME(LOC) 3EX.2; GLUCOSE,POINT OF CARE 106 MG/DL (70-110)
[2023-09-24 08:20] VITALS: BP 149/96; PULSE 88; RESP 18; TEMP 98.4
[2023-09-24] MEDS: LISINOPRIL 20 MG TABLET PO SCH (09:09)
[2023-09-24] MEDS: OMEGA-3/DHA/EPA/FISH OIL 1,000 MG CAPSULE PO SCH (09:09)
[2023-09-24 12:11] LABS: GLUCOMETER DEV NAME(LOC) 3EX.2; GLUCOSE,POINT OF CARE 123 MG/DL (70-110)
[2023-09-24 17:31] LABS: GLUCOMETER DEV NAME(LOC) 3EX.2; GLUCOSE,POINT OF CARE 133 MG/DL (70-110)
[2023-09-24] MEDS: IBUPROFEN 600 MG TABLET PO PRN (18:45)
[2023-09-24 19:45] VITALS: RESP 18
[2023-09-24 20:16] VITALS: BP 147/96; PULSE 87; RESP 19; TEMP 98.8
[2023-09-24] MEDS: MELATONIN 5 MG TABLET PO SCH (20:57)
[2023-09-24] MEDS: OLANZapine 10 MG TABLET PO SCH (20:57)
[2023-09-24 21:41] LABS: GLUCOMETER DEV NAME(LOC) 3EX.2; GLUCOSE,POINT OF CARE 105 MG/DL (70-110)
[2023-09-25] MEDS: OLANZapine 5 MG RAPDIS TABLET PO PRN (05:21)
[2023-09-25] MEDS: INSULIN LISPRO 100 UNITS/ML SQ PRN ×2 (06:45→21:11)
[2023-09-25] MEDS: LEVOTHYROXINE SODIUM 75 MCG TABLET PO SCH (07:00)
[2023-09-25] MEDS: LEVOTHYROXINE SODIUM 200 MCG TABLET PO SCH (07:00)
[2023-09-25 07:01] LABS: GLUCOMETER DEV NAME(LOC) 3EX.2; GLUCOSE,POINT OF CARE 135 MG/DL (70-110)
[2023-09-25 08:58] VITALS: BP 104/54; PULSE 88; RESP 18; TEMP 97.6
[2023-09-25] MEDS: LISINOPRIL 20 MG TABLET PO SCH (09:00)
[2023-09-25] MEDS: OMEGA-3/DHA/EPA/FISH OIL 1,000 MG CAPSULE PO SCH (09:00)
[2023-09-25 12:26] VITALS: RESP 17
[2023-09-25] MEDS: IBUPROFEN 600 MG TABLET PO PRN (12:31)
[2023-09-25 13:30] VITALS: RESP 16
[2023-09-25 16:11] LABS: GLUCOMETER DEV NAME(LOC) 3EX.2; GLUCOSE,POINT OF CARE 111 MG/DL (70-110)
[2023-09-25 16:26] LABS: GLUCOMETER DEV NAME(LOC) 3EX.2; GLUCOSE,POINT OF CARE 109 MG/DL (70-110)
[2023-09-25] MEDS: MELATONIN 5 MG TABLET PO SCH (20:37)
[2023-09-25] MEDS: OLANZapine 10 MG TABLET PO SCH (20:38)
[2023-09-25 20:58] VITALS: BP 128/68; PULSE 77; RESP 20; TEMP 97.8
[2023-09-25 21:26] LABS: GLUCOMETER DEV NAME(LOC) 3EX.2; GLUCOSE,POINT OF CARE 110 MG/DL (70-110)
[2023-09-26] MEDS: LEVOTHYROXINE SODIUM 75 MCG TABLET PO SCH (06:45)
[2023-09-26] MEDS: LEVOTHYROXINE SODIUM 200 MCG TABLET PO SCH (06:45)
[2023-09-26] MEDS: INSULIN LISPRO 100 UNITS/ML SQ PRN (06:46)
[2023-09-26 07:02] LABS: GLUCOMETER DEV NAME(LOC) 3EX.2; GLUCOSE,POINT OF CARE 101 MG/DL (70-110)
[2023-09-26] MEDS: OMEGA-3/DHA/EPA/FISH OIL 1,000 MG CAPSULE PO SCH (08:34)
[2023-09-26] MEDS: LISINOPRIL 20 MG TABLET PO SCH (08:34)
[2023-09-26 09:11] VITALS: BP 146/88; PULSE 82; RESP 18; TEMP 97.6
[2023-09-26 11:51] LABS: GLUCOMETER DEV NAME(LOC) 3EX.2; GLUCOSE,POINT OF CARE 130 MG/DL (70-110)
[2023-09-26 17:46] LABS: GLUCOMETER DEV NAME(LOC) 3EX.2; GLUCOSE,POINT OF CARE 129 MG/DL (70-110)
[2023-09-26] MEDS: MELATONIN 5 MG TABLET PO SCH (20:05)
[2023-09-26 20:07] VITALS: BP 129/81; PULSE 82; RESP 18; TEMP 98.7
[2023-09-26 20:46] LABS: GLUCOMETER DEV NAME(LOC) 3EX.2; GLUCOSE,POINT OF CARE 134 MG/DL (70-110)
[2023-09-26] MEDS ORDERED: OLANZapine 10 MG TABLET PO SCH (21:00)
[2023-09-26] MEDS: ZOLPIDEM TARTRATE 10 MG TABLET PO PRN (22:06)
[2023-09-27 06:17] LABS: GLUCOMETER DEV NAME(LOC) 3EX.2; GLUCOSE,POINT OF CARE 115 MG/DL (70-110)
[2023-09-27] MEDS: LEVOTHYROXINE SODIUM 200 MCG TABLET PO SCH (06:32)
[2023-09-27] MEDS: LEVOTHYROXINE SODIUM 75 MCG TABLET PO SCH (06:32)
[2023-09-27] MEDS: OMEGA-3/DHA/EPA/FISH OIL 1,000 MG CAPSULE PO SCH (08:44)
[2023-09-27] MEDS: LISINOPRIL 20 MG TABLET PO SCH (08:45)
[2023-09-27 09:43] VITALS: BP 109/65; PULSE 90; RESP 18; TEMP 97.3
[2023-09-27 12:01] LABS: GLUCOMETER DEV NAME(LOC) 3EX.2; GLUCOSE,POINT OF CARE 112 MG/DL (70-110)
[2023-09-27 13:44] VITALS: BP 120/74; PULSE 79; RESP 18; TEMP 97.3
[2023-09-27] MEDS: ACETAMINOPHEN 325 MG TABLET PO PRN (13:44)
[2023-09-27 17:11] LABS: GLUCOMETER DEV NAME(LOC) 3EX.2; GLUCOSE,POINT OF CARE 157 MG/DL (70-110)
[2023-09-27 21:06] VITALS: BP 122/76; PULSE 80; RESP 18; TEMP 97.4
[2023-09-27] MEDS: MELATONIN 5 MG TABLET PO SCH (21:11)
[2023-09-27] MEDS: OLANZapine 10 MG TABLET PO SCH (21:11)
[2023-09-28] MEDS: LEVOTHYROXINE SODIUM 75 MCG TABLET PO SCH (06:50)
[2023-09-28] MEDS: LEVOTHYROXINE SODIUM 200 MCG TABLET PO SCH (06:50)
[2023-09-28] MEDS: OMEGA-3/DHA/EPA/FISH OIL 1,000 MG CAPSULE PO SCH (09:18)
[2023-09-28] MEDS: LISINOPRIL 20 MG TABLET PO SCH (09:18)
[2023-09-28 10:37] VITALS: BP 107/69; PULSE 80; RESP 18; TEMP 97.8
[2023-09-28] MEDS: OLANZapine 5 MG RAPDIS TABLET PO PRN (15:12)
[2023-09-28] MEDS: LORazepam 2 MG TABLET PO PRN (15:13)
[2023-09-28] MEDS: MELATONIN 5 MG TABLET PO SCH (20:16)
[2023-09-28] MEDS: OLANZapine 10 MG TABLET PO SCH (20:16)
[2023-09-28 20:25] VITALS: BP 105/65; PULSE 60; RESP 18; TEMP 97.5
[2023-09-29] MEDS: LEVOTHYROXINE SODIUM 75 MCG TABLET PO SCH (06:34)
[2023-09-29] MEDS: LEVOTHYROXINE SODIUM 200 MCG TABLET PO SCH (06:35)
[2023-09-29 08:15] VITALS: RESP 18
[2023-09-29] MEDS: LISINOPRIL 20 MG TABLET PO SCH (09:09)
[2023-09-29] MEDS: OMEGA-3/DHA/EPA/FISH OIL 1,000 MG CAPSULE PO SCH (09:09)
[2023-09-29 09:12] VITALS: BP 139/84; PULSE 83; RESP 18; TEMP 97.3
[2023-09-29] MEDS: OLANZapine 5 MG RAPDIS TABLET PO PRN (16:48)
[2023-09-29] MEDS: LORazepam 2 MG TABLET PO PRN (16:48)
[2023-09-29] MEDS: OLANZapine 10 MG TABLET PO SCH (20:10)
[2023-09-29] MEDS: MELATONIN 5 MG TABLET PO SCH (20:10)
[2023-09-29 20:40] VITALS: BP 131/79; PULSE 88; RESP 18; TEMP 97.7
[2023-09-29] MEDS: ZOLPIDEM TARTRATE 10 MG TABLET PO PRN (20:46)
[2023-09-29 21:39] VITALS: BP 130/78; PULSE 82; RESP 18; TEMP 97.4
[2023-09-30] MEDS: LEVOTHYROXINE SODIUM 200 MCG TABLET PO SCH (06:04)
[2023-09-30] MEDS: LEVOTHYROXINE SODIUM 75 MCG TABLET PO SCH (06:04)
[2023-09-30] MEDS: OMEGA-3/DHA/EPA/FISH OIL 1,000 MG CAPSULE PO SCH (10:05)
[2023-09-30] MEDS: LISINOPRIL 20 MG TABLET PO SCH (10:05)
[2023-09-30 14:01] VITALS: RESP 17
[2023-09-30] MEDS: LORazepam 2 MG TABLET PO PRN (15:44)
[2023-09-30] MEDS: ACETAMINOPHEN 325 MG TABLET PO PRN (17:49)
[2023-09-30] MEDS: MELATONIN 5 MG TABLET PO SCH (20:43)
[2023-09-30] MEDS: OLANZapine 10 MG TABLET PO SCH (20:44)
[2023-09-30 22:50] VITALS: RESP 18
[2023-09-30] MEDS: IBUPROFEN 600 MG TABLET PO PRN (22:52)
[2023-09-30 23:52] VITALS: RESP 18
[2023-10-01] MEDS: LEVOTHYROXINE SODIUM 200 MCG TABLET PO SCH (06:35)
[2023-10-01] MEDS: LEVOTHYROXINE SODIUM 75 MCG TABLET PO SCH (06:35)
[2023-10-01 08:15] VITALS: BP 120/71; PULSE 73; RESP 16; TEMP 97.7
[2023-10-01] MEDS: OMEGA-3/DHA/EPA/FISH OIL 1,000 MG CAPSULE PO SCH (08:23)
[2023-10-01] MEDS: LISINOPRIL 20 MG TABLET PO SCH (08:24)
[2023-10-01] MEDS: LORazepam 2 MG TABLET PO PRN (12:29)
[2023-10-01] MEDS ORDERED: HALOPERIDOL 10 MG TABLET PO SCH (21:00)
[2023-10-01] MEDS: MELATONIN 5 MG TABLET PO SCH (21:57)
[2023-10-01] MEDS: OLANZapine 10 MG TABLET PO SCH (21:57)
[2023-10-01 21:58] VITALS: RESP 18
[2023-10-02] MEDS: LEVOTHYROXINE SODIUM 200 MCG TABLET PO SCH (06:14)
[2023-10-02] MEDS: LEVOTHYROXINE SODIUM 75 MCG TABLET PO SCH (06:14)
[2023-10-02 08:18] VITALS: BP 159/99; PULSE 82; RESP 18; TEMP 98
[2023-10-02] MEDS: OMEGA-3/DHA/EPA/FISH OIL 1,000 MG CAPSULE PO SCH (08:30)
[2023-10-02] MEDS: LISINOPRIL 20 MG TABLET PO SCH (08:30)
[2023-10-02 15:38] VITALS: BP 128/80; PULSE 78; RESP 18
[2023-10-02] MEDS: ACETAMINOPHEN 325 MG TABLET PO PRN (15:41)
[2023-10-02 16:40] VITALS: RESP 16
[2023-10-02 20:25] VITALS: RESP 18
[2023-10-02] MEDS: OLANZapine 10 MG TABLET PO SCH (20:49)
[2023-10-02] MEDS: MELATONIN 5 MG TABLET PO SCH (20:50)
[2023-10-03] MEDS: LEVOTHYROXINE SODIUM 200 MCG TABLET PO SCH (06:46)
[2023-10-03] MEDS: LEVOTHYROXINE SODIUM 75 MCG TABLET PO SCH (06:46)
[2023-10-03] MEDS: OLANZapine 5 MG RAPDIS TABLET PO PRN (08:11)
[2023-10-03] MEDS: OMEGA-3/DHA/EPA/FISH OIL 1,000 MG CAPSULE PO SCH (08:11)
[2023-10-03] MEDS: LISINOPRIL 20 MG TABLET PO SCH (08:15)
[2023-10-03 08:17] VITALS: BP 149/95; PULSE 79; RESP 18; TEMP 97.5
[2023-10-03] MEDS: ACETAMINOPHEN 325 MG TABLET PO PRN (08:20)
[2023-10-03 09:20] VITALS: RESP 16
[2023-10-03 21:00] VITALS: BP 140/96; PULSE 75; RESP 18; TEMP 98.5
[2023-10-03] MEDS ORDERED: OLANZapine 10 MG TABLET PO SCH (21:00)
[2023-10-03] MEDS: MELATONIN 5 MG TABLET PO SCH (21:01)
[2023-10-04] MEDS: LEVOTHYROXINE SODIUM 200 MCG TABLET PO SCH (07:05)
[2023-10-04] MEDS: LEVOTHYROXINE SODIUM 75 MCG TABLET PO SCH (07:05)
[2023-10-04 09:19] VITALS: BP 130/74; PULSE 100; RESP 18; TEMP 97.8
[2023-10-04] MEDS: OMEGA-3/DHA/EPA/FISH OIL 1,000 MG CAPSULE PO SCH (11:21)
[2023-10-04] MEDS: LISINOPRIL 20 MG TABLET PO SCH (11:21)
[2023-10-04 20:39] VITALS: BP 143/89; PULSE 89; RESP 18; TEMP 98.2
[2023-10-04] MEDS: OLANZapine 10 MG TABLET PO SCH (21:08)
[2023-10-04] MEDS: MELATONIN 5 MG TABLET PO SCH (21:08)
[2023-10-04] MEDS: ZOLPIDEM TARTRATE 10 MG TABLET PO PRN (23:20)
[2023-10-04] MEDS: OLANZapine 5 MG RAPDIS TABLET PO PRN (23:22)
[2023-10-05] MEDS: LEVOTHYROXINE SODIUM 75 MCG TABLET PO SCH (06:47)
[2023-10-05] MEDS: LEVOTHYROXINE SODIUM 200 MCG TABLET PO SCH (06:47)
[2023-10-05 08:30] VITALS: BP 91/52; PULSE 80; RESP 18; TEMP 97
[2023-10-05] MEDS: LISINOPRIL 20 MG TABLET PO SCH (08:30)
[2023-10-05] MEDS: OMEGA-3/DHA/EPA/FISH OIL 1,000 MG CAPSULE PO SCH (08:30)
[2023-10-05 09:30] VITALS: BP 95/57; PULSE 76; RESP 18
[2023-10-05] MEDS: IBUPROFEN 600 MG TABLET PO PRN (09:31)
[2023-10-05 09:32] VITALS: BP 95/57; PULSE 76; TEMP 98.2
[2023-10-05 10:32] VITALS: BP 156/95; PULSE 86; RESP 18; TEMP 97.7
[2023-10-05] MEDS: OLANZapine 5 MG RAPDIS TABLET PO PRN (12:11)
[2023-10-05] MEDS: OLANZapine 10 MG TABLET PO SCH (20:56)
[2023-10-05] MEDS: MELATONIN 5 MG TABLET PO SCH (20:56)
[2023-10-05 22:29] VITALS: BP 157/93; PULSE 85; RESP 18; TEMP 97.7
[2023-10-06] MEDS: LEVOTHYROXINE SODIUM 200 MCG TABLET PO SCH (06:45)
[2023-10-06] MEDS: LEVOTHYROXINE SODIUM 75 MCG TABLET PO SCH (06:45)
[2023-10-06 08:20] VITALS: BP 154/96; PULSE 98; RESP 18; TEMP 98.1
[2023-10-06] MEDS: LISINOPRIL 20 MG TABLET PO SCH (08:28)
[2023-10-06] MEDS: OMEGA-3/DHA/EPA/FISH OIL 1,000 MG CAPSULE PO SCH (08:29)
[2023-10-06] MEDS: OLANZapine 5 MG RAPDIS TABLET PO PRN (15:50)
[2023-10-06 20:48] VITALS: BP 151/85; PULSE 88; RESP 18; TEMP 97.6
[2023-10-06] MEDS: MELATONIN 5 MG TABLET PO SCH (20:57)
[2023-10-06] MEDS: OLANZapine 10 MG TABLET PO SCH (20:58)
[2023-10-06] MEDS: ZOLPIDEM TARTRATE 10 MG TABLET PO PRN (22:40)
[2023-10-07] MEDS: LEVOTHYROXINE SODIUM 200 MCG TABLET PO SCH (06:57)
[2023-10-07] MEDS: LEVOTHYROXINE SODIUM 75 MCG TABLET PO SCH (06:57)
[2023-10-07 08:00] VITALS: BP 146/96; PULSE 95; RESP 22; TEMP 98
[2023-10-07] MEDS: OMEGA-3/DHA/EPA/FISH OIL 1,000 MG CAPSULE PO SCH (08:02)
[2023-10-07] MEDS: LISINOPRIL 20 MG TABLET PO SCH (08:02)
[2023-10-07 08:18] VITALS: RESP 16
[2023-10-07 12:22] VITALS: BP 164/89; PULSE 101; RESP 18; TEMP 97.9
[2023-10-07] MEDS: IBUPROFEN 600 MG TABLET PO PRN (12:27)
[2023-10-07] MEDS: OLANZapine 10 MG TABLET PO SCH (20:25)
[2023-10-07] MEDS: MELATONIN 5 MG TABLET PO SCH (20:26)
[2023-10-07 21:43] VITALS: BP 155/86; PULSE 87; RESP 18; TEMP 98.4
[2023-10-08] MEDS: OLANZapine 5 MG RAPDIS TABLET PO PRN (04:26)
[2023-10-08] MEDS: LEVOTHYROXINE SODIUM 75 MCG TABLET PO SCH (06:55)
[2023-10-08] MEDS: LEVOTHYROXINE SODIUM 200 MCG TABLET PO SCH (06:55)
[2023-10-08 08:13] VITALS: RESP 17
[2023-10-08] MEDS: OMEGA-3/DHA/EPA/FISH OIL 1,000 MG CAPSULE PO SCH (08:29)
[2023-10-08] MEDS: LISINOPRIL 20 MG TABLET PO SCH (08:29)
[2023-10-08 08:48] VITALS: BP_SYST 144; BP_SYST 149; BP_DIAS 97; PULSE 88; RESP 18; TEMP 97
[2023-10-08 20:23] VITALS: BP 134/85; PULSE 92; RESP 18; TEMP 97.1
[2023-10-08] MEDS: OLANZapine 10 MG TABLET PO SCH (20:47)
[2023-10-08] MEDS: MELATONIN 5 MG TABLET PO SCH (20:47)
[2023-10-08] MEDS: ZOLPIDEM TARTRATE 10 MG TABLET PO PRN (21:37)
[2023-10-09] MEDS: OLANZapine 5 MG RAPDIS TABLET PO PRN (03:27)
[2023-10-09] MEDS: LEVOTHYROXINE SODIUM 75 MCG TABLET PO SCH (06:49)
[2023-10-09] MEDS: LEVOTHYROXINE SODIUM 200 MCG TABLET PO SCH (06:49)
[2023-10-09 08:13] VITALS: BP 137/91; PULSE 81; RESP 18; TEMP 97.5
[2023-10-09] MEDS: LISINOPRIL 20 MG TABLET PO SCH (08:19)
[2023-10-09] MEDS: OMEGA-3/DHA/EPA/FISH OIL 1,000 MG CAPSULE PO SCH (08:19)
[2023-10-09 20:32] VITALS: BP 133/72; PULSE 80; RESP 18; TEMP 97.5
[2023-10-09] MEDS: MELATONIN 5 MG TABLET PO SCH (20:42)
[2023-10-09] MEDS: OLANZapine 10 MG TABLET PO SCH (20:42)
[2023-10-09] MEDS: ZOLPIDEM TARTRATE 10 MG TABLET PO PRN (21:23)
[2023-10-10 02:00] VITALS: BP 140/90; PULSE 86; RESP 20; TEMP 98
[2023-10-10] MEDS: ACETAMINOPHEN 325 MG TABLET PO PRN ×4 (02:08→20:09)
[2023-10-10 03:08] VITALS: RESP 18
[2023-10-10] MEDS: LEVOTHYROXINE SODIUM 200 MCG TABLET PO SCH (06:39)
[2023-10-10] MEDS: LEVOTHYROXINE SODIUM 75 MCG TABLET PO SCH (06:42)
[2023-10-10 08:03] VITALS: BP 136/90; PULSE 82; RESP 18; TEMP 98
[2023-10-10] MEDS: LISINOPRIL 20 MG TABLET PO SCH (08:18)
[2023-10-10] MEDS: OMEGA-3/DHA/EPA/FISH OIL 1,000 MG CAPSULE PO SCH (08:18)
[2023-10-10] MEDS: LORazepam 2 MG TABLET PO PRN (15:45)
[2023-10-10 20:26] VITALS: BP 134/92; PULSE 92; RESP 18; TEMP 98.2
[2023-10-10] MEDS: OLANZapine 10 MG TABLET PO SCH (20:40)
[2023-10-10] MEDS: MELATONIN 5 MG TABLET PO SCH (20:40)
[2023-10-11] MEDS: OLANZapine 5 MG RAPDIS TABLET PO PRN (01:00)
[2023-10-11] MEDS: LEVOTHYROXINE SODIUM 75 MCG TABLET PO SCH (06:30)
[2023-10-11] MEDS: LEVOTHYROXINE SODIUM 200 MCG TABLET PO SCH (06:31)
[2023-10-11] MEDS: ACETAMINOPHEN 325 MG TABLET PO PRN (07:47)
[2023-10-11] MEDS: OMEGA-3/DHA/EPA/FISH OIL 1,000 MG CAPSULE PO SCH (08:38)
[2023-10-11] MEDS: LISINOPRIL 20 MG TABLET PO SCH (08:38)
[2023-10-11 08:59] VITALS: BP 137/71; PULSE 105; RESP 18; TEMP 98
[2023-10-11] MEDS: IBUPROFEN 600 MG TABLET PO PRN (12:43)
[2023-10-11 20:33] VITALS: BP 111/76; PULSE 87; RESP 18; TEMP 97.5
[2023-10-11] MEDS: MELATONIN 5 MG TABLET PO SCH (20:46)
[2023-10-11] MEDS: OLANZapine 10 MG TABLET PO SCH (20:47)
[2023-10-12] MEDS: LEVOTHYROXINE SODIUM 200 MCG TABLET PO SCH (06:51)
[2023-10-12] MEDS: LEVOTHYROXINE SODIUM 75 MCG TABLET PO SCH (06:51)
[2023-10-12] MEDS: OMEGA-3/DHA/EPA/FISH OIL 1,000 MG CAPSULE PO SCH (08:13)
[2023-10-12] MEDS: LISINOPRIL 20 MG TABLET PO SCH (08:16)
[2023-10-12 08:50] VITALS: BP 150/77; PULSE 100; RESP 18; TEMP 98.3
[2023-10-12] MEDS ORDERED: LEVO75 PO (09:47)
[2023-10-12] MEDS ORDERED: LEVO200 PO (09:53)
[2023-10-12] MEDS: ACETAMINOPHEN 325 MG TABLET PO PRN (09:55)
[2023-10-12 10:00] VITALS: BP 148/76; PULSE 98; RESP 18; TEMP 98.3
[2023-10-12] MEDS ORDERED: OLAN10TA74 PO (12:04)
== END 2023-10-12 13:35 | disposition home or self-care (01) | DRG 885 ==
LOC: EMS 22:12 → 3EC 09-17 09:06
PROVIDERS: ADMIT Psychiatry & Neurology Psychiatry; ATTEND Psychiatry & Neurology Psychiatry
PROC: GZHZZZZ Group Psychotherapy (ICD-10-PCS; principal; 2023-09-17)
PROC: GZ51ZZZ Individual Psychotherapy, Behavioral (ICD-10-PCS; 2023-09-17)
DX: F25.0 Schizoaffective disorder, bipolar type (principal); R45.851 Suicidal ideations; Z68.44 Body mass index [BMI] 60.0-69.9, adult; E11.9 Type 2 diabetes mellitus without complications; I10 Essential (primary) hypertension; F17.210 Nicotine dependence, cigarettes, uncomplicated; Z90.49 Acquired absence of other specified parts of digestive tract; Z88.8 Allergy status to other drugs, medicaments and biological substances; Z20.822 Contact with and (suspected) exposure to COVID-19; K59.00 Constipation, unspecified; F19.10 Other psychoactive substance abuse, uncomplicated; F41.9 Anxiety disorder, unspecified; E03.9 Hypothyroidism, unspecified; G47.33 Obstructive sleep apnea (adult) (pediatric); E66.01 Morbid (severe) obesity due to excess calories; G47.00 Insomnia, unspecified; Z78.1 Physical restraint status; Z91.148 Patient's other noncompliance with medication regimen for other reason; Z91.199 Patient's noncompliance with other medical treatment and regimen due to unspecified reason; Z79.899 Other long term (current) drug therapy
CPT/HCPCS: 80053; 80061; 82962; 83036; 83735; 83880; 84132; 84439; 84443; 84484; 85025; 96372; 99284; G0480; J2060; J2250; J3486; Q0162; Q9967

== ENCOUNTER 2025-01-01 02:03 | Inpatient (IN) | payer OTHER ==
[~2025-01-01] VITALS: Ht 185.4 cm; Wt 195.4 kg
[2025-01-01] VITALS (7 sets, daily range): BP systolic 121–124; BP diastolic 63–78; PULSE 79–101; RESP 18–28; TEMP 97.5–97.7; O2SAT 88–97
[~2025-01-01 02:03] MED LIST changes: +AMLO5TAB66 PO; +ARIP882S2 IM; -BETH25 PO; +BUME2TAB5 PO; -BUPR-49 PO; +CARB400T13 PO; +HYDR-4808 PO; -LEVO200 PO; +LEVO200T10 PO; -LISI-894 PO; +METO50 PO; -OLAN10TA26 PO; +ZIPR20CA38 PO; +[UNRECOGNIZED DRUG - CODE] PO
[2025-01-01 04:38] LABS: HEMATOCRIT 38.7 % (41-53); HEMOGLOBIN 12.7 g/dL (13.5-17.5); LYMPHOCYTES # (AUTO) 1.8 K/uL (1.0-4.8); LYMPHOCYTES % (AUTO) 25.4 % (22.0-44.0); MEAN CORPUSCULAR HEMOGLOBIN 27.6 pg (26.0-34.0); MEAN CORPUSCULAR HGB CONC 32.7 G/dL (31.0-37.0); MEAN CORPUSCULAR VOLUME 85 fL (80-100); MONOCYTES # (AUTO) 0.6 K/uL (0.1-1.0); MONOCYTES % (AUTO) 9.3 % (2.0-9.0); NEUTROPHILS # (AUTO) 4.2 K/uL (1.8-7.7); NEUTROPHILS % (AUTO) 60.3 % (40.0-70.0); PLATELET COUNT (AUTO) 206 K/uL (150-450); RED BLOOD CELL COUNT(AUTO) 4.58 MIL/uL (4.50-5.90); RED CELL DISTRIBUTION WIDTH 16.2 % (11.5-14.5); WHITE BLOOD COUNT (AUTO) 6.9 K/uL (4.5-11.0)
[2025-01-01 04:44] LABS: ANION GAP 4 mmol/L (8-16); CALCIUM, TOTAL 9.1 mg/dL (8.8-10.5); CARBON DIOXIDE 32 mmol/L (22-29); CHLORIDE 103 mmol/L (98-107); CREATININE 0.61 mg/dL (0.60-1.30); GLOMERULAR FILTR. RATE CALC > 60 mL/min (>60); GLUCOSE,RANDOM 118 mg/dL (70-110); POTASSIUM 4.2 mmol/L (3.5-5.1); SODIUM SERUM 139 mmol/L (136-145); UREA NITROGEN, BLOOD 10 mg/dL (7-18)
[2025-01-01 04:53] LABS: CREATINE KINASE, TOTAL ONLY 109 U/L (39-308); TROPONIN I-HIGH SENSITIVITY 5 ng/L (<76)
[2025-01-01 05:23] LABS: B-TYPE NATRIURETIC PEPTIDE < 5 pg/mL (0-100)
[2025-01-01] MEDS: ZIPRASIDONE HCL 20 MG CAPSULE PO ONE (05:39)
[2025-01-01] MEDS: LORazepam 2 MG TABLET PO ONE (05:39)
[2025-01-01 06:02] LABS: HEMOGLOBIN A1C 5.7 % (3.8-5.6)
[2025-01-01 06:08] LABS: CHOL/HDL RATIO 3.1 (4.2-7.3); CHOLESTEROL 193 mg/dL (131-200); HDL CHOLESTEROL 63 mg/dL (40-60); LDL CHOL (CALC.) 108 mg/dL (0-130); THYROID STIMULATING HORMONE 8.36 uIU/mL (0.36-3.74); TRIGLYCERIDES 108 mg/dL (15-150)
[2025-01-01] MEDS ORDERED: ZOLPIDEM TARTRATE 10 MG TABLET PO PRN (08:30)
[2025-01-01] MEDS: LORazepam 2 MG TABLET PO PRN (08:50)
[2025-01-01] MEDS ORDERED: IPRATROPIUM BROMIDE 0.5 MG/2.5 ML NEB SOLUTION NEB PRN (11:45)
[2025-01-01] MEDS ORDERED: ALBUTEROL SULFATE 2.5 MG/0.5 ML NEB SOLUTION NEB PRN (11:45)
[2025-01-01] MEDS: ALBUTEROL SULFATE 2.5 MG/0.5 ML NEB SOLUTION NEB SCH (14:31)
[2025-01-01] MEDS: IPRATROPIUM BROMIDE 0.5 MG/2.5 ML NEB SOLUTION NEB SCH (14:31)
[2025-01-01] MEDS: BENZONATATE 100 MG CAPSULE PO SCH (17:12)
[2025-01-01] MEDS: ZIPRASIDONE HCL 20 MG CAPSULE PO SCH (17:12)
[2025-01-01] MEDS: METOPROLOL TARTRATE 50 MG TABLET PO SCH (20:22)
[2025-01-01] MEDS: MELATONIN 5 MG TABLET PO SCH (20:22)
[2025-01-01] MEDS: GuaiFENesin SR 600 MG ER TABLET PO SCH (20:22)
[2025-01-01] MEDS: BUMETANIDE 1 MG TABLET PO SCH (20:22)
[2025-01-01] MEDS: CarBAMazepine 200 MG ER TABLET PO SCH (20:22)
[2025-01-01] MEDS: MethylPREDNISolone SOD SUCC 40 MG/ML VIAL IVP SCH (20:23)
[2025-01-01 23:29] LABS: APPEARANCE,URINE CLEAR (CLEAR); BILIRUBIN,URINE NEGATIVE (NEGATIVE); COLOR,URINE LIGHT YELLOW (YELLOW); GLUCOSE, URINE (UA) NEGATIVE (NEGATIVE); KETONES,URINE NEGATIVE (NEGATIVE); LEUKOCYTE ESTERASE ,URINE NEGATIVE (NEGATIVE); NITRATE,URINE NEGATIVE (NEGATIVE); OCCULT BLOOD,URINE NEGATIVE (NEGATIVE); PROTEIN,URINE 100-200,SEE CONFIRM mg/dL (NEGATIVE); SPECIFIC GRAVITIY, URINE 1.016 (1.003-1.030); UROBILINOGEN,URINE <=1.0 mg/dL (<=1.0)
[2025-01-01 23:31] LABS: SULFOSALICYLIC ACID,URINE 2+ (Negative)
[2025-01-01 23:32] LABS: BACTERIA,URINE None Seen /HPF (None Seen); RBC,URINE None Seen /HPF (0-2); SQUAMOUS EPITHELIAL CELL,UR Few /LPF (None Seen); WBC,URINE None Seen /HPF (0-5)
[2025-01-01 23:33] LABS: ALCOHOL, URINE DRUG SCREEN NEGATIVE (NEGATIVE); AMPHET/METH SCREEN,URINE NEGATIVE (NEGATIVE); BARBITURATE SCREEN, URINE NEGATIVE (NEGATIVE); BENZODIAZEPINES SCREEN,URINE NEGATIVE (NEGATIVE); CANNABINOID SCREEN,URINE NEGATIVE (NEGATIVE); COCAINE SCREEN,URINE NEGATIVE (NEGATIVE); METHADONE SCREEN, URINE NEGATIVE (NEGATIVE); OPIATE SCREEN,URINE NEGATIVE (NEGATIVE); PHENCYCLIDINE SCREEN,URINE NEGATIVE (NEGATIVE)
[2025-01-02] VITALS (7 sets, daily range): BP systolic 117–139; BP diastolic 71–94; PULSE 92–110; RESP 18–28; TEMP 97.9–98.4; O2SAT 90–96
[2025-01-02] MEDS: LEVOTHYROXINE SODIUM 200 MCG TABLET PO SCH (06:16)
[2025-01-02] MEDS: OMEGA-3/DHA/EPA/FISH OIL 1,000 MG CAPSULE PO SCH (08:07)
[2025-01-02] MEDS: AmLODIPine BESYLATE 5 MG TABLET PO SCH (11:05)
[2025-01-02] MEDS: CarBAMazepine 200 MG ER TABLET PO SCH (14:54)
[2025-01-03 04:28] VITALS: BP 135/54; PULSE 105; RESP 18; TEMP 97.8; O2SAT 92
[2025-01-03] MEDS: LEVOTHYROXINE SODIUM 50 MCG TABLET PO SCH (05:39)
[2025-01-03 08:30] VITALS: BP 150/96; PULSE 84; RESP 20; TEMP 97.9; O2SAT 91
[2025-01-03 08:52] VITALS: BP 158/97; PULSE 94; RESP 20; O2SAT 93
[2025-01-03] MEDS ORDERED: PRED-554 PO (13:21)
[2025-01-03 15:19] VITALS: PULSE 106; RESP 16; O2SAT 96
[2025-01-03 15:20] VITALS: PULSE 105; RESP 18; O2SAT 95
[2025-01-26] MEDS ORDERED: ARIPiprazole LAUROXIL ER SUSPENSION 882 MG/3.2 ML SYRINGE IM SCH (09:00)
== END 2025-01-03 19:30 | disposition home or self-care (01) | DRG 189 ==
LOC: EMS 02:04 → EDH 08:26 → 6S 10:46
PROVIDERS: ADMIT Internal Medicine; ATTEND Internal Medicine
PROC: 5A09357 Assistance with Respiratory Ventilation, Less than 24 Consecutive Hours, Continuous Positive Airway Pressure (ICD-10-PCS; principal; 2025-01-01)
PROC: 5A09357 Assistance with Respiratory Ventilation, Less than 24 Consecutive Hours, Continuous Positive Airway Pressure (ICD-10-PCS; 2025-01-02)
DX: J96.21 Acute and chronic respiratory failure with hypoxia (principal); J44.1 Chronic obstructive pulmonary disease with (acute) exacerbation; Z68.43 Body mass index [BMI] 50.0-59.9, adult; E66.01 Morbid (severe) obesity due to excess calories; G47.33 Obstructive sleep apnea (adult) (pediatric); I10 Essential (primary) hypertension; E03.9 Hypothyroidism, unspecified; E78.5 Hyperlipidemia, unspecified; E11.9 Type 2 diabetes mellitus without complications; F17.210 Nicotine dependence, cigarettes, uncomplicated; F14.90 Cocaine use, unspecified, uncomplicated; F25.0 Schizoaffective disorder, bipolar type; Z79.899 Other long term (current) drug therapy
CPT/HCPCS: 71045; 80048; 80061; 80307; 81001; 81002; 82550; 83036; 83880; 84443; 84484; 85025; 87040; 93005; 94640; 94660; 99285; 36415-L1; 36415-TC; J7613

== ENCOUNTER 2025-01-10 22:32 | Inpatient (IN) | payer OTHER ==
[~2025-01-10] VITALS: Ht 167.6 cm; Wt 134.5 kg
[~2025-01-10 22:32] MED LIST changes: +PRED-554 PO
[2025-01-10 23:32] LABS: BASOPHILS % (AUTO) 1.1 % (0.0-2.0); EOSINOPHILS % (AUTO) 3.1 % (1.0-6.0); HEMATOCRIT 39.4 % (41-53); LYMPHOCYTES # (AUTO) 1.8 K/uL (1.0-4.8); LYMPHOCYTES % (AUTO) 25.2 % (22.0-44.0); MEAN CORPUSCULAR HEMOGLOBIN 28.1 pg (26.0-34.0); MEAN CORPUSCULAR VOLUME 85 fL (80-100); MONOCYTES # (AUTO) 0.7 K/uL (0.1-1.0); MONOCYTES % (AUTO) 9.6 % (2.0-9.0); NEUTROPHILS # (AUTO) 4.3 K/uL (1.8-7.7); PLATELET COUNT (AUTO) 210 K/uL (150-450); RED BLOOD CELL COUNT(AUTO) 4.64 MIL/uL (4.50-5.90); RED CELL DISTRIBUTION WIDTH 16.1 % (11.5-14.5); WHITE BLOOD COUNT (AUTO) 7.1 K/uL (4.5-11.0)
[2025-01-10 23:40] LABS: ANION GAP 5 mmol/L (8-16); CALCIUM, TOTAL 9.2 mg/dL (8.8-10.5); CARBON DIOXIDE 34 mmol/L (22-29); CHLORIDE 100 mmol/L (98-107); CREATININE 0.69 mg/dL (0.60-1.30); GLOMERULAR FILTR. RATE CALC > 60 mL/min (>60); GLUCOSE,RANDOM 123 mg/dL (70-110); SODIUM SERUM 139 mmol/L (136-145); UREA NITROGEN, BLOOD 11 mg/dL (7-18)
[2025-01-10 23:44] LABS: COVID AG,FIA SOURCE NASAL SWAB; SARS-COV2 (COVID) ANTIGEN,FIA Negative (Negative)
[2025-01-10 23:56] LABS: ALCOHOL, BLOOD (SERUM) < 3 mg/dL (0-10)
[2025-01-11 02:06] LABS: TROPONIN I-HIGH SENSITIVITY 6 ng/L (<76)
[2025-01-11 02:08] LABS: B-TYPE NATRIURETIC PEPTIDE < 5 pg/mL (0-100)
[2025-01-11 03:27] LABS: APPEARANCE,URINE CLEAR (CLEAR); BILIRUBIN,URINE NEGATIVE (NEGATIVE); COLOR,URINE YELLOW (YELLOW); GLUCOSE, URINE (UA) NEGATIVE (NEGATIVE); KETONES,URINE NEGATIVE (NEGATIVE); LEUKOCYTE ESTERASE ,URINE NEGATIVE (NEGATIVE); NITRATE,URINE NEGATIVE (NEGATIVE); OCCULT BLOOD,URINE NEGATIVE (NEGATIVE); PROTEIN,URINE 300-600,SEE CONFIRM mg/dL (NEGATIVE); SPECIFIC GRAVITIY, URINE 1.028 (1.003-1.030); UROBILINOGEN,URINE <=1.0 mg/dL (<=1.0)
[2025-01-11 03:32] LABS: ALCOHOL, URINE DRUG SCREEN NEGATIVE (NEGATIVE); AMPHET/METH SCREEN,URINE NEGATIVE (NEGATIVE); BARBITURATE SCREEN, URINE NEGATIVE (NEGATIVE); BENZODIAZEPINES SCREEN,URINE NEGATIVE (NEGATIVE); CANNABINOID SCREEN,URINE NEGATIVE (NEGATIVE); COCAINE SCREEN,URINE NEGATIVE (NEGATIVE); METHADONE SCREEN, URINE NEGATIVE (NEGATIVE); OPIATE SCREEN,URINE NEGATIVE (NEGATIVE); PHENCYCLIDINE SCREEN,URINE NEGATIVE (NEGATIVE)
[2025-01-11 03:39] LABS: AMORPHOUS SEDIMENT,UR Few /LPF (None Seen); BACTERIA,URINE None Seen /HPF (None Seen); RBC,URINE None Seen /HPF (0-2); SQUAMOUS EPITHELIAL CELL,UR Few /LPF (None Seen); SULFOSALICYLIC ACID,URINE 4+ (Negative); WBC,URINE None Seen /HPF (0-5)
[2025-01-11 05:55] VITALS: BP 119/76; PULSE 86; RESP 20; TEMP 98.1; O2SAT 98
[2025-01-11 08:03] VITALS: BP 155/104; PULSE 89; RESP 20; TEMP 98.1; O2SAT 95
[2025-01-11 08:05] VITALS: BP 167/108
[2025-01-11 10:25] VITALS: BP 103/61; PULSE 86; O2SAT 92
[2025-01-11] MEDS ORDERED: LEVO200 PO (14:59)
[2025-01-11] MEDS ORDERED: LISI-894 PO (14:59)
[2025-01-11] MEDS ORDERED: ARIP15TA27 PO (14:59)
[2025-01-11] MEDS ORDERED: ALBUTEROL SULFATE 2.5 MG/0.5 ML NEB SOLUTION NEB PRN (15:15)
[2025-01-11] MEDS ORDERED: IPRATROPIUM BROMIDE 0.5 MG/2.5 ML NEB SOLUTION NEB PRN (15:15)
[2025-01-11] MEDS ORDERED: ONDANSETRON HCL 4 MG/2 ML VIAL IVP PRN (15:15)
[2025-01-11 15:32] VITALS: BP 146/85; PULSE 83; RESP 22; TEMP 98.2; O2SAT 94
[2025-01-11] MEDS: HEPARIN SODIUM,PORCINE 5,000 UNITS/ML VIAL SQ SCH (15:58)
[2025-01-11] MEDS: ZIPRASIDONE HCL 20 MG CAPSULE PO SCH (17:46)
[2025-01-11 19:40] VITALS: BP 133/86; PULSE 89; RESP 19; TEMP 98.1; O2SAT 97
[2025-01-11] MEDS: MELATONIN 5 MG TABLET PO SCH (20:57)
[2025-01-11] MEDS: DOCUSATE SODIUM 100 MG CAPSULE PO SCH (20:57)
[2025-01-11] MEDS: METOPROLOL TARTRATE 50 MG TABLET PO SCH (20:58)
[2025-01-11] MEDS: BUMETANIDE 1 MG TABLET PO SCH (20:58)
[2025-01-12] MEDS: HydrOXYzine PAMOATE 25 MG CAPSULE PO PRN (00:39)
[2025-01-12 04:40] VITALS: BP 143/80; PULSE 85; RESP 19; TEMP 97.5; O2SAT 96
[2025-01-12] MEDS: LEVOTHYROXINE SODIUM 200 MCG TABLET PO SCH (05:46)
[2025-01-12 07:20] LABS: BASOPHILS % (AUTO) 1.1 % (0.0-2.0); EOSINOPHILS % (AUTO) 4.1 % (1.0-6.0); HEMATOCRIT 41.1 % (41-53); HEMOGLOBIN 13.5 g/dL (13.5-17.5); LYMPHOCYTES # (AUTO) 1.4 K/uL (1.0-4.8); LYMPHOCYTES % (AUTO) 22.1 % (22.0-44.0); MEAN CORPUSCULAR HEMOGLOBIN 27.8 pg (26.0-34.0); MEAN CORPUSCULAR HGB CONC 32.7 G/dL (31.0-37.0); MEAN CORPUSCULAR VOLUME 85 fL (80-100); MONOCYTES # (AUTO) 0.5 K/uL (0.1-1.0); MONOCYTES % (AUTO) 8.4 % (2.0-9.0); NEUTROPHILS # (AUTO) 4.1 K/uL (1.8-7.7); NEUTROPHILS % (AUTO) 64.3 % (40.0-70.0); PLATELET COUNT (AUTO) 207 K/uL (150-450); RED BLOOD CELL COUNT(AUTO) 4.85 MIL/uL (4.50-5.90); RED CELL DISTRIBUTION WIDTH 16.1 % (11.5-14.5); WHITE BLOOD COUNT (AUTO) 6.3 K/uL (4.5-11.0)
[2025-01-12 07:32] LABS: ANION GAP 5 mmol/L (8-16); CALCIUM, TOTAL 9.1 mg/dL (8.8-10.5); CARBON DIOXIDE 35 mmol/L (22-29); CHLORIDE 99 mmol/L (98-107); CREATININE 0.62 mg/dL (0.60-1.30); GLOMERULAR FILTR. RATE CALC > 60 mL/min (>60); GLUCOSE,RANDOM 105 mg/dL (70-110); SODIUM SERUM 139 mmol/L (136-145); UREA NITROGEN, BLOOD 7 mg/dL (7-18)
[2025-01-12 07:35] VITALS: BP 157/85; PULSE 78; RESP 20; TEMP 98.4; O2SAT 95
[2025-01-12] MEDS: ARIPiprazole 15 MG TABLET PO SCH (08:33)
[2025-01-12] MEDS: LISINOPRIL 20 MG TABLET PO SCH (08:34)
[2025-01-12] MEDS: AmLODIPine BESYLATE 5 MG TABLET PO SCH (08:34)
[2025-01-12] MEDS: ACETAMINOPHEN 325 MG TABLET PO PRN (12:44)
[2025-01-12 15:49] VITALS: BP 154/82; PULSE 82; RESP 20; TEMP 98.1; O2SAT 97
[2025-01-12 19:54] VITALS: BP 116/76; PULSE 73; RESP 20; TEMP 97.7; O2SAT 97
[2025-01-12] MEDS: ARIPiprazole 15 MG TABLET PO ONE (20:16)
[2025-01-13 00:30] VITALS: PULSE 98; RESP 21; O2SAT 94
[2025-01-13 05:31] VITALS: BP 131/75; PULSE 72; RESP 20; TEMP 97.5; O2SAT 96
[2025-01-13] MEDS: LEVOTHYROXINE SODIUM 75 MCG TABLET PO SCH (06:29)
[2025-01-13] MEDS ORDERED: LEVOTHYROXINE SODIUM 75 MCG TABLET PO SCH (06:30)
[2025-01-13 08:16] VITALS: BP 145/89; PULSE 97; RESP 20; TEMP 97.5; O2SAT 96
[2025-01-13] MEDS ORDERED: ARIPiprazole 15 MG TABLET PO SCH (09:00)
[2025-01-13] MEDS: ONDANSETRON 4 MG TABLET PO PRN (11:29)
[2025-01-13] MEDS ORDERED: ARIP15TA27 PO (14:39)
[2025-01-13 15:52] VITALS: BP 142/74; PULSE 78; RESP 20; TEMP 97.9; O2SAT 97
[2025-01-13] MEDS: ARIPiprazole 15 MG TABLET PO SCH (21:09)
[2025-01-13 21:14] VITALS: BP 106/65; PULSE 76; RESP 20; TEMP 98.1; O2SAT 91
[2025-01-13 21:53] VITALS: PULSE 75; RESP 20; O2SAT 94
[2025-01-14 04:50] VITALS: BP 104/65; PULSE 67; RESP 20; TEMP 97.7; O2SAT 93
[2025-01-14 10:00] VITALS: BP 143/89; PULSE 88; RESP 18; TEMP 98.2; O2SAT 94
[2025-01-14] MEDS: ARIPiprazole 5 MG TABLET PO PRN (10:02)
[2025-01-14 16:29] VITALS: BP 125/73; PULSE 80; RESP 18; TEMP 98.8; O2SAT 100
[2025-02-10] MEDS ORDERED: ARIPiprazole LAUROXIL ER SUSPENSION 882 MG/3.2 ML SYRINGE IM SCH (09:00)
== END 2025-01-14 16:45 | disposition home or self-care (01) | DRG 885 ==
LOC: EMS 22:32 → EDH 01-11 04:12 → 4E 01-11 06:00
PROVIDERS: ADMIT Internal Medicine; ATTEND Internal Medicine
PROC: 5A09357 Assistance with Respiratory Ventilation, Less than 24 Consecutive Hours, Continuous Positive Airway Pressure (ICD-10-PCS; principal; 2025-01-13)
DX: F20.9 Schizophrenia, unspecified (principal); J96.11 Chronic respiratory failure with hypoxia; R45.851 Suicidal ideations; Z68.42 Body mass index [BMI] 45.0-49.9, adult; I50.32 Chronic diastolic (congestive) heart failure; E03.9 Hypothyroidism, unspecified; E66.01 Morbid (severe) obesity due to excess calories; I11.0 Hypertensive heart disease with heart failure; E11.9 Type 2 diabetes mellitus without complications; J44.9 Chronic obstructive pulmonary disease, unspecified; Z20.822 Contact with and (suspected) exposure to COVID-19; F31.9 Bipolar disorder, unspecified; G47.33 Obstructive sleep apnea (adult) (pediatric); F15.10 Other stimulant abuse, uncomplicated; Z87.891 Personal history of nicotine dependence; Z91.199 Patient's noncompliance with other medical treatment and regimen due to unspecified reason; Z99.81 Dependence on supplemental oxygen; Z79.899 Other long term (current) drug therapy; Z88.8 Allergy status to other drugs, medicaments and biological substances; Z90.49 Acquired absence of other specified parts of digestive tract
CPT/HCPCS: 71045; 80048; 80307; 81001; 81002; 83735; 83880; 84443; 84484; 85025; 93005; 93306; 94660; 99285; G0378; G0480; J1644; Q0162; 36415-L1; 36415-TC; J7613

== ENCOUNTER 2025-01-29 04:51 | Emergency (ER) | payer OTHER ==
[~2025-01-29] VITALS: Ht 170.2 cm; Wt 196.4 kg
[~2025-01-29 04:51] MED LIST changes: +ARIP15TA27 PO; -CARB400T13 PO; +LEVO200 PO; -LEVO200T10 PO; +LISI-894 PO; -PRED-554 PO; -[UNRECOGNIZED DRUG - CODE] PO
[2025-01-29 05:42] LABS: BASOPHILS % (AUTO) 1.1 % (0.0-2.0); HEMOGLOBIN 13.4 g/dL (13.5-17.5); LYMPHOCYTES # (AUTO) 1.6 K/uL (1.0-4.8); LYMPHOCYTES % (AUTO) 21.1 % (22.0-44.0); MEAN CORPUSCULAR HEMOGLOBIN 27.9 pg (26.0-34.0); MEAN CORPUSCULAR HGB CONC 33.6 G/dL (31.0-37.0); MEAN CORPUSCULAR VOLUME 83 fL (80-100); MONOCYTES # (AUTO) 0.7 K/uL (0.1-1.0); MONOCYTES % (AUTO) 8.9 % (2.0-9.0); NEUTROPHILS # (AUTO) 4.9 K/uL (1.8-7.7); NEUTROPHILS % (AUTO) 64.9 % (40.0-70.0); PLATELET COUNT (AUTO) 225 K/uL (150-450); RED BLOOD CELL COUNT(AUTO) 4.81 MIL/uL (4.50-5.90); RED CELL DISTRIBUTION WIDTH 16.6 % (11.5-14.5); WHITE BLOOD COUNT (AUTO) 7.6 K/uL (4.5-11.0)
[2025-01-29 05:54] LABS: ANION GAP 6 mmol/L (8-16); CARBON DIOXIDE 33 mmol/L (22-29); CHLORIDE 102 mmol/L (98-107); CREATININE 0.74 mg/dL (0.60-1.30); GLOMERULAR FILTR. RATE CALC > 60 mL/min (>60); GLUCOSE,RANDOM 137 mg/dL (70-110); POTASSIUM 3.8 mmol/L (3.5-5.1); SODIUM SERUM 141 mmol/L (136-145); UREA NITROGEN, BLOOD 14 mg/dL (7-18)
[2025-01-29] MEDS: OLANZapine 5 MG RAPDIS TABLET PO ONE (07:40)
[2025-01-29 07:52] LABS: COVID AG,FIA SOURCE NASAL SWAB
[2025-01-29 08:33] LABS: SARS-COV2 (COVID) ANTIGEN,FIA Negative (Negative)
[2025-01-29 08:35] LABS: PH,URINE DRUG SCREEN 5.5 (5.0-8.0)
[2025-01-29 08:39] LABS: ALCOHOL, URINE DRUG SCREEN NEGATIVE (NEGATIVE); AMPHET/METH SCREEN,URINE NEGATIVE (NEGATIVE); BARBITURATE SCREEN, URINE NEGATIVE (NEGATIVE); BENZODIAZEPINES SCREEN,URINE NEGATIVE (NEGATIVE); CANNABINOID SCREEN,URINE NEGATIVE (NEGATIVE); COCAINE SCREEN,URINE NEGATIVE (NEGATIVE); METHADONE SCREEN, URINE NEGATIVE (NEGATIVE); OPIATE SCREEN,URINE NEGATIVE (NEGATIVE); PHENCYCLIDINE SCREEN,URINE NEGATIVE (NEGATIVE)
[2025-01-29 08:46] VITALS: BP 143/53; PULSE 94; RESP 20; TEMP 98.2; O2SAT 92
[2025-01-29] MEDS ORDERED: OLAN5TAB52 PO (08:48)
[2025-01-29] MEDS: LEVOTHYROXINE SODIUM 200 MCG TABLET PO ONE (09:19)
== END 2025-01-29 09:23 | disposition home or self-care (01) ==
LOC: EMS 04:54
DX: F25.9 Schizoaffective disorder, unspecified (principal); E03.9 Hypothyroidism, unspecified; E11.9 Type 2 diabetes mellitus without complications; J44.9 Chronic obstructive pulmonary disease, unspecified; I10 Essential (primary) hypertension; F12.90 Cannabis use, unspecified, uncomplicated; F15.10 Other stimulant abuse, uncomplicated; Z90.49 Acquired absence of other specified parts of digestive tract; Z87.891 Personal history of nicotine dependence; Z79.899 Other long term (current) drug therapy; Z20.822 Contact with and (suspected) exposure to COVID-19
CPT/HCPCS: 99284; 87426; 80048; 84443; 85025; 36415; 82962; 80307; G0480

== ENCOUNTER 2025-02-19 09:31 | Inpatient (IN) | payer MEDICARE, MEDICAID ==
[~2025-02-19] VITALS: Ht 170.2 cm; Wt 180.4 kg
[~2025-02-19 09:31] MED LIST changes: +ACET-2247 PO; -ARIP15TA27 PO; +CARB400T13 PO; +DOCU-385 PO; +FAMO20 PO; +HEPA500018 SQ; +LEVO75 PO; -OMEG-135 PO; +SEMA0.253 SQ; -ZIPR20CA38 PO; +ZIPR40CA38 PO; +[UNRECOGNIZED DRUG - CODE] PO
[2025-02-19] MEDS ORDERED: DOCU-385 PO (10:41)
[2025-02-19 17:42] VITALS: BP 114/101; PULSE 81; RESP 17; TEMP 97.5; O2SAT 96
[2025-02-19] MEDS ORDERED: MAGNESIUM HYDROXIDE SUSPENSION 30 ML UDCUP PO PRN (19:15)
[2025-02-19] MEDS ORDERED: BACITRACIN 28 GM OINTMENT TP PRN (19:15)
[2025-02-19] MEDS ORDERED: DEXTROSE 50%-WATER 25 GM/50 ML SYRINGE IVP PRN (19:15)
[2025-02-19] MEDS ORDERED: PETROLATUM,WHITE 28 GM JELLY TP PRN (19:15)
[2025-02-19] MEDS ORDERED: BENZOCAINE/MENTHOL [CEPACOL] LOZENGE PO PRN (19:15)
[2025-02-19] MEDS ORDERED: DOCUSATE SODIUM 100 MG CAPSULE PO PRN (19:15)
[2025-02-19] MEDS ORDERED: ALBUTEROL SULFATE HFA 90 MCG/PUFF 8 GM INHALER IH PRN (19:15)
[2025-02-19] MEDS ORDERED: LOPERAMIDE HCL 2 MG CAPSULE PO PRN (19:15)
[2025-02-19] MEDS ORDERED: OMEPRAZOLE 20 MG CAPSULE PO PRN (19:15)
[2025-02-19 20:10] VITALS: BP 110/94; PULSE 80; RESP 18; TEMP 97.3; O2SAT 96
[2025-02-19] MEDS: MELATONIN 5 MG TABLET PO SCH (20:51)
[2025-02-19] MEDS: METOPROLOL TARTRATE 50 MG TABLET PO SCH (20:52)
[2025-02-19] MEDS: CarBAMazepine 200 MG ER TABLET PO SCH (20:52)
[2025-02-19] MEDS: BUMETANIDE 1 MG TABLET PO SCH (20:52)
[2025-02-19] MEDS: ZOLPIDEM TARTRATE 10 MG TABLET PO PRN (21:11)
[2025-02-19] MEDS: INSULIN LISPRO 100 UNITS/ML SQ PRN (21:12)
[2025-02-19 21:26] LABS: GLUCOMETER DEV NAME(LOC) 3E.C; GLUCOSE,POINT OF CARE 96 MG/DL (70-110)
[2025-02-20] MEDS: LEVOTHYROXINE SODIUM 200 MCG TABLET PO SCH (06:34)
[2025-02-20] MEDS: LEVOTHYROXINE SODIUM 75 MCG TABLET PO SCH (06:34)
[2025-02-20 06:45] LABS: GLUCOMETER DEV NAME(LOC) 3E.C; GLUCOSE,POINT OF CARE 101 MG/DL (70-110)
[2025-02-20] MEDS: CarBAMazepine 200 MG ER TABLET PO SCH (08:30)
[2025-02-20 08:43] VITALS: BP 156/105; PULSE 95; RESP 18; TEMP 97.4; O2SAT 95
[2025-02-20 11:31] LABS: GLUCOMETER DEV NAME(LOC) 3E.C; GLUCOSE,POINT OF CARE 97 MG/DL (70-110)
[2025-02-20 16:21] LABS: GLUCOMETER DEV NAME(LOC) 3E.C; GLUCOSE,POINT OF CARE 132 MG/DL (70-110)
[2025-02-20 17:10] VITALS: BP 122/85; PULSE 80
[2025-02-20 21:26] LABS: GLUCOMETER DEV NAME(LOC) 3E.C; GLUCOSE,POINT OF CARE 109 MG/DL (70-110)
[2025-02-20 21:51] VITALS: BP 130/88; PULSE 82; RESP 18; TEMP 97.2
[2025-02-21 06:35] LABS: GLUCOMETER DEV NAME(LOC) 3E.C; GLUCOSE,POINT OF CARE 95 MG/DL (70-110)
[2025-02-21 08:36] VITALS: BP 146/100; PULSE 91; RESP 21; TEMP 97; O2SAT 98
[2025-02-21 12:31] LABS: GLUCOMETER DEV NAME(LOC) 3E.C; GLUCOSE,POINT OF CARE 131 MG/DL (70-110)
[2025-02-21 16:40] LABS: GLUCOMETER DEV NAME(LOC) 3E.C; GLUCOSE,POINT OF CARE 101 MG/DL (70-110)
[2025-02-21 16:42] VITALS: BP 137/97; PULSE 93; RESP 20; O2SAT 97
[2025-02-21 20:05] VITALS: BP 95/60; PULSE 91; RESP 18; TEMP 97.6; O2SAT 95
[2025-02-21 20:25] LABS: GLUCOMETER DEV NAME(LOC) 3E.C; GLUCOSE,POINT OF CARE 146 MG/DL (70-110)
[2025-02-21 20:43] VITALS: PULSE 84; RESP 20; O2SAT 93
[2025-02-21 22:30] VITALS: PULSE 93; RESP 20; O2SAT 94
[2025-02-22 01:00] VITALS: PULSE 81; RESP 20; O2SAT 95
[2025-02-22 06:21] LABS: GLUCOMETER DEV NAME(LOC) 3E.C; GLUCOSE,POINT OF CARE 103 MG/DL (70-110)
[2025-02-22 08:45] LABS: PLATELET COUNT (AUTO) 208 K/uL (150-450); RED BLOOD CELL COUNT(AUTO) 5.00 MIL/uL (4.50-5.90); RED CELL DISTRIBUTION WIDTH 16.3 % (11.5-14.5); WHITE BLOOD COUNT (AUTO) 6.0 K/uL (4.5-11.0)
[2025-02-22 09:10] LABS: ASPARTATE AMINOTRANSFERASE 37 U/L (15-37); CALCIUM, TOTAL 8.9 mg/dL (8.8-10.5); CHOL/HDL RATIO 3.0 (4.2-7.3); CREATININE 0.78 mg/dL (0.60-1.30); GLOMERULAR FILTR. RATE CALC > 60 mL/min (>60); GLUCOSE,RANDOM 115 mg/dL (70-110); LDL CHOL (CALC.) 102 mg/dL (0-130); PHOSPHORUS 3.5 mg/dL (2.5-4.9); SODIUM SERUM 135 mmol/L (136-145); TOTAL PROTEIN, SERUM 6.9 g/dL (6.4-8.2); UREA NITROGEN, BLOOD 11 mg/dL (7-18)
[2025-02-22 10:38] VITALS: BP 146/87; PULSE 81; RESP 18; TEMP 97.4; O2SAT 95
[2025-02-22 11:50] LABS: GLUCOMETER DEV NAME(LOC) 3E.C; GLUCOSE,POINT OF CARE 90 MG/DL (70-110)
[2025-02-22] MEDS: OLANZapine 5 MG RAPDIS TABLET PO PRN (12:46)
[2025-02-22 16:51] LABS: GLUCOMETER DEV NAME(LOC) 3E.C; GLUCOSE,POINT OF CARE 127 MG/DL (70-110)
[2025-02-22 17:27] VITALS: BP 131/80; PULSE 89; RESP 18; O2SAT 98
[2025-02-22 20:30] LABS: GLUCOMETER DEV NAME(LOC) 3E.C; GLUCOSE,POINT OF CARE 113 MG/DL (70-110)
[2025-02-22 21:00] VITALS: PULSE 73; RESP 20; O2SAT 93
[2025-02-22 22:21] VITALS: BP 102/73; PULSE 69; RESP 18; TEMP 97.6; O2SAT 92
[2025-02-23 01:40] VITALS: PULSE 69; RESP 20; O2SAT 93
[2025-02-23 04:50] VITALS: PULSE 70; RESP 20; O2SAT 93
[2025-02-23 06:50] LABS: GLUCOMETER DEV NAME(LOC) 3E.C; GLUCOSE,POINT OF CARE 88 MG/DL (70-110)
[2025-02-23 11:55] LABS: GLUCOMETER DEV NAME(LOC) 3E.C; GLUCOSE,POINT OF CARE 99 MG/DL (70-110)
[2025-02-23 12:47] VITALS: BP 110/61; PULSE 68; RESP 20; TEMP 96.5; O2SAT 91
[2025-02-23 18:41] LABS: GLUCOMETER DEV NAME(LOC) 3E.C; GLUCOSE,POINT OF CARE 155 MG/DL (70-110)
[2025-02-23 20:06] LABS: GLUCOMETER DEV NAME(LOC) 3E.C; GLUCOSE,POINT OF CARE 107 MG/DL (70-110)
[2025-02-23 22:09] VITALS: BP 134/78; PULSE 86; RESP 18; TEMP 97.8; O2SAT 93
[2025-02-24 06:31] LABS: GLUCOMETER DEV NAME(LOC) 3E.C; GLUCOSE,POINT OF CARE 95 MG/DL (70-110)
[2025-02-24 10:34] VITALS: BP 132/84; PULSE 100; RESP 18; TEMP 97.2; O2SAT 94
[2025-02-24 11:45] LABS: GLUCOMETER DEV NAME(LOC) 3E.C; GLUCOSE,POINT OF CARE 92 MG/DL (70-110)
[2025-02-24 16:05] VITALS: BP 123/78; PULSE 93; RESP 18; TEMP 97.4; O2SAT 95
[2025-02-24 17:35] LABS: GLUCOMETER DEV NAME(LOC) 3E.C; GLUCOSE,POINT OF CARE 91 MG/DL (70-110)
[2025-02-24 20:30] LABS: GLUCOMETER DEV NAME(LOC) 3E.C; GLUCOSE,POINT OF CARE 119 MG/DL (70-110)
[2025-02-24 21:25] VITALS: BP 117/74; PULSE 82; RESP 18; TEMP 97.5; O2SAT 93
[2025-02-25 01:25] VITALS: PULSE 70; RESP 20; O2SAT 93
[2025-02-25 06:25] LABS: GLUCOMETER DEV NAME(LOC) 3E.C; GLUCOSE,POINT OF CARE 103 MG/DL (70-110)
[2025-02-25 06:40] VITALS: BP 120/80; PULSE 87; RESP 19; TEMP 97.1; O2SAT 97
[2025-02-25] MEDS: ACETAMINOPHEN 325 MG TABLET PO PRN (06:44)
[2025-02-25 07:44] VITALS: RESP 18
[2025-02-25 09:10] VITALS: BP 152/99; PULSE 90; RESP 18; TEMP 97.4; O2SAT 94
[2025-02-25] MEDS: RisperiDONE ER SUSPENSION 125 MG/0.35 ML PRE-FILLED SYRINGE SQ SCH (10:04)
[2025-02-25 12:00] LABS: GLUCOMETER DEV NAME(LOC) 3E.C; GLUCOSE,POINT OF CARE 135 MG/DL (70-110)
[2025-02-25 16:40] VITALS: BP 148/81; PULSE 95; RESP 18; TEMP 97.8; O2SAT 94
[2025-02-25 17:10] LABS: GLUCOMETER DEV NAME(LOC) 3E.C; GLUCOSE,POINT OF CARE 140 MG/DL (70-110)
[2025-02-25 20:20] LABS: GLUCOMETER DEV NAME(LOC) 3E.C; GLUCOSE,POINT OF CARE 102 MG/DL (70-110)
[2025-02-25 20:22] VITALS: BP 146/94; RESP 18; O2SAT 94
[2025-02-26 06:36] LABS: GLUCOMETER DEV NAME(LOC) 3E.C; GLUCOSE,POINT OF CARE 118 MG/DL (70-110)
[2025-02-26 08:30] VITALS: BP 160/108; PULSE 101; RESP 18; TEMP 97.1; O2SAT 95
[2025-02-26 11:50] LABS: GLUCOMETER DEV NAME(LOC) 3E.C; GLUCOSE,POINT OF CARE 109 MG/DL (70-110)
[2025-02-26 17:26] LABS: GLUCOMETER DEV NAME(LOC) 3E.C; GLUCOSE,POINT OF CARE 100 MG/DL (70-110)
[2025-02-26 19:51] LABS: GLUCOMETER DEV NAME(LOC) 3E.C; GLUCOSE,POINT OF CARE 120 MG/DL (70-110)
[2025-02-26 20:13] VITALS: RESP 18
[2025-02-27] VITALS (7 sets, daily range): BP systolic 116–145; BP diastolic 71–92; PULSE 73–97; RESP 17–19; TEMP 97.2–98; O2SAT 91–97
[2025-02-27 05:41] LABS: GLUCOMETER DEV NAME(LOC) 3E.C; GLUCOSE,POINT OF CARE 103 MG/DL (70-110)
[2025-02-27 12:05] LABS: GLUCOMETER DEV NAME(LOC) 3E.C; GLUCOSE,POINT OF CARE 90 MG/DL (70-110)
[2025-02-27] MEDS: IBUPROFEN 600 MG TABLET PO PRN (16:13)
[2025-02-27 17:40] LABS: GLUCOMETER DEV NAME(LOC) 3E.C; GLUCOSE,POINT OF CARE 141 MG/DL (70-110)
[2025-02-27 21:05] LABS: GLUCOMETER DEV NAME(LOC) 3E.C; GLUCOSE,POINT OF CARE 110 MG/DL (70-110)
[2025-02-28] VITALS (7 sets, daily range): BP systolic 104–134; BP diastolic 63–83; PULSE 72–84; RESP 17–18; TEMP 97.5–97.8; O2SAT 95–98
[2025-02-28 06:36] LABS: GLUCOMETER DEV NAME(LOC) 3E.C; GLUCOSE,POINT OF CARE 121 MG/DL (70-110)
[2025-02-28 11:46] LABS: GLUCOMETER DEV NAME(LOC) 3E.C; GLUCOSE,POINT OF CARE 100 MG/DL (70-110)
[2025-02-28 16:40] LABS: GLUCOMETER DEV NAME(LOC) 3E.C; GLUCOSE,POINT OF CARE 106 MG/DL (70-110)
[2025-02-28 20:31] LABS: GLUCOMETER DEV NAME(LOC) 3E.C; GLUCOSE,POINT OF CARE 124 MG/DL (70-110)
[2025-03-01 01:48] VITALS: BP 130/80; PULSE 79; RESP 18; TEMP 97.9; O2SAT 96
[2025-03-01 02:48] VITALS: RESP 18
[2025-03-01 05:50] LABS: GLUCOMETER DEV NAME(LOC) 3E.C; GLUCOSE,POINT OF CARE 98 MG/DL (70-110)
[2025-03-01 11:27] VITALS: BP 145/87; PULSE 86; RESP 18; TEMP 97.3
[2025-03-01 11:56] LABS: GLUCOMETER DEV NAME(LOC) 3E.C; GLUCOSE,POINT OF CARE 125 MG/DL (70-110)
[2025-03-01 17:31] LABS: GLUCOMETER DEV NAME(LOC) 3E.C; GLUCOSE,POINT OF CARE 111 MG/DL (70-110)
[2025-03-01 22:32] VITALS: BP 135/81; PULSE 77; RESP 17; TEMP 98.2; O2SAT 95
[2025-03-02 07:00] LABS: GLUCOMETER DEV NAME(LOC) 3E.C; GLUCOSE,POINT OF CARE 90 MG/DL (70-110)
[2025-03-02 08:00] VITALS: BP 120/75; PULSE 99; RESP 18; TEMP 97.5; O2SAT 95
[2025-03-02 12:21] LABS: GLUCOMETER DEV NAME(LOC) 3E.C; GLUCOSE,POINT OF CARE 95 MG/DL (70-110)
[2025-03-02 17:55] LABS: GLUCOMETER DEV NAME(LOC) 3E.C; GLUCOSE,POINT OF CARE 110 MG/DL (70-110)
[2025-03-02 20:10] VITALS: BP 116/77; PULSE 75; RESP 18; O2SAT 94
[2025-03-02 22:01] LABS: GLUCOMETER DEV NAME(LOC) 3E.C; GLUCOSE,POINT OF CARE 92 MG/DL (70-110)
[2025-03-03] VITALS (10 sets, daily range): BP systolic 121–137; BP diastolic 70–92; PULSE 67–99; RESP 17–18; TEMP 97.2–98.6; O2SAT 93–98
[2025-03-03 06:51] LABS: GLUCOMETER DEV NAME(LOC) 3E.C; GLUCOSE,POINT OF CARE 86 MG/DL (70-110)
[2025-03-03 11:31] LABS: GLUCOMETER DEV NAME(LOC) 3E.C; GLUCOSE,POINT OF CARE 95 MG/DL (70-110)
[2025-03-03 17:25] LABS: GLUCOMETER DEV NAME(LOC) 3E.C; GLUCOSE,POINT OF CARE 114 MG/DL (70-110)
[2025-03-03 21:15] LABS: GLUCOMETER DEV NAME(LOC) 3E.C; GLUCOSE,POINT OF CARE 143 MG/DL (70-110)
[2025-03-04] VITALS (8 sets, daily range): BP systolic 111–148; BP diastolic 67–91; PULSE 67–100; RESP 17–18; TEMP 97.5–98.6; O2SAT 95–98
[2025-03-04 07:00] LABS: GLUCOMETER DEV NAME(LOC) 3E.C; GLUCOSE,POINT OF CARE 110 MG/DL (70-110)
[2025-03-04 11:51] LABS: GLUCOMETER DEV NAME(LOC) 3E.C; GLUCOSE,POINT OF CARE 100 MG/DL (70-110)
[2025-03-04 18:01] LABS: GLUCOMETER DEV NAME(LOC) 3E.C; GLUCOSE,POINT OF CARE 115 MG/DL (70-110)
[2025-03-04 21:26] LABS: GLUCOMETER DEV NAME(LOC) 3E.C; GLUCOSE,POINT OF CARE 109 MG/DL (70-110)
[2025-03-05 04:03] VITALS: BP 144/85; PULSE 81; RESP 18; TEMP 98.5; O2SAT 99
[2025-03-05 05:03] VITALS: RESP 18
[2025-03-05 06:05] LABS: GLUCOMETER DEV NAME(LOC) 3E.C; GLUCOSE,POINT OF CARE 116 MG/DL (70-110)
[2025-03-05 10:52] VITALS: BP 148/69; PULSE 87; RESP 18; TEMP 97.7; O2SAT 98
[2025-03-05 11:30] LABS: GLUCOMETER DEV NAME(LOC) 3E.C; GLUCOSE,POINT OF CARE 112 MG/DL (70-110)
[2025-03-05 15:22] VITALS: BP 136/69; PULSE 89; RESP 18; O2SAT 97
[2025-03-05 16:17] VITALS: BP 149/78; PULSE 98; RESP 20; O2SAT 97
[2025-03-05 16:41] LABS: GLUCOMETER DEV NAME(LOC) 3E.C; GLUCOSE,POINT OF CARE 115 MG/DL (70-110)
[2025-03-05 21:26] LABS: GLUCOMETER DEV NAME(LOC) 3E.C; GLUCOSE,POINT OF CARE 127 MG/DL (70-110)
[2025-03-05 22:18] VITALS: BP 144/84; PULSE 88; RESP 18; TEMP 97.8; O2SAT 98
[2025-03-06] VITALS (7 sets, daily range): BP systolic 133–147; BP diastolic 93–99; PULSE 73–96; RESP 14–20; TEMP 97.7–97.8; O2SAT 92–99
[2025-03-06 07:06] LABS: GLUCOMETER DEV NAME(LOC) 3E.C; GLUCOSE,POINT OF CARE 98 MG/DL (70-110)
[2025-03-06 11:46] LABS: GLUCOMETER DEV NAME(LOC) 3E.C; GLUCOSE,POINT OF CARE 108 MG/DL (70-110)
[2025-03-06 17:55] LABS: GLUCOMETER DEV NAME(LOC) 3E.C; GLUCOSE,POINT OF CARE 101 MG/DL (70-110)
[2025-03-06 21:40] LABS: GLUCOMETER DEV NAME(LOC) 3E.C; GLUCOSE,POINT OF CARE 117 MG/DL (70-110)
[2025-03-07] VITALS (7 sets, daily range): BP systolic 117–141; BP diastolic 68–96; PULSE 70–95; RESP 14–24; TEMP 97.8; O2SAT 88–97
[2025-03-07] MEDS: NICOTINE POLACRILEX 2 MG LOZENGE PO PRN (06:03)
[2025-03-07 06:50] LABS: GLUCOMETER DEV NAME(LOC) 3E.C; GLUCOSE,POINT OF CARE 113 MG/DL (70-110)
[2025-03-07 11:50] LABS: GLUCOMETER DEV NAME(LOC) 3E.C; GLUCOSE,POINT OF CARE 101 MG/DL (70-110)
[2025-03-07 17:35] LABS: GLUCOMETER DEV NAME(LOC) 3E.C; GLUCOSE,POINT OF CARE 109 MG/DL (70-110)
[2025-03-07 23:05] LABS: GLUCOMETER DEV NAME(LOC) 3E.C; GLUCOSE,POINT OF CARE 149 MG/DL (70-110)
[2025-03-08 01:15] VITALS: PULSE 72; RESP 24; O2SAT 91
[2025-03-08 04:09] VITALS: PULSE 71; RESP 24; O2SAT 89
[2025-03-08 06:01] LABS: GLUCOMETER DEV NAME(LOC) 3E.C; GLUCOSE,POINT OF CARE 100 MG/DL (70-110)
[2025-03-08 11:07] VITALS: BP 148/96; PULSE 95; RESP 18; TEMP 96.9; O2SAT 94
[2025-03-08 12:07] VITALS: RESP 18
[2025-03-08 12:16] LABS: GLUCOMETER DEV NAME(LOC) 3E.C; GLUCOSE,POINT OF CARE 114 MG/DL (70-110)
[2025-03-08 17:50] LABS: GLUCOMETER DEV NAME(LOC) 3E.C; GLUCOSE,POINT OF CARE 136 MG/DL (70-110)
[2025-03-08 21:35] LABS: GLUCOMETER DEV NAME(LOC) 3E.C; GLUCOSE,POINT OF CARE 111 MG/DL (70-110)
[2025-03-08 23:23] VITALS: TEMP 97
[2025-03-09] VITALS (8 sets, daily range): BP systolic 133–142; BP diastolic 72–84; PULSE 80–94; RESP 18–20; TEMP 97.3–98; O2SAT 96
[2025-03-09 07:00] LABS: GLUCOMETER DEV NAME(LOC) 3E.C; GLUCOSE,POINT OF CARE 92 MG/DL (70-110)
[2025-03-09 12:06] LABS: GLUCOMETER DEV NAME(LOC) 3E.C; GLUCOSE,POINT OF CARE 112 MG/DL (70-110)
[2025-03-09 17:10] LABS: GLUCOMETER DEV NAME(LOC) 3E.C; GLUCOSE,POINT OF CARE 108 MG/DL (70-110)
[2025-03-09] MEDS: MAG HYDROX/ALUMINUM HYD/SIMETH ES 30 ML SUSPENSION UDCUP PO PRN (21:11)
[2025-03-09 21:30] LABS: GLUCOMETER DEV NAME(LOC) 3E.C; GLUCOSE,POINT OF CARE 103 MG/DL (70-110)
[2025-03-10] VITALS (8 sets, daily range): BP systolic 118–154; BP diastolic 73–85; PULSE 72–83; RESP 17–18; TEMP 97.8; O2SAT 92–98
[2025-03-10 06:46] LABS: GLUCOMETER DEV NAME(LOC) 3E.C; GLUCOSE,POINT OF CARE 86 MG/DL (70-110)
[2025-03-10 11:56] LABS: GLUCOMETER DEV NAME(LOC) 3E.C; GLUCOSE,POINT OF CARE 107 MG/DL (70-110)
[2025-03-10 17:50] LABS: GLUCOMETER DEV NAME(LOC) 3E.C; GLUCOSE,POINT OF CARE 118 MG/DL (70-110)
[2025-03-10 20:06] LABS: GLUCOMETER DEV NAME(LOC) 3E.C; GLUCOSE,POINT OF CARE 121 MG/DL (70-110)
[2025-03-11] VITALS (7 sets, daily range): BP systolic 105–159; BP diastolic 63–94; PULSE 74–90; RESP 18–20; TEMP 97.9–98.8; O2SAT 91–95
[2025-03-11 06:40] LABS: GLUCOMETER DEV NAME(LOC) 3E.C; GLUCOSE,POINT OF CARE 103 MG/DL (70-110)
[2025-03-11 11:50] LABS: GLUCOMETER DEV NAME(LOC) 3E.C; GLUCOSE,POINT OF CARE 110 MG/DL (70-110)
[2025-03-11 16:45] LABS: GLUCOMETER DEV NAME(LOC) 3E.C; GLUCOSE,POINT OF CARE 119 MG/DL (70-110)
[2025-03-11 21:26] LABS: GLUCOMETER DEV NAME(LOC) 3E.C; GLUCOSE,POINT OF CARE 124 MG/DL (70-110)
[2025-03-12 02:31] VITALS: RESP 18
[2025-03-12 06:51] LABS: GLUCOMETER DEV NAME(LOC) 3E.C; GLUCOSE,POINT OF CARE 103 MG/DL (70-110)
[2025-03-12 09:00] VITALS: BP 155/98; PULSE 100; RESP 18; TEMP 97.9; O2SAT 100
[2025-03-12 10:56] VITALS: BP 149/96; PULSE 97; RESP 19; TEMP 97.9; O2SAT 99
[2025-03-12 11:56] LABS: GLUCOMETER DEV NAME(LOC) 3E.C; GLUCOSE,POINT OF CARE 114 MG/DL (70-110)
[2025-03-12 15:13] VITALS: BP 147/93; PULSE 79; RESP 18; TEMP 98; O2SAT 99
[2025-03-12 17:06] LABS: GLUCOMETER DEV NAME(LOC) 3E.C; GLUCOSE,POINT OF CARE 122 MG/DL (70-110)
[2025-03-12 20:10] LABS: GLUCOMETER DEV NAME(LOC) 3E.C; GLUCOSE,POINT OF CARE 115 MG/DL (70-110)
[2025-03-12 20:56] VITALS: BP 114/87; PULSE 77; RESP 18; TEMP 97.3; O2SAT 96
[2025-03-12 23:35] VITALS: BP 128/85; PULSE 80; RESP 18; TEMP 97.5; O2SAT 97
[2025-03-13 02:45] VITALS: PULSE 76; RESP 20; O2SAT 92
[2025-03-13 06:05] LABS: GLUCOMETER DEV NAME(LOC) 3E.C; GLUCOSE,POINT OF CARE 99 MG/DL (70-110)
[2025-03-13 09:00] VITALS: BP 143/89; PULSE 86; RESP 16; TEMP 97.9; O2SAT 95
[2025-03-13 12:05] LABS: GLUCOMETER DEV NAME(LOC) 3E.C; GLUCOSE,POINT OF CARE 114 MG/DL (70-110)
[2025-03-13 17:50] LABS: GLUCOMETER DEV NAME(LOC) 3E.C; GLUCOSE,POINT OF CARE 143 MG/DL (70-110)
[2025-03-13 20:15] LABS: GLUCOMETER DEV NAME(LOC) 3E.C; GLUCOSE,POINT OF CARE 121 MG/DL (70-110)
[2025-03-13 20:36] VITALS: BP 120/80; PULSE 84; RESP 16; TEMP 98.4; O2SAT 96
[2025-03-14 06:41] LABS: GLUCOMETER DEV NAME(LOC) 3E.C; GLUCOSE,POINT OF CARE 92 MG/DL (70-110)
[2025-03-14 11:03] VITALS: BP 149/94; PULSE 100; RESP 19; TEMP 97.6; O2SAT 96
[2025-03-14 12:45] LABS: GLUCOMETER DEV NAME(LOC) 3E.C; GLUCOSE,POINT OF CARE 93 MG/DL (70-110)
[2025-03-14 16:08] VITALS: BP 136/79; PULSE 89; RESP 18; TEMP 98; O2SAT 98
[2025-03-14 17:46] LABS: GLUCOMETER DEV NAME(LOC) 3E.C; GLUCOSE,POINT OF CARE 95 MG/DL (70-110)
[2025-03-14 20:46] LABS: GLUCOMETER DEV NAME(LOC) 3E.C; GLUCOSE,POINT OF CARE 139 MG/DL (70-110)
[2025-03-14 21:00] VITALS: TEMP 97
[2025-03-15 01:30] VITALS: BP 148/82; PULSE 81; RESP 18; TEMP 97.8; O2SAT 97
[2025-03-15 06:05] LABS: GLUCOMETER DEV NAME(LOC) 3E.C; GLUCOSE,POINT OF CARE 111 MG/DL (70-110)
[2025-03-15 08:47] VITALS: BP 145/83; PULSE 73; RESP 19; TEMP 97; O2SAT 95
[2025-03-15 09:47] VITALS: BP 138/79; PULSE 76; RESP 18; TEMP 98
[2025-03-15 11:50] LABS: GLUCOMETER DEV NAME(LOC) 3E.C; GLUCOSE,POINT OF CARE 118 MG/DL (70-110)
[2025-03-15 17:36] LABS: GLUCOMETER DEV NAME(LOC) 3E.C; GLUCOSE,POINT OF CARE 99 MG/DL (70-110)
[2025-03-15 20:36] LABS: GLUCOMETER DEV NAME(LOC) 3E.C; GLUCOSE,POINT OF CARE 113 MG/DL (70-110)
[2025-03-15 21:11] VITALS: TEMP 97.4
[2025-03-16 05:26] LABS: GLUCOMETER DEV NAME(LOC) 3E.C; GLUCOSE,POINT OF CARE 96 MG/DL (70-110)
[2025-03-16 08:50] VITALS: BP 163/105; PULSE 99; RESP 18; TEMP 97.6; O2SAT 100
[2025-03-16 11:31] LABS: GLUCOMETER DEV NAME(LOC) 3E.C; GLUCOSE,POINT OF CARE 82 MG/DL (70-110)
[2025-03-16 16:40] LABS: GLUCOMETER DEV NAME(LOC) 3E.C; GLUCOSE,POINT OF CARE 96 MG/DL (70-110)
[2025-03-16 16:49] VITALS: BP 135/90; PULSE 85; RESP 20; TEMP 96.8; O2SAT 96
[2025-03-16 20:30] VITALS: BP 101/63; PULSE 81; RESP 18; TEMP 97.7; O2SAT 95
[2025-03-16 20:56] LABS: GLUCOMETER DEV NAME(LOC) 3E.C; GLUCOSE,POINT OF CARE 112 MG/DL (70-110)
[2025-03-17 03:40] VITALS: BP 126/70; PULSE 72; RESP 19; TEMP 98; O2SAT 98
[2025-03-17 04:47] VITALS: RESP 18
[2025-03-17 06:15] LABS: GLUCOMETER DEV NAME(LOC) 3E.C; GLUCOSE,POINT OF CARE 93 MG/DL (70-110)
[2025-03-17 08:00] VITALS: BP 109/66; PULSE 68; RESP 18; TEMP 98; O2SAT 91
[2025-03-17 11:40] LABS: GLUCOMETER DEV NAME(LOC) 3E.C; GLUCOSE,POINT OF CARE 152 MG/DL (70-110)
[2025-03-17 17:10] LABS: GLUCOMETER DEV NAME(LOC) 3E.C; GLUCOSE,POINT OF CARE 98 MG/DL (70-110)
[2025-03-17 20:18] VITALS: BP 113/64; PULSE 70; RESP 18; TEMP 97.9; O2SAT 95
[2025-03-17 20:30] LABS: GLUCOMETER DEV NAME(LOC) 3E.C; GLUCOSE,POINT OF CARE 133 MG/DL (70-110)
[2025-03-17 22:30] VITALS: BP 120/72; PULSE 79; RESP 20; TEMP 98.1; O2SAT 97
[2025-03-18 03:00] VITALS: BP 128/74; PULSE 72; RESP 19; TEMP 97.6; O2SAT 97
[2025-03-18 04:07] VITALS: RESP 18
[2025-03-18 06:40] LABS: GLUCOMETER DEV NAME(LOC) 3E.C; GLUCOSE,POINT OF CARE 114 MG/DL (70-110)
[2025-03-18 08:35] VITALS: BP 128/73; PULSE 79; RESP 20; TEMP 97.3; O2SAT 95
[2025-03-18 11:55] LABS: GLUCOMETER DEV NAME(LOC) 3E.C; GLUCOSE,POINT OF CARE 86 MG/DL (70-110)
[2025-03-18 17:00] LABS: GLUCOMETER DEV NAME(LOC) 3E.C; GLUCOSE,POINT OF CARE 108 MG/DL (70-110)
[2025-03-18 17:27] VITALS: BP 134/90; PULSE 84; RESP 20; TEMP 98; O2SAT 95
[2025-03-18 20:10] LABS: GLUCOMETER DEV NAME(LOC) 3E.C; GLUCOSE,POINT OF CARE 110 MG/DL (70-110)
[2025-03-18 22:17] VITALS: BP 127/70; PULSE 71; RESP 18; TEMP 97.6; O2SAT 93
[2025-03-19 03:05] VITALS: BP 122/76; PULSE 75; RESP 18; TEMP 97.5
[2025-03-19 06:15] LABS: GLUCOMETER DEV NAME(LOC) 3E.C; GLUCOSE,POINT OF CARE 102 MG/DL (70-110)
[2025-03-19 08:30] VITALS: BP 167/88; PULSE 81; RESP 17; TEMP 97.6; O2SAT 96
[2025-03-19 11:56] LABS: GLUCOMETER DEV NAME(LOC) 3E.C; GLUCOSE,POINT OF CARE 105 MG/DL (70-110)
[2025-03-19 16:40] VITALS: BP 124/85; PULSE 86; RESP 20; TEMP 96.8; O2SAT 96
[2025-03-19 16:46] LABS: GLUCOMETER DEV NAME(LOC) 3E.C; GLUCOSE,POINT OF CARE 99 MG/DL (70-110)
[2025-03-19 20:30] LABS: GLUCOMETER DEV NAME(LOC) 3E.C; GLUCOSE,POINT OF CARE 117 MG/DL (70-110)
[2025-03-19] MEDS: CarBAMazepine 200 MG ER TABLET PO SCH (20:47)
[2025-03-19 22:30] VITALS: BP 100/61; PULSE 68; RESP 17; TEMP 98.2; O2SAT 93
[2025-03-20 01:13] VITALS: BP 156/95; PULSE 81; RESP 18; TEMP 98.4; O2SAT 95
[2025-03-20 06:25] LABS: GLUCOMETER DEV NAME(LOC) 3E.C; GLUCOSE,POINT OF CARE 99 MG/DL (70-110)
[2025-03-20 10:24] VITALS: BP 150/95; PULSE 89; RESP 18; TEMP 98; O2SAT 99
[2025-03-20 11:41] VITALS: BP 121/69; PULSE 71; RESP 20; TEMP 98.1
[2025-03-20 11:51] LABS: GLUCOMETER DEV NAME(LOC) 3E.C; GLUCOSE,POINT OF CARE 98 MG/DL (70-110)
[2025-03-20 12:40] VITALS: BP 128/71; PULSE 71; RESP 17; TEMP 97.9
[2025-03-20 18:36] LABS: GLUCOMETER DEV NAME(LOC) 3E.C; GLUCOSE,POINT OF CARE 137 MG/DL (70-110)
[2025-03-20 20:25] LABS: GLUCOMETER DEV NAME(LOC) 3E.C; GLUCOSE,POINT OF CARE 127 MG/DL (70-110)
[2025-03-20 22:17] VITALS: RESP 18
[2025-03-21 02:50] VITALS: BP 132/89; PULSE 102; RESP 17; TEMP 97.7; O2SAT 98
[2025-03-21 06:50] LABS: GLUCOMETER DEV NAME(LOC) 3E.C; GLUCOSE,POINT OF CARE 105 MG/DL (70-110)
[2025-03-21 10:35] VITALS: BP 152/88; PULSE 103; RESP 18; TEMP 97.7; O2SAT 100
[2025-03-21 11:35] LABS: GLUCOMETER DEV NAME(LOC) 3E.C; GLUCOSE,POINT OF CARE 100 MG/DL (70-110)
[2025-03-21 12:16] VITALS: BP 146/79; PULSE 97; RESP 18; TEMP 97.8; O2SAT 99
[2025-03-21 17:05] LABS: GLUCOMETER DEV NAME(LOC) 3E.C; GLUCOSE,POINT OF CARE 113 MG/DL (70-110)
[2025-03-21 20:31] LABS: GLUCOMETER DEV NAME(LOC) 3E.C; GLUCOSE,POINT OF CARE 118 MG/DL (70-110)
[2025-03-21 22:08] VITALS: BP 134/74; PULSE 88; RESP 18; TEMP 97.6; O2SAT 97
[2025-03-21 23:30] VITALS: BP 140/86; PULSE 90; RESP 20; TEMP 97.2; O2SAT 98
[2025-03-22] VITALS (7 sets, daily range): BP systolic 127–138; BP diastolic 63–90; PULSE 78–94; RESP 17–20; TEMP 96.9–98.2; O2SAT 95–99
[2025-03-22 05:56] LABS: GLUCOMETER DEV NAME(LOC) 3E.C; GLUCOSE,POINT OF CARE 89 MG/DL (70-110)
[2025-03-22 11:55] LABS: GLUCOMETER DEV NAME(LOC) 3E.C; GLUCOSE,POINT OF CARE 111 MG/DL (70-110)
[2025-03-22 17:26] LABS: GLUCOMETER DEV NAME(LOC) 3E.C; GLUCOSE,POINT OF CARE 103 MG/DL (70-110)
[2025-03-22 20:16] LABS: GLUCOMETER DEV NAME(LOC) 3E.C; GLUCOSE,POINT OF CARE 97 MG/DL (70-110)
[2025-03-23] VITALS (10 sets, daily range): BP systolic 112–138; BP diastolic 55–91; PULSE 77–86; RESP 17–18; TEMP 97.5–98.3; O2SAT 95–96
[2025-03-23 05:36] LABS: GLUCOMETER DEV NAME(LOC) 3E.C; GLUCOSE,POINT OF CARE 108 MG/DL (70-110)
[2025-03-23 11:56] LABS: GLUCOMETER DEV NAME(LOC) 3E.C; GLUCOSE,POINT OF CARE 109 MG/DL (70-110)
[2025-03-23 17:05] LABS: GLUCOMETER DEV NAME(LOC) 3E.C; GLUCOSE,POINT OF CARE 108 MG/DL (70-110)
[2025-03-23 20:15] LABS: GLUCOMETER DEV NAME(LOC) 3E.C; GLUCOSE,POINT OF CARE 113 MG/DL (70-110)
[2025-03-24 06:30] LABS: GLUCOMETER DEV NAME(LOC) 3E.C; GLUCOSE,POINT OF CARE 106 MG/DL (70-110)
[2025-03-24 11:15] VITALS: BP 142/82; PULSE 82; RESP 18; TEMP 98.3; O2SAT 95
[2025-03-24 12:05] LABS: GLUCOMETER DEV NAME(LOC) 3E.C; GLUCOSE,POINT OF CARE 82 MG/DL (70-110)
[2025-03-24 16:34] VITALS: BP 150/98; PULSE 90; RESP 16; O2SAT 95
[2025-03-24 17:45] LABS: GLUCOMETER DEV NAME(LOC) 3E.C; GLUCOSE,POINT OF CARE 107 MG/DL (70-110)
[2025-03-24 20:45] LABS: GLUCOMETER DEV NAME(LOC) 3E.C; GLUCOSE,POINT OF CARE 100 MG/DL (70-110)
[2025-03-24 21:44] LABS: TROPONIN I-HIGH SENSITIVITY 7 ng/L (<76)
[2025-03-24 22:05] LABS: PLATELET COUNT (AUTO) 208 K/uL (150-450); RED BLOOD CELL COUNT(AUTO) 5.04 MIL/uL (4.50-5.90); RED CELL DISTRIBUTION WIDTH 15.6 % (11.5-14.5); WHITE BLOOD COUNT (AUTO) 7.5 K/uL (4.5-11.0)
[2025-03-24 22:07] LABS: CALCIUM, TOTAL 9.5 mg/dL (8.8-10.5); CREATININE 0.83 mg/dL (0.60-1.30); GLOMERULAR FILTR. RATE CALC > 60 mL/min (>60); GLUCOSE,RANDOM 106 mg/dL (70-110); SODIUM SERUM 138 mmol/L (136-145); UREA NITROGEN, BLOOD 9 mg/dL (7-18)
[2025-03-24 22:14] LABS: CREATINE KINASE, TOTAL ONLY 137 U/L (39-308)
[2025-03-24 22:50] VITALS: PULSE 89; RESP 20; RESP 22; O2SAT 96
[2025-03-24 23:06] VITALS: BP 141/80; PULSE 77; RESP 18; TEMP 97.4; O2SAT 99
[2025-03-25 01:00] VITALS: PULSE 88; RESP 22; O2SAT 97
[2025-03-25 04:25] VITALS: PULSE 89; RESP 22; O2SAT 99
[2025-03-25 06:45] LABS: GLUCOMETER DEV NAME(LOC) 3E.C; GLUCOSE,POINT OF CARE 97 MG/DL (70-110)
[2025-03-25 07:05] VITALS: BP 140/89; PULSE 97; RESP 18; TEMP 97.5; O2SAT 98
[2025-03-25 08:00] VITALS: BP 140/90; PULSE 103; RESP 19; TEMP 98.1; O2SAT 95
[2025-03-25 12:10] LABS: GLUCOMETER DEV NAME(LOC) 3E.C; GLUCOSE,POINT OF CARE 91 MG/DL (70-110)
[2025-03-25 17:25] LABS: GLUCOMETER DEV NAME(LOC) 3E.C; GLUCOSE,POINT OF CARE 108 MG/DL (70-110)
[2025-03-25] MEDS: [UNRECOGNIZED DRUG - OTHER] PO SCH (18:00)
[2025-03-25 22:22] VITALS: RESP 18; TEMP 98.1
[2025-03-26 05:51] LABS: GLUCOMETER DEV NAME(LOC) 3E.C; GLUCOSE,POINT OF CARE 107 MG/DL (70-110)
[2025-03-26 06:46] LABS: GLUCOMETER DEV NAME(LOC) 3E.C; GLUCOSE,POINT OF CARE 104 MG/DL (70-110)
[2025-03-26 11:38] VITALS: BP 128/79; PULSE 71; RESP 18; TEMP 98; O2SAT 97
[2025-03-26 12:05] LABS: GLUCOMETER DEV NAME(LOC) 3E.C; GLUCOSE,POINT OF CARE 105 MG/DL (70-110)
[2025-03-26 12:38] VITALS: BP 136/81; PULSE 76; RESP 17; TEMP 97.6; O2SAT 97
[2025-03-26 17:26] LABS: GLUCOMETER DEV NAME(LOC) 3E.C; GLUCOSE,POINT OF CARE 107 MG/DL (70-110)
[2025-03-26 21:40] LABS: GLUCOMETER DEV NAME(LOC) 3E.C; GLUCOSE,POINT OF CARE 94 MG/DL (70-110)
[2025-03-27 07:10] LABS: GLUCOMETER DEV NAME(LOC) 3E.C; GLUCOSE,POINT OF CARE 105 MG/DL (70-110)
[2025-03-27 08:54] VITALS: BP 143/92; PULSE 90; RESP 18; O2SAT 95
[2025-03-27 12:05] LABS: GLUCOMETER DEV NAME(LOC) 3E.C; GLUCOSE,POINT OF CARE 116 MG/DL (70-110)
[2025-03-27 16:03] VITALS: BP 136/78; PULSE 79; RESP 17; TEMP 98; O2SAT 95
[2025-03-27 17:03] VITALS: BP 123/72; PULSE 78; RESP 18; TEMP 98
[2025-03-27 17:46] LABS: GLUCOMETER DEV NAME(LOC) 3E.C; GLUCOSE,POINT OF CARE 124 MG/DL (70-110)
[2025-03-27 20:30] LABS: GLUCOMETER DEV NAME(LOC) 3E.C; GLUCOSE,POINT OF CARE 104 MG/DL (70-110)
[2025-03-27 20:45] VITALS: BP 105/63; PULSE 74; RESP 18; TEMP 98.1
[2025-03-28 05:35] LABS: GLUCOMETER DEV NAME(LOC) 3E.C; GLUCOSE,POINT OF CARE 96 MG/DL (70-110)
[2025-03-28 09:51] VITALS: BP 129/88; PULSE 78; RESP 18; TEMP 97.6
[2025-03-28 11:45] LABS: GLUCOMETER DEV NAME(LOC) 3E.C; GLUCOSE,POINT OF CARE 103 MG/DL (70-110)
[2025-03-28 12:18] VITALS: RESP 18
[2025-03-28 13:18] VITALS: RESP 16
[2025-03-28] MEDS: ONDANSETRON 4 MG TABLET PO PRN (14:05)
[2025-03-28 19:16] LABS: GLUCOMETER DEV NAME(LOC) 3E.C; GLUCOSE,POINT OF CARE 109 MG/DL (70-110)
[2025-03-28 20:00] VITALS: BP 136/75; PULSE 79; RESP 18; TEMP 97.8; O2SAT 96
[2025-03-28 22:20] LABS: GLUCOMETER DEV NAME(LOC) 3E.C; GLUCOSE,POINT OF CARE 162 MG/DL (70-110)
[2025-03-29 06:50] LABS: GLUCOMETER DEV NAME(LOC) 3E.C; GLUCOSE,POINT OF CARE 95 MG/DL (70-110)
[2025-03-29 08:48] VITALS: BP 107/60; PULSE 72; RESP 18; TEMP 98.1
[2025-03-29 12:06] LABS: GLUCOMETER DEV NAME(LOC) 3E.C; GLUCOSE,POINT OF CARE 107 MG/DL (70-110)
[2025-03-29 17:35] LABS: GLUCOMETER DEV NAME(LOC) 3E.C; GLUCOSE,POINT OF CARE 111 MG/DL (70-110)
[2025-03-29 21:36] LABS: GLUCOMETER DEV NAME(LOC) 3E.C; GLUCOSE,POINT OF CARE 121 MG/DL (70-110)
[2025-03-29 23:27] VITALS: BP 143/90; PULSE 75; RESP 18; TEMP 98.2; O2SAT 95
[2025-03-30 06:50] LABS: GLUCOMETER DEV NAME(LOC) 3E.C; GLUCOSE,POINT OF CARE 106 MG/DL (70-110)
[2025-03-30 08:00] VITALS: BP 159/97; PULSE 104; RESP 17; TEMP 97.9; O2SAT 96
[2025-03-30 12:00] LABS: GLUCOMETER DEV NAME(LOC) 3E.C; GLUCOSE,POINT OF CARE 120 MG/DL (70-110)
[2025-03-30] MEDS: XANOMELINE TART/TROSPIUM CHLOR 100-20 MG CAPSULE PO SCH (17:13)
[2025-03-30 17:31] LABS: GLUCOMETER DEV NAME(LOC) 3E.C; GLUCOSE,POINT OF CARE 105 MG/DL (70-110)
[2025-03-30 21:21] LABS: GLUCOMETER DEV NAME(LOC) 3E.C; GLUCOSE,POINT OF CARE 125 MG/DL (70-110)
[2025-03-30 23:13] VITALS: BP 111/67; PULSE 79; RESP 19; O2SAT 94
[2025-03-31 00:17] VITALS: RESP 18
[2025-03-31 00:46] LABS: APPEARANCE,URINE CLEAR (CLEAR); GLUCOSE, URINE (UA) NEGATIVE (NEGATIVE); LEUKOCYTE ESTERASE ,URINE NEGATIVE (NEGATIVE); NITRATE,URINE NEGATIVE (NEGATIVE); OCCULT BLOOD,URINE NEGATIVE (NEGATIVE); SPECIFIC GRAVITIY, URINE 1.011 (1.003-1.030)
[2025-03-31 07:10] LABS: GLUCOMETER DEV NAME(LOC) 3E.C; GLUCOSE,POINT OF CARE 95 MG/DL (70-110)
[2025-03-31 10:08] VITALS: BP 110/52; PULSE 64; RESP 15; TEMP 97.6; O2SAT 95
[2025-03-31 10:39] VITALS: BP 113/67; PULSE 69; RESP 18; TEMP 98
[2025-03-31 11:39] VITALS: BP 142/76; PULSE 76; RESP 18; TEMP 98.6
[2025-03-31 12:10] LABS: GLUCOMETER DEV NAME(LOC) 3E.C; GLUCOSE,POINT OF CARE 112 MG/DL (70-110)
[2025-03-31 13:26] VITALS: BP 143/91
[2025-03-31 18:26] LABS: GLUCOMETER DEV NAME(LOC) 3E.C; GLUCOSE,POINT OF CARE 103 MG/DL (70-110)
[2025-03-31 23:27] VITALS: BP 128/61; PULSE 75; RESP 18; TEMP 98.6
[2025-04-01 07:15] LABS: GLUCOMETER DEV NAME(LOC) 3E.C; GLUCOSE,POINT OF CARE 112 MG/DL (70-110)
[2025-04-01 10:04] VITALS: BP 154/91; PULSE 85; RESP 18; TEMP 97.4; O2SAT 100
[2025-04-01 12:15] LABS: GLUCOMETER DEV NAME(LOC) 3E.C; GLUCOSE,POINT OF CARE 108 MG/DL (70-110)
[2025-04-01 17:26] LABS: GLUCOMETER DEV NAME(LOC) 3E.C; GLUCOSE,POINT OF CARE 110 MG/DL (70-110)
[2025-04-01 20:09] VITALS: BP 139/76; PULSE 83; RESP 18; TEMP 98.6; O2SAT 95
[2025-04-01 20:14] VITALS: RESP 18
[2025-04-01 21:40] LABS: GLUCOMETER DEV NAME(LOC) 3E.C; GLUCOSE,POINT OF CARE 105 MG/DL (70-110)
[2025-04-02 07:06] LABS: GLUCOMETER DEV NAME(LOC) 3E.C; GLUCOSE,POINT OF CARE 102 MG/DL (70-110)
[2025-04-02 08:31] VITALS: BP 140/82; PULSE 79; RESP 19; TEMP 97.7; O2SAT 96
[2025-04-02 10:07] VITALS: BP 135/75; PULSE 78; RESP 18; O2SAT 97
[2025-04-02 11:41] LABS: GLUCOMETER DEV NAME(LOC) 3E.C; GLUCOSE,POINT OF CARE 135 MG/DL (70-110)
[2025-04-02 16:16] VITALS: BP 131/82; PULSE 89; RESP 18; O2SAT 99
[2025-04-02 17:06] LABS: GLUCOMETER DEV NAME(LOC) 3E.C; GLUCOSE,POINT OF CARE 131 MG/DL (70-110)
[2025-04-02 20:11] LABS: GLUCOMETER DEV NAME(LOC) 3E.C; GLUCOSE,POINT OF CARE 116 MG/DL (70-110)
[2025-04-02 21:08] VITALS: BP 97/57; PULSE 77; RESP 18; TEMP 97.5; O2SAT 95
[2025-04-02 23:25] VITALS: BP 132/96; PULSE 87; RESP 18; TEMP 97.1; O2SAT 96
[2025-04-03 06:11] LABS: GLUCOMETER DEV NAME(LOC) 3E.C; GLUCOSE,POINT OF CARE 101 MG/DL (70-110)
[2025-04-03 09:40] VITALS: BP 145/85; PULSE 88; RESP 18; TEMP 97.5; O2SAT 98
[2025-04-03 11:30] LABS: GLUCOMETER DEV NAME(LOC) 3E.C; GLUCOSE,POINT OF CARE 122 MG/DL (70-110)
[2025-04-03 16:14] VITALS: BP 132/78; RESP 18; O2SAT 96
[2025-04-03 18:05] LABS: GLUCOMETER DEV NAME(LOC) 3E.C; GLUCOSE,POINT OF CARE 116 MG/DL (70-110)
[2025-04-03 21:12] VITALS: BP 111/72; PULSE 80; RESP 18; TEMP 97.9; O2SAT 97
[2025-04-03 21:35] LABS: GLUCOMETER DEV NAME(LOC) 3E.C; GLUCOSE,POINT OF CARE 148 MG/DL (70-110)
[2025-04-04 04:49] VITALS: RESP 19
[2025-04-04 05:49] VITALS: RESP 18
[2025-04-04 06:35] LABS: GLUCOMETER DEV NAME(LOC) 3E.C; GLUCOSE,POINT OF CARE 101 MG/DL (70-110)
[2025-04-04 09:58] VITALS: BP 119/73; PULSE 91; RESP 18; TEMP 97.9; O2SAT 97
[2025-04-04 12:01] LABS: GLUCOMETER DEV NAME(LOC) 3E.C; GLUCOSE,POINT OF CARE 156 MG/DL (70-110)
[2025-04-04 17:51] LABS: GLUCOMETER DEV NAME(LOC) 3E.C; GLUCOSE,POINT OF CARE 106 MG/DL (70-110)
[2025-04-04 21:51] LABS: GLUCOMETER DEV NAME(LOC) 3E.C; GLUCOSE,POINT OF CARE 109 MG/DL (70-110)
[2025-04-04 23:01] VITALS: BP 129/85; PULSE 80; RESP 19; TEMP 98.4; O2SAT 98
[2025-04-05 00:30] VITALS: BP 120/80; PULSE 84; RESP 17; TEMP 97.9; O2SAT 98
[2025-04-05 01:33] VITALS: RESP 18
[2025-04-05 06:36] LABS: GLUCOMETER DEV NAME(LOC) 3E.C; GLUCOSE,POINT OF CARE 96 MG/DL (70-110)
[2025-04-05 08:37] VITALS: BP 127/78; PULSE 80; RESP 18; TEMP 98.5; O2SAT 99
[2025-04-05 12:00] LABS: GLUCOMETER DEV NAME(LOC) 3E.C; GLUCOSE,POINT OF CARE 98 MG/DL (70-110)
[2025-04-05 16:46] LABS: GLUCOMETER DEV NAME(LOC) 3E.C; GLUCOSE,POINT OF CARE 112 MG/DL (70-110)
[2025-04-05 21:35] LABS: GLUCOMETER DEV NAME(LOC) 3E.C; GLUCOSE,POINT OF CARE 113 MG/DL (70-110)
[2025-04-05 22:26] VITALS: BP 125/82; PULSE 69; RESP 17; TEMP 97.6; O2SAT 99
[2025-04-06] VITALS (7 sets, daily range): BP systolic 99–136; BP diastolic 61–82; PULSE 72–96; RESP 18–20; TEMP 96.8–98.3; O2SAT 91–97
[2025-04-06 06:16] LABS: GLUCOMETER DEV NAME(LOC) 3E.C; GLUCOSE,POINT OF CARE 94 MG/DL (70-110)
[2025-04-06 12:06] LABS: GLUCOMETER DEV NAME(LOC) 3E.C; GLUCOSE,POINT OF CARE 122 MG/DL (70-110)
[2025-04-06 16:31] LABS: GLUCOMETER DEV NAME(LOC) 3E.C; GLUCOSE,POINT OF CARE 115 MG/DL (70-110)
[2025-04-06 20:15] LABS: GLUCOMETER DEV NAME(LOC) 3E.C; GLUCOSE,POINT OF CARE 115 MG/DL (70-110)
[2025-04-07 03:30] VITALS: PULSE 84; RESP 20; O2SAT 97
[2025-04-07 06:45] LABS: GLUCOMETER DEV NAME(LOC) 3E.C; GLUCOSE,POINT OF CARE 93 MG/DL (70-110)
[2025-04-07 10:04] VITALS: BP 100/53; PULSE 80; RESP 18; TEMP 97.3; O2SAT 100
[2025-04-07 12:36] LABS: GLUCOMETER DEV NAME(LOC) 3E.C; GLUCOSE,POINT OF CARE 97 MG/DL (70-110)
[2025-04-07 16:23] VITALS: BP 140/92; PULSE 105; RESP 20; TEMP 97; O2SAT 96
[2025-04-07 16:55] LABS: GLUCOMETER DEV NAME(LOC) 3E.C; GLUCOSE,POINT OF CARE 111 MG/DL (70-110)
[2025-04-07 20:31] VITALS: BP 116/77; PULSE 76; RESP 20; TEMP 98.6; O2SAT 98
[2025-04-07 20:36] LABS: GLUCOMETER DEV NAME(LOC) 3E.C; GLUCOSE,POINT OF CARE 115 MG/DL (70-110)
[2025-04-07 22:00] VITALS: PULSE 80; RESP 20; RESP 28; O2SAT 96; O2SAT 98
[2025-04-08] VITALS (7 sets, daily range): BP systolic 117–139; BP diastolic 78–95; PULSE 75–96; RESP 16–18; TEMP 97.2–97.7; O2SAT 94–98
[2025-04-08 06:06] LABS: GLUCOMETER DEV NAME(LOC) 3E.C; GLUCOSE,POINT OF CARE 115 MG/DL (70-110)
[2025-04-08 12:05] LABS: GLUCOMETER DEV NAME(LOC) 3E.C; GLUCOSE,POINT OF CARE 127 MG/DL (70-110)
[2025-04-08 17:31] LABS: GLUCOMETER DEV NAME(LOC) 3E.C; GLUCOSE,POINT OF CARE 97 MG/DL (70-110)
[2025-04-08 20:35] LABS: GLUCOMETER DEV NAME(LOC) 3E.C; GLUCOSE,POINT OF CARE 120 MG/DL (70-110)
[2025-04-09 03:42] VITALS: BP 140/89; PULSE 98; RESP 18; TEMP 97.8; O2SAT 98
[2025-04-09 06:31] LABS: GLUCOMETER DEV NAME(LOC) 3E.C; GLUCOSE,POINT OF CARE 99 MG/DL (70-110)
[2025-04-09 09:00] VITALS: BP 132/92; PULSE 71; RESP 17; TEMP 98.2; O2SAT 97
[2025-04-09 11:55] LABS: GLUCOMETER DEV NAME(LOC) 3E.C; GLUCOSE,POINT OF CARE 103 MG/DL (70-110)
[2025-04-09 15:19] VITALS: BP 142/89; PULSE 78; RESP 18; TEMP 98.2; O2SAT 98
[2025-04-09 17:41] LABS: GLUCOMETER DEV NAME(LOC) 3E.C; GLUCOSE,POINT OF CARE 107 MG/DL (70-110)
[2025-04-09 20:11] LABS: GLUCOMETER DEV NAME(LOC) 3E.C; GLUCOSE,POINT OF CARE 136 MG/DL (70-110)
[2025-04-09 20:51] VITALS: BP 96/70; PULSE 77; RESP 18; TEMP 98.1; O2SAT 94
[2025-04-10 06:25] LABS: GLUCOMETER DEV NAME(LOC) 3E.C; GLUCOSE,POINT OF CARE 105 MG/DL (70-110)
[2025-04-10 11:02] VITALS: BP 156/77; PULSE 88; RESP 18; TEMP 97.5; O2SAT 98
[2025-04-10 12:05] LABS: GLUCOMETER DEV NAME(LOC) 3E.C; GLUCOSE,POINT OF CARE 98 MG/DL (70-110)
[2025-04-10 12:46] VITALS: BP 139/69; PULSE 95; RESP 18
[2025-04-10 16:43] VITALS: BP 145/75; PULSE 89; RESP 18
[2025-04-10 17:10] LABS: GLUCOMETER DEV NAME(LOC) 3E.C; GLUCOSE,POINT OF CARE 129 MG/DL (70-110)
[2025-04-10 20:49] VITALS: RESP 18
[2025-04-10 21:05] LABS: GLUCOMETER DEV NAME(LOC) 3E.C; GLUCOSE,POINT OF CARE 125 MG/DL (70-110)
[2025-04-10 21:49] VITALS: RESP 18
[2025-04-10 23:57] VITALS: BP 120/72; PULSE 81; RESP 18; TEMP 98
[2025-04-11 06:50] LABS: GLUCOMETER DEV NAME(LOC) 3E.C; GLUCOSE,POINT OF CARE 104 MG/DL (70-110)
[2025-04-11 09:08] VITALS: BP 150/106; PULSE 78; RESP 18; TEMP 98; O2SAT 95
[2025-04-11 11:55] LABS: GLUCOMETER DEV NAME(LOC) 3E.C; GLUCOSE,POINT OF CARE 132 MG/DL (70-110)
[2025-04-11 12:50] VITALS: BP 142/96; PULSE 79; RESP 17; TEMP 97.9; O2SAT 97
[2025-04-11 17:36] LABS: GLUCOMETER DEV NAME(LOC) 3E.C; GLUCOSE,POINT OF CARE 106 MG/DL (70-110)
[2025-04-11 20:25] LABS: GLUCOMETER DEV NAME(LOC) 3E.C; GLUCOSE,POINT OF CARE 113 MG/DL (70-110)
[2025-04-11 22:06] VITALS: BP 127/76; PULSE 75; RESP 18; TEMP 98.7; O2SAT 96
[2025-04-12 00:50] VITALS: BP 136/81; PULSE 80; RESP 19; TEMP 97.6; O2SAT 98
[2025-04-12 01:56] VITALS: RESP 18
[2025-04-12 06:45] LABS: GLUCOMETER DEV NAME(LOC) 3E.C; GLUCOSE,POINT OF CARE 105 MG/DL (70-110)
[2025-04-12 08:34] VITALS: BP 112/65; PULSE 89; RESP 20; TEMP 98; O2SAT 95
[2025-04-12 11:30] VITALS: BP 112/65; PULSE 89; RESP 20; TEMP 98; O2SAT 95
[2025-04-12 12:01] LABS: GLUCOMETER DEV NAME(LOC) 3E.C; GLUCOSE,POINT OF CARE 101 MG/DL (70-110)
[2025-04-12 12:30] VITALS: BP 124/74; PULSE 90; RESP 18; TEMP 98.2; O2SAT 99
[2025-04-12 17:55] LABS: GLUCOMETER DEV NAME(LOC) 3E.C; GLUCOSE,POINT OF CARE 116 MG/DL (70-110)
[2025-04-12 20:40] LABS: GLUCOMETER DEV NAME(LOC) 3E.C; GLUCOSE,POINT OF CARE 122 MG/DL (70-110)
[2025-04-12 21:04] VITALS: BP 137/82; PULSE 87; RESP 18; TEMP 98.5
[2025-04-13 00:18] VITALS: BP 128/75; PULSE 80; RESP 18; TEMP 97.9
[2025-04-13 01:18] VITALS: RESP 18
[2025-04-13 06:01] LABS: GLUCOMETER DEV NAME(LOC) 3E.C; GLUCOSE,POINT OF CARE 96 MG/DL (70-110)
[2025-04-13 09:05] VITALS: BP 105/66; PULSE 75; RESP 18; TEMP 97.8; O2SAT 96
[2025-04-13 11:41] LABS: GLUCOMETER DEV NAME(LOC) 3E.C; GLUCOSE,POINT OF CARE 141 MG/DL (70-110)
[2025-04-13 17:26] LABS: GLUCOMETER DEV NAME(LOC) 3E.C; GLUCOSE,POINT OF CARE 135 MG/DL (70-110)
[2025-04-13 20:36] LABS: GLUCOMETER DEV NAME(LOC) 3E.C; GLUCOSE,POINT OF CARE 104 MG/DL (70-110)
[2025-04-13 20:57] VITALS: BP 124/67; PULSE 89; RESP 18; TEMP 98.1
[2025-04-13 21:57] VITALS: RESP 18
[2025-04-14 05:31] LABS: GLUCOMETER DEV NAME(LOC) 3E.C; GLUCOSE,POINT OF CARE 109 MG/DL (70-110)
[2025-04-14 11:51] LABS: GLUCOMETER DEV NAME(LOC) 3E.C; GLUCOSE,POINT OF CARE 145 MG/DL (70-110)
[2025-04-14 12:29] VITALS: BP 146/88; PULSE 83; RESP 18; TEMP 98.7
[2025-04-14 13:28] VITALS: RESP 18
[2025-04-14] MEDS ORDERED: CARB-60 PO (15:44)
[2025-04-14] MEDS ORDERED: BUME1TAB50 PO (15:44)
[2025-04-14] MEDS ORDERED: AMLO-257 PO (15:44)
[2025-04-14] MEDS ORDERED: MELA5TAB21 PO (15:44)
[2025-04-14] MEDS ORDERED: XANO1CAP4 PO (15:44)
[2025-04-14] MEDS ORDERED: RISP125S SQ (15:46)
== END 2025-04-14 19:06 | disposition home or self-care (01) | DRG 885 ==
LOC: 3EC 16:21
PROVIDERS: ADMIT Psychiatry & Neurology Psychiatry; ATTEND Psychiatry & Neurology Psychiatry
PROC: GZHZZZZ Group Psychotherapy (ICD-10-PCS; principal; 2025-02-20)
PROC: GZ52ZZZ Individual Psychotherapy, Cognitive (ICD-10-PCS; 2025-02-20)
PROC: 5A09357 Assistance with Respiratory Ventilation, Less than 24 Consecutive Hours, Continuous Positive Airway Pressure (ICD-10-PCS; 2025-02-21)
PROC: 5A09357 Assistance with Respiratory Ventilation, Less than 24 Consecutive Hours, Continuous Positive Airway Pressure (ICD-10-PCS; 2025-02-22)
PROC: 5A09357 Assistance with Respiratory Ventilation, Less than 24 Consecutive Hours, Continuous Positive Airway Pressure (ICD-10-PCS; 2025-02-25)
PROC: 5A09357 Assistance with Respiratory Ventilation, Less than 24 Consecutive Hours, Continuous Positive Airway Pressure (ICD-10-PCS; 2025-03-24)
PROC: 5A09357 Assistance with Respiratory Ventilation, Less than 24 Consecutive Hours, Continuous Positive Airway Pressure (ICD-10-PCS; 2025-04-06)
PROC: 5A09357 Assistance with Respiratory Ventilation, Less than 24 Consecutive Hours, Continuous Positive Airway Pressure (ICD-10-PCS; 2025-04-07)
DX: F25.0 Schizoaffective disorder, bipolar type (principal); G47.33 Obstructive sleep apnea (adult) (pediatric); R45.851 Suicidal ideations; Z68.44 Body mass index [BMI] 60.0-69.9, adult; E66.01 Morbid (severe) obesity due to excess calories; E03.9 Hypothyroidism, unspecified; I10 Essential (primary) hypertension; F41.9 Anxiety disorder, unspecified; G47.00 Insomnia, unspecified; K59.00 Constipation, unspecified; F19.10 Other psychoactive substance abuse, uncomplicated; Z79.899 Other long term (current) drug therapy; Z72.0 Tobacco use
CPT/HCPCS: 71046; 80048; 80053; 80061; 80156; 81003; 82550; 82962; 83036; 83735; 83880; 84100; 84443; 84484; 85025; 93005; 94660; Q0162; 36415-L1; 36415-TC